=== PATIENT | female | born 1965 | race Caucasian/White ===

== ENCOUNTER → 2017-10-17 11:22 | Outpatient (CLI) | payer OTHER, SELFPAY ==
[2017-10-17 16:58] LABS: HIV - WCH Non-Reactive (Nonreactive)
[2017-10-19 01:05] LABS: Rapid Plasmin Reagin (RPR) NONREACTIVE (NONREACTIVE)
[2017-10-19 16:10] LABS: HEPATITIS B SURFACE AG Negative (Negative); Hepatitis B Core AB IgM Negative (Negative); Hepatitis B Core Ab Total Negative (Negative); Hepatitis Be Ab Negative (Negative); Hepatitis Be Ag Negative (Negative); Hepatitis C Ab <0.1 s/co ratio (0.0-0.9)
[2017-10-19 20:07] LABS: Chlamydia By Nucleic Acid AMP Negative (Negative); HSV 1 By PCR Negative (Negative)
[2017-10-20 10:50] LABS: HSV 1 IgG < 0.91 index (0.00-0.90); HSV 2 IgG < 0.91 index (0.00-0.90); Hep B Surface Antibodies Reactive (.)
[2017-10-20 11:08] LABS: Gonococcus By Nucleic Acid AMP Negative (Negative); HSV 2 By PCR Negative (Negative)
== END ==
PROVIDERS: Visit Provider Obstetrics & Gynecology
DX: Z11.3 Encounter for screening for infections with a predominantly sexual mode of transmission (principal)
CPT/HCPCS: 36415; 86592; 86695; 86696; 86703; 86704; 86705; 86706; 86707; 86803; 87086; 87340; 87350; 87491; 87529; 87591

== ENCOUNTER 2018-01-14 17:00 | Outpatient (RCR) | payer OTHER, SELFPAY ==
--- NOTE | 2017-12-06 18:21 | HP.OTEVAL ---
Patient's Visit Information KEMI SHAW is a 52 year old F, referred to Occupational Therapy by LINO CRUZ, with a diagnosis of R lateral epicondylitis and R cubital tunnel syndrome. Date of Evaluation: 12/06/17 Occupational Therapist: Kayla Key - Subjective Subjective: Noted started playing tennis a few months ago and started to get R elbow pain. She noted that stopped playing tennis about 5 weeks ago. She notes she has been taking aleve over the counter pain relief but still is having increased pain. Will be going on vacation and noted will have to schedule appointment around vacation. Explained further she had purchased an elbow strap to use when playing tennis. Notes wearing only with tennis, doctor provided wrist cock up brace at appointment. - Pain Right Elbow 1 Pain Intensity Range: 1, 6, 7 - Objective Concerns: Please send order for iontophoresis. OT will fax form to Dr. Cruz office for completion. Thanks! There may be potential need for script for cubital tunnel splint to go through insurance if elbow bands and wrist cock up do no relieve symptoms. 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 Pain 4/10 in R elbow during task. - Sensation Thumb: R 2.83, L 2.83 Index: R 2.83, L 2.83 Middle: R 2.83, L 2.83 Ring: R 2.83, L 3.22 Little: R 2.83, L 3.22 Sensation Comments: slight touch sensation deficit with use of monofilament. WFL and not of great concern yet. - DASH-Disabilities of Arm, Shoulder& Hand DASH Sum: 70 - Goals Goal:: Pt. 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 Goal:: Kemi to have no more than 0-1/10 pain during ADL/IALDs 4/5 trials 80% of the time by d/c. Goal:: Pt. to be mod I to complete joint protection stategies 4/5 trials 80% of the time to help decrease pain and promote increased participation in ADL/IADLs by time of d/c. Goal:: Kemi to be (I) to return to all ADL/IALD sincluding tennis with no need for bracing 4/5 trials 80% of the time to promtoe increased ability to complete tasks by d/c. - Rehabilitation General Assessment: Kemi arrived to OT evaluation on this date. She presents with symptoms that started about 5 weeks ago due to R lateral epicondylitis as well as cubital tunnel. No nerve conduction study at this time. Pain is limiting and causing sleep disturbances. 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 Due to acuteness of pain OT to trial modalities of US and superficial heating and cooling agents first. Explained to Pt. that if no pain relief perceived within first couple sessions then will use a combination between US and iontophoresis. Doctor will need to send script for iontophoresis. Wrist cock up brace provided by doctor and she is to wear at all times per doctor orders. OT advised to also wear elbow aircast band injunction to help decrease stain over ECRB. If that does not provide relief within 2 weeks OT will be trialing a cubital tunnel type of brace placing elbow at 60 degrees at all time to help decrease pain. Pain does not seem to be serve enough to start with this method and will trial less restricting methods first and foremost. At this time pain is limiting but not consistently nerve related pain as per Pt. report. Per pt. report, shooting pain not consistent but achiness is constant. OT to work on progressive strength, ROM, and pain control methods to promote returning to all ADL/IADls including tennis at [facility]. - Anticipated Interventions Anticipated Interventions: A/AAROM/PROM, Strengthening, Modalities, Joint Protection/Energy Conservation, Ergonomic Education, Dynamic Sitting Balance, Fine Motor Coord/Jeison, ADL Training, Caregiver Training, Home Program - Visit Plan Frequency: 2x /Week Duration: 6 Weeks General Plan: OT to address strength, ROM, and pain management with use of modalities, splinting, and pain management techiques of HEP to help decrease pain and promote increased ability to return to ADl/IADls including leisure interests. TEXT: Thank you for the opportunity to evaluate your patient. For Medicare and Medicare HMO plans, please review the plan of care and approve it. It will need to be FAXED BACK to us at [phone] for Medicare purposes. Please let me know if there are questions or concerns regarding this plan of care. Physician Signature: Date:
--- NOTE | 2018-01-14 18:15 | HP.OTREVAL ---
LINO SALEEM, It has been my pleasure to treat KEMI SHAW over the last 10 visits for R lateral epicondylitis and R cubital tunnel syndrome. Please see the progress note below for an update on the occupational therapy plan of care! Subjective: Pt. arrived and today is last scheduled appointment prior to returning to doctor tomorrow. Feels about 50% better. No brace on. No brace at work today. Wears brace at work with a lot of typing. Objective/Function: Measurements taken on this date. 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 L 94; extensionR 74 (pain at 5/10), L 96; lateral pinch R 18, L 18; tripod R 20, L 19; tip pinch R 19, L 14 lbs. Completed monofilament test: R hand: thumb: 2.83. 2nd: 2.83. 3rd: 2.83. 4th: 2.83. 5th: 2.83. L hand: thumb: 2.83. 2nd: 2.83. 3rd: 2.83. 4th: 2.83. 5th: 2.83. She has progressed with all measurements. Plan Frequency: 2x /Week Duration: 2-3 Plan: She has completed 10 visits. Last ionto tx completed today totaling 6 tx. Noted most relief after first ionto tx. She is returning to doctor tomorrow. She has progressed but discomfort still present when elbow extended. Compliance we suggestions and braces variable due to increased discomfort with air cast over elbow and wrist cock up splint. She has progressed in all measurements. She is no longer numb and tingling consistently over the area ulnar nerve innervation just variably t/o day. She would benefit from potentially more testing to determine degree of compression of nerve or cortisone shot due to perception of no real changes with ionto at this time. She would benefit from 2-3x more weeks of therapy and potentially 4-6x more tx of ionto if doctor does not feel cortisone would benefit. 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 Goal:: Kemi to have no more than 0-1/10 pain during ADL/IALDs 4/5 trials 80% of the time by d/c. Goal:: Pt. to be mod I to complete joint protection stategies 4/5 trials 80% of the time to help decrease pain and promote increased participation in ADL/IADLs by time of d/c. Goal:: Kemi to be (I) to return to all ADL/IALD sincluding tennis with no need for bracing 4/5 trials 80% of the time to promtoe increased ability to complete tasks by d/c. Anticipated Interventions Anticipated Interventions: A/AAROM/PROM, Strengthening, Modalities, Joint Protection/Energy Conservation, Ergonomic Education, Dynamic Sitting Balance, Fine Motor Coord/Jeison, ADL Training, Caregiver Training, Home Program Please do not hesitate to contact me at [phone] by phone or if you have questions or concerns regarding this new plan of care! Sincerely, Kayla Key
--- NOTE | 2018-03-07 14:18 | HP.OTDCNRP_ITS ---
HP - Discharge Summary - Patient Information BAIRON SHAW was seen in my office for initial evaluation on 12/06/17. The following Plan of Care was established for this patient: Initial Frequency: 2x /Week Initial Duration: 2-3 Plan: She has completed 10 visits. Last ionto tx completed today totaling 6 tx. Noted most relief after first ionto tx. She is returning to doctor tomorrow. She has progressed but discomfort still present when elbow extended. Compliance we suggestions and braces variable due to increased discomfort with air cast over elbow and wrist cock up splint. She has progressed in all measurements. She is no longer numb and tingling consistently over the area ulnar nerve innervation just variably t/o day. She would benefit from potentially more testing to determine degree of compression of nerve or cortisone shot due to perception of ?no real changes with ionto? at this time. She would benefit from 2-3x more weeks of therapy and potentially 4-6x more tx of ionto if doctor does not feel cortisone would benefit. - Anticipated Interventions Anticipated Interventions: A/AAROM/PROM, Strengthening, Modalities, Joint Protection/Energy Conservation, Ergonomic Education, Dynamic Sitting Balance, Fine Motor Coord/Jeison, ADL Training, Caregiver Training, Home Program This patient was last seen in our office 01/15/18. Pertinent comments regarding their Occupational therapy will appear below: Last time seen completed reassessment on 01/15/18. She was to return for further iontophoresis treatment if opted out of cortisone injection. She has not scheduled further treatment and will be d'c'd at this time. At this point I will be discontinuing this patient from occupational therapy. I would be happy to see this patient again in the future if found appropriate by the physician. Thank you! Kayla Key
== END 2018-01-14 19:00 | disposition home or self-care (01) ==
LOC: OT 17:00
PROVIDERS: Family Provider Internal Medicine; PCP Internal Medicine
DX: M77.11 Lateral epicondylitis, right elbow (principal); G56.21 Lesion of ulnar nerve, right upper limb
CPT/HCPCS: 97035; 97110; 97140; 97166; 97530

== ENCOUNTER → 2018-02-19 07:08 | Outpatient (CLI) | payer OTHER, SELFPAY | PROVIDERS: Family Provider Internal Medicine; PCP Internal Medicine; Visit Provider Obstetrics & Gynecology | DX: Z12.31 Encounter for screening mammogram for malignant neoplasm of breast (principal) | CPT/HCPCS: 77063; 77067 ==

== ENCOUNTER → 2018-05-29 17:34 | Outpatient (CLI) | payer OTHER, SELFPAY ==
[2017-02-08 11:35] VITALS: BMI 24.0
[2018-06-04 10:27] LABS: HPV Reflexed? NOT INDICATED
--- OUTSIDE RECORDS SUMMARY | 2018-07-15 22:28 | XMS RPT_ITS ---
:1965 Author Organization [employer] Address [address] [place] [address] Phone Care Team Providers Name Role Phone Quintin Cruz MD Unavailable Reason for Visit Reason For Visit Description Start Date Follow-up by complaint Preliminary reason for visit data, not yet signed by the author as of right elbow Preliminary reason for visit data, not yet signed by the author as of Chief Complaint Chief Complaint Description Start Date right elbow Preliminary chief complaint data, not yet signed by the author as of Instructions Instruction Description Start Date Completed Plan of Care Type Date Detail Appointment 10:15 AM Quintin Cruz MD, [address], [address], [place], [address], Medications Medication Instructions Start Stop Generic Name NDC Provider Date Date WOMENS 1 tablet once a MULTIPLE [id number] Quintin Quinteros MULTIVITAMIN day 3 VITAMINS-MIN Anthony CHEN TABRob ERALS CO Q 10 10 MG 1 tablet daily COENZYME Q10 [id number] Quintin Quinteros CAPS 9 Anthony CHEN MAGNESIUM 500 MG 1 tablet daily MAGNESIUM [id number] Quintin Quinteros TABS 9 Anthony CHEN Conditions or Problems Problem Problem Code Onset Status Entry Provider Comment Standard Annotate Name Date Date Description Carpal G56.01 Active Quintin Quinteros Carpal tunnel tunnel (ICD-10-CM) 07/07 07/07 Anthony CHEN syndrome, syndrome right upper right limb upper limb Cubital 70073310 (SNOMED Active Quintin Quinteros Cubital tunnel tunnel CT) 12/04 12/04 Anthony CHEN syndrome syndrome on right Lateral [id number] Active Quintin A Lateral epicondyli (SNOMED CT) 12/04 12/04 Anthony CHEN epicondylitis tis, right of right elbow humerus Allergies, Adverse Reactions, Alerts Allergy Name Reaction Start Date Severity Status Provider Description PLANT POLLENS coughing spells Critical Active Quintin A (HAY FEVER) Anthony CHEN MOLD coughing spells Critical Active Quintin A Anthony CHEN ZITHROMAX severe allergic Critical Active Quintin A (AZITHROMYCIN) response- Anthony CHEN anaphylactic PENICILLIN severe allergic Critical Active Quintin A response- Anthony CHEN anaphylactic LEVAQUIN severe allergic Critical Active Quintin A (LEVOFLOXACIN) response- Anthony CHEN anaphylactic CIPRO severe allergic Critical Active Quintin A (CIPROFLOXACIN response- Anthony CHEN HCL) anaphylactic Social History Concept Description Observation Name Observation Value Units Start Date Employment 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 Preliminary social history data, not yet signed by the author as of Vital Signs Date Name Value Unit Description BMI (Body Mass 24.01 kg/m2 Body Mass Index Index) [Ratio] Preliminary vital sign data, not yet signed by the author as of BP Diastolic 83 mm[Hg] blood pressure, diastolic Preliminary vital sign data, not yet signed by the author as of BP Systolic 131 mm[Hg] blood pressure, systolic Preliminary vital sign data, not yet signed by the author as of Heart Rate 48 /min pulse rate E&M Preliminary vital sign data, not yet signed by the author as of Height 65.799168 [in_us] height E&M Preliminary vital sign data, not yet signed by the author as of Height 166 cm height in centimeters E&M Preliminary vital sign data, not yet signed by the author as of Weight Measured 146 [lb_av] weight E&M Preliminary vital sign data, not yet signed by the author as of Weight Measured 66 kg weight in kilograms E&M Preliminary vital sign data, not yet signed by the author as of Results Date Name Value Unit Range Flag Description Office Visit: Follow-up by complaint, Rm: 3 MEDS REVIEW Done Documentation of current medications (procedure) Preliminary observation data, not yet signed by the author as of Preliminary observation data, not yet signed by the author as of Clinical Summary: HMSPatientID SOP account number Procedures Code Procedure Name Date Entry Date G8731 Pain assessment documented as negative - follow-up not required G8427 Current medications documented 1036F Tobacco screening was negative - non user G8420 BMI documented within normal parameters - no follow-up plan is required G8783 Blood pressure within normal parameters - no follow-up required [id number] Patient Encounter Medications Administered No information available. Immunizations No information available. Advance Directives There may be information available, but it has not been provided by the sender. Assessments There may be information available, but it has not been provided by the sender. Review of Systems There may be information available, but it has not been provided by the sender. Family History There may be information available, but it has not been provided by the sender. History of Past Illness There may be information available, but it has not been provided by the sender. History of Present Illness There may be information available, but it has not been provided by the sender.
--- OUTSIDE RECORDS SUMMARY | 2018-07-15 22:29 | XMS RPT_ITS ---
:1965 Author Organization OHIP Care Team Providers Name Role Phone Tiffany Franks Attending Unavailable Tiffany Franks Attending Unavailable DOCTOR, OUT OF TOWN Attending Unavailable Camilo, Karla Primary Care Unavailable Tiffany Franks Attending Unavailable LLUVIA RAMOS Attending Unavailable LLUVIA RAMOS Referring Unavailable Camilo, Karla Primary Care Unavailable Tiffany Franks Attending Unavailable Camilo, Karla Primary Care Unavailable Tiffany Franks Referring Unavailable Camilo DO, Karla Attending Unavailable Camilo DO, Karla Referring Unavailable Camilo DO, Karla Consulting Unavailable Purpose Purpose PROBLEMS PROBLEMS DATE TYPE CONDITION / CODE ATTENDING STATUS SOURCE 05/29/2018 Unknown Z12.4 - Encounter Tiffany Franks Active Prem for screening for Community malignant neoplasm [facility] / Repository Z12.4(ICD-10) 03/08/2018 Unknown M77.11 - Lateral LLUVIA RAMOS Active Prem epicondylitis, Community right elbow / Hospital M77.11(ICD-10) Repository 11/01/2017 Unknown Z11.3 - Encounter Tiffany Franks for screening for Community infections with a Hospital [facility] Repository sexual mode of transmission / Z11.3(ICD-10) PROCEDURES PROCEDURES No Procedure Records FoundVITAL SIGNS VITAL SIGNS No Vital Signs Records FoundRESULTS RESULTS HEMOGLOBIN A1C Collected: 05/30/2018 Status: F Source: PREM 8:51 AM [facility] REPOSITORY TYPE CODE TESTS RESULT OUT OF RANGE REFERENCE UNITS LAB L501.9985 4.2-6.3 % Normal HGB A1C 4.9 Performed By: #### L501.9985 #### [facility] [address] [place], [address] FREE T3 Collected: 05/30/2018 Status: F Source: BLAINE 8:51 AM [facility] REPOSITORY TYPE CODE TESTS RESULT OUT OF RANGE REFERENCE UNITS LAB L501.36927 2.18-3.98 pg/mL Normal FREE T3 2.8 Performed By: #### L501.62404, L501.9520, L506.0400, L3100.5125, L3300.1750 #### [facility] [address] [place], [address] THYROID STIM HORMONE Collected: 05/30/2018 Status: F Source: PREM (TSH) 8:51 AM [facility] REPOSITORY TYPE CODE TESTS RESULT OUT OF RANGE REFERENCE UNITS LAB L501.9520 0.358-3.74 uIU/mL Normal TSH 1.28 Performed By: #### L501.34708, L501.9520, L506.0400, L3100.5125, L3300.1750 #### [facility] [address] [place], [address] T4 FREE DIRECT Collected: 05/30/2018 Status: F Source: BLAINE 8:51 AM [facility] REPOSITORY TYPE CODE TESTS RESULT OUT OF RANGE REFERENCE UNITS LAB L506.0400 0.76-1.46 ng/dL Normal T4 FREE 0.89 DIRECT Performed By: #### L501.12693, L501.9520, L506.0400, L3100.5125, L3300.1750 #### [facility] [address] [place], [address] FOLLICLE STIMULATING Collected: 05/30/2018 Status: F Source: PREM HORMONE 8:51 AM [facility] REPOSITORY TYPE CODE TESTS RESULT OUT OF RANGE REFERENCE UNITS LAB L3100.5125 mIU/mL Normal FSH 3.9 Result Comment: NORMAL REFERENCE RANGES FEMALE FOLLICULAR 2.3 - 12.6 mIU/mL MID-CYCLE PEAK 5.2 - 17.5 mIU/mL LUTEAL 1.7 - 12.9 mIU/mL POST-MENOPAUSAL ON MHT 5.9 - 72.8 mIU/mL NOT ON MHT 12.7 - 132.2 mlU/mL MALE 0.7 - 10.8 mIU/mL NEW TEST METHOD AND REFERENCE RANGES NOVEMBER 06, 2011 Performed By: #### L501.04824, L501.9520, L506.0400, L3100.5125, L3300.1750 #### [facility] [address] [place], [address] ESTRADIOL Collected: 05/30/2018 Status: F Source: PREM 8:51 AM [facility] REPOSITORY TYPE CODE TESTS RESULT OUT OF RANGE REFERENCE UNITS LAB L3300.1750 pg/mL Normal ESTRADIOL 97.8 Result Comment: NORMAL REFERENCE RANGES FEMALE FOLLICULAR 21.4 - 164.8 pg/mL MID-CYCLE PEAK 49.9 - 367.2 pg/mL LUTEAL 40.2 - 259.0 pg/mL POST-MENOPAUSAL ON MHT <11.0 - 462.1 pg/mL NOT ON MHT <11.0 - 58.3 pg/mL MALE <11.0 - 52.5 pg/mL NOTE: [facility] HAS CONFIRMED THE DRUG FULVETRANT (FASLODEX) MAY CAUSE FALSELY ELEVATED ESTRADIOL RESULTS WHEN USING THIS TEST METHOD. IF PATIENT IS TAKING FULVESTRANT AN ALTERNATIVE METHOD SHOULD BE USED TO DETERMINE ESTRADIOL CONCENTRATION. Performed By: #### L501.41298, L501.9520, L506.0400, L3100.5125, L3300.1750 #### [facility] [address] [place], [address] TESTOSTERONE, SERUM TOTAL Collected: 05/30/2018 Status: F Source: PREM 8:51 AM [facility] REPOSITORY TYPE CODE TESTS RESULT OUT OF REFERENCE UNITS RANGE LAB L509.3000 ng/dL Testosterone Normal 17.33 Result Comment: NORMAL REFERENCE RANGES MALE AGE <50 123.06 - 813.86 ng/dL MALE AGE >50 89.98 - 780.10 ng/dL FEMALE PREMENOPAUSE AGE 21 - 60 9.01 - 47.94 ng/dL FEMALE POSTMENOPAUSE AGE 45 - 89 <7.00 - 45.62 ng/dL REFERENCE RANGE AND METHODOLOGY CHANGED 06/06/2017 Performed By: #### L509.3000, L509.4001 #### [facility] [address] [place], [address] PROGESTERONE LEVEL Collected: 05/30/2018 Status: F Source: PREM 8:51 AM [facility] REPOSITORY TYPE CODE TESTS RESULT OUT OF REFERENCE UNITS RANGE LAB L509.4001 See Comment ng/mL Progesterone Normal 0.17 Result Comment: Progesterone Reference Table: UNITS Female: Follicular 0.15 - 1.40 ng/mL Luteal 3.34 - 25.56 ng/mL Mid-luteal 4.44 - 28.03 ng/mL Postmenopausal 0.0 - 0.73 ng/mL : 1st Trimester 11.22 - 90.00 ng/mL 2nd Trimester 25.55 - 89.40 ng/mL 3rd Trimester 48.40 -422.50 ng/mL Performed By: #### L509.3000, L509.4001 #### [facility] [address] [place], [address] PAP I-G W/RFX HRHPV Collected: 05/29/2018 Status: F Source: PREM 1:45 PM [facility] REPOSITORY Order Comment: CYTOLOGY INFORMATION: - CLINICAL INFORMATION: HYSTERECTOMY - DATE LMP/MENOPAUSE: - COLLECTION VIAL: Thin Prep Vial - POLISH MAKER SOURCE: VAGINAL - COLLECTION TECHNIQUE: BRUSH/SPATULA Specimen Comment: [id number] Specimen Comment: Source.............Vagina Specimen Comment: LMP / Prev Treat...Hyst Specimen Comment: No. of containers..01 ThinPrep Vial TYPE CODE TESTS RESULT OUT OF RANGE REFERENCE UNITS LAB L7400.0800 . Normal DIAGN Comment Result Comment: NEGATIVE FOR INTRAEPITHELIAL LESION AND MALIGNANCY. LAB L7400.0900 . Normal ADEQ Comment Result Comment: Satisfactory for evaluation. No endocervical cells are present. This is consistent with a history of hysterectomy. LAB L7400.1400 . Normal PERFORM Comment Result Comment: Janet Meehan, [employer] (ASCP) LAB L7400.2575 . Normal TEST METHOD Comment Result Comment: This liquid based ThinPrep(R) pap test was screened with the use of an image guided system. LAB L7400.2600 . Normal . COMM LAB L7400.2700 . Normal PAPSMR Comment Result Comment: The Pap smear is a screening test designed to aid in the detection of premalignant and malignant conditions of the uterine cervix. It is not a diagnostic procedure and should not be used as the sole means of detecting cervical cancer. Both false-positive and false-negative reports do occur. LAB L7400.2800 . Normal HPV RFLX Comment Result Comment: The HPV DNA reflex criteria were not met with this specimen result therefore, no HPV testing was performed. Performed at: [facility] [id number] [employer] Sorter [employer] Cutter: Elisa Warren MD, Phone: [phone] Performed By: #### L7400.0350 #### [facility] (refer to report for specific site) refer to report for address and phone number OT D/C OF NON Observed: 03/07/2018 Status: F Source: [facility] PT 4:56 PM [facility] REPOSITORY [facility] [place] [address] Fax REHABILITATION SERVICES DISCHARGE SUMMARY MR#: [id number] Acct: [id number] Name: KEMI SHAW Rep #: [id number] : 1965 52 From: Kayla Key Referring : Status: REG RCR Eval Date: Discharge Date: HP - Discharge Summary - Patient Information KEMI SHAW was seen in my office for initial evaluation on 12/06/17. The following Plan of Care was established for this patient: Initial Frequency: 2x /Week Initial Duration: 2-3 Plan: She has completed 10 visits. Last ionto tx completed today totaling 6 tx. Noted most relief after first ionto tx. She is returning to doctor tomorrow. She has progressed but discomfort still present when elbow extended. Compliance we suggestions and braces variable due to increased discomfort with air cast over elbow and wrist cock up splint. She has progressed in all measurements. She is no longer numb and tingling consistently over the area ulnar nerve innervation just variably t/o day. She would benefit from potentially more testing to determine degree of compression of nerve or cortisone shot due to perception of no real changes with ionto at this time. She would benefit from 2-3x more weeks of therapy and potentially 4-6x more tx of ionto if doctor does not feel cortisone would benefit. - Anticipated Interventions Anticipated Interventions: A/AAROM/PROM, Strengthening, Modalities, Joint Protection/Energy Conservation, Ergonomic Education, Dynamic Sitting Balance, Fine Motor Coord/Jeison, ADL Training, Caregiver Training, Home Program This patient was last seen in our office 01/15/18. Pertinent comments regarding their Occupational therapy will appear below: Last time seen completed reassessment on 01/15/18. She was to return for further iontophoresis treatment if opted out of cortisone injection. She has not scheduled further treatment and will be d'c'd at this time. At this point I will be discontinuing this patient from occupational therapy. I would be happy to see this patient again in the future if found appropriate by the physician. Thank you! Kayla Key <Electronically signed by Kayla Key > 03/07/18 1656 CC: Karla Page DO; OUT OF TOWN DOCTOR K[facility] Signed SCREENING MAMM (CAD), Observed: 02/19/2018 Status: F Source: PREM BILAT 7:11 AM [facility] REPOSITORY [facility] [address] [place] [address] SCREENING MAMM (CAD), BILAT MR#: [id number] Acct: [id number] Name: KEMI SHAW Rep #: [id number] : 1965 F 52 From: Troy Menjivar MD PCP: Karla Page DO Status: REG CLI Study: SCREENING MAMM (CAD), BILAT Date of Exam: 02/19/18 Exam# [id number] Ordering Dr: Tiffany Franks MD MAMMOGRAPHY - BILATERAL SCREENING REASON FOR EXAM: Female, 52 years old. Routine annual screening examination. PERTINENT HISTORY: Non-contributory. TECHNIQUE: Digital bilateral breast maximilian (3D mammographic acquisition) in the CC and MLO projections. 2-D mediolateral oblique (MLO) and craniocaudad (CC) views of both breasts were obtained. CAD: Full Field Digital Mammography with Computer Added Detection was performed. COMPARISON: Comparison is made with prior study dated September 06, 2016 and April 12, 2015. FINDINGS: Breast Composition: The breasts are heterogeneously dense, which may obscure small masses. There are no dominant masses or suspicious calcifications. No other significant abnormalities are identified. There has been no significant change since the prior study. BI/SCREENING MAMM (CAD), BILAT IMPRESSION: Stable bilateral screening mammogram. Yearly follow-up mammogram recommended. (A) ASSESSMENT CATEGORY: BIRADS Category 1: Negative. A letter regarding these results will be sent to the patient by the facility within 30 days. Approximately 10% of breast cancers are not detected by mammography. A normal mammogram should not delay biopsy of a clinically suspicious abnormality. [id number] Electronically Signed: Troy Menjivar MD at 9:01 EDT Tel [phone], Service support , CC: Tiffany Franks MD; Karla Page DO Night Shift Supervisor: Signed RE-EVALUTION OT Observed: 01/14/2018 Status: F Source: BLAINE 6:26 PM [facility] REPOSITORY [facility] [place] [address] Fax REEVALUATION / MEDICARE RECERTIFICATION OCCUPATIONAL THERAPY MR#: [id number] Acct: [id number] Name: KEMI SHAW Rep #: [id number] : 1965 52 From: Kayla Key Referring : Status: REG RCR Insurance: [facility] Date: SELF PAY INSURANCE LINO CRUZ, It has been my pleasure to treat KEMI SHAW over the last 10 visits for R lateral epicondylitis and R cubital tunnel syndrome. Please see the progress note below for an update on the occupational therapy plan of care! Subjective: Pt. arrived and today is last scheduled appointment prior to returning to doctor tomorrow. Feels about 50% better. No brace on. No brace at work today. Wears brace at work with a lot of typing. Objective/Function: Measurements taken on this date. Measurements are as follows: ROM elbow flexion R 3-134; strength supervisor gear repair flexion R 79. L 94; extensionR 74 (pain at 5/10), L 96; lateral pinch R 18, L 18; tripod R 20, L 19; tip pinch R 19, L 14 lbs. Completed monofilament test: R hand: thumb: 2.83. 2nd: 2.83. 3rd: 2.83. 4th: 2.83. 5th: 2.83. L hand: thumb: 2.83. 2nd: 2.83. 3rd: 2.83. 4th: 2.83. 5th: 2.83. She has progressed with all measurements. Plan Frequency: 2x /Week Duration: 2-3 Plan: She has completed 10 visits. Last ionto tx completed today totaling 6 tx. Noted most relief after first ionto tx. She is returning to doctor tomorrow. She has progressed but discomfort still present when elbow extended. Compliance we suggestions and braces variable due to increased discomfort with air cast over elbow and wrist cock up splint. She has progressed in all measurements. She is no longer numb and tingling consistently over the area ulnar nerve innervation just variably t/o day. She would benefit from potentially more testing to determine degree of compression of nerve or cortisone shot due to perception of no real changes with ionto at this time. She would benefit from 2-3x more weeks of therapy and potentially 4-6x more tx of ionto if doctor does not feel cortisone would benefit. Goals - Goals Goal:: Pt. to increased r supervisor gear repair in flexed and extended position by 20-30 lbs to promote increased strength and manipulation of R UE in pain-free range 4/5 trials 805 of the time to return to PLOF and leisure pursiuts by d/c. Goal:: Kemi to have no more than 0-1/10 pain during ADL/IALDs 4/5 trials 80% of the time by d/c. Goal:: Pt. to be mod I to complete joint protection stategies 4/5 trials 80% of the time to help decrease pain and promote increased participation in ADL/IADLs by time of d/c. Goal:: Kemi to be (I) to return to all ADL/IALD sincluding tennis with no need for bracing 4/5 trials 80% of the time to promtoe increased ability to complete tasks by d/c. Anticipated Interventions Anticipated Interventions: A/AAROM/PROM, Strengthening, Modalities, Joint Protection/Energy Conservation, Ergonomic Education, Dynamic Sitting Balance, Fine Motor Coord/Jeison, ADL Training, Caregiver Training, Home Program Please do not hesitate to contact me at [phone] by phone or if you have questions or concerns regarding this new plan of care! Sincerely, Kayla Key <Electronically signed by Kayla Key > 01/14/18 1826 CC: Karla Page DO; OUT OF TOWN DOCTOR GEMA Signed For Medicare only, by signing this I certify the plan of care. Physicians Signature Date OT GENERAL EVALUATION Observed: 12/07/2017 Status: F Source: PREM 7:36 AM [facility] REPOSITORY [facility] [place] [address] Fax REHABILITATION SERVICES INITIAL EVALUATION MR#: [id number] Acct: [id number] Name: KEMI SHAW Rep #: [id number] : 1965 52 From: Kayla Key Referring DrDenis: Status: REG [facility] Insurance: [facility] Date: SELF PAY INSURANCE Patient's Visit Information KEMI SHAW is a 52 year old F, referred to Occupational Therapy by LINO CRUZ, with a diagnosis of R lateral epicondylitis and R cubital tunnel syndrome. Date of Evaluation: 12/06/17 Occupational Therapist: Kayla Key - Subjective Subjective: Noted started playing tennis a few months ago and started to get R elbow pain. She noted that stopped playing tennis about 5 weeks ago. She notes she has been taking aleve over the counter pain relief but still is having increased pain. Will be going on vacation and noted will have to schedule appointment around vacation. Explained further she had purchased an elbow strap to use when playing tennis. Notes wearing only with tennis, doctor provided wrist cock up brace at appointment. - Pain Right Elbow 1 Pain Intensity Range: 1, 6, 7 - Objective Concerns: Please send order for iontophoresis. OT will fax form to Dr. Cruz office for completion. Thanks! There may be potential need for script for cubital tunnel splint to go through insurance if elbow bands and wrist cock up do no relieve symptoms. - ROM Elbow: flexion R 10-135, L WNL Forearm: WFL Wrist: WFL CMC: WFL - Strength Hemodialysis Patient Care Specialist: flexed R 67, L 82; extended R 64 (pain), L 86 Lateral Pinch: R 18, L 18 Tripod Pinch: R 20, L 21 Tip-to-Tip Pinch: R 18, L 18 Strength Comments: increased pain while completeing supervisor gear repair in ext. Pain 4/10 in R elbow during task. - Sensation Thumb: R 2.83, L 2.83 Index: R 2.83, L 2.83 Middle: R 2.83, L 2.83 Ring: R 2.83, L 3.22 Little: R 2.83, L 3.22 Sensation Comments: slight touch sensation deficit with use of monofilament. WFL and not of great concern yet. - DASH-Disabilities of Arm, Shoulder AND Hand DASH Sum: 70 - Goals Goal:: Pt. to increased r supervisor gear repair in flexed and extended position by 20-30 lbs to promote increased strength and manipulation of R UE in pain-free range 4/5 trials 805 of the time to return to PLFO and leisure purssiuts by d/c. Goal:: Kemi to have no more than 0-1/10 pain during ADL/IALDs 4/5 trials 80% of the time by d/c. Goal:: Pt. to be mod I to complete joint protection stategies 4/5 trials 80% of the time to help decrease pain and promote increased participation in ADL/IADLs by time of d/c. Goal:: Kemi to be (I) to return to all ADL/IALD sincluding tennis with no need for bracing 4/5 trials 80% of the time to promtoe increased ability to complete tasks by d/c. - Rehabilitation General Assessment: Kemi arrived to OT evaluation on this date. She presents with symptoms that started about 5 weeks ago due to R lateral epicondylitis as well as cubital tunnel. No nerve conduction study at this time. Pain is limiting and causing sleep disturbances. She is R hand dominant and shows decreased strength and ROM of R supervisor gear repair as well as increased pain in R elbow with all gripping tasks. Due to acuteness of pain OT to trial modalities of US and superficial heating and cooling agents first. Explained to Pt. that if no pain relief perceived within first couple sessions then will use a combination between US and iontophoresis. Doctor will need to send script for iontophoresis. Wrist cock up brace provided by doctor and she is to wear at all times per doctor orders. OT advised to also wear elbow aircast band injunction to help decrease stain over ECRB. If that does not provide relief within 2 weeks OT will be trialing a cubital tunnel type of brace placing elbow at 60 degrees at all time to help decrease pain. Pain does not seem to be serve enough to start with this method and will trial less restricting methods first and foremost. At this time pain is limiting but not consistently nerve related pain as per Pt. report. Per pt. report, shooting pain not consistent but achiness is constant. OT to work on progressive strength, ROM, and pain control methods to promote returning to all ADL/IADls including tennis at [facility]. - Anticipated Interventions Anticipated Interventions: A/AAROM/PROM, Strengthening, Modalities, Joint Protection/Energy Conservation, Ergonomic Education, Dynamic Sitting Balance, Fine Motor Coord/Jeison, ADL Training, Caregiver Training, Home Program - Visit Plan Frequency: 2x /Week Duration: 6 Weeks General Plan: OT to address strength, ROM, and pain management with use of modalities, splinting, and pain management techiques of HEP to help decrease pain and promote increased ability to return to ADl/IADls including leisure interests. TEXT: Thank you for the opportunity to evaluate your patient. For Medicare and Medicare HMO plans, please review the plan of care and approve it. It will need to be FAXED BACK to us at [phone] for Medicare purposes. Please let me know if there are questions or concerns regarding this plan of care. Physician Signature: Date: <Electronically signed by Kayla Key > 12/07/17 0736 CC: Karla Page DO; OUT OF TOWN DOCTOR GEMA Signed For Medicare only, by signing this I certify the plan of care. Physicians Signature Date HIV - [facility] Collected: 10/17/2017 Status: F Source: PREM 11:27 AM [facility] REPOSITORY TYPE CODE TESTS RESULT OUT OF RANGE REFERENCE UNITS LAB L3890.6005 Nonreactive Normal HIV - [facility] Non-Reactive Performed By: #### L3890.6005 #### [facility] [address], [address] RAPID PLASMIN REAGIN Collected: 10/17/2017 Status: F Source: PREM (RPR) 11:27 AM [facility] REPOSITORY TYPE CODE TESTS RESULT OUT OF REFERENCE UNITS RANGE LAB L700.5000 NONREACTIVE NONREACTIVE Normal RPR Performed By: #### L700.5000 #### [facility] [address] [place], [address] HEPATITIS B/C PROFILE Collected: 10/17/2017 Status: F Source: [facility] 11:27 AM [facility] REPOSITORY TYPE CODE TESTS RESULT OUT OF RANGE REFERENCE UNITS LAB L3100.0400 Negative Normal HB Negative SURF AG LAB L3100.0420 Negative Normal HEP Negative Be AG 6619 LAB L3100.0440 Negative Normal HB Negative CORE [id number] LAB L3100.0460 Negative Normal HEP B Negative CORE,TOT LAB L3100.0480 Negative Normal HEP Negative Be Ab 6635 LAB L3100.0528 . Normal Hep B Reactive Pipe AB Result Comment: Non Reactive: Inconsistent with immunity, less than 10 mIU/mL Reactive: Consistent with immunity, greater than 9.9 mIU/mL LAB L3100.0750 0.0-0.9 s/co ratio Normal HCV Ab <0.1 LAB L3100.0765 . Normal COMMENT Comment Result Comment: Non reactive HCV antibody screen is consistent with no HCV infection, unless recent infection is suspected or other evidence exists to indicate HCV infection. Performed By: #### L3000.0800, L3400.1610 #### [facility] (refer to report for specific site) refer to report for address and phone number HSV 1 AND 2 IGG Collected: 10/17/2017 Status: F Source: [place]LA[place] 11:27 AM [facility] REPOSITORY TYPE CODE TESTS RESULT OUT OF RANGE REFERENCE UNITS LAB L3400.1620 0.00-0.90 index Normal HSV 1 IgG < 0.91 Result Comment: Negative <0.91 Equivocal 0.91 - 1.09 Positive >1.09 Note: Negative indicates no antibodies detected to HSV-1. Equivocal may suggest early infection. If clinically appropriate, retest at later date. Positive indicates antibodies detected to HSV-1. LAB L3400.1630 0.00-0.90 index Normal < HSV 2 IgG 0.91 Result Comment: Negative <0.91 Equivocal 0.91 - 1.09 Positive >1.09 Note: Negative indicates no antibodies detected to HSV-2. Equivocal may suggest early infection. If clinically appropriate, retest at later date. Positive indicates antibodies detected to HSV-2. Performed at: [facility] [address] [id number] [employer]utter: Roberth Mckee PhD, Phone: [phone] Performed By: #### L3000.0800, L3400.1610 #### [facility] (refer to report for specific site) refer to report for address and phone number MISCELLANEOUS LAB Collected: 10/17/2017 Status: F Source: PREM PROCEDURE 11:27 AM [facility] REPOSITORY Order Comment: Comments: HSV I AND II IGM #[id number] SERUM RF Test(s) Ordered: HSV I AND II IGM #[id number] SERUM RF TYPE CODE TESTS RESULT OUT OF RANGE REFERENCE UNITS LAB L801.1541 Normal [facility] TEST Result Comment: TEST RESULT LIMITS HSV 1 and 2 IgM Abs, Indirect HSV 1 IgM Antibodies <1:10 titer <1:10 HSV 2 IgM Antibodies <1:10 titer <1:10 HSV 1 and HSV 2 share many cross-reacting antigens. Elevated titers to both HSV 1 and HSV 2 may represent crossreactive HSV antibodies rather than exposure to both HSV 1 and HSV 2. Results for this test are for research purposes only by the assay's hairspring studder. The performance characteristics of this product have not been established. Results should not be used as a diagnostic procedure without confirmation of the diagnosis by another medically established diagnostic product or procedure. TESTING PERFORMED AT [facility]. ORIGINAL REPORT ON FILE IN LAB CONTAINS ADDITIONAL TEST SITE INFORMATION. Performed By: #### L801.1541 #### [facility] [address] [place], [address] HSV 1/2 BY PCR Collected: 10/17/2017 Status: F Source: PREM 11:05 AM [facility] REPOSITORY TYPE CODE TESTS RESULT OUT OF RANGE REFERENCE UNITS LAB L3400.1650 Negative Normal HSV 1 Negative BY PCR LAB L3400.1655 Negative Normal HSV 2 Negative BY PCR Result Comment: This test was developed and its performance characteristics determined by [facility]. It has not been cleared or approved by the U.S. Food and Drug Administration. The FDA has determined that such clearance or approval is not necessary. This test is used for clinical purposes. It should not be regarded as investigational or research. Performed By: #### L3400.1645, L7000.1800 #### [facility] (refer to report for specific site) refer to report for address and phone number CHLAMYDIA/GC LEVAR APTIMA Collected: 10/17/2017 Status: F Source: PREM 11:05 AM [facility] REPOSITORY TYPE CODE TESTS RESULT OUT OF RANGE REFERENCE UNITS LAB L7000.1900 Negative Normal Negative CHLAMY,NUC ACID LAB L7000.2000 Negative Normal GC BY Negative NUC ACID Result Comment: Performed at: - [address] [id number] [employer]: Luis Davila MD, Phone: [phone] Performed at: =G - [facility] [id number] [employer]: Elisa Warren MD, Phone: [phone] Performed By: #### L3400.1645, L7000.1800 #### [facility] (refer to report for specific site) refer to report for address and phone number Observed: 10/17/2017 Status: F Source: PREM CULTURE, URINE 10:50 AM [facility] REPOSITORY Urine Culture Culture exhibits no growth. Performed By: #### M100.0650 #### [facility] [place], [address] ALLERGIES ALLERGIES DATE TYPE / NAME / CODE REACTION SEVERITY SOURCE CODE 01/29/2017 Drug morphine/[id number] Vomiting Unknown Prem Allergy/41 (RXNORM) [facility] [id number]([facility]) Repository 03/06/2016 Drug ciprofloxacin Hives Unknown [place] Allergy/41 HCl/[id number](RXNO Community [id number]) Repository 03/06/2016 Drug Penicillins/Q394546 Hives Unknown Prem Allergy/41 476(RXNORM) [facility] 1716134([facility]) Repository 03/06/2016 Drug ciprofloxacin/F0060 Hives Unknown [place] Allergy/41 90582(RXNORM) Community 2737950([facility]) Repository 03/06/2016 Drug azithromycin/Q81895 Hives Unknown Prem Allergy/41 3635(RXNORM) [facility] 9636051([facility]) Repository 03/06/2016 Drug levofloxacin/G06324 Angioedema Unknown [place] Allergy/41 6299(RXNORM) [facility] 3357168([facility]) Repository ENCOUNTERS ENCOUNTERS ADMIT/DISCHARGE ACCOUNT ADMITTING ENCOUNTER LOCATION SOURCE NUMBER CLASS 07/08/2018 [id number] Ambulatory Building:[facility] [place] Practices Repository 06/25/2018 [id number] Ambulatory Prem Prem 9 [facility] ing:MASS Repository 05/30/2018 [id number] Ambulatory [place] [facility] ing:WOBLAB Repository 05/29/2018 [id number] Ambulatory [place] 9 [facility] ing:LABSPEC Repository 02/19/2018 [id number] Ambulatory Prem Prem 8 [facility] ing:OPBI Repository 01/14/2018/ [id number] Ambulatory Prem Prem [address] [place] [address] ing:OT Repository 10/17/2017 [id number] Ambulatory [place] Prem 3 [facility] ing:WOBLAB Repository FUNCTIONAL STATUS FUNCTIONAL STATUS No Functional Status Records FoundEQUIPMENT EQUIPMENT No Equipment Records FoundPAYERS PAYERS ENCOUNTER GUARANTOR PAYER SUBSCRIBER SOURCE 07/08/2018 Kemi Olivia [place] Practices KinkopfDOB: Insurance:Medical KinkopfDOB: Repository [id number] [facility] [id number] Autumn Number: 0 [place], [place] [id number] [place]ermanuelA[place], [place] [address]Duh: ([phone]) Date:5001-95-14Owsq [address]47[address]Wss: Name:[facility] Albert [phone] () ()Tel: [phone]) [address], [place] [phone] () [phone]: 07/08/2018 Secondary [place] Practices Insurance:AETTrey ConleyopfDOB: Repository Number: [id number] 0 Jessica Date: - [place], [place] [id number] [address]Dex: ([phone]) Name:[facility] [id number] (HP) REGAN NAOMY [id number]: 07/08/2018 Tertiary [place] Practices Insurance:[place] KinkopfDOB: Repository /BSPolicy Number: [id number] 0 Jessica Date: - [place], [place] [id number] 37[address]Bsz: (330) Name:[facility] [phone] () [address], [place] [id number]: 06/25/2018 Sherry [id number] Primary NOT GIVENUNK [place] Jessica Insurance:SELF PAY [facility] [address]Eye: ([phone]) Number: Effective Repository [phone] () Date:2015-11-29 05/30/2018 Sherry [id number] Primary Sherry KinkopfDOB: [place] Jessica Insurance:MEDICAL [id number] [address]Nxm: (419) Number: Repository [phone] () [id number] Date:6640-65-93[address], [place] [address]IZ: 05/30/2018 Secondary NOT GIVENUNK Prem Insurance:SELF PAY [facility] Number: Effective Repository Date:2018-05-30 05/29/2018 Sherry [id number] Primary Sherry KinkopfDOB: Prem Jessica Insurance:MEDICAL [id number]-[facility] [address]Gjp: (419) Number: Repository [phone] () [id number] Date:1616-21-03PP [facility] [address] [place] [id number]: 05/29/2018 Secondary NOT GIVENUNK Prem Insurance:SELF PAY [facility] Number: Effective Repository Date:2018-05-29 02/19/2018 Sherry [id number] Primary Sherry KinkopfDOB: Prem Jessica Insurance:MEDICAL [id number][facility] [address]Xxq: (419) Number: Repository [phone] () [id number] Date:0633-49-37LJ [address] [place] [address]TD: 02/19/2018 Secondary NOT GIVENUNK [place] Insurance:SELF PAY [facility] Number: Effective Repository Date:2018-01-29 01/14/2018 Sherry [id number] Primary Sherry KinkopfDOB: [place] Jessica Insurance:MEDICAL [id number] [id number]: [phone]) Number: Repository [phone] () [id number] Date:9435-66-04SI [address] [address]FK: 01/14/2018 Secondary NOT GIVENUNK Prem Insurance:SELF PAY [facility] Number: Effective Repository Date:2017-12-05 10/17/2017 Sherry [id number] Primary Sherry KinkopfDOB: Prem Jessica Insurance:MEDICAL [id number]-[facility] [address]Isf: (419) Number: Repository [phone] () [id number] Date:9643-34-11MC [address] [place] [phone]: 10/17/2017 Secondary NOT GIVENUNK Prem Insurance:SELF PAY [facility] Number: Effective Repository Date:2017-10-17 SOCIAL HISTORY SOCIAL HISTORY No Social History Records FoundFAMILY HISTORY FAMILY HISTORY No Family History Records FoundADVANCE DIRECTIVES ADVANCE DIRECTIVES No Advanced Directives Records FoundINFORMATION SOURCE INFORMATION SOURCE DATE CREATED AUTHOR AUTHOR'S ORGANIZATION 07/10/2018 [facility]
--- OUTSIDE RECORDS SUMMARY | 2018-07-15 22:29 | XMS RPT_ITS ---
:1965 Author Organization [facility] Address [address] [place] [address] Phone Care Team Providers Name Role Phone Anthony CHEN, Quintin Quinteros Unavailable Reason for Visit Reason For Visit [...] Plan of Care Type Date Detail Appointment 08:15 AM Quintin Cruz MD, [address] [facility], [address], [place], [address], Pending order EMG/NCT right upper extremity Medications Medication Instructions Start Stop Generic Name NDC Provider Date Date WOMENS 1 tablet once a MULTIPLE [id number] Quintin Quinteros MULTIVITAMIN day 3 VITAMINS-MIN Anthony CHEN TABRob ERALS CO Q 10 10 MG 1 tablet daily COENZYME Q10 41353923786 Quintin Quinteros CAPS 9 Anthony CHEN MAGNESIUM 500 MG 1 tablet daily MAGNESIUM 11516753715 Quintin GARLAND 9 Anthony CHEN Conditions or Problems Problem Problem Code Onset Status Entry Provider Comment Standard Annotate Name Date Date Description 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 Lateral 226766008634309 Active Quintin Quinteros Lateral epicondyli (SNOMED CT) 12/04 12/04 Anthony CHEN epicondylitis tis, right of right elbow humerus Allergies, Adverse Reactions, Alerts Allergy Name Reaction Start Date Severity Status Provider Description PLANT POLLENS coughing spells Critical Active Quintin A (HAY FEVER) Anthony CHEN MOLD coughing spells Critical Active Quintin Neli Cruz MD ZITHROMAX severe allergic Critical Active Quintin A (AZITHROMYCIN) response- Anthony CHEN anaphylactic PENICILLIN severe allergic Critical Active Quintin A response- Anthony CHEN anaphylactic LEVAQUIN severe allergic Critical Active Quintin A (LEVOFLOXACIN) response- Anthony CHEN anaphylactic CIPRO severe allergic Critical Active Quintin A (CIPROFLOXACIN response- Anthony CHEN HCL) anaphylactic Social History Concept Description Observation Name Observation Value Units Start Date 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 Preliminary social history data, not yet signed by the author as of Vital Signs Date Name Value Unit Description BMI (Body Mass 24.01 kg/m2 Body Mass Index Index) [Ratio] Preliminary vital sign data, not yet signed by the author as of BP Diastolic 82 mm[Hg] blood pressure, diastolic Preliminary vital sign data, not yet signed by the author as of BP Systolic 129 mm[Hg] blood pressure, systolic Preliminary vital sign data, not yet signed by the author as of Heart Rate 50 /min pulse rate E&M Preliminary vital sign data, not yet signed by the author as of Height 65.846699 [in_us] height E&M Preliminary vital sign data, [...] Description Office Visit: Follow-up by complaint, Rm: 4 MEDS REVIEW Done Documentation of current medications (procedure) Preliminary observation data, not yet signed by the author as of Preliminary observation data, not yet signed by the author as of Clinical Summary: HMSPatientID SOP account number Procedures Code Procedure Name Date Entry Date CPT-97047 Tendon Insert injection CPT-J0702 Injection - betamethasone acetate 3 mg and betamethasone sodium phosphate 3 mg G8730 Pain assessment documented as positive - follow-up documented G8427 Current medications documented 1036F Tobacco screening was negative - non user G8420 BMI documented within normal parameters - no follow-up plan is required G8783 Blood pressure within normal parameters - no follow-up required [facility]-[id number] Patient Encounter Medications Administered No information available. [...]
== END ==
PROVIDERS: Visit Provider Obstetrics & Gynecology
DX: Z12.4 Encounter for screening for malignant neoplasm of cervix (principal)
CPT/HCPCS: 88175; G0145

== ENCOUNTER → 2018-05-30 08:49 | Outpatient (CLI) | payer OTHER, SELFPAY ==
[2018-05-30 11:58] LABS: Hemoglobin A1c 4.9 % (4.2-6.3)
[2018-05-30 12:00] LABS: Estradiol 97.8 pg/mL; Follicle Stimulating Hormone 3.9 mIU/mL; Free T3 2.8 pg/mL (2.18-3.98); T4 Free Direct 0.89 ng/dL (0.76-1.46); Thyroid Stim Hormone (TSH) 1.28 uIU/mL (0.358-3.74)
[2018-05-30 12:01] LABS: Progesterone Level 0.17 ng/mL (See Comment)
--- OUTSIDE RECORDS SUMMARY | 2018-07-16 02:04 | XMS RPT_ITS ---
:1965 Author Organization OHIP Care Team Providers Name Role Phone Karla Page DO Attending Unavailable Karla Page DO Referring Unavailable Karla Page DO Consulting Unavailable Tiffany Franks Attending Unavailable Tiffany Franks Attending Unavailable DOCTOR, OUT OF TOWN Attending Unavailable Camilo Karla Primary Care Unavailable Tiffany Franks Attending Unavailable LLUVIA RAMOS Attending Unavailable LLUVIA RAMOS Referring Unavailable Camilo Karla Primary Care Unavailable Tiffany Franks Attending Unavailable Camilo, Karla Primary Care Unavailable Tiffany Franks Referring Unavailable Purpose Purpose PROBLEMS PROBLEMS DATE TYPE CONDITION / CODE ATTENDING STATUS SOURCE 05/29/2018 Unknown Z12.4 - Encounter Tiffany Franks for screening for Community malignant neoplasm [facility] / Repository Z12.4(ICD-10) 03/08/2018 Unknown M77.11 - Lateral LLUVIA RAMOS Active Prem epicondylitis, Community right elbow / Hospital M77.11(ICD-10) Repository 11/01/2017 Unknown Z11.3 - Encounter Tiffany Franks for screening for Community infections with a Hospital [facility] Repository sexual mode of transmission / Z11.3(ICD-10) PROCEDURES PROCEDURES No Procedure Records FoundVITAL SIGNS VITAL SIGNS No Vital Signs Records FoundRESULTS RESULTS HEMOGLOBIN A1C Collected: 05/30/2018 Status: F Source: PREM 8:51 AM [facility] REPOSITORY TYPE CODE TESTS RESULT OUT OF RANGE REFERENCE UNITS LAB L501.9985 4.2-6.3 % Normal HGB A1C 4.9 Performed By: #### L501.9985 #### [facility] [address] [place], [address] FREE T3 Collected: 05/30/2018 Status: F Source: SONOITA 8:51 AM [facility] REPOSITORY TYPE CODE TESTS RESULT OUT OF RANGE REFERENCE UNITS LAB L501.30879 2.18-3.98 pg/mL Normal FREE T3 2.8 Performed By: #### L501.42857, L501.9520, L506.0400, L3100.5125, L3300.1750 #### [facility] [address] [place], [address] THYROID STIM HORMONE Collected: 05/30/2018 Status: F Source: PREM (TSH) 8:51 AM [facility] REPOSITORY TYPE CODE TESTS RESULT OUT OF RANGE REFERENCE UNITS LAB L501.9520 0.358-3.74 uIU/mL Normal TSH 1.28 Performed By: #### L501.00354, L501.9520, L506.0400, L3100.5125, L3300.1750 #### [facility] [address] [place], [address] T4 FREE DIRECT Collected: 05/30/2018 Status: F Source: SONOITA 8:51 AM [facility] REPOSITORY TYPE CODE TESTS RESULT OUT OF RANGE REFERENCE UNITS LAB L506.0400 0.76-1.46 ng/dL Normal T4 FREE 0.89 DIRECT Performed By: #### L501.13043, L501.9520, L506.0400, L3100.5125, L3300.1750 #### [facility] [address] [place], [address] FOLLICLE STIMULATING Collected: 05/30/2018 Status: F Source: [...] RANGES NOVEMBER 06, 2011 Performed By: #### L501.57251, L501.9520, L506.0400, L3100.5125, L3300.1750 #### [facility] [address] [place], [address] ESTRADIOL Collected: 05/30/2018 Status: F Source: PREM [...] TO DETERMINE ESTRADIOL CONCENTRATION. Performed By: #### L501.82385, L501.9520, L506.0400, L3100.5125, L3300.1750 #### [facility] [address] [place], [address] TESTOSTERONE, SERUM TOTAL Collected: 05/30/2018 Status: F [...] 06/06/2017 Performed By: #### L509.3000, L509.4001 #### [facility] [address] [place], [address] PROGESTERONE LEVEL Collected: 05/30/2018 Status: F Source: [...] ng/mL Performed By: #### L509.3000, L509.4001 #### [facility] [address] [place], [address] PAP I-G W/RFX HRHPV Collected: 05/29/2018 Status: F Source: PREM 1:45 PM [facility] REPOSITORY Order Comment: CYTOLOGY INFORMATION: - CLINICAL INFORMATION: HYSTERECTOMY - DATE LMP/MENOPAUSE: - COLLECTION VIAL: Thin Prep Vial - KAYAK MAKER SOURCE: VAGINAL - COLLECTION TECHNIQUE: BRUSH/SPATULA Specimen Comment: [id number] Specimen Comment: Source.............Vagina Specimen Comment: LMP / [...] Normal PERFORM Comment Result Comment: Janet Meehan, Envelope Stuffer (ASCP) LAB L7400.2575 . Normal TEST METHOD [...] no HPV testing was performed. Performed at: [facility] [employer] [id number] Photoengraving Etcher Apprentice: Elisa Warren MD, Phone: [phone] Performed By: #### L7400.0350 #### [facility] (refer to report for specific site) refer to report for address and phone number OT D/C OF NON Observed: 03/07/2018 Status: F Source: [facility] PT 4:56 PM [facility] REPOSITORY [facility] Occupational Therapy Health[address] [place] [address] Fax REHABILITATION SERVICES DISCHARGE SUMMARY MR#: [id number] Acct: [id number] Name: KEMI SHAW Rep #: [id number] : 1965 52 From: Kayla Key Referring [...] 7:11 AM [facility] REPOSITORY [facility] Imaging Services [address] [place] [address] SCREENING MAMM (CAD), BILAT MR#: [id number] Acct: [id number] Name: KEMI SHAW Rep #: [id number] : 1965 F 52 From: Troy Menjivar MD PCP: Karla Page DO Status: REG CLI Study: SCREENING MAMM (CAD), BILAT Date of Exam: 02/19/18 Exam# [id number] Ordering Dr: Tiffany Franks MD MAMMOGRAPHY - [...] delay biopsy of a clinically suspicious abnormality. [id number] Electronically Signed: Troy Menjivar MD at 9:01 EDT Tel [phone], Service support , CC: Tiffany Franks MD; Karla Page DO Clinical Social Work Aide: Signed RE-EVALUTION OT Observed: 01/14/2018 Status: F Source: SONOITA 6:26 PM [facility] REPOSITORY [facility] Occup[facility] Therapy Health[address] [place] [address] Fax REEVALUATION / MEDICARE RECERTIFICATION OCCUPATIONAL THERAPY MR#: [id number] Acct: [id number] Name: KEMI SHAW Rep #: [id number] : 1965 52 From: Kayla Key Referring : Status: REG RCR Insurance: [facility] Date: SELF PAY INSURANCE LINO CRUZ, It [...] follows: ROM elbow flexion R 3-134; strength ground crew lines person flexion R 79. L 94; extensionR 74 [...] - Goals Goal:: Pt. to increased r ground crew lines person in flexed and extended position by 20-30 [...] do not hesitate to contact me at [phone] by phone or if you have questions [...] 7:36 AM [facility] REPOSITORY [facility] Occupational Therapy Health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 Pain 4/10 in R elbow [...] - Goals Goal:: Pt. to increased r ground crew lines person in flexed and extended position by 20-30 [...] shows decreased strength and ROM of R ground crew lines person as well as increased pain in R [...] returning to all ADL/IADls including tennis at [facility]. - Anticipated Interventions Anticipated Interventions: A/AAROM/PROM, Strengthening, [...] to be FAXED BACK to us at [phone] for Medicare purposes. Please let me know if there are questions or concerns regarding this plan of care. Physician Signature: Date: <Electronically signed by Kayla Key > 12/07/17 0736 CC: Karla Page DO; OUT OF TOWN DOCTOR GEMA Signed For Medicare only, by signing this I certify the plan of care. Physicians Signature Date HIV - [facility] Collected: 10/17/2017 Status: F Source: PREM 11:27 AM [facility] REPOSITORY TYPE CODE TESTS RESULT OUT OF RANGE REFERENCE UNITS LAB L3890.6005 Nonreactive Normal HIV - [facility] Non-Reactive Performed By: #### L3890.6005 #### [facility] [address] [place], [address] RAPID PLASMIN REAGIN Collected: 10/17/2017 Status: F Source: PREM (RPR) 11:27 AM [facility] REPOSITORY TYPE CODE TESTS RESULT OUT OF REFERENCE UNITS RANGE LAB L700.5000 NONREACTIVE NONREACTIVE Normal RPR Performed By: #### L700.5000 #### [facility] [address] [place], [address] HEPATITIS B/C PROFILE Collected: 10/17/2017 Status: F Source: [facility] 11:27 AM [facility] REPOSITORY TYPE CODE TESTS RESULT OUT OF RANGE REFERENCE UNITS LAB L3100.0400 Negative Normal HB Negative SURF AG LAB L3100.0420 Negative Normal HEP Negative Be AG 6619 LAB L3100.0440 Negative Normal HB Negative CORE [id number] LAB L3100.0460 Negative Normal HEP B Negative [...] 2 IGG Collected: 10/17/2017 Status: F Source: SONOITA 11:27 AM [facility] REPOSITORY [...] indicates antibodies detected to HSV-2. Performed at: [facility] [address] [id number] Photoengraving Etcher Apprentice: Roberth Mckee PhD, Phone: [phone] Performed By: #### L3000.0800, L3400.1610 #### [facility] (refer to report for specific site) refer to report for address and phone number MISCELLANEOUS LAB Collected: 10/17/2017 Status: F Source: PREM PROCEDURE 11:27 AM [facility] REPOSITORY Order Comment: Comments: HSV I AND II IGM #[id number] SERUM RF Test(s) Ordered: HSV I AND II IGM #[id number] SERUM RF TYPE CODE TESTS RESULT OUT OF RANGE REFERENCE UNITS LAB L801.1541 Normal [facility] TEST Result Comment: TEST RESULT LIMITS [...] for research purposes only by the assay's wind technician. The performance characteristics of this product have not been established. Results should not be used as a diagnostic procedure without confirmation of the diagnosis by another medically established diagnostic product or procedure. TESTING PERFORMED AT [facility]. ORIGINAL REPORT ON FILE IN LAB CONTAINS ADDITIONAL TEST SITE INFORMATION. Performed By: #### L801.1541 #### [facility] [address] [place], [address] HSV 1/2 BY PCR Collected: 10/17/2017 Status: F Source: PREM 11:05 AM [facility] REPOSITORY TYPE CODE TESTS RESULT OUT OF RANGE REFERENCE UNITS LAB L3400.1650 Negative Normal HSV 1 Negative BY PCR LAB L3400.1655 Negative Normal HSV 2 Negative BY PCR Result Comment: This test was developed and its performance characteristics determined by [employer]. It has not been cleared or approved [...] NUC ACID Result Comment: Performed at: - [address] [id number] Photoengraving Etcher Apprentice: Luis Davila MD, Phone: [phone] Performed at: =G - [facility] [id number] Photoengraving Etcher Apprentice: Elisa Warren MD, Phone: [phone] Performed By: #### L3400.1645, L7000.1800 #### [facility] (refer to report for specific site) refer to report for address and phone number Observed: 10/17/2017 Status: F Source: PREM CULTURE, URINE 10:50 AM [facility] REPOSITORY Urine Culture Culture exhibits no growth. Performed By: #### M100.0650 #### [facility] [place], [address] ALLERGIES ALLERGIES DATE TYPE / NAME / CODE REACTION SEVERITY SOURCE CODE 01/29/2017 Drug morphine/[id number] Vomiting Unknown Prem Allergy/41 (RXNORM) [facility] [id number]([facility]) Repository 03/06/2016 Drug ciprofloxacin Hives Unknown [place] Allergy/41 HCl/[id number](RXNO [facility] 1093346[facility]) Repository 03/06/2016 Drug Penicillins/S260765 Hives Unknown [place] Allergy/41 476(RXNORM) [facility] 5905103([facility]) Repository 03/06/2016 Drug ciprofloxacin/F0060 Hives Unknown [place] Allergy/41 36894(RXNORM) Community 1612886([facility]) Repository 03/06/2016 Drug azithromycin/G35122 Hives Unknown Prem Allergy/41 3635(RXNORM) [facility] 4966887([facility]) Repository 03/06/2016 Drug levofloxacin/Q24127 Angioedema Unknown [place] Allergy/41 6299(RXNORM) [facility] 5188675([facility]) Repository ENCOUNTERS ENCOUNTERS ADMIT/DISCHARGE ACCOUNT ADMITTING ENCOUNTER LOCATION SOURCE NUMBER CLASS 07/08/2018 [id number] Ambulatory Building:[facility] [place] Practices Repository 06/25/2018 [id number] Ambulatory Prem Prem 9 [facility] ing:MASS Repository 05/30/2018 [id number] Ambulatory [place] [facility] ing:WOBLAB Repository 05/29/2018 [id number] Ambulatory [place] [facility] ing:LABSPEC Repository 02/19/2018 [id number] Ambulatory Prem Prem 8 [facility] ing:OPBI Repository 01/14/2018/ [id number] Ambulatory Prem Prem [address] [place] [address] ing:OT Repository 10/17/2017 [id number] Ambulatory [place] Prem 3 [facility] ing:WOBLAB Repository FUNCTIONAL STATUS FUNCTIONAL STATUS No Functional Status Records FoundEQUIPMENT EQUIPMENT No Equipment Records FoundPAYERS PAYERS ENCOUNTER GUARANTOR PAYER SUBSCRIBER SOURCE 07/08/2018 Kemi Olivia [place] Practices KinkopfDOB: Insurance:Medical KinkopfDOB: Repository [id number] [facility] [id number] Autumn Number: 0 [place] [id number] [facility], [place] [address]Skw: [phone]) Date:6665-19-65Nmli [address]Nno: Name:[facility] Albert [phone] () ()Tel: [phone], [place] [phone] () [phone]: 07/08/2018 Secondary [facility]IP Practices Insurance:AETTrey ConleyopfDOB: Repository Number: [id number] 0 Jessica Date: - [place], [place] 3621-51-01Qqoz [address]Qkm: ([phone]) Name:[facility] [id number] [id number] (HP) REGAN NAOMY [id number]: 07/08/2018 Tertiary [facility] [facility] Practices Insurance:[place] KinkopfDOB: Repository /BSPolicy Number: [id number] 0 Jessica Date: - [place], [place] 2576-25-30Fvja [address]Bsx: ([phone]) Name:[facility] [id number] () [address], [place] [id number]: 06/25/2018 Sherry [id number] Primary NOT GIVENUNK [place] Jessica Insurance:SELF PAY [facility] [address]Sjn: (419) Number: Effective Repository [phone] () Date:2015-11-29 05/30/2018 Sherry ConleyWwzpiyk1985 Primary Sherry KinkopfDOB: [place] Jessica Insurance:MEDICAL [id number] [address]Esl: (419) Number: Repository [phone] () [id number] Date:9146-51-79CD [address], [place] [address]FD: 05/30/2018 Secondary NOT GIVENUNK Prem Insurance:SELF PAY [facility] Number: Effective Repository Date:2018-05-30 05/29/2018 Sherry ConleyRyytxdy7936 Primary Sherry KinkopfDOB: Prem Jessica Insurance:MEDICAL [id number] [facility] [address]Qcp: (419) Number: Repository [phone] () [id number] Date:1426-49-78TZ [facility] [address] [place] [address]JF: 05/29/2018 Secondary NOT GIVENUNK Prem Insurance:SELF PAY [facility] Number: Effective Repository Date:2018-05-29 02/19/2018 Sherry [id number] Primary Sherry KinkopfDOB: Prem Jessica Insurance:MEDICAL [id number] [facility] [address]Jeq: (419) Number: Repository [phone] () [id number] Date:6678-23-80DY [address] [place] [address]WX: 02/19/2018 Secondary NOT GIVENUNK [place] Insurance:SELF PAY [facility] Number: Effective Repository Date:2018-01-29 01/14/2018 Sherry [id number] Primary Sherry KinkopfDOB: [place] Jessica Insurance:MEDICAL [id number] [id number]: (419) Number: Repository [phone] () [id number] Date:4980-49-03WG [address] [address]KI: 01/14/2018 Secondary NOT GIVENUNK Prem Insurance:SELF PAY [facility] Number: Effective Repository Date:2017-12-05 10/17/2017 Sherry [id number] Primary Sherry KinkopfDOB: Prem Jessica Insurance:MEDICAL [id number] [facility] [address]Kzm: (419) Number: Repository [phone] () [id number] Date:8452-57-11IL [address] [place] [phone]: 10/17/2017 Secondary NOT GIVENUNK Prem Insurance:SELF PAY [facility] Number: Effective Repository Date:2017-10-17 SOCIAL HISTORY SOCIAL HISTORY No Social History Records FoundFAMILY HISTORY FAMILY HISTORY No Family History Records FoundADVANCE DIRECTIVES ADVANCE DIRECTIVES No Advanced Directives Records FoundINFORMATION SOURCE INFORMATION SOURCE DATE CREATED AUTHOR AUTHOR'S ORGANIZATION 07/10/2018 [facility]
== END ==
PROVIDERS: Visit Provider Obstetrics & Gynecology
DX: R53.83 Other fatigue (principal); Z78.0 Asymptomatic menopausal state
CPT/HCPCS: 36415; 82670; 83001; 83036; 84144; 84403; 84439; 84443; 84481

== ENCOUNTER → 2018-07-11 12:39 | Outpatient (CLI) | payer OTHER, SELFPAY ==
--- NOTE | 2018-07-11 12:50 | RAD_ITS ---
STUDY: X-RAY CHEST REASON FOR EXAM: Female, 52 years old. Cough and fever. History of asthma. TECHNIQUE: PA and lateral views of the chest. COMPARISON: None. FINDINGS: The lungs are clear and expanded. There is no demonstrated pleural abnormality. Normal size heart. Normal mediastinum and kenzie. Normal visualized pulmonary arteries. Normal visualized aortic arch and descending thoracic aorta. Normal visualized thoracic spine. Normal visualized ribs, clavicles, and shoulders. There is no demonstrated abnormality of the visualized soft tissue structures of the upper abdomen. RAD/Chest PA and Lateral IMPRESSION: Normal x-ray examination of the chest. Electronically Signed: Troy Menjivar MD at 13:12 EST , Service support ,
== END ==
PROVIDERS: Family Provider Internal Medicine; Referring Provider Nurse Practitioner Gerontology; Visit Provider Nurse Practitioner Gerontology
DX: R05 Cough (principal)
CPT/HCPCS: 71046

== ENCOUNTER → 2019-05-21 12:24 | Outpatient (CLI) | payer OTHER, SELFPAY ==
[2018-09-02 13:39] VITALS: BMI 22.3
--- NOTE | 2019-05-21 12:26 | BI_ITS ---
MAMMOGRAPHY - BILATERAL SCREENING REASON FOR EXAM: Female, 53 years old. Routine annual screening examination. PERTINENT HISTORY: Non-contributory. TECHNIQUE: Digital bilateral breast margarita (3D mammographic acquisition) in the CC and MLO projections. 2-D mediolateral oblique (MLO) and craniocaudad (CC) views of both breasts were obtained. CAD: Full Field Digital Mammography with Computer Added Detection was performed. COMPARISON: Comparison is made with prior study to February 19, 2018 and September 06, 2016. FINDINGS: Breast Composition: The breasts are heterogeneously dense, which may obscure small masses. There are no dominant masses or suspicious calcifications. No other significant abnormalities are identified. There has been no significant change since the prior study. BI/SCREEN MAMM (CAD) W/MARGARITA BILAT IMPRESSION: Stable bilateral screening mammogram. Yearly follow-up mammogram recommended. (A) ASSESSMENT CATEGORY: BIRADS Category 1: Negative. A letter regarding these results will be sent to the patient by the facility within 30 days. Approximately 10% of breast cancers are not detected by mammography. A normal mammogram should not delay biopsy of a clinically suspicious abnormality. [id number] Electronically Signed: Troy Menjivar, at 13:47 EST , Service support ,
== END ==
PROVIDERS: Family Provider Internal Medicine; PCP Internal Medicine; Referring Provider Obstetrics & Gynecology; Visit Provider Obstetrics & Gynecology
DX: Z12.31 Encounter for screening mammogram for malignant neoplasm of breast (principal)
CPT/HCPCS: 77063; 77067

== ENCOUNTER → 2019-07-18 12:54 | Outpatient (CLI) | payer OTHER, SELFPAY ==
[2019-06-12 07:31] VITALS: BMI 22.3
--- NOTE | 2019-07-18 12:57 | ECHOD_ITS ---
Reason For Study: Visual Changes Procedure This was a 2D Doppler, Color Flow transthoracic echocardiogram. Contrast injection was performed. Exam performed in department. Left Ventricle Normal LV size. Left ventricular systolic function is normal. The estimated ejection fraction is 60 %. No evidence for diastolic dysfunction. No regional wall motion abnormalities noted. Right Ventricle Normal RV size. Normal systolic function. Atria Normal left atrium. Normal right atrium. No doppler evidence for ASD. Bubble contrast study negative for right to left interatrial shunt. Mitral Valve There is no mitral annular calcification. Normal mitral valve. Trivial mitral valve insufficiency. Tricuspid Valve Normal tricuspid valve. Trivial tricuspid valve insufficiency. Right ventricular systolic pressure estimated to be 26 mmHg. Aortic Valve Trisinus/trileaflet aortic valve. Normal aortic valve. Trivial aortic valve insufficiency. Pulmonic Valve The pulmonic valve is not well visualized. Trivial pulmonic valve insufficiency. Great Vessels Normal sized aortic root. Pericardium/Pleural No pericardial effusion. Medication 22 gauge I.V. with prn adaptor inserted into right arm. Performed a rapid injection of agitated mix of 9 cc saline and 1cc air to assess for atrial septal defect. MMode/2D Measurements & Calculations LVIDd: 3.9 cm IVSd: 0.88 cm Ao root diam: 3.5 cm LVIDs: 2.8 cm LVPWd: 1.1 cm LA dimension: 3.6 cm RVDd: 3.5 cm FS: 28.7 % LAV(MOD-bp): 55.3 ml LA A4 area: 18.6 cm2 RA A4 area: 17.7 cm2 LAV(MOD-bp) Indexed: 31.6 ml/m2 LAV(MOD-sp2): 52.0 ml LAV(MOD-sp4): 52.7 ml Time Measurements MV dec time: 0.30 sec Doppler Measurements & Calculations MV E max prasanna: 87.4 cm/sec Lat Peak E' Prasanna: 12.5 cm/sec Med Peak E' Prasanna: 11.9 cm/sec MV A max prasanna: 73.9 cm/sec E/E' lat: 7.0 E/E' med: 7.3 MV E/A: 1.2 MV V2 max: 87.4 cm/sec MV P1/2t max prasanna: 89.3 cm/sec Ao V2 max: 124.2 cm/sec MV max P.1 mmHg MV P1/2t: 133.2 msec Ao max P.2 mmHg MV V2 mean: 47.4 cm/sec MV dec slope: 196.3 cm/sec2 MV mean P.1 mmHg MV V2 VTI: 37.7 cm MVA(P1/2t): 1.7 cm2 LV V1 max: 137.1 cm/sec PA V2 max: 87.6 cm/sec PI dec slope: 133.4 cm/sec2 LV V1 max P.5 mmHg TR max prasanna: 238.2 cm/sec TR max P.7 mmHg Interpretation Summary Contrast injection was performed. Left ventricular systolic function is normal. The estimated ejection fraction is 60 %. Trivial mitral valve insufficiency. Trivial tricuspid valve insufficiency. Trivial aortic valve insufficiency. Trivial pulmonic valve insufficiency. Right ventricular systolic pressure estimated to be 26 mmHg. No evidence for diastolic dysfunction. Bubble contrast study negative for right to left interatrial shunt. Ordering Physician: Karla Page Referring Physician: Karla Page Performed By: Jesse Davison RCS
--- NOTE | 2019-07-18 12:58 | CDU_ITS ---
Reason For Study: Visual changes Rt. Velocities/BP Lt. Velocities/BP Prox CCA 81.2/17.3 cm/sec. Prox CCA 67.3/19 cm/sec. Mid CCA 56.4/14.6 cm/sec. Mid CCA 67.3/21.2 cm/sec. Dist CCA 57.5/19 cm/sec. Dist CCA 65.1/21.2 cm/sec. Prox ICA 39.5/13.3 cm/sec. Prox ICA 58.6/23.4 cm/sec. Mid ICA 70.2/27.7 cm/sec. Mid ICA 88.2/35.5 cm/sec. Dist ICA 75/30 cm/sec. Dist ICA 81.7/33.3 cm/sec. Rt. ICA/CCA = 1.3. Lt. ICA/CCA = 1.3. Prox ECA 68.4/9.1 cm/sec. Prox ECA 64/11.3 cm/sec. Rt. Vert. 40.8/13 cm/sec. Lt. Vert. 60.8/23.4 cm/sec. Right Extracranial There is intimal thickening but no significant atherosclerotic plaque noted in the right common carotid artery. There is intimal thickening but no significant atherosclerotic plaque noted in the right internal carotid artery. There is no significant atherosclerotic plaque noted in the right external carotid artery. Antegrade flow is noted in the right vertebral artery. Left Extracranial There is homogeneous, smooth atherosclerotic plaque noted in the left common carotid artery. There is intimal thickening but no significant atherosclerotic plaque noted in the left internal carotid artery. There is intimal thickening but no significant atherosclerotic plaque noted in the left external carotid artery. Antegrade flow is noted in the left vertebral artery. Procedure Carotid Duplex [id number]. Exam performed in department. Interpretation Summary No significant atherosclerotic plaque or stenosis noted in the internal carotid arteries bilaterally. Flow within the vertebral arteries is antegrade bilaterally. Ordering Physician: Karla Page Referring Physician: Karla Page Performed By: Nicole Lopez RVT
== END ==
PROVIDERS: PCP Internal Medicine; Referring Provider Internal Medicine; Visit Provider Internal Medicine
DX: H53.9 Unspecified visual disturbance (principal)
CPT/HCPCS: 93306; 93880; A4216

== ENCOUNTER → 2020-02-09 14:55 | Outpatient (CLI) | payer OTHER, SELFPAY ==
[2019-06-12 07:31] VITALS: BMI 22.3
== END ==
PROVIDERS: PCP Internal Medicine; Referring Provider Chiropractor; Visit Provider Chiropractor
DX: M51.26 Other intervertebral disc displacement, lumbar region (principal); M99.03 Segmental and somatic dysfunction of lumbar region
CPT/HCPCS: 72100

== ENCOUNTER 2020-03-23 17:00 | Outpatient (RCR) | payer OTHER, SELFPAY ==
[2020-02-27 08:46] VITALS: BMI 22.3
--- NOTE | 2020-03-04 10:33 | HP.PTEVAL ---
Patient's Visit Information BAIRON SHAW is a 54 year old F referred to Physical Therapy by Dr. Carlyle Blackwood DO with a diagnosis of Left Ischial bursitis. Date of Evaluation: 03/04/20 Physical Therapist: Luisa Cowart DPT - Visit Plan Frequency: 2x /Week Duration: 4 Weeks Plan: Focus on LE and core strength/stabilization - Subjective Patient reports that she has left ischial tuberosity pain once in a while the right hurts too. she has run for years and trained for handful of marathons- last one was 15 years ago. She was on a training run about 15 years ago and felt a pop and then radiated into the pelvic floor- had a MRI- stress syndrome in her pubic bone. She has had pain with this for years when she runs. This summer can't run at all- it hurts 08/01 now. Agg: sitting , walking running or pretty much anything Worst: 01/25 Has not tried to run in several weeks- walked [place] and was almost in tears walking up the hill. Elevation kills her. Eases: nothing helps. put her on Meloxicam but she is not noticing a different Best: 08/25. Eases: laying on her back sometimes- when she first lays down she has spasms. Sleep: disturbed. Tried to golf last week and that aggravated it too. 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 Is not doing any sort of strength training- since Feburary due to COVID. Goals: get back to running (5 days a week 4-6 miles). Has had x-rays recently which were negative- if PT does not help then she may need an injection. Describes the pain as just painful. Pain is only located on the ischial tuberosity- no radiating pain. Did go to chiro and she does not feel like its her back. PMHx: exercise induced asthma Meds: rescue inhaler - Objective Posture: FH, RS- can correct with verbal cues but is unable to maintain. Gait: no deviation noted. SLS: 15 sec no LOB but does have hip drop. HR/TR: able without LOB. Squat: heel pop- increased valgus and weight shifts. ROM: WFL in all planes- reports discomfort IR/ER of the right hip. Sensation/Reflex: WNL. Strength: Core: fair minus Hip: 4-/5 throughout, knee:5/5, ANkle: 5/5 significant pain with testing of the left ER. Palpation: tender along ischial tuberosity. Flex: HS: moderate, Piriformis: moderate, Gastroc: mild. Special test: dural signs: negative, LLD: negative, Pelvic Alignment: WFL - Goals Goal 1:: Patient will be I with HEP and progression Goal Time Frame: 4-6 Weeks Goal 2:: Patient will maintain proper posture t/o tx session to demo increased core s/s. Goal Time Frame: 4-6 Weeks Goal 3:: Patient will run with 0/10 pain Goal Time Frame: 4-6 Weeks - Rehabilitation Potential Physical Therapy Diagnosis: Patient presents with hypomobility- she has decreased strength, flex and muscular endurance leading to instability of the pelvis and increased pain with ADL's. Rehabilitation Potential: Good - Anticipated Interventions Patient/Client Instruction: Educate patient on: Benefits of Fitness Program Therapeutic Exercise to Include: Strength training, Endurance training, Balance training, Body mechanics, Postural training, Flexibilty training, Gait and locomotor training, Neuromotor development, Passive ROM, Active ROM, Dynamic Lumbar Stabilization, Scapular Strength/Stabilization For the Purpose of:: To improve muscle performance and motor function Thank you for the opportunity to evaluate your patient. For Medicare and Medicare HMO plans, please review the plan of care and approve it. It will need to be FAXED BACK to us at [phone] for Medicare purposes. For Medicare only, by signing this I certify the plan of care. Please let me know if there are questions or concerns regarding this plan of care. Physician Signature: Date:
--- NOTE | 2020-05-27 11:07 | HP.PT.NRP ---
BAIRON SHAW was seen in my office for initial evaluation on 03/04/20. The following Plan of Care was established for this patient: Initial Frequency: 2x /Week Initial Duration: 4 Weeks Patient/Client Instruction: Educate patient on: Benefits of Fitness Program Therapeutic Exercise to Include: Strength training, Endurance training, Balance training, Body mechanics, Postural training, Flexibilty training, Gait and locomotor training, Neuromotor development, Passive ROM, Active ROM, Dynamic Lumbar Stabilization, Scapular Strength/Stabilization For the Purpose of:: To improve muscle performance and motor function This patient was last seen in our office . Pertinent comments regarding their Physical therapy will appear below: Patient has not returned to PT in over 8 weeks- appropriate for discharge and return to MD for further evaluation. At this point I will be discontinuing this patient from physical therapy. I would be happy to see this patient again in the future if found appropriate by the physician. Thank you! Luisa Cowart DPT
== END 2020-03-23 19:00 | disposition home or self-care (01) ==
LOC: PT 17:00
PROVIDERS: PCP Internal Medicine; Referring Provider Orthopaedic Surgery; Visit Provider Orthopaedic Surgery
DX: M70.72 Other bursitis of hip, left hip (principal)
CPT/HCPCS: 97110; 97162

== ENCOUNTER → 2020-06-10 10:08 | Outpatient (CLI) | payer OTHER, SELFPAY ==
[2020-02-27 08:46] VITALS: BMI 22.3
--- NOTE | 2020-06-10 10:10 | BI_ITS ---
MAMMOGRAPHY - BILATERAL SCREENING REASON FOR EXAM: Female, 54 years old. Routine annual screening examination. PERTINENT HISTORY: Non-contributory. TECHNIQUE: Digital bilateral breast margarita (3D mammographic acquisition) in the CC and MLO projections. 2-D mediolateral oblique (MLO) and craniocaudad (CC) views of both breasts were obtained. CAD: Full Field Digital Mammography with Computer Added Detection was performed. COMPARISON: Comparison is made with prior study dated 05/21/2019 and 02/19/2018. FINDINGS: Breast Composition: The breasts are heterogeneously dense, which may obscure small masses. There are no dominant masses or suspicious calcifications. No other significant abnormalities are identified. There has been no significant change since the prior study. BI/SCREEN MAMM (CAD) W/MARGARITA BILAT IMPRESSION: Stable bilateral screening mammogram. Yearly follow-up mammogram recommended. (A) ASSESSMENT CATEGORY: BIRADS Category 1: Negative. A letter regarding these results will be sent to the patient by the facility within 30 days. Approximately 10% of breast cancers are not detected by mammography. A normal mammogram should not delay biopsy of a clinically suspicious abnormality. [id number] Electronically Signed: Troy Menjivar, at 11:14 EST , Service support ,
== END ==
PROVIDERS: PCP Internal Medicine; Referring Provider Obstetrics & Gynecology; Visit Provider Obstetrics & Gynecology
DX: Z12.31 Encounter for screening mammogram for malignant neoplasm of breast (principal)
CPT/HCPCS: 77063; 77067

== ENCOUNTER 2020-11-07 14:54 | Day surgery (SDC) | payer OTHER, SELFPAY ==
[2020-02-27 08:46] VITALS: BMI 22.3
[2020-11-07] VITALS (10 sets, daily range): BP systolic 108–148; BP diastolic 71–98; PULSE 56–83; RESP 16–18; TEMP 36.4–37.1; O2SAT 94–100; BMI 24.1; BMI 24.0
--- NOTE | 2020-11-07 | APP_PTH ---
PATIENT: BAIRON SHAW LOC: [facility] [place] U#:[id number] AGE/SX: 55/F ROOM: RE11/07/[address]: Dr. Shani Schmitz MD : 1965 BED: DIS: 11/08/2020 SPEC #: [id number] RECD: 11/08/20 07:03 STATUS: CAROLYN REJeff #: [id number] ANNA: 11/07/20 00:[address]: Shani Schmitz DEPT: SURGICAL PATHOLOGY RECD BY: Mejia Mcnulty ENTERED: 11/08/20 07:58 SP TYPE: APPENDIX OTHR DR: Dr. Karla Page, Tissues: Appendix, NOS Procedures: Surgery Specimen Level III HEADER OPERATION: Laparoscopic appendectomy PRE-OP DIAGNOSIS: Abdominal pain TISSUE SUBMITTED: Appendix MICROSCOPIC DIAGNOSIS Appendix, appendectomy: Acute necrotizing appendicitis. Acute serositis. AM:laurie 11/09/2020 MICROSCOPIC DESCRIPTION Slides are reviewed. GROSS DESCRIPTION Received in fixative is one container labeled with the patient's name and designated appendix. The specimen consists of an appendix measuring 6.5 cm in length and up to 1 cm in diameter. The attached periappendiceal adipose tissue measures up to 1 cm in width. The serosa is congested and focally covered with trevino, purulent exudate. No obvious perforation is identified. The lumen contains purulent material. No fecalith is identified. Yarn Carrier sections are submitted in one cassette. / SJ:laurie 11/08/20 TC:2 [facility]: [id number]
--- NOTE | 2020-11-07 15:20 | CT_ITS ---
STUDY: CT ABDOMEN AND PELVIS WITH CONTRAST REASON FOR EXAM: Female, 55 years old. abdominal pain -- IV PO Contrast RADIATION DOSAGE (If Supplied By Facility): CTDIvol = ( 9.90 ) mGy, DLP = ( 598.59 ) mGycm TECHNIQUE: Transaxial images were obtained from the dome of the diaphragm to the symphysis pubis with oral contrast. Oral and IV Gastrografin and 100mL Isovue-370 was administered. Sagittal and coronal images were reconstructed. Individualized dose optimization techniques were used for this CT. COMPARISON: None. FINDINGS: The visualized lung bases are unremarkable. The visualized portions of the heart are within normal limits. Normal liver. Normal gallbladder and extrahepatic biliary system. Normal spleen. Normal pancreas. Normal bilateral adrenal glands. Normal right kidney. Normal left kidney. Normal visualized stomach. Normal small intestine. Normal colon. There is a tubular, thick-walled appendix (12 mm) and adjacent periappendiceal stranding (image 69 series 602), consistent with acute appendicitis. No focal fluid collection or pneumoperitoneum. Normal abdominal aorta. Normal inferior vena cava. Normal retroperitoneum. Normal urinary bladder. Trace free fluid in the dependent portion of the pelvis. Normal abdominal wall. Normal osseous structures. CT/Abdomen/Pelvis WITH Contrast IMPRESSION: 1. Acute appendicitis without focal fluid collection/abscess or pneumoperitoneum. Electronically Signed: Raymond Marroquin MD ([place]) at 17:36 EDT , Service support ,
--- NOTE | 2020-11-07 15:21 | EDS_ITS ---
HPI HPI - GI History of Present Illness Chief Complaint: Abd Pain Detail of Chief Complaint: Abdominal pain that started last evening around 11 PM Informant: patient Abdominal Pain/Flank Pain Quality: Sharp and Stabbing Location: Epigastric and RLQ Current Severity: 8/10 Worsened by: Movement Relieved by: Nothing Nausea/Vomiting/Emesis GI Symptom: Positive for Nausea Diarrhea/Melena/Hematochezia GI Symptom: Negative for Diarrhea, Melena and Hematochezia Associated Symptoms Associated Symptoms: Negative for Dysuria and Frequency Narrative Narrative: Patient presents to the emergency department with complaint of abdominal pain that started last evening around 11 PM. Patient states that the pains been continuous and she had a hard time sleeping all of last night. Patient's had nausea but no vomiting. She denies diarrhea. She denies blood in her stool or black tarry stool. She tells me that she is had similar episodes x3 since March last year but typically resolve after 24 hours. Patient drinks alcohol occasionally but is never had pancreatitis. She did have 2 alcoholic beverages last evening. Patient has had prior hysterectomy but still has her appendix and gallbladder. She denies urinary symptoms. Patient denies any chest pain or shortness of breath Prior similar symptoms: Yes PFSH PFSH Medical History (Updated 11/07/20 @ 18:[address] Patti Dominguez, DO) Asthma Factor 5 Leiden mutation, heterozygous Fatigue Incontinence IVF Stomach ulcer Home Medications paroxetine HCl [Paxil] 10 mg PO QHS 11/07/20 [History Last Taken Unknown] Allergy/AdvReac Type Severity Reaction Status Date / Time menthol [From Icy Hot] Allergy Mild THROAT Verified 11/07/20 14:55 SWELLING methyl salicylate Allergy Mild THROAT Verified 11/07/20 14:55 [From Icy Hot] SWELLING azithromycin [From Zithromax] Allergy Hives Verified 11/07/20 14:55 ciprofloxacin [From Cipro] Allergy Hives Verified 11/07/20 14:55 ciprofloxacin HCl Allergy Hives Verified 11/07/20 14:55 [From Cipro] levofloxacin [From Levaquin] Allergy Angioedema Verified 11/07/20 14:55 Penicillins Allergy Hives Verified 11/07/20 14:55 morphine AdvReac Vomiting Verified 11/07/20 14:55 Family History Mother Hypertension Depression Father Heart disease cardiac bypass Surgical History (Updated 11/07/20 @ 16:34 by Natalia García) H/O hemorrhoidectomy History of hysterectomy History of knee surgery History of tonsillectomy Social History (Updated 02/27/20 @ 11:[address] Carlyle Blackwood, DO) Smoking Status: Never smoker alcohol intake: current ROS ROS ED Constitutional Constitutional ED: Reports systems reviewed and no addt'l complaints, except as documented; Denies body ache(s), change in weight or chills Eyes Eyes: Denies acute decrease in peripheral vision, change in vision, double vision or loss of vision ENT ENT ED: Reports none; Denies ear pain, lip swelling, loss taste/smell, neck pain, otalgia or sore throat Cardiovascular Cardiovascular: Reports none; Denies abdominal pain, chest pain with activity, leg edema, lightheadedness, palpitations, rapid heart rate or syncope Respiratory/Chest Respiratory/Chest: Reports none; Denies change in mental status, dry cough, dyspnea, hemoptysis, shortness of breath at rest or shortness of breath with exertion Gastrointestinal Gastrointestinal: Reports none, abdominal pain and nausea; Denies change in stool character, diarrhea, hematemesis, hematochezia, melena, rectal bleeding or vomiting Genitourinary Genitourinary ED: Reports none; Denies abdominal discomfort, anuria, dysuria, genital pain, hematuria, polyuria or urinary frequency Musculoskeletal Musculoskeletal: Reports none; Denies arthralgias, back pain, difficulty walking, extremity pain, muscle weakness or myalgias Integumentary Reports none; Denies abscess or rash Neurologic Neurologic: Reports none; Denies abnormal gait, confusion, focal weakness, frequent falls, headache(s), loss of vision, numbness, paresthesias, radicular pain, vertigo or weakness Psychiatric Psychiatric: Reports systems reviewed and no addt'l complaints, except as documented and none; Denies behavioral changes, confusion, difficulty concentrating, hallucinations, suicidal ideation, tactile hallucinations or visual hallucinations Endocrine Endocrinology: Denies none, cold intolerance, excessive sweating, fatigue or heat intolerance Hematologic/Lymphatic Hematologic/Lymphatic: Reports none; Denies anemia, easy bleeding or easy bruising Allergic/Immunologic Allergic/Immunologic ED: Denies as per HPI, none, lip swelling, mouth swelling, throat swelling, tongue swelling or hives EXAM Physical Exam Const Vital Signs: 11/07/20 14:55 Temperature 98.3 F Temperature Source Temporal Pulse Rate 66 Respiratory Rate 18 Blood Pressure 116/84 H Blood Pressure Mean 94 Pulse Ox 97 Oxygen Delivery Method Room Air Positive well nourished and well developed General Appearance ED: well developed and NAD HEENT Reports TM's clear and moist mucous membranes normocephalic and atraumatic; Negative for trauma or tenderness Tympanic Membrane ED: Yes TM's clear Eyes PERRL and EOMs intact bilaterally General Eye ED: Negative for pale conjunctiva or scleral icterus Neck no lymphadenopathy, supple and no JVD General: Negative for tenderness Chest Wall inspection of chest normal and palpation of chest normal Chest: Negative for tenderness Resp normal respiratory effort and clear to auscultation bilaterally Effort and Inspection: Negative for respiratory distress or pain with movement Auscultation: Negative for rhonchi, wheezes or diminished lung sounds Cardio regular rate, regular rhythm, S1 normal heart sound, S2 normal heart sound and no murmurs Peripheral Pulses: pulses 2+ throughout GI normal to inspection, nondistended, normoactive bowel sounds, soft to palpation, non-distended and no masses; Negative for non-tender Palpation: soft and tender epigastric and RLQ; Negative for rebound tenderness present Back/Spine no CVA tenderness and no thoracic nor lumbar tenderness Extremity normal to inspection General Extremety ED: Negative for edema General Extremity: Negative for edema Neuro oriented x3, CN's II-XII intact bilaterally, no sensory deficits noted and gait normal Sensorium / Orientation: awake, alert, oriented to person, oriented to place and oriented to time Motor Exam: strength 5/5 throughout and strength abnormal Psych mental status grossly normal Skin no rashes or lesions noted and no wounds MDM MDM MDM Narrative Medical decision making narrative: Patient noted to have acute appendicitis on CT. Case discussed with general surgeon who recommended doxycycline antibiotics IV given patient has multiple other drug allergies. I ordered a Covid 19 rapid test as well. Patient will be taken to the OR for surgical intervention. Lab Data Labs: Laboratory Results - last 24 hr 11/07/20 11/07/20 11/07/20 15:34 15:34 15:34 WBC 8.8 RBC 4.79 Hgb 14.5 Hct 43.0 MCV 89.8 MCH 30.3 MCHC 33.7 RDW Std Deviation 41.2 RDW Coeff of Sumit 12.5 Plt Count 283 MPV 9.5 Immature Gran % (Auto) 0.600 Neut % (Auto) 84.7 H Lymph % (Auto) 8.4 L Winston % (Auto) 5.8 Eos % (Auto) 0.2 Baso % (Auto) 0.3 Absolute Neuts (auto) 7.4 Absolute Lymphs (auto) 0.74 L Nucleated RBC % 0 Sodium 141 Potassium 3.3 L Chloride 105 Carbon Dioxide 28.0 Anion Gap 8 BUN 15 Creatinine 0.86 Estim Creat Clear Calc 68.07 Est GFR (MDRD) Af Amer 88 Est GFR (MDRD) Non-Af 73 BUN/Creatinine Ratio 17.3 Glucose 111 H Lactic Acid 1.2 Calcium 9.0 Total Bilirubin 0.90 AST 11 L ALT 19 Alkaline Phosphatase 65 Total Protein 7.3 Albumin 3.9 Globulin 3.4 Albumin/Globulin Ratio 1.1 Lipase 54 L Urine Color Urine Clarity Urine pH Ur Specific Huntington Urine Protein Urine Glucose (UA) Urine Ketones Urine Occult Blood Urine Nitrite Urine Bilirubin Urine Urobilinogen Ur Leukocyte Esterase Urine RBC Urine WBC Ur Squamous Epith Cells Urine Bacteria Urine Mucus 11/07/20 16:08 WBC RBC Hgb Hct MCV MCH MCHC RDW Std Deviation RDW Coeff of Sumit Plt Count MPV Immature Gran % (Auto) Neut % (Auto) Lymph % (Auto) Winston % (Auto) Eos % (Auto) Baso % (Auto) Absolute Neuts (auto) Absolute Lymphs (auto) Nucleated RBC % Sodium Potassium Chloride Carbon Dioxide Anion Gap BUN Creatinine Estim Creat Clear Calc Est GFR (MDRD) Af Amer Est GFR (MDRD) Non-Af BUN/Creatinine Ratio Glucose Lactic Acid Calcium Total Bilirubin AST ALT Alkaline Phosphatase Total Protein Albumin Globulin Albumin/Globulin Ratio Lipase Urine Color Yellow Urine Clarity Clear Urine pH 6.5 Ur Specific Huntington 1.015 Urine Protein 15 H Urine Glucose (UA) Normal Urine Ketones 50 H Urine Occult Blood 10 H Urine Nitrite Negative Urine Bilirubin Negative Urine Urobilinogen Normal Ur Leukocyte Esterase Negative Urine RBC 0 SEEN Urine WBC 0 SEEN Ur Squamous Epith Cells 0 SEEN Urine Bacteria 0 SEEN Urine Mucus 0 SEEN Radiography Diagnostic Testing: Radiology Impression Abdomen/Pelvis CT 11/07/20 15:20 IMPRESSION: 1. Acute appendicitis without focal fluid collection/abscess or pneumoperitoneum. Electronically Signed: Raymond Marroquin MD ([place]) at 17:36 EDT , Service support , Discharge Plan Triage Chief Complaint: Abd Pain ED Provider: Patti Dominguez Dx/Rx/DC Orders Clinical Impression: Acute appendicitis Prescriptions: No Action paroxetine HCl [Paxil] 10 mg Tablet 10 mg PO QHS RF: 0 Primary Care Provider: Karla Page Referrals: Karla Page DO [Primary Care Provider] - Disposition Disposition: Acute Care Hospital [facility]
[2020-11-07 15:45] LABS: Absolute Lymphocyte Count 0.74 X10^3/uL (0.83-4.51); Absolute Neutrophil Count 7.4 X10^3/uL (2.0-7.7); Basophil# 0.03 X10^3/uL; Basophil% 0.3 % (0-1); Eosinophil# 0.02 X10^3/uL; Eosinophils% 0.2 % (0-5); Hemoglobin 14.5 g/dL (12.0-15.0); Lymphocyte # 0.74 X10^3/ul (0.83-4.51); Lymphocyte % 8.4 % (19-41); Mean Corp Hgb Conc 33.7 g/dL (32-36); Mean Corpuscular Hgb 30.3 pg (27.0-32.0); Mean Corpuscular Volume 89.8 fL (81-99); Mean Platelet Vol. 9.5 fl (6.2-12.0); Monocyte# 0.51 X10^3/uL; Monocyte% 5.8 % (0-10); NRBC Flagged by Analyzer 0 % (0-5); Neutrophil # 7.44 X10^3/uL (2.7-7.7); Neutrophil % 84.7 % (47-70); Platelet Count 283 K/mm3 (150-450); RBC Distribution Width CV 12.5 % (11.6-14.6); RBC Distribution Width SD 41.2 fl (35.1-43.9); Red Blood Count 4.79 M/mm3 (4.2-5.4); White Blood Count 8.8 K/mm3 (4.4-11.0)
[2020-11-07] MEDS: Ondansetron 4 MG/2 ML Vial IV (16:00)
[2020-11-07] MEDS: HYDROmorphone 1 MG/ML Syringe IV ×2 (16:00→19:28)
[2020-11-07 16:03] LABS: ALB/GLOB Ratio 1.1 RATIO (0.9-2.4); AST(SGOT) 11 U/L (15-37); Alanine Aminotransfer ALT/SGPT 19 U/L (13-56); Albumin, Serum 3.9 g/dL (3.2-5.0); Alkaline Phosphatase 65 U/L (45-117); Anion Gap 8 (5-15); BUN 15 mg/dL (7-18); BUN/Creat Ratio 17.3 RATIO (10-20); Chloride 105 mmol/L (98-107); Creatinine, Serum 0.86 mg/dL (0.55-1.02); EST Glomerular Filtration Rate 73 mL/min (>60); Est Glom Filt Rate - Afr Amer 88 mL/min (>60); Estimated Creatinine Clearance 68.07 ml/min; Globulin 3.4 g/dL (2.2-4.2); Glucose 111 mg/dL (74-106); Lipase 54 U/L (73-393); Potassium 3.3 mmol/L (3.5-5.1); Protein, Total 7.3 g/dL (6.4-8.2); Sodium Level 141 mmol/L (136-145)
[2020-11-07] MEDS: 0.9% Normal Saline 1,000 ML 125 ML IV ×2 (16:04→21:40)
[2020-11-07 16:11] LABS: Bacteria 0 SEEN /hpf (None Seen); Mucous, Urine 0 SEEN /hpf (<or=2+); Red Blood Cells-Urine 0 SEEN /hpf (0-5); Squamous Epithelial Cells - UA 0 SEEN /hpf (5-10); White Blood Cells 0 SEEN /hpf (0-5)
[2020-11-07 16:13] LABS: Color, Urine Yellow (Yellow); Glucose, Dipstick Normal (Normal); Ketone-Dipstick 50 mg/dl (Negative); Leukocyte Esterase-Dipstick Negative /ul (Negative); Nitrite-Dipstick Negative (Negative); Occult Blood-Urine 10 /ul (Negative); Protein-Dipstick 15 mg/dl (Negative); Specific Gravity, Urine 1.015 (1.002-1.030); Urine Bilirubin Dipstick Negative (Negative); Urine Clarity Clear (Clear); Urine Urobilinogen Normal (Normal); Urine pH 6.5 (5.0 - 8.0)
[2020-11-07 16:14] LABS: Lactic Acid 1.2 mmol/L (0.4-1.9)
--- NOTE | 2020-11-07 18:53 | PCM.HP.BLA ---
History and Physical Date of Admission: 11/07/20 Chief Complaint: abdominal pain History of Present Illness: 55 y/o WM presents with abdominal pain. Noted since 6 this morning. Also with nausea and decreased appetite. WBC is 8k with left shift of differential CT scan with findings of appendicitis - tubular thick walled 12mm with adjacent periappendiceal stranding Past Medical History: asthma Past Surgical History: ventral hernia repair hysterectomy tonsillectomy right and left knee arthroscopies IVF procedures Medications: paxil Allergies: menthol, methyl salicylate, azithromycin, cipro, levofloxacin, pcn, morphine Social history: TOB use denies Review of Systems: General - denies fevers Cardiovascular denies chest pain,denies history of heart attack Pulmonary denies shortness of breath, denies coughing up blood Gastrointestinal as per HPI, denies hematemesis Neurological denies numbness/weakness of extremities, denies seizures, denies history of stroke Genitourinary denies burning with urination, denies blood in urine Hematological denies spontaneous/prolonged bleeding Skin denies open non healing wounds, denies rashes Musculoskeletal denies history of fractures Endocrine denies diabetes Psychological denies hallucinations Physical examination: Vital signs Temp 98.8F HR 61 RR 16 BP 148/85 General WD/WN WF in no apparent distress, alert and oriented, not septic appearing HEENT Normocephalic. EOM intact with sclera clear. Neck is supple . Trachea is midline. Lungs normal respiratory excusion, no adventitial sounds heard No labored breathing noted, such as retractions. No cough Heart . regular Abdomen soft .but tender in the right lower quadrant with rebound Extremities no pitting edema noted. Genitourinary/Rectal deferred Skin no normal skin integrity. Neurological non focal Psychological normal affect, patient is calm and appropriate Impression: appendicitis by CT scan Discussion/Plan: I have discussed the above with the patient. I have offered the patient the procedure of laparoscopic appendectomy. I have explained the procedure to the patient. I have counseled the patient as to the risks of the procedure, including but not limited to: infection, bleeding, injury to any blood vessels/nerves, scar tissue, injury to any intraabdominal organs, injury to kidney/ureters, injury to bowel/bladder, intraabdominal abscess/bleeding, hernias at incisional sites, wound infections, possible open procedure, complications of anesthesia, postoperative pneumonia/cardiac problems/blood clots etc. the patient understands. Patient had COVID vaccine She wishes to proceed I have answered all questions to the patient?s satisfaction and the patient has no further questions.
[2020-11-07] MEDS: Bupivacaine 0.25% 30 ML Vial (20:02)
--- NOTE | 2020-11-07 20:35 | PCM.OPRPT ---
Report of Operation Date of Procedure: 11/07/20 Pre-Operative Diagnosis: acute appendicitis Post-Operative Diagnosis: same Surgery/Procedure Performed:: laparoscopic appendectomy Description of Surgical Findings:: swollen indurated appendix Surgeon: Shani Schmitz Type of Anesthesia: General Anesthesiologist: Mechelle Serrano Specimen's removed: appendix Drains: none Estimated Blood Loss (mL): < 10 ml Fluids Replaced: 500 ml Description of Procedure: After informed consent was obtained, the patient was brought into the Operating Room. Appropriate time out protocol was followed. The patient was placed in the supine position on the operating table. The patient was then placed under general anesthesia by the anesthesia provider. The patient?s abdomen was then prepped with a sterile surgical skin preparation and sterile surgical drapes were placed. The infraumbilical skin fold was grasped with penetrating towel clamps and the skin and subcutaneous tissues were infiltrated with 0.25% marcaine with epinephrine. A incision was then made with a 15 blade scalpel. A Veress needle was then inserted into the intraabdominal cavity and checked to be in the proper position with a normal saline drop test. A CO2 pneumoperitoneum was then created. Once this was achieved, the Veress needle was removed and a 5 mm trocar was placed in its stead. A 5 mm laparoscope was then inserted into the trocar. Careful examination of the intraabdominal contents was then done. There was no evidence of injury to any internal organs from placement of the Veress needle or the trocar. Under direct visualization, a 12mm suprapubic trocar and a 5mm left lower quadrant trocar was then placed into the intraabdominal cavity. The skin and subcutaneous tissues at these sites were first infiltrated with 0.25% marcaine with epinephrine. Attention was then directed to the right lower quadrant. The appendix was visualized. The appendix appeared enlarged/edematous/injected/with surrounding inflammation. The mesentery of the appendix was taken down by cauterizing the tissue from the free edge to the base of the appendix using the Harmonic scalpel. Once the base of the appendix was freed of surrounding tissues, then the linear gastrointestinal stapling device was brought into the abdominal cavity via the 12mm port and placed across the base of the appendix. The stapling device was fired, thus stapling across the base of the appendix and transecting it simultaneously. There was no evidence of perforation of the appendix. The pelvic cavity was vigorously irrigated with normal saline and all irrigant was aspirated out. The appendix was placed in an Endobag and this was brought out through the suprapubic trocar. The appendix was forwarded to Pathology for analysis. The appendiceal stump was carefully examined. There was no evidence of any active bleeding or fecal leakage. The surrounding tissues were also examined and there was no evidence of any active bleeding or fecal/bile leakage. The intraabdominal cavity was examined and there was no evidence of any further inflammation or tissue abnormality. The CO2 pneumoperitoneum was released and all trocars were removed intact. The suprapubic fascia was reapproximated with a figure-of-8 vicryl suture. All skin incisions were reapproximated with monocryl suture. Cavilon and steristrips were applied to reinforce skin closure and proper sterile dressings were placed. Sponge, needle, and instrument count were verified and correct at the time of skin closure. The patient was then extubated and brought to the Recovery Room in stable condition. Complications none noted Admit VTE Documentation VTE Present on Admission: Yes VTE Mechan Device Prophylaxis: SCD's
[2020-11-08 01:45] VITALS: BP 99/66; PULSE 78; RESP 16; TEMP 36.7; O2SAT 95
[2020-11-08] MEDS: HYDROcodone Bitartrate/Apap 5/325 Tablet PO ×2 (01:47→07:59)
[2020-11-08 05:45] VITALS: BP 97/52; PULSE 52; RESP 16; TEMP 36.6; O2SAT 98
--- NOTE | 2020-11-08 07:56 | DCINST_ITS ---
Discharge Instructions Follow Up Care Test Results: Test results from this visit will be discussed in further detail at your follow-up appointment, if applicable. Discharge Plan Admission Attending Provider: Shani Schmitz Primary Care Provider: Karla Page Instructions Additional Instructions / Restrictions: Recommended pain control regimen - May take 600 mg ibuprofen (Motrin) and then in 3-4 hours, may take 650 mg acetaminophen (Tylenol), then in 3-4 hours may take 600 mg ibuprofen, then in 3- 4 hours may take 650 mg acetaminophen and so on for 2-3 days May take narcotic pain medication for pain that is not controlled by above and at night for comfort through the night Leave dressings in place May get dressings wet in shower - do not scrub in the area and pat dry Do not soak - no tub baths/swimming Ice applied to areas of discomfort may help No lifting/pushing/pulling greater than 20 pounds for .two weeks May return to work in several days to a week as tolerated Drink plenty of fluids, regular diet is OK, avoid carbonated beverages for a couple of days Please call for a follow up appointment in 1-2 weeks, Discharge Orders/Prescriptions Prescriptions: New hydrocodone-acetaminophen 5-325 mg tablet 1 tab PO Q8H 5 Days Qty: 15 RF: 0 No Action paroxetine HCl [Paxil] 10 mg Tablet 10 mg PO QHS RF: 0 Referrals / Follow Up: Karla Page DO [Primary Care Provider] - Disposition Discharge Orders: Discharge Patient (Routine); Ordered 11/07/20 Ordered By: Dr. Shani Schmitz
[2020-11-08 08:53] VITALS: BP 93/57; PULSE 66; RESP 16; TEMP 36.7; O2SAT 97
== END 2020-11-08 09:47 ==
LOC: ED 18:02 → SDC 18:15 → AC 18:17 → MS3 19:15
PROVIDERS: Emergency Provider Emergency Medicine; PCP Internal Medicine; Visit Provider Surgery
PROC: 0DTJ4ZZ Resection of Appendix, Percutaneous Endoscopic Approach (ICD-10-PCS; CPT 44970; principal; 2020-11-07 19:30)
DX: K35.80 Unspecified acute appendicitis (principal); D68.51 Activated protein C resistance; J45.909 Unspecified asthma, uncomplicated; R32 Unspecified urinary incontinence; Z79.899 Other long term (current) drug therapy; Z87.11 Personal history of peptic ulcer disease; M99.03 Segmental and somatic dysfunction of lumbar region; M99.05 Segmental and somatic dysfunction of pelvic region; M99.02 Segmental and somatic dysfunction of thoracic region
CPT/HCPCS: 00840; 44970; 74177; 80053; 81001; 83605; 83690; 85025; 87426; 88304; 99285; J7030; Q9967; A4216; J2405

== ENCOUNTER → 2021-11-02 | Outpatient (CLI) | payer BC, SELFPAY ==
[2021-11-02 12:34] LABS: Progesterone Level 0.28 ng/mL (See Comment); T3 Total - Triiodothyronine 1.14 ng/mL (0.6-1.81)
[2021-11-02 13:29] LABS: Estradiol 11.6 pg/mL; Follicle Stimulating Hormone 60.7 mIU/mL; Free T3 2.8 pg/mL (2.18-3.98); T4 Free Direct 0.92 ng/dL (0.76-1.46); Thyroid Stim Hormone (TSH) 1.21 uIU/mL (0.358-3.74)
[2021-11-08 00:06] LABS: DHEA Sulfate 78.3 ug/dL (41.2-243.7)
[2021-11-08 09:30] LABS: Sex Hormone-binding Globulin 44.4 nmol/L (17.3-125.0); T3 Reverse 10.1 ng/dL (9.2-24.1)
== END | disposition home or self-care (01) ==
LOC: WOBLAB 10:25
PROVIDERS: PCP Internal Medicine; Visit Provider Obstetrics & Gynecology
DX: E03.9 Hypothyroidism, unspecified (principal); N95.1 Menopausal and female climacteric states; R53.83 Other fatigue; G47.00 Insomnia, unspecified
CPT/HCPCS: 36415; 82627; 82670; 83001; 84144; 84270; 84403; 84439; 84443; 84480; 84481; 84482; 82626

== ENCOUNTER → 2021-11-03 | Outpatient (CLI) | payer BC, SELFPAY ==
--- NOTE | 2021-11-03 08:41 | BI_ITS ---
MAMMOGRAPHY - BILATERAL SCREENING REASON FOR EXAM: Female, 56 years old. Routine annual screening examination. PERTINENT HISTORY: Non-contributory. TECHNIQUE: Digital bilateral breast margarita (3D mammographic acquisition) in the CC and MLO projections. 2-D mediolateral oblique (MLO) and craniocaudad (CC) views of both breasts were obtained. CAD: Full Field Digital Mammography with Computer Added Detection was performed. COMPARISON: Comparison is made with prior study dated 06/10/2020 and 05/21/2019. FINDINGS: Breast Composition: The breasts are heterogeneously dense, which may obscure small masses. There are no dominant masses or suspicious calcifications. Stable benign appearing bilateral axillary lymph nodes. No other significant abnormalities are identified. There has been no significant change since the prior study. BI/SCRN MAMM (CAD)W/MARGARITA BILAT IMPRESSION: Stable bilateral screening mammogram. Yearly follow-up mammogram recommended. (A) ASSESSMENT CATEGORY: BIRADS Category 2: Benign. A letter regarding these results will be sent to the patient by the facility within 30 days. Approximately 10% of breast cancers are not detected by mammography. A normal mammogram should not delay biopsy of a clinically suspicious abnormality. [id number] Electronically Signed: Troy Menjivar MD at 13:46 EDT ,
== END | disposition home or self-care (01) ==
LOC: OPBI 08:40
PROVIDERS: PCP Internal Medicine; Visit Provider Internal Medicine
DX: Z12.31 Encounter for screening mammogram for malignant neoplasm of breast (principal)
CPT/HCPCS: 77063; 77067

== ENCOUNTER → 2021-12-21 | Outpatient (CLI) | payer BC, SELFPAY ==
[2021-12-21 10:42] LABS: AST(SGOT) 18 U/L (15-37); Alanine Aminotransfer ALT/SGPT 25 U/L (13-56); Albumin, Serum 3.5 g/dL (3.2-5.0); Alkaline Phosphatase 70 U/L (45-117); Bilirubin, Direct 0.11 mg/dL (0.00-0.30); CRP, High Sensitivity Cardiac 1.09 mg/L; Estradiol 21.6 pg/mL; Globulin 3.2 g/dL (2.2-4.2); Protein, Total 6.7 g/dL (6.4-8.2)
[2021-12-21 10:46] LABS: Progesterone Level 26.12 ng/mL (See Comment)
[2021-12-24 18:07] LABS: Testosterone, % Free 1.93 % (0.50-2.80); Testosterone, Free 0.08 ng/dL (0.10-0.85); Testosterone, Total 4 ng/dL (4-50)
[2021-12-25 13:02] LABS: DHEA Sulfate 76.4 ug/dL (41.2-243.7)
== END | disposition home or self-care (01) ==
LOC: WOBLAB 08:41
PROVIDERS: PCP Internal Medicine; Visit Provider Obstetrics & Gynecology
DX: N95.1 Menopausal and female climacteric states (principal); Z51.81 Encounter for therapeutic drug level monitoring
CPT/HCPCS: 36415; 80076; 82627; 82670; 84144; 84402; 84403; 86141; 82626

== ENCOUNTER → 2022-01-04 | Outpatient (CLI) | payer BC, SELFPAY | END | disposition home or self-care (01) | LOC: PSN 07:16 | PROVIDERS: PCP Internal Medicine; Referring Provider Internal Medicine Cardiovascular Disease; Visit Provider Internal Medicine Cardiovascular Disease | DX: R00.1 Bradycardia, unspecified (principal) | CPT/HCPCS: 93225; 93226 ==

== ENCOUNTER → 2022-01-25 | Outpatient (CLI) | payer BC, SELFPAY ==
--- NOTE | 2022-01-25 16:45 | STRESSREP_ITS ---
Stress Test Report Exercise stress test. 56-year-old lady with a history of chest pain. Stress protocol: Resting EKG demonstrates sinus bradycardia with a rate of 51 bpm normal intervals are noted resting blood pressure is 110/74 mmHg. The patient exercised according to the regular Murali protocol for total duration of 10 minutes patient completed 1 minute into stage IV of the Murali protocol the maximum heart rate attained was 151 bpm which was 90% of max impacted heart rate the maximum workload was 13.4 metabolic equivalents. The patient maintained sinus rhythm throughout the recording. At peak exercise there was upsloping ST depression less than 1 mm in leads II, III and aVF which did not meet the criteria for ischemia. The peak blood pressure was 162/74 mmHg with a rate- pressure force of 23,650. No clinical angina was noted the test was terminated due to leg fatigue. Conclusion: Exercise stress test with no EKG criteria for ischemia at a high workload. Good functional aerobic capacity. No angina noted. No arrhythmias present.
== END | disposition home or self-care (01) ==
LOC: CVS 09:50
PROVIDERS: PCP Internal Medicine; Referring Provider Physician Assistant Medical; Visit Provider Physician Assistant Medical
DX: R07.9 Chest pain, unspecified (principal)
CPT/HCPCS: 93017

== ENCOUNTER → 2022-07-03 | Outpatient (CLI) | payer BC, SELFPAY ==
[2022-07-03 07:47] LABS: AST(SGOT) 14 U/L (15-37); Alanine Aminotransfer ALT/SGPT 23 U/L (13-56); Albumin, Serum 3.5 g/dL (3.2-5.0); Alkaline Phosphatase 77 U/L (45-117); Bilirubin, Direct 0.13 mg/dL (0.00-0.30); Cholesterol 133 mg/dL (200); Globulin 3.3 g/dL (2.2-4.2); High Density Lipoprotein 67 mg/dL; Protein, Total 6.8 g/dL (6.4-8.2); Triglycerides 40 mg/dL; Very Low Density Lipoprotein 8 mg/dL (5-40)
== END | disposition home or self-care (01) ==
LOC: LAB 06:38
PROVIDERS: PCP Internal Medicine; Referring Provider Internal Medicine Cardiovascular Disease; Visit Provider Internal Medicine Cardiovascular Disease
DX: R93.1 Abnormal findings on diagnostic imaging of heart and coronary circulation (principal); E78.5 Hyperlipidemia, unspecified
CPT/HCPCS: 36415; 80061; 80076

== ENCOUNTER → 2022-11-07 | Outpatient (CLI) | payer BC, SELFPAY ==
[2022-11-07 14:08] LABS: Progesterone Level 0.87 ng/mL (See Comment)
[2022-11-08 09:56] LABS: Estradiol 25.2 pg/mL
[2022-11-11 16:09] LABS: DHEA Sulfate 48.4 ug/dL (29.4-220.5); Sex Hormone-binding Globulin 41.4 nmol/L (17.3-125.0); Testosterone, % Free 1.81 % (0.50-2.80); Testosterone, Free < 0.05 ng/dL (0.10-0.85); Testosterone, Total < 3 ng/dL (4-50)
== END | disposition home or self-care (01) ==
LOC: LAB 12:50
PROVIDERS: PCP Internal Medicine; Referring Provider Obstetrics & Gynecology; Visit Provider Obstetrics & Gynecology
DX: Z79.890 Hormone replacement therapy (principal)
CPT/HCPCS: 36415; 82627; 82670; 84144; 84270; 84402; 84403; 82626

== ENCOUNTER → 2022-11-29 | Outpatient (CLI) | payer BC, SELFPAY ==
--- NOTE | 2022-11-29 12:53 | BI_ITS ---
MAMMOGRAPHY - BILATERAL SCREENING REASON FOR EXAM: Female, 57 years old. Routine annual screening examination. PERTINENT HISTORY: Non-contributory. TECHNIQUE: Digital bilateral breast margarita (3D mammographic acquisition) in the CC and MLO projections. 2-D mediolateral oblique (MLO) and craniocaudad (CC) views of both breasts were obtained. CAD: Full Field Digital Mammography with Computer Added Detection was performed. COMPARISON: Comparison is made with prior study dated November 03, 2021 and June 10, 2020. FINDINGS: Breast Composition: The breasts are heterogeneously dense, which may obscure small masses. There are no dominant masses or suspicious calcifications. Stable small benign appearing bilateral axillary lymph nodes. No other significant abnormalities are identified. There has been no significant change since the prior study. BI/SCRN MAMM (CAD)W/MARGARITA BILAT IMPRESSION: Stable bilateral screening mammogram. Yearly follow-up mammogram recommended. (A) ASSESSMENT CATEGORY: BIRADS Category 2: Benign. A letter regarding these results will be sent to the patient by the facility within 30 days. Approximately 10% of breast cancers are not detected by mammography. A normal mammogram should not delay biopsy of a clinically suspicious abnormality. [id number] Electronically Signed: Troy Menjivar MD at 13:37 EDT ,
== END | disposition home or self-care (01) ==
LOC: OPBI 12:51
PROVIDERS: PCP Internal Medicine; Referring Provider Internal Medicine; Visit Provider Internal Medicine
DX: Z12.31 Encounter for screening mammogram for malignant neoplasm of breast (principal)
CPT/HCPCS: 77063; 77067

== ENCOUNTER → 2022-12-06 | Outpatient (CLI) | payer BC, SELFPAY ==
[2022-12-06 11:05] LABS: Glucose 75GTT - Fasting 99 mg/dL (70-99)
[2022-12-06 11:09] LABS: Insulin 75GTT - Fasting 5.1 mU/L (2.6-37.6)
[2022-12-06 11:25] LABS: Glucose 75GTT - 30 minutes 170 mg/dL (100-160)
[2022-12-06 11:47] LABS: Insulin 75GTT - 30 MIN 48.3 mU/L (Not Estab.)
[2022-12-06 11:58] LABS: Glucose 75GTT - 60 minutes 98 mg/dL (100-160)
[2022-12-06 12:16] LABS: Insulin 75GTT - 60 min 31.6 mU/L (Not Estab)
[2022-12-06 13:41] LABS: Glucose 75GTT - 120 minutes 104 mg/dL (70-140)
== END | disposition home or self-care (01) ==
LOC: LAB.FUTURE 09:45 → LAB 09:48
PROVIDERS: PCP Internal Medicine; Referring Provider Obstetrics & Gynecology; Visit Provider Obstetrics & Gynecology
DX: Z13.1 Encounter for screening for diabetes mellitus (principal)
CPT/HCPCS: 36415; 82951; 82952; 83525

== ENCOUNTER → 2023-07-13 | Outpatient (CLI) | payer BC, SELFPAY ==
--- OUTSIDE RECORDS SUMMARY | 2023-07-13 11:51 | XMS RPT_ITS | CCD ---
Author Name Unknown Address [address] [place] [address] Organization [facility] Care Team Providers Care Home Assessment Nurse Name Role Phone Miki Huynh Unavailable Diogo Guzman Unavailable Unavailable MauraGayleKarla Attending Unavailable MauraLaraKarla Referring Unavailable Maura, Karla Consulting Unavailable Maura, Karla Unavailable Roberth Rangel Unavailable Maura Karla Unavailable Philip, Shannan Unavailable Unavailable Chadd Ace Unavailable Unavailable Alejandra Shook Unavailable Unavailable Unavailable Emma Dobbins Unavailable Unavailable Nilton Pablo Unavailable Chadd Bloom Unavailable Unavailable Gravius, Therese Unavailable Unavailable Unavailable Unavailable Joyce Olivo Unavailable Unavailable Elaine Ross Unavailable Unavailable Arnav Flores Unavailable Lilian Anthony Unavailable Unavailable Chadd Ace Unavailable Unavailable Maci Chavez Unavailable Unavailable EL GOVEA Attending Unavailable EL GOVEA Primary Care Unavailable EL GOVEA Admitting Unavailable Maura , Karla Unavailable Dr. Roberth Rangel Unavailable Maura ROBERTO Karla Unavailable Arnav Flores MD Unavailable Dr. Nilton Pablo Unavailable Elaine Ross LPN Unavailable Unavailable Gravius VENUS, Therese Unavailable Unavailable Chadd Bloom LPN Unavailable Unavailable Unavailable Unavailable Slakhadra SOLER Shannan Unavailable Unavailable Maura DO Karla Unavailable Jered CHEN, Nilton Saavedra Unavailable Dr. Roberth Rangel Unavailable Maura Karla ROBERTO Unavailable Mark CHEN, Arnav Morales Unavailable Dr. Nilton Pablo Unavailable Geovani EXPLOSIVES TRUCK DRIVER, Joyce Unavailable Unavailable Gravius PACKAGE DELIVERY DRIVER, Therese Unavailable Unavailable Wolf EXPLOSIVES TRUCK DRIVER, Chadd Unavailable Unavailable Cross EXPLOSIVES TRUCK DRIVER, Elaine Unavailable Unavailable Unavailable Unavailable Karla Lorenzo DO Primary Care Provider Karla Lorenzo DO Primary Care Provider Karla Lorenzo DO Unavailable [place] EXPLOSIVES TRUCK DRIVER, Ramses Unavailable Unavailable Jeremias CABLE REELER, Tatyana Unavailable [phone] Slarb EXPLOSIVES TRUCK DRIVER, Shannan Unavailable Unavailable JOHNIE PEARCE Attending Unavailable KARLA LORENZO Primary Care Unavailab JOHNIE Morrissey Attending Unavailable KARLA LORENZO Primary Care Unavailab JOHNIE Morrissey Attending Unavailable KARLA LORENZO Primary Care Unavailab KARLA Nassar Primary Care Unavailab le Allergies Allergy Classification Reported Allergen(s) Allergy Type Date of Onset Reaction(s) Facility Macrolides (antibiotic) (3 sources) Azithromycin Drug Allergy Hives, Shortness of breath [facility] Work Phone: Penicillins (antibiotic) (3 sources) Penicillins; Translations: [Penicillins] Drug Allergy Hives, Shortness of breath [facility] Work Phone: Quinolones (antibiotic) (6 sources) Ciprofloxacin Drug Allergy Hives, Shortness of breath [facility] Work Phone: Medications Current Medications Medication Drug Class(es) Dates Sig (Normalized) Sig (Original) phenylephrine hydrochloride 25 mg/ml ophthalmic solution (1 source) alpha-1 Adrenergic Agonist Start: 04-13-2022 End: 04-13-2022 PHENYLephrine 2.5 % 1 Drop (AK-DILATE, AZALIA-SYNEPHRINE) tropicamide 10 mg/ml ophthalmic solution (1 source) Anticholinergic Start: 04-13-2022 End: 04-13-2022 tropicamide 1 % 1 Drop (MYDRIACYL) Completed/Discontinued Medications Medication Drug Class(es) Dates Sig (Normalized) Sig (Original) acyclovir 800 mg oral tablet (20 sources) Herpesvirus Nucleoside Analog DNA Polymerase Inhibitor, Herpes Simplex Virus Nucleoside Analog DNA Polymerase Inhibitor, Herpes Zoster Virus Nucleoside Analog DNA Polymerase Inhibitor Start: 12-12-2018 Acyclovir 800 MG Oral Tablet 1 (one) Tablet 5 times for 7 days Quantity: 35 {Tablet} Refills: 0 Ordered: 12-Dec-2018 Karla Lorenzo DO, DO, Kathleen Start : 12-Dec-2018 Active Problems Active Problems Problem Classification Problem Date Documented Da te Episodic/Chronic Abdominal hernia (17 sources) Hiatal hernia; Translations: [Hiatal Hernia] 05-10-2020 Episodic Past or Other Problems Problem Classification Problem Date Documented Da te Episodic/Chronic Administrative/social admission (6 sources) Pneumococcal immunization status; Translations: [Prophylactic vaccination against streptococcus pneumoniae and influenza] Resolved: 11-11-2008 05-05-2015 Episodic Headache; including migraine (20 sources) Headache; including migraine Influenza (20 sources) Influenza Joint disorders and dislocations; trauma-related (4 sources) Other tear of medial meniscus, current injury, left knee, initial encounter; Translations: [Acute meniscal tear, medial] Onset: 02-07-2016 02-09-2016 Episodic Miscellaneous mental health disorders (20 sources) Inflammatory disorder of genitourinary system; Translations: [Other inflammatory disease of cervix, vagina and vulva] Resolved: 01-24-2017 01-24-2017 Chronic Other aftercare (4 sources) Encounter for other specified surgical aftercare; Translations: [Other tear of medial meniscus, current injury, left knee, subsequent encounter] Onset: 02-25-2016 03-20-2016 Episodic Other bone disease and musculoskeletal deformities (2 sources) Chondromalacia; Translations: [Chondromalacia, left knee] Onset: 10-12-2016 10-12-2016 Episodic Other connective tissue disease (2 sources) Pain in right arm; Translations: [Pain in right arm] Onset: 03-24-2015 03-24-2015 Episodic Other eye disorders (2 sources) Dry eyes; Translations: [Dry eye syndrome of bilateral lacrimal glands] Onset: 07-29-2014 01-22-2017 Episodic Other female genital disorders (2 sources) Dysplasia of cervix; Translations: [Dysplasia of cervix uteri, unspecified] Onset: 10-17-2012 10-17-2012 Episodic Other non-traumatic joint disorders (2 sources) Pain in left knee; Translations: [Pain in left knee] Onset: 02-07-2016 02-09-2016 Episodic Other screening for suspected conditions (not mental disorders or infectious disease) (20 sources) Elevated C-reactive protein; Translations: [CRP elevated] Resolved: 01-24-2017 01-24-2017 Pneumonia (except that caused by tuberculosis or sexually transmitted disease) (20 sources) Pneumonia (except that caused by tuberculosis or sexually transmitted disease) Residual codes; unclassified (20 sources) Needs influenza immunization; Translations: [Need for prophylactic vaccination and inoculation against influenza] Resolved: 11-11-2008 03-23-2015 Episodic Residual codes; unclassified (16 sources) Requires vaccination; Translations: [Prophylactic vaccination against streptococcus pneumoniae and influenza] Resolved: 11-11-2008 05-05-2015 Sprains and strains (2 sources) Sprain pelvic ligament; Translations: [Sprain of other parts of lumbar spine and pelvis, initial encounter] Onset: 07-14-2003 10-12-2003 Episodic Superficial injury; contusion (2 sources) Contusion of right forearm, initial encounter; Translations: [Contusion of right forearm, initial encounter] Onset: 03-24-2015 04-03-2015 Episodic Unclassified (20 sources) Other Inflammatory Diseases of Cervix, Vagina or Vulva (616.8) Unclassified (20 sources) Abnormal TSH Unclassified (20 sources) Hair loss Unclassified (20 sources) HORMONE IMBALANCE (259.9) Unclassified (20 sources) Weight gain Unclassified (20 sources) Preprocedural examination done; Translations: [Pre-operative exam (Renamed from Encounter for pre-operative examination)] 11-29-2018 Results Test Name Value Interpretation Reference Range Facil ity Vital Signs Date Time Vital Sign Value Performing Clinician Facility 02-13-2023 08:43-0400 Body height 165.1 cm Shannan Palacios LPN [facility] Work Phone: 02-13-2023 08:43-0400 Body mass index (BMI) [Ratio] 27.37 kg/m2 Shannan Slarb EXPLOSIVES TRUCK DRIVER [facility] Work Phone: 02-13-2023 08:43-0400 Body surface area Derived from formula 1.82 m2 Shannan Slarb EXPLOSIVES TRUCK DRIVER [facility] Work Phone: 02-13-2023 08:43-0400 Body temperature 97.6 [degF] Shannan Slarb EXPLOSIVES TRUCK DRIVER [facility] Work Phone: 02-13-2023 08:43-0400 Body weight 74.62 kg Shannan Slarb EXPLOSIVES TRUCK DRIVER [facility] Work Phone: 02-13-2023 08:43-0400 Diastolic blood pressure 72 mm[Hg] Shannan Slarb EXPLOSIVES TRUCK DRIVER [facility] Work Phone: 02-13-2023 08:43-0400 Heart rate 71 /min Shannan Slarb EXPLOSIVES TRUCK DRIVER [facility] Work Phone: 02-13-2023 08:43-0400 Respiratory rate 16 /min Shannan Slarb EXPLOSIVES TRUCK DRIVER [facility] Work Phone: 02-13-2023 08:43-0400 SaO2% (BldA) [Mass fraction] 98 % Shannan Slarb EXPLOSIVES TRUCK DRIVER [facility] Work Phone: 02-13-2023 08:43-0400 Systolic blood pressure 116 mm[Hg] Shannan Slarb EXPLOSIVES TRUCK DRIVER [facility] Work Phone: 02-09-2022 12:08-0400 Body height 165.1 cm Therese Gravius [facility] Work Phone: 02-09-2022 12:08-0400 Body mass index (BMI) [Ratio] 27.37 kg/m2 Therese Gravius [facility] Work Phone: 02-09-2022 12:08-0400 Body surface area Derived from formula 1.82 m2 Therese Bejarano [facility] Work Phone: 02-09-2022 12:08040 Body weight 74.62 kg Therese Bejarano [facility] Work Phone: 10-17-2021 13:13-0400 Body height 165.1 cm Joyce Olivo LPN [facility]; [facility] Work Phone: 10-17-2021 13:13-0400 Body mass index (BMI) [Ratio] 27.37 kg/m2 Joyce Olivo LPN [facility]; [facility] Work Phone: 10-17-2021 13:13-0400 Body surface area Derived from formula 1.82 m2 Joyce Olivo LPN [facility]; [facility] Work Phone: 10-17-2021 13:13-0400 Body temperature 97.9 [degF] Joyce Olivo LPN [facility] Work Phone: 10-17-2021 13:13-0400 Body weight 74.62 kg Joyce Olivo LPN [facility]; [facility] Work Phone: 10-17-2021 13:13-0400 Diastolic blood pressure 82 mm[Hg] Joyce Olivo LPN [facility]; [facility] Work Phone: 10-17-2021 13:13-0400 Heart rate 48 /min Joyce Olivo LPN [facility] Work Phone: 10-17-2021 13:13-0400 Respiratory rate 16 /min Joyce Olivo LPN [facility] Work Phone: 10-17-2021 13:13-0400 SaO2% (BldA) [Mass fraction] 98 % Joyce Olivo LPN [facility] Work Phone: 10-17-2021 13:13-0400 Systolic blood pressure 118 mm[Hg] Joyce Olivo LPN [facility] Work Phone: 10-06-2021 12:04-0400 Body height 165.1 cm Therese Gravius [facility] Work Phone: 10-06-2021 12:04-0400 Body mass index (BMI) [Ratio] 27.37 kg/m2 Therese Gravius PACKAGE DELIVERY DRIVER [facility] Work Phone: 10-06-2021 12:04-0400 Body surface area Derived from formula 1.82 m2 Therese Gravius PACKAGE DELIVERY DRIVER [facility] Work Phone: 10-06-2021 12:04-0400 Body weight 74.62 kg Therese Gravius PACKAGE DELIVERY DRIVER [facility] Work Phone: 09-28-2021 14:47-0400 Body height 165.1 cm Therese Gravius [facility] Work Phone: 09-28-2021 14:47-0400 Body mass index (BMI) [Ratio] 27.37 kg/m2 Therese Gravius PACKAGE DELIVERY DRIVER [facility] Work Phone: 09-28-2021 14:47-0400 Body surface area Derived from formula 1.82 m2 Therese Gravius PACKAGE DELIVERY DRIVER [facility] Work Phone: 09-28-2021 14:47-0400 Body temperature 97.3 [degF] Therese Manuelius [facility]; [facility] Work Phone: 09-28-2021 14:47-0400 Body weight 74.62 kg Therese Gravius [facility] Work Phone: 09-28-2021 14:47-0400 Diastolic blood pressure 72 mm[Hg] Therese Gravius [facility] Work Phone: 09-28-2021 14:47-0400 Heart rate 72 /min Therese Gravius [facility] Work Phone: 09-28-2021 14:47-0400 Respiratory rate 16 /min Therese Bejarano [facility]; [facility] Work Phone: 09-28-2021 14:47-0400 SaO2% (BldA) [Mass fraction] 97 % Therese Bejarano [facility] Work Phone: 09-28-2021 14:47-0400 Systolic blood pressure 116 mm[Hg] Therese Bejarano [facility] Work Phone: 05-10-2020 09:05-0500 BMI (Body Mass Index) 24.55 kg/m2 [facility] Work Phone: 05-10-2020 09:05-0500 Body weight 66.91 kg [facility] Work Phone: 05-10-2020 09:05-0500 BSA (Body Surface Area) 1.74 m2 [facility] Work Phone: 05-10-2020 09:05-0500 Height 165.1 cm [facility] Work Phone: 04-22-2020 08:10-0500 BMI (Body Mass Index) 24.55 kg/m2 Joyce Hoffmanman [facility] Work Phone: 04-22-2020 08:10-0500 Body Temperature 97.7 [degF] Joyce [facility] Work Phone: Encounters Encounter Date Encounter Type Care Provider Facility Start: 07-05-2023 End: 07-05-2023 ambulatory JOHNIE PEARCE Facility:[facility] Start: 06-28-2023 End: 06-28-2023 ambulatory JOHNIE PEARCE Facility:[facility] Start: 06-25-2023 End: 06-25-2023 ambulatory JOHNIE PEARCE Facility:[facility] Start: 02-21-2023 End: 02-21-2023 Karla Lorenzo DO Work Phone: [facility] Start: 02-13-2023 End: 02-13-2023 Office outpatient visit 15 minutes Karla Lorenzo DO Work Phone: [facility] Start: 02-13-2023 End: 02-15-2023 Karla Lorenzo DO Work Phone: [facility] Start: 11-20-2022 End: 11-20-2022 Karla Lorenzo DO Work Phone: [facility] Start: 06-08-2022 End: 06-08-2022 Patient encounter procedure Johnie Pearce OD Work Phone: Ophthalmology Procedures Date Procedure Procedure Detail Performing Clinician Start: 11-29-2022 End: 11-29-2022 Procedure Note: See Note; NOTES: [facility] Imaging Services [address] [place] [address] SCRN MAMM (CAD)W/MARGARITA BILAT MR#: [id number] Acct: [id number] Name: BAIRON WHALEY Rep #: [id number] : 1965 F 57 From: Troy jiménez MD PCP: Dr. Karla Lorenzo, DO Status: REG CLI Study: SCRN MAMM (CAD)W/MARGARITA BILAT Date of Exam: 11/16 10/08 Exam# [id number] Ordering Dr: Karla Lorenzo DO MAMMOGRAPHY - BILATERAL SCREENING REASON FOR EXAM: Female, 57 years old. Routine annual screening examination. PERTINENT HISTORY: Non-contributory. TECHNIQUE: Digital bilateral breast margarita (3D mammographic acquisition) in the CC and MLO projections. 2-D mediolateral oblique (MLO) and craniocaudad (CC) views of both breasts were obtained. CAD: Full Field Digital Mammography with Computer Added Detection was performed. COMPARISON: Comparison is made with prior study dated November 03, 2021 and June 10, 2020. FINDINGS: Breast Composition: The breasts are heterogeneously dense, which may obscure small masses. There are no dominant masses or suspicious calcifications. Stable small benign appearing bilateral axillary lymph nodes. No other significant abnormalities are identified. There has been no significant change since the prior study. BI/SCRN MAMM (CAD)W/MARGARITA BILAT IMPRESSION: Stable bilateral screening mammogram. Yearly follow-up mammogram recommended. (A) ASSESSMENT CATEGORY: BIRADS Category 2: Benign. A letter regarding these results will be sent to the patient by the facility within 30 days. Approximately 10% of breast cancers are not detected by mammography. A normal mammogram should not delay biopsy of a clinically suspicious abnormality. [id number] Electronically Signed: Tryo Menjivar MD at 13:37 EDT Reading Location ID and State: [address] [place] [address] , Service support , CC: Dr. Karla Lorenzo DO [place] Operator: Signed Karla Lorenzo DO Work Phone: Start: 07-05-2022 End: 07-05-2022 Procedure Note: See Note; NOTES: [facility] [address] [place] [address] OFFICE VISIT Date of Service: 07/05/22 MR#: [id number] Acct: [id number] Name: BAIRON WHALEY Rep #: [id number] : 1965 Provider: TELLO stoner Age/Sex: 56/F Location: [facility] Status: Signed [facility] History of Present Illness Details: This is a pleasant 56-year-old lady who presents to the office today for a cardiovascular follow up visit. She has a strong family history of coronary artery disease, history of factor V Leiden deficiency who previously had some palpitations and was noted to have an abnormal tilt table test. She has treated this with conservative therapy and has done well. She did have an echocardiogram performed in June 2019 which was normal with an estimated ejection fraction of 60%, carotid ultrasound which was also noted to be normal. She has previously had episodes of bradycardia arrhythmia and had a Holter monitor performed in 2016 which demonstrated an average heart rate of 60 bpm. More recently she had a coronary calcium score performed which was noted to be elevated at 239 and with her family history she was asked to see cardiology. She has denied any dizziness or diaphoresis, near syncope or syncope and she has been on minimal medication. She has not been able to tolerate Lipitor and Crestor due to severe muscle aches insurance company denied Livalo and Repatha. From a cardiac standpoint, the patient is doing well. She denies any palpitations, chest pain, pressure or heaviness. She denies SOB, Orthopnea, and PND. She does not have bleeding issues; no blood in urine, stool or nosebleeds. She denies any decrease in energy level, or claudication. She does have slight myalgias in bilateral legs. She does attribute some of this to working out. She does not have edema, or sudden weight gain. She does have an occasional lightheadedness with quick positional changes. She denies dizziness, syncopal or near syncopal episodes, and headaches. Intake Vital Signs 12/28/21 12:42 07/05/22 09:24 07/05/22 09:24 Height 5 ft 5 in 5 ft 5 in 5 ft 5 in Weight: 164 lb BMI 27.3 BP 118/79 Blood Pressure Location Lt brachial Position Sitting Respiration 18 Pulse 62 Pulse Source Monitor Pulse Oximetry (%) 97 Intake Visit Reasons: 6 M FU Tube Bender Hand Required: No Is patient in pain?: No Allergies menthol [From Icy Hot] Allergy (Mild, Verified 07/05/22 09:41) THROAT SWELLING methyl salicylate [From Icy Hot] Allergy (Mild, Verified 07/05/22 09:41) THROAT SWELLING azithromycin [From Zithromax] Allergy (Verified 07/05/22 09:41) Hives ciprofloxacin HCl [From Cipro] Allergy (Verified 07/05/22 09:41) Hives levofloxacin [From Levaquin] Allergy (Verified 07/05/22 09:41) Angioedema Penicillins Allergy (Verified 07/05/22 09:41) Hives morphine Adverse Reaction (Verified 07/05/22 09:41) Vomiting CRESTOR Adverse Reaction (Uncoded 07/05/22 09:41) MYALGIA LIPITOR Adverse Reaction (Uncoded 07/05/22 09:41) MYALGIA Medications estradiol 0.05 mg/24 hr semiweekly transdermal patch 1 patch topical 2XW 12/28/21 [History Confirmed 07/05/22] ezetimibe 10 mg tablet (Zetia) 10 mg PO DAILY #90 tabs 12/28/21 [Rx Confirmed 07/05/22] progesterone micronized 200 mg capsule 200 mg PO QHS 12/28/21 [History Confirmed 07/05/22] testosterone micronized (bulk) 100 % powder See Rx Instructions miscellaneous .COMPLEX 12/28/21 [History Confirmed 07/05/22] atorvastatin 10 mg tablet (Lipitor) 10 mg PO DAILY 07/05/22 [History Confirmed 07/05/22] coenzyme Q10 75 mg capsule (Ultra CoQ10) 100 mg PO DAILY 07/05/22 [History Confirmed 07/05/22] PFSH Medical History Asthma BPPV (benign paroxysmal positional vertigo) Bulging lumbar disc Elevated coronary artery calcium score Factor 5 Leiden mutation, heterozygous Fatigue Incontinence Segmental and somatic dysfunction of lumbar region Segmental and somatic dysfunction of pelvic region Segmental and somatic dysfunction of thoracic region Stomach ulcer Thoracic neuritis Surgical History H/O hemorrhoidectomy History of hysterectomy (01/2017) History of knee surgery History of tonsillectomy Hx of hernia repair (05/2006) Family History Mother Hypertension Depression Father Heart disease cardiac bypass Social History Smoking Status: Never smoker alcohol intake: current ROS Const Const: Negative for fatigue, weakness, fever(s), headache(s), chills, frequent falls, weight gain or weight loss Eyes Eyes: Negative for blind spots, loss of peripheral vision, transient loss of vision, blurry vision, change in vision, double vision, floaters or tunnel vision ENT ENT: Negative for headache(s), dizziness, Nosebleed/epistaxis, balance problems or neck pain Cardio Chest Pain: No Palpitations: No Edema: None Muscle aches with walking: None Resp Respiratory: Negative for SOB with activity, SOB at rest or SOB orthopnea SOB lying down GI GI: Negative nausea, vomiting, heartburn, bloating, vomiting blood/hematemesis, bright, red blood in stools or black,tarry stools Musc Musc: Positive for muscle aches/ myalgia; Negative for muscle weakness, joint pain or balance problems Neuro Neuro: Positive for lightheadedness (occasional with quick positional changes); Negative for dizziness, near syncope, syncope, orthostatic symptoms, frequent falls, headache(s), weakness, blurry vision or double vision Jose Hematologic/Lymphatic: Negative for easy bleeding or easy bruising Endo Endo: Negative for fatigue Cardiology Exam Const Appearance: cooperative, healthy appearing, no acute distress, well developed and well groomed Nutritional Appearance: average body habitus and well nourished Orientation: alert, awake and oriented x3 Head Head: normal to inspection, normocephalic and atraumatic Ears: hearing grossly normal bilaterally and external ears normal Nose: external nose normal Face and Sinus: face symmetric Eyes General: appearance normal, both eyes and all related structures Eyelids: eyelids normal Conjunctivae: conjunctivae normal Pupils: PERRL EOM: EOM intact bilaterally Neck Neck: normal visual inspection, trachea midline and no JVD JVD: +5 Carotids: normal carotid upstroke and bounding pulses Chest Chest inspection: normal inspection of the chest, symmetric chest movement and normal respiratory effort Auscultation: Bilateral: Clear to Auscultation Cardio Palpation: normal PMI Rate: regular rate Rhythm: regular rhythm Heart sounds: S1 normal, S2 normal and normal, physiologic split S2; Negative rub, gallop or murmur GI GI: normal to inspection Neuro General: patient alert, patient awake, patient oriented x3, gait normal, moves all extremities and no focal sensory deficit Skin Skin: no rashes or lesions noted Extremities Pulses: Normal: Right Posterior Tibial Pulse, Left Posterior Tibial Pulse, Right Radial Pulse and Left Radial Pulse Lower Extremity Edema: None: Bilateral Musculoskel Musculoskeletal: No joint tenderness Psych Psychological: normal affect Supplemental Info Supplemental Information Stress Test 01/25/2022: Exercise stress test. 56-year-old lady with a history of chest pain. Stress protocol: Resting EKG demonstrates sinus bradycardia with a rate of 51 bpm normal intervals are noted resting blood pressure is 110/74 mmHg.??? The patient exercised according to the regular Murali protocol for total duration of 10 minutes patient completed 1 minute into stage IV of the Murali protocol the maximum heart rate attained was 151 bpm which was 90% of max impacted heart rate the maximum workload was 13.4 metabolic equivalents.??? The patient maintained sinus rhythm throughout the recording.??? At peak exercise there was upsloping ST depression less than 1 mm in leads II, III and aVF which did not meet the criteria for ischemia.??? The peak blood pressure was 162/74 mmHg with a rate-pressure force of 23,650.??? No clinical angina was noted the test was terminated due to leg fatigue. Conclusion: Exercise stress test with no EKG criteria for ischemia at a high workload. Good functional aerobic capacity. No angina noted. No arrhythmias present. CT CARDIAC SCORING 10/11/2021 FINDINGS: The score and distribution of calcium in the coronary arteries is as follows: LM 84.91 LAD 88.52 LCx 51.18 RCA 15.05 Total 239.66 The heart size is normal and there is no pericardial effusion. The chest vasculature is unremarkable.There is no significant mediastinal or hilar adenopathy. IMPRESSION: Coronary artery calcium score of 239.66 Coronary artery score Annual Risk 0-99 0.4% 100-399 1.3% >400 2.4% ECHOCARDIOGRAM 07/18/2019 Interpretation Summary Contrast injection was performed. Left ventricular systolic function is normal. The estimated ejection fraction is 60 %. Trivial mitral valve insufficiency. Trivial tricuspid valve insufficiency. Trivial aortic valve insufficiency. Trivial pulmonic valve insufficiency. Right ventricular systolic pressure estimated to be 26 mmHg. No evidence for diastolic dysfunction. Bubble contrast study negative for right to left interatrial shunt. Labs: LDL Cholesterol 58 mg/dL (0-130) HDL Cholesterol 67 mg/dL (40-) Triglycerides 40 mg/dL (-199) VLDL Cholesterol 8 mg/dL (5-40) Diagnostics: Electrocardiogram Echocardiogram Stress Test Chest X-Ray Pulmonary: No Data to Display Assessment and Plan Assessment and Plan (1) Bradycardia: Status: Chronic Plan: Patient has a history of bradycardia. She is not symptomatic at this time. Her most recent 25 hour Holter monitor 12/2021 demonstrated an average heart rate of 71 bpm, minimum heart rate was 42 bpm and sinus bradycardia, maximum heart rate was 126 bpm and sinus tachycardia. 0.0% ventricular ectopy, supraventricular ectopy 0.0%, and atrial fibrillation at 0.0%. She will continue to monitor for any concerning symptoms. (2) Elevated coronary artery calcium score: Status: Chronic Plan: Patient's most recent coronary artery calcium score was elevated. She underwent a stress test on 01/25/2022 which was normal at a high workload. She appears stable at this time, and denies any recent symptoms or events. She will continue with her current medical therapy, along with aggressive risk factor and lifestyle modifications. (3) Hyperlipidemia: Status: Chronic Plan: Patient has a history of hyperlipidemia. Her most recent lipid panel from 07/03/2022: cholesterol 133, HDL 67, LDL 58, triglycerides 40. With her strong family history of CAD, and an elevated calcium score, she will continue Zetia 10mg daily, and atorvastatin 10mg daily. She will continue with aggressive risk factor and lifestyle modifications. Medications: Changed From atorvastatin (Lipitor) 10 mg PO .every other day 30 tabs 4RF To atorvastatin (Lipitor) 10 mg PO DAILY Plan Details Additional Comments: Patient will follow up in 9-12 months, or sooner if needed. Thank you for allowing me to participate in the care of your patient. Please don't hesitate to call if any issues arise. This note was generated using a voice recognition system and there may be incorrect words, spelling, or punctuation that were not noted when reviewing the office note prior to saving. Portions of this documentation were copied and pasted from previous office visit notes to provide a cohesive continuity of the history. The note has been reviewed, edited, and updated, as necessary. 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 Karla Lorenzo, DO Karla Lorenzo DO Work Phone: Start: 01-25-2022 End: 01-25-2022 Procedure Note: See Note; NOTES: [facility] [address] [place] [address] MR#: [id number] Acct: [id number] Name: BAIRON WHALEY Rep #: [id number] : 1965 56 From: Aman Baig MD Primary Care: Dr. Karla Lorenzo, Status: REG CLI Referring Dr: Margaret Russell Sex: F C Stress Test Report Exercise stress test. 56-year-old lady with a history of chest pain. Stress protocol: Resting EKG demonstrates sinus bradycardia with a rate of 51 bpm normal intervals are noted resting blood pressure is 110/74 mmHg. The patient exercised according to the regular Murali protocol for total duration of 10 minutes patient completed 1 minute into stage IV of the Murali protocol the maximum heart rate attained was 151 bpm which was 90% of max impacted heart rate the maximum workload was 13.4 metabolic equivalents. The patient maintained sinus rhythm throughout the recording. At peak exercise there was upsloping ST depression less than 1 mm in leads II, III and aVF which did not meet the criteria for ischemia. The peak blood pressure was 162/74 mmHg with a rate-pressure force of 23,650. No clinical angina was noted the test was terminated due to leg fatigue. Conclusion: Exercise stress test with no EKG criteria for ischemia at a high workload. Good functional aerobic capacity. No angina noted. No arrhythmias present. 01/25/22 5416 <Electronically signed by Aman Baig MD> Date Aman Baig MD CC: VIOLETA Russell; Dr. Karla Lorenzo DO Date Dictated: 01/25/221644 Date Transcribed: 01/25/221644 Gettering Operator: CO Signed Karla Lorenzo DO Work Phone: Start: 12-28-2021 End: 01-03-2022 Procedure Note: See Note; NOTES: [facility] [address] [place] [address] 12 Lead EKG performed by [facility] 12/28/211514 MR#: [id number] Acct: [id number] Name: ESSENCEBAIRON GARAY Corwin Rep #: [id number] : 1965 56 From: Aman Baig MD Attending Dr: Dr. Aman Baig MD Status: DEP A MB Ordering Dr: Aman Baig MD Date: 12/28/21 [place] [facility] Sex: F C Admitted: [facility]/12 Lead EKG performed by [facility] Sinus Bradycardia - Negative precordial T-waves. WITHIN NORMAL LIMITS 12/29/21 1402 <Electronically signed by Aman Baig MD> Date Aman Baig MD CC: Dr. Karla Lorenzo DO Date Dictated: 12/28/211514 Date Transcribed: 12/28/211514 Gettering Operator: CO Signed Karla Lorenzo DO Work Phone: Start: 12-28-2021 End: 12-28-2021 Procedure Note: See Note; NOTES: [facility] [address] [place] [address] OFFICE VISIT Date of Service: 12/28/21 MR#: [id number] Acct: [id number] Name: BAIRON WHALEY Rep #: [id number] : 1965 Provider: Dr. Aman Baig MD Age/Sex: 56/F Location: [facility] Status: Signed [facility] History of Present Illness Details: Pleasant 56-year-old lady with a strong family history of coronary artery disease, history of factor V Leiden deficiency who previously had some palpitations and was noted to have an abnormal tilt table test. She has treated this with conservative therapy and has done well. She did have an echocardiogram performed in June 2019 which was normal with an estimated ejection fraction of 60%, carotid ultrasound which was also noted to be normal. She has previously had episodes of bradycardia arrhythmia and had a Holter monitor performed in 2016 which demonstrated an average heart rate of 60 bpm. More recently she had a coronary calcium score performed which was noted to be elevated at 239 and with her family history she was asked to see cardiology. She is denied any dizziness or diaphoresis near syncope or syncope and she has been on minimal medication. She has not been able to tolerate Lipitor and Crestor due to severe muscle aches insurance company denied Livalo and Repatha. Her most recent lipid profile demonstrates a total cholesterol 264 LDL of 175 HDL of 74 triglycerides of 90. Her physical exam here today is unremarkable her electrocardiogram demonstrates sinus bradycardia with a rate of 53 bpm and no acute changes. Intake Vital Signs 11/07/20 21:24 12/28/21 12:42 12/28/21 12:42 Height 5 ft 5 in 5 ft 5 in 5 ft 5 in Weight: 164 lb BMI 27.3 BP 142/90 H Respiration 16 Pulse 66 Pulse Oximetry (%) 95 Intake Visit Reasons: ABN CALCIUM SCORE/REF. MAURA Allergies menthol [From Icy Hot] Allergy (Mild, Verified 12/28/21 15:26) THROAT SWELLING methyl salicylate [From Icy Hot] Allergy (Mild, Verified 12/28/21 15:26) THROAT SWELLING azithromycin [From Zithromax] Allergy (Verified 12/28/21 15:26) Hives ciprofloxacin HCl [From Cipro] Allergy (Verified 12/28/21 15:26) Hives levofloxacin [From Levaquin] Allergy (Verified 12/28/21 15:26) Angioedema Penicillins Allergy (Verified 12/28/21 15:26) Hives morphine Adverse Reaction (Verified 12/28/21 15:26) Vomiting CRESTOR Adverse Reaction (Uncoded 12/28/21 15:26) MYALGIA LIPITOR Adverse Reaction (Uncoded 12/28/21 15:26) MYALGIA Medications aspirin 81 mg tablet,delayed release (Adult Aspirin Regimen) 81 mg PO DAILY 12/27/21 [History Confirmed 12/28/21] estradiol 0.05 mg/24 hr semiweekly transdermal patch 1 patch topical 2XW 12/28/21 [History Confirmed 12/28/21] ezetimibe 10 mg tablet (Zetia) 10 mg PO DAILY #90 tabs 12/28/21 [Rx Confirmed 12/28/21] progesterone micronized 200 mg capsule 200 mg PO QHS 12/28/21 [History Confirmed 12/28/21] testosterone micronized (bulk) 100 % powder See Rx Instructions miscellaneous .COMPLEX 12/28/21 [History Confirmed 12/28/21] Ejection fraction %: 60 to 64 PFSH Medical History Asthma BPPV (benign paroxysmal positional vertigo) Bulging lumbar disc Elevated coronary artery calcium score Factor 5 Leiden mutation, heterozygous Fatigue Incontinence Segmental and somatic dysfunction of lumbar region Segmental and somatic dysfunction of pelvic region Segmental and somatic dysfunction of thoracic region Stomach ulcer Thoracic neuritis Surgical History H/O hemorrhoidectomy History of hysterectomy (01/2017) History of knee surgery History of tonsillectomy Hx of hernia repair (05/2006) Family History Mother Hypertension Depression Father Heart disease cardiac bypass Social History Smoking Status: Never smoker alcohol intake: current ROS Const Const: Positive for fatigue and weakness; Negative for headache(s), frequent falls, difficulty sleeping or excessive sweating Eyes Eyes: Negative for loss of peripheral vision, transient loss of vision, blurry vision, double vision or tunnel vision ENT ENT: Negative for headache(s), dizziness, Nosebleed/epistaxis or balance problems Cardio Chest Pain: No Palpitations: No Edema: None Muscle aches with walking: None Additional Details: Has episodes of near syncope and severe fatigue when resting HR below 50 Resp Respiratory: Negative for SOB with activity, SOB at rest, SOB orthopnea SOB lying down, Cough or paroxysmal nocturnal dyspnea GI GI: Negative nausea, vomiting, heartburn or black,tarry stools : Negative for hematuria Musc Musc: Negative for muscle aches/ myalgia, muscle weakness, joint pain or balance problems Skin Skin: Negative non-healing lesions, rash or unusual bruising Neuro Neuro: Positive for near syncope and weakness; Negative for dizziness, lightheadedness, syncope, orthostatic symptoms, frequent falls, headache(s), confusion, memory loss, blurry vision, double vision, vertigo or lack of coordination Jose Hematologic/Lymphatic: Negative for easy bleeding or easy bruising Endo Endo: Positive for fatigue; Negative for excessive sweating, flushing or increased thirst/drinking Psych Psych: Negative for anxiety or depression Allergy Allergy/Immunology: Negative for hives and Negative for rash Cardiology Exam Const Appearance: cooperative, healthy appearing, no acute distress, well developed and well groomed Nutritional Appearance: average body habitus and well nourished Orientation: alert, awake and oriented x3 Head Head: normal to inspection, normocephalic and atraumatic Ears: hearing grossly normal bilaterally and external ears normal Nose: external nose normal, nares normal, nasal mucous membranes and turbinates normal, septum normal and no nasal discharge Face and Sinus: face symmetric Mouth: oral mucosae normal, tongue normal, oropharynx normal and moist mucous membranes Teeth and gingiva: dentition normal Throat: posterior oropharynx normal, tonsils normal and uvula midline Eyes General: appearance normal, both eyes and all related structures Eyelids: eyelids normal Conjunctivae: conjunctivae normal Pupils: PERRL, normal by confrontation and accommodation normal EOM: EOM intact bilaterally Neck Neck: normal visual inspection, trachea midline and no JVD JVD: +5 Carotids: normal carotid upstroke and bounding pulses Chest Chest inspection: normal inspection of the chest, symmetric chest movement and normal respiratory effort Auscultation: Bilateral: Clear to Auscultation Cardio Palpation: normal PMI Rate: regular rate Rhythm: regular rhythm Heart sounds: S1 normal, S2 normal and normal, physiologic split S2; Negative rub, gallop or murmur GI GI: normal to inspection, soft, no hepatosplenomegaly and bowel sounds present Neuro General: patient alert, patient awake, patient oriented x3, gait normal, moves all extremities and no focal sensory deficit Skin Skin: no rashes or lesions noted Extremities Pulses: Normal: Right Femoral Pulse, Left Femoral Pulse, Right Dorsalis Pedis Pulse, Left Dorsalis Pedis Pulse, Right Posterior Tibial Pulse, Left Posterior Tibial Pulse, Right Radial Pulse and Left Radial Pulse Lower Extremity Edema: None: Bilateral Musculoskel Musculoskeletal: No joint tenderness Psych Psychological: normal affect Supplemental Info Supplemental Information CT CARDIAC SCORING 10/11/2021 FINDINGS: The score and distribution of calcium in the coronary arteries is as follows: LM 84.91 LAD 88.52 LCx 51.18 RCA 15.05 Total 239.66 The heart size is normal and there is no pericardial effusion. The chest vasculature is unremarkable.There is no significant mediastinal or hilar adenopathy. IMPRESSION: Coronary artery calcium score of 239.66 Coronary artery score Annual Risk 0-99 0.4% 100-399 1.3% >400 2.4% ECHOCARDIOGRAM 07/18/2019 Interpretation Summary Contrast injection was performed. Left ventricular systolic function is normal. The estimated ejection fraction is 60 %. Trivial mitral valve insufficiency. Trivial tricuspid valve insufficiency. Trivial aortic valve insufficiency. Trivial pulmonic valve insufficiency. Right ventricular systolic pressure estimated to be 26 mmHg. No evidence for diastolic dysfunction. Bubble contrast study negative for right to left interatrial shunt. LIPIDS 09/2021 CHOL 264 TRIG 90 LDL 175 HDL 74 Portions of this documentation were copied and pasted from previous office visit notes to provide a cohesive continuity of the history. The note has been reviewed, edited, and updated, as necessary. Labs: No Data to Display Diagnostics: Electrocardiogram Pulmonary: No Data to Display Assessment and Plan Assessment and Plan (1) Bradycardia: Status: Chronic Plan: She does have a history of bradycardia which is not symptomatic. At this time I would not treat the above. I would however like to document what her average heart rate is by obtaining a 24-hour Holter monitor. Depending on the findings further recommendations will then be made. (2) Elevated coronary artery calcium score: Status: Chronic Plan: She does have evidence of an elevated calcium score. It would be prudent to evaluate the above by obtaining some formal stress testing. I would like to obtain a stress echocardiogram and depending on the findings further recommendations will be made. (3) Hyperlipidemia: Status: Chronic Plan: Due to her elevated calcium score we should be aggressive with treating her lipid-lowering. I would like us to start her on ezetimibe and see how she does. If she responds to the above possibly we will consider a sprinkling of her statin. She should have a repeat lipid profile in approximately 3 months. Thank you for allowing me to participate in the care of your patient. Please don't hesitate to call if any issues arise. Orders: Orders 12 Lead EKG performed by [facility] Today E78.5 - Hyperlipidemia, unspecified, R00.1 - Bradycardia, unspecified, R93.1 - Abnormal findings on diagnostic imaging of heart and coronary circulation Lipid Profile 3 Months E78.5 - Hyperlipidemia, unspecified Liver Profile 3 Months E78.5 - Hyperlipidemia, unspecified Cardiac Holter Monitor, 24 Hrs 1 Week R00.1 - Bradycardia, unspecified Stress Test Echo w/o Contrast Today R93.1 - Abnormal findings on diagnostic imaging of heart and coronary circulation Medications: New ezetimibe (Zetia) 10 mg PO DAILY 90 tabs 3RF Plan Details Goals Barriers: Goals Decrease pain and inflammation Improve ROM Decrease spasm Barriers Lumbar disc bulge Follow Up: 6 Months (kr) Coding Level of Care Code Off vis,new,level 4 Diagnoses Bradycardia R00.1 Elevated coronary artery calcium score R93.1 Hyperlipidemia E78.5 Coding Level of Care Code Off vis,new,level 4 Diagnoses Bradycardia R00.1 Elevated coronary artery calcium score R93.1 Hyperlipidemia E78.5 12/28/21 1600 <Electronically signed by Aman Baig MD> Date Aman Baig MD Cosigner Signature: Date (if applicable) CC: Dr. Karla Lorenzo, DO Karla Lorenzo DO Work Phone: Start: 11-03-2021 End: 11-03-2021 Comments: See Note; NOTES: [facility] Imaging Services [address] [place] [address] SCRN MAMM (CAD)W/MARGARITA BILAT MR#: [id number] Acct: [id number] Name: BAIRON WHALEY Rep #: [id number] : 1965 F 56 From: Troy jiménez MD PCP: Dr. Karla Lorenzo DO Status: [facility] Study: SCRN MAMM (CAD)W/MARGARITA BILAT Date of Exam: 10/16 03/09 Exam# [id number] Ordering Dr: Karla Lorenzo DO MAMMOGRAPHY - BILATERAL SCREENING REASON FOR EXAM: Female, 56 years old. Routine annual screening examination. PERTINENT HISTORY: Non-contributory. TECHNIQUE: Digital bilateral breast margarita (3D mammographic acquisition) in the CC and MLO projections. 2-D mediolateral oblique (MLO) and craniocaudad (CC) views of both breasts were obtained. CAD: Full Field Digital Mammography with Computer Added Detection was performed. COMPARISON: Comparison is made with prior study dated 06/10/2020 and 05/21/2019. FINDINGS: Breast Composition: The breasts are heterogeneously dense, which may obscure small masses. There are no dominant masses or suspicious calcifications. Stable benign appearing bilateral axillary lymph nodes. No other significant abnormalities are identified. There has been no significant change since the prior study. BI/SCRN MAMM (CAD)W/MARGARITA BILAT IMPRESSION: Stable bilateral screening mammogram. Yearly follow-up mammogram recommended. (A) ASSESSMENT CATEGORY: BIRADS Category 2: Benign. A letter regarding these results will be sent to the patient by the facility within 30 days. Approximately 10% of breast cancers are not detected by mammography. A normal mammogram should not delay biopsy of a clinically suspicious abnormality. [id number] Electronically Signed: Troy Menjivar MD at 13:46 EDT , CC: Dr. Karla Lorenzo, Gettering Operator: Signed Karla Lorenzo DO Work Phone: Start: 11-08-2020 End: 11-08-2020 Discharge Instruction Comments: See Note; NOTES: [facility] Medical Records Department [address] [place] [address] Instructions for Home/Discharge Instructions 11/08/20 0756 MR#: [id number] Acct: [id number] Name: BAIRON WHALEY Rep #: [id number] : 1965 55 From: Shani Schmitz MD PCP: Dr. Karla Lorenzo, Status:REG [facility] Discharge Instructions Follow Up Care Test Results: Test results from this visit will be discussed in further detail at your follow-up appointment, if applicable. Discharge Plan Admission Attending Provider: Shani Schmitz Primary Care Provider: Karla Lorenzo Instructions Additional Instructions / Restrictions: Recommended pain control regimen - May take 600 mg ibuprofen (Motrin) and then in 3-4 hours, may take 650 mg acetaminophen (Tylenol), then in 3-4 hours may take 600 mg ibuprofen, then in 3-4 hours may take 650 mg acetaminophen and so on for 2-3 days May take narcotic pain medication for pain that is not controlled by above and at night for comfort through the night Leave dressings in place May get dressings wet in shower - do not scrub in the area and pat dry Do not soak - no tub baths/swimming Ice applied to areas of discomfort may help No lifting/pushing/pulling greater than 20 pounds for .two weeks May return to work in several days to a week as tolerated Drink plenty of fluids, regular diet is OK, avoid carbonated beverages for a couple of days Please call for a follow up appointment in 1-2 weeks, Discharge Orders/Prescriptions Prescriptions: New hydrocodone-acetaminophen 5-325 mg tablet 1 tab PO Q8H 5 Days Qty: 15 RF: 0 No Action paroxetine HCl [Paxil] 10 mg Tablet 10 mg PO QHS RF: 0 Referrals / Follow Up: Karla Lorenzo DO [Primary Care Provider] - Disposition Discharge Orders: Discharge Patient (Routine); Ordered 11/07/20 Ordered By: Dr. Shani Schmitz 11/08/20 0756<Electronically signed by Shani Schmitz MD>Shani Schmitz MD CC: Dr. Karla Lorenzo, DO Signed Karla Lorenzo DO Work Phone: Start: 11-07-2020 End: 11-07-2020 Operative Report Comments: See Note; NOTES: [facility] Medical Records Department [address] [place] [id number] Operative Report 11/07/202034 MR#: [id number] Acct: [id number] Name: BAIRON WHALEY Rep #: [id number] : 1965 55 From: Shani Schmitz MD PCP: Dr. Karla Lorenzo DO Status:REG [facility] [place] [facility] [id number] Report of Operation Date of Procedure: 11/07/20 Pre-Operative Diagnosis: acute appendicitis Post-Operative Diagnosis: same Surgery/Procedure Performed:: laparoscopic appendectomy Description of Surgical Findings:: swollen indurated appendix Surgeon: Shani Schmitz Type of Anesthesia: General Anesthesiologist: Mechelle Serrano Specimen's removed: appendix Drains: none Estimated Blood Loss (mL): < 10 ml Fluids Replaced: 500 ml Description of Procedure: After informed consent was obtained, the patient was brought into the Operating Room. Appropriate time out protocol was followed. The patient was placed in the supine position on the operating table. The patient was then placed under general anesthesia by the anesthesia provider. The patient???s abdomen was then prepped with a sterile surgical skin preparation and sterile surgical drapes were placed. The infraumbilical skin fold was grasped with penetrating towel clamps and the skin and subcutaneous tissues were infiltrated with 0.25% marcaine with epinephrine. A incision was then made with a 15 blade scalpel. A Veress needle was then inserted into the intraabdominal cavity and checked to be in the proper position with a normal saline drop test. A CO2 pneumoperitoneum was then created. Once this was achieved, the Veress needle was removed and a 5 mm trocar was placed in its stead. A 5 mm laparoscope was then inserted into the trocar. Careful examination of the intraabdominal contents was then done. There was no evidence of injury to any internal organs from placement of the Veress needle or the trocar. Under direct visualization, a 12mm suprapubic trocar and a 5mm left lower quadrant trocar was then placed into the intraabdominal cavity. The skin and subcutaneous tissues at these sites were first infiltrated with 0.25% marcaine with epinephrine. Attention was then directed to the right lower quadrant. The appendix was visualized. The appendix appeared enlarged/edematous/injected/ with surrounding inflammation. The mesentery of the appendix was taken down by cauterizing the tissue from the free edge to the base of the appendix using the Harmonic scalpel. Once the base of the appendix was freed of surrounding tissues, then the linear gastrointestinal stapling device was brought into the abdominal cavity via the 12mm port and placed across the base of the appendix. The stapling device was fired, thus stapling across the base of the appendix and transecting it simultaneously. There was no evidence of perforation of the appendix. The pelvic cavity was vigorously irrigated with normal saline and all irrigant was aspirated out. The appendix was placed in an Endobag and this was brought out through the suprapubic trocar. The appendix was forwarded to Pathology for analysis. The appendiceal stump was carefully examined. There was no evidence of any active bleeding or fecal leakage. The surrounding tissues were also examined and there was no evidence of any active bleeding or fecal/bile leakage. The intraabdominal cavity was examined and there was no evidence of any further inflammation or tissue abnormality. The CO2 pneumoperitoneum was released and all trocars were removed intact. The suprapubic fascia was reapproximated with a figure-of-8 vicryl suture. All skin incisions were reapproximated with monocryl suture. Cavilon and steristrips were applied to reinforce skin closure and proper sterile dressings were placed. Sponge, needle, and instrument count were verified and correct at the time of skin closure. The patient was then extubated and brought to the Recovery Room in stable condition. Complications none noted Admit VTE Documentation VTE Present on Admission: Yes VTE Mechan Device Prophylaxis: SCD's 11/07/202036 <Electronically signed by Shani Schmitz MD> Cosigner Signature (if applicable): CC: Dr. Karla Lorenzo, DO; Dr. Shani Schmitz MD Signed Karla Lorenzo DO Work Phone: Start: 11-07-2020 End: 11-07-2020 History and Physical Exam Comments: See Note; NOTES: [facility] Medical Records Department [address] [place] [address] History Physical Exam 11/07/20 1853 MR#: [id number] Acct: [id number] Name: BAIRON WHALEY Rep #: [id number] : 1965 55 From: Shani Schmitz MD PCP: Dr. Karla Lorenzo DO Status:REG [facility] Location: [place] [address] History and Physical Date of Admission: 11/07/20 Chief Complaint: abdominal pain History of Present Illness: 55 y/o WM presents with abdominal pain. Noted since 6 this morning. Also with nausea and decreased appetite. WBC is 8k with left shift of differential CT scan with findings of appendicitis - tubular thick walled 12mm with adjacent periappendiceal stranding Past Medical History: asthma Past Surgical History: ventral hernia repair hysterectomy tonsillectomy right and left knee arthroscopies IVF procedures Medications: paxil Allergies: menthol, methyl salicylate, azithromycin, cipro, levofloxacin, pcn, morphine Social history: TOB use denies Review of Systems: General - denies fevers Cardiovascular denies chest pain,denies history of heart attack Pulmonary denies shortness of breath, denies coughing up blood Gastrointestinal as per HPI, denies hematemesis Neurological denies numbness/weakness of extremities, denies seizures, denies history of stroke Genitourinary denies burning with urination, denies blood in urine Hematological denies spontaneous/prolonged bleeding Skin denies open non healing wounds, denies rashes Musculoskeletal denies history of fractures Endocrine denies diabetes Psychological denies hallucinations Physical examination: Vital signs Temp 98.8F HR 61 RR 16 BP 148/85 General WD/WN WF in no apparent distress, alert and oriented, not septic appearing HEENT Normocephalic. EOM intact with sclera clear. Neck is supple . Trachea is midline. Lungs normal respiratory excusion, no adventitial sounds heard No labored breathing noted, such as retractions. No cough Heart . regular Abdomen soft .but tender in the right lower quadrant with rebound Extremities no pitting edema noted. Genitourinary/Rectal deferred Skin no normal skin integrity. Neurological non focal Psychological normal affect, patient is calm and appropriate Impression: appendicitis by CT scan Discussion/Plan: I have discussed the above with the patient. I have offered the patient the procedure of laparoscopic appendectomy. I have explained the procedure to the patient. I have counseled the patient as to the risks of the procedure, including but not limited to: infection, bleeding, injury to any blood vessels/nerves, scar tissue, injury to any intraabdominal organs, injury to kidney/ureters, injury to bowel/bladder, intraabdominal abscess/bleeding, hernias at incisional sites, wound infections, possible open procedure, complications of anesthesia, postoperative pneumonia/cardiac problems/blood clots etc. the patient understands. Patient had COVID vaccine She wishes to proceed I have answered all questions to the patient???s satisfaction and the patient has no further questions. 11/07/201902 <Electronically signed by Shani Schmitz MD> Cosigner Signature (if applicable): CC: Dr. Karla Lorenzo DO; Dr. Shani Schmitz MD Signed Karla Lorenzo DO Work Phone: Start: 11-07-2020 End: 11-07-2020 Emergency Department Summary Comments: See Note; NOTES: [facility] Medical Records Department [address] [place] [id number] Emergency Department Summary 11/07/20 MR#: [id number] Acct: [id number] Name: BAIRON WHALEY Rep #: [id number] : 1965 55 From: Patti Dominguez DO PCP: Dr. Karla Lorenzo DO Status:REG ER Location: ED HPI HPI - GI History of Present Illness Chief Complaint: Abd Pain Detail of Chief Complaint: Abdominal pain that started last evening around 11 PM Informant: patient Abdominal Pain/Flank Pain Quality: Sharp and Stabbing Location: Epigastric and RLQ Current Severity: 8/10 Worsened by: Movement Relieved by: Nothing Nausea/Vomiting/Emesis GI Symptom: Positive for Nausea Diarrhea/Melena/Hematochezia GI Symptom: Negative for Diarrhea, Melena and Hematochezia Associated Symptoms Associated Symptoms: Negative for Dysuria and Frequency Narrative Narrative: Patient presents to the emergency department with complaint of abdominal pain that started last evening around 11 PM. Patient states that the pains been continuous and she had a hard time sleeping all of last night. Patient's had nausea but no vomiting. She denies diarrhea. She denies blood in her stool or black tarry stool. She tells me that she is had similar episodes x3 since March last year but typically resolve after 24 hours. Patient drinks alcohol occasionally but is never had pancreatitis. She did have 2 alcoholic beverages last evening. Patient has had prior hysterectomy but still has her appendix and gallbladder. She denies urinary symptoms. Patient denies any chest pain or shortness of breath Prior similar symptoms: Yes PFSH PFSH Medical History (Updated 11/07/20 @ 18:[address] Patti Dominguez, DO) Asthma Factor 5 Leiden mutation, heterozygous Fatigue Incontinence IVF Stomach ulcer Home Medications paroxetine HCl [Paxil] 10 mg PO QHS 11/07/20 [History Last Taken Unknown] Allergy/AdvReac Type Severity Reaction Status Date / Time menthol [From Icy Hot] Allergy Mild THROAT Verified 11/07/20 14:55 SWELLING methyl salicylate Allergy Mild THROAT Verified 11/07/20 14:55 [From Icy Hot] SWELLING azithromycin [From Zithromax] Allergy Hives Verified 11/07/20 14:55 ciprofloxacin [From Cipro] Allergy Hives Verified 11/07/20 14:55 ciprofloxacin HCl Allergy Hives Verified 11/07/20 14:55 [From Cipro] levofloxacin [From Levaquin] Allergy Angioedema Verified 11/07/20 14:55 Penicillins Allergy Hives Verified 11/07/20 14:55 morphine AdvReac Vomiting Verified 11/07/20 14:55 Family History Mother Hypertension Depression Father Heart disease cardiac bypass Surgical History (Updated 11/07/20 @ 16:34 by Natalia García) H/O hemorrhoidectomy History of hysterectomy History of knee surgery History of tonsillectomy Social History (Updated 02/27/20 @ 11:[address] Carlyle Blackwood, DO) Smoking Status: Never smoker alcohol intake: current ROS ROS ED Constitutional Constitutional ED: Reports systems reviewed and no addt'l complaints, except as documented; Denies body ache(s), change in weight or chills Eyes Eyes: Denies acute decrease in peripheral vision, change in vision, double vision or loss of vision ENT ENT ED: Reports none; Denies ear pain, lip swelling, loss taste/smell, neck pain, otalgia or sore throat Cardiovascular Cardiovascular: Reports none; Denies abdominal pain, chest pain with activity, leg edema, lightheadedness, palpitations, rapid heart rate or syncope Respiratory/Chest Respiratory/Chest: Reports none; Denies change in mental status, dry cough, dyspnea, hemoptysis, shortness of breath at rest or shortness of breath with exertion Gastrointestinal Gastrointestinal: Reports none, abdominal pain and nausea; Denies change in stool character, diarrhea, hematemesis, hematochezia, melena, rectal bleeding or vomiting Genitourinary Genitourinary ED: Reports none; Denies abdominal discomfort, anuria, dysuria, genital pain, hematuria, polyuria or urinary frequency Musculoskeletal Musculoskeletal: Reports none; Denies arthralgias, back pain, difficulty walking, extremity pain, muscle weakness or myalgias Integumentary Reports none; Denies abscess or rash Neurologic Neurologic: Reports none; Denies abnormal gait, confusion, focal weakness, frequent falls, headache(s), loss of vision, numbness, paresthesias, radicular pain, vertigo or weakness Psychiatric Psychiatric: Reports systems reviewed and no addt'l complaints, except as documented and none; Denies behavioral changes, confusion, difficulty concentrating, hallucinations, suicidal ideation, tactile hallucinations or visual hallucinations Endocrine Endocrinology: Denies none, cold intolerance, excessive sweating, fatigue or heat intolerance Hematologic/Lymphatic Hematologic/Lymphatic: Reports none; Denies anemia, easy bleeding or easy bruising Allergic/Immunologic Allergic/Immunologic ED: Denies as per HPI, none, lip swelling, mouth swelling, throat swelling, tongue swelling or hives EXAM Physical Exam Const Vital Signs: 11/07/20 14:55 Temperature 98.3 F Temperature Source Temporal Pulse Rate 66 Respiratory Rate 18 Blood Pressure 116/84 H Blood Pressure Mean 94 Pulse Ox 97 Oxygen Delivery Method Room Air Positive well nourished and well developed General Appearance ED: well developed and NAD HEENT Reports TM's clear and moist mucous membranes normocephalic and atraumatic; Negative for trauma or tenderness Tympanic Membrane ED: Yes TM's clear Eyes PERRL and EOMs intact bilaterally General Eye ED: Negative for pale conjunctiva or scleral icterus Neck no lymphadenopathy, supple and no JVD General: Negative for tenderness Chest Wall inspection of chest normal and palpation of chest normal Chest: Negative for tenderness Resp normal respiratory effort and clear to auscultation bilaterally Effort and Inspection: Negative for respiratory distress or pain with movement Auscultation: Negative for rhonchi, wheezes or diminished lung sounds Cardio regular rate, regular rhythm, S1 normal heart sound, S2 normal heart sound and no murmurs Peripheral Pulses: pulses 2+ throughout GI normal to inspection, nondistended, normoactive bowel sounds, soft to palpation, non-distended and no masses; Negative for non-tender Palpation: soft and tender epigastric and RLQ; Negative for rebound tenderness present Back/Spine no CVA tenderness and no thoracic nor lumbar tenderness Extremity normal to inspection General Extremety ED: Negative for edema General Extremity: Negative for edema Neuro oriented x3, CN's II-XII intact bilaterally, no sensory deficits noted and gait normal Sensorium / Orientation: awake, alert, oriented to person, oriented to place and oriented to time Motor Exam: strength 5/5 throughout and strength abnormal Psych mental status grossly normal Skin no rashes or lesions noted and no wounds MDM MDM MDM Narrative Medical decision making narrative: Patient noted to have acute appendicitis on CT. Case discussed with general surgeon who recommended doxycycline antibiotics IV given patient has multiple other drug allergies. I ordered a Covid 19 rapid test as well. Patient will be taken to the OR for surgical intervention. Lab Data Labs: Laboratory Results - last 24 hr 11/07/20 11/07/20 11/07/20 15:34 15:34 15:34 WBC 8.8 RBC 4.79 Hgb 14.5 Hct 43.0 MCV 89.8 MCH 30.3 MCHC 33.7 RDW Std Deviation 41.2 RDW Coeff of Sumit 12.5 Plt Count 283 MPV 9.5 Immature Gran % (Auto) 0.600 Neut % (Auto) 84.7 H Lymph % (Auto) 8.4 L Campbell % (Auto) 5.8 Eos % (Auto) 0.2 Baso % (Auto) 0.3 Absolute Neuts (auto) 7.4 Absolute Lymphs (auto) 0.74 L Nucleated RBC % 0 Sodium 141 Potassium 3.3 L Chloride 105 Carbon Dioxide 28.0 Anion Gap 8 BUN 15 Creatinine 0.86 Estim Creat Clear Calc 68.07 Est GFR (MDRD) Af Amer 88 Est GFR (MDRD) Non-Af 73 BUN/Creatinine Ratio 17.3 Glucose 111 H Lactic Acid 1.2 Calcium 9.0 Total Bilirubin 0.90 AST 11 L ALT 19 Alkaline Phosphatase 65 Total Protein 7.3 Albumin 3.9 Globulin 3.4 Albumin/Globulin Ratio 1.1 Lipase 54 L Urine Color Urine Clarity Urine pH Ur Specific Toledo Urine Protein Urine Glucose (UA) Urine Ketones Urine Occult Blood Urine Nitrite Urine Bilirubin Urine Urobilinogen Ur Leukocyte Esterase Urine RBC Urine WBC Ur Squamous Epith Cells Urine Bacteria Urine Mucus 11/07/20 16:08 WBC RBC Hgb Hct MCV MCH MCHC RDW Std Deviation RDW Coeff of Sumit Plt Count MPV Immature Gran % (Auto) Neut % (Auto) Lymph % (Auto) Campbell % (Auto) Eos % (Auto) Baso % (Auto) Absolute Neuts (auto) Absolute Lymphs (auto) Nucleated RBC % Sodium Potassium Chloride Carbon Dioxide Anion Gap BUN Creatinine Estim Creat Clear Calc Est GFR (MDRD) Af Amer Est GFR (MDRD) Non-Af BUN/Creatinine Ratio Glucose Lactic Acid Calcium Total Bilirubin AST ALT Alkaline Phosphatase Total Protein Albumin Globulin Albumin/Globulin Ratio Lipase Urine Color Yellow Urine Clarity Clear Urine pH 6.5 Ur Specific [place]edo 1.015 Urine Protein 15 H Urine Glucose (UA) Normal Urine Ketones 50 H Urine Occult Blood 10 H Urine Nitrite Negative Urine Bilirubin Negative Urine Urobilinogen Normal Ur Leukocyte Esterase Negative Urine RBC 0 SEEN Urine WBC 0 SEEN Ur Squamous Epith Cells 0 SEEN Urine Bacteria 0 SEEN Urine Mucus 0 SEEN Radiography Diagnostic Testing: Radiology Impression Abdomen/Pelvis CT 11/07/20 15:20 IMPRESSION: 1. Acute appendicitis without focal fluid collection/abscess or pneumoperitoneum. Electronically Signed: Raymond Marroquin MD (Brooks) at 17:36 EDT , Service support , Discharge Plan Triage Chief Complaint: Abd Pain ED Provider: Patti Dominguez Dx/Rx/DC Orders Clinical Impression: Acute appendicitis Prescriptions: No Action paroxetine HCl [Paxil] 10 mg Tablet 10 mg PO QHS RF: 0 Primary Care Provider: Karla Lorenzo Referrals: Karla Lorenzo DO [Primary Care Provider] - Disposition Disposition: Acute Care Hospital [facility] What to do if you have Problems For any increased pain, shortness of breath, bleeding, nausea or vomiting, chest pain, or any unexpected problems, contact your Primary Care Provider. Call [facility] ([phone]) or report to the closest Emergency Room. Call 911 if necessary. 11/07/20 180 <Electronically signed by Patti Dominguez DO> Cosigner Signature (if applicable): CC: Dr. Karla Lorenzo DO Signed Karla Lorenzo DO Work Phone: Start: 11-07-2020 End: 11-07-2020 Abdomen/Pelvis WITH Contrast Comments: See Note; NOTES: [facility] Imaging Services [address] [place] [address] Abdomen/Pelvis WITH Contrast MR#: [id number] Acct: [id number] Name: BAIRON WHALEY Rep #: [id number] : 1965 F 55 From: Raymond Marroquin MD PCP: Dr. Karla Lorenzo DO Status: REG ER Study: Abdomen/Pelvis WITH Contrast Date of Exam: Exam# [id number] Ordering Dr: Patti Dominguez DO STUDY: CT ABDOMEN AND PELVIS WITH CONTRAST REASON FOR EXAM: Female, 55 years old. abdominal pain -- IV PO Contrast RADIATION DOSAGE (If Supplied By Facility): CTDIvol = ( 9.90 ) mGy, DLP = ( 598.59 ) mGycm TECHNIQUE: Transaxial images were obtained from the dome of the diaphragm to the symphysis pubis with oral contrast. Oral and IV Gastrografin and 100mL Isovue-370 was administered. Sagittal and coronal images were reconstructed. Individualized dose optimization techniques were used for this CT. COMPARISON: None. FINDINGS: The visualized lung bases are unremarkable. The visualized portions of the heart are within normal limits. Normal liver. Normal gallbladder and extrahepatic biliary system. Normal spleen. Normal pancreas. Normal bilateral adrenal glands. Normal right kidney. Normal left kidney. Normal visualized stomach. Normal small intestine. Normal colon. There is a tubular, thick-walled appendix (12 mm) and adjacent periappendiceal stranding (image 69 series 602), consistent with acute appendicitis. No focal fluid collection or pneumoperitoneum. Normal abdominal aorta. Normal inferior vena cava. Normal retroperitoneum. Normal urinary bladder. Trace free fluid in the dependent portion of the pelvis. Normal abdominal wall. Normal osseous structures. CT/Abdomen/Pelvis WITH Contrast IMPRESSION: 1. Acute appendicitis without focal fluid collection/abscess or pneumoperitoneum. Electronically Signed: Raymond Marroquin MD ([place]) at 17:36 EDT , Service support , CC: Dr. Karla Lorenzo DO; Dr. Patti Dominguez DO Gettering Operator: Signed Karla Lorenzo DO Work Phone: Start: 06-10-2020 End: 07-08-2020 SCREEN MAMM (CAD) W/MARGARITA BILAT Comments: See Note; NOTES: [facility] Imaging Services [address] [place] [address] SCREEN MAMM (CAD) W/MARGARITA BILAT MR#: [id number] Acct: [id number] Name: BAIRON WHALEY Rep #: [id number] : 1965 F 54 From: Troy jiménez MD PCP: Dr. Karla Lorenzo DO Status: REG CL Study: SCREEN MAMM (CAD) W/MARGARITA BILAT Date of Exam: 08/11/19 Exam# [id number] Ordering Dr: Shari Rasheed MD MAMMOGRAPHY - BILATERAL SCREENING REASON FOR EXAM: Female, 54 years old. Routine annual screening examination. PERTINENT HISTORY: Non-contributory. TECHNIQUE: Digital bilateral breast margarita (3D mammographic acquisition) in the CC and MLO projections. 2-D mediolateral oblique (MLO) and craniocaudad (CC) views of both breasts were obtained. CAD: Full Field Digital Mammography with Computer Added Detection was performed. COMPARISON: Comparison is made with prior study dated 05/21/2019 and 02/19/2018. FINDINGS: Breast Composition: The breasts are heterogeneously dense, which may obscure small masses. There are no dominant masses or suspicious calcifications. No other significant abnormalities are identified. There has been no significant change since the prior study. BI/SCREEN MAMM (CAD) W/MARGARITA BILAT IMPRESSION: Stable bilateral screening mammogram. Yearly follow-up mammogram recommended. (A) ASSESSMENT CATEGORY: BIRADS Category 1: Negative. A letter regarding these results will be sent to the patient by the facility within 30 days. Approximately 10% of breast cancers are not detected by mammography. A normal mammogram should not delay biopsy of a clinically suspicious abnormality. [id number] Electronically Signed: Troy Otto, at 11:14 EST , Service support , CC: Dr. Karla Lorenzo DO; Dr. Sahri Portillo MD Gettering Operator: Signed Karla Lorenzo DO Work Phone: Start: 05-27-2020 End: 05-27-2020 PT D/C of Non Returning Pt (1) Comments: See Note; NOTES: [facility] Physical [facility] [address] [place] [address]. [address] [place] [address] / REHABILITATION SERVICES DISCHARGE SUMMARY MR#: [id number] Acct: [id number] Name: BAIRON WHALEY Rep #: [id number] : 1965 54 From: Luisa HERNANDEZT Referring Dr.: Dr. Carlyle Blackwood, DO Status: R EG RCR Insurance: [facility] PAY INSURANCE BAIRON WHALEY was seen in my office for initial evaluation on 03/04/20. The following Plan of Care was established for this patient: Initial Frequency: 2x /Week Initial Duration: 4 Weeks Patient/Client Instruction: Educate patient on: Benefits of Fitness Program Therapeutic Exercise to Include: Strength training, Endurance training, Balance training, Body mechanics, Postural training, Flexibilty training, Gait and locomotor training, Neuromotor development, Passive ROM, Active ROM, Dynamic Lumbar Stabilization, Scapular Strength/Stabilization For the Purpose of:: To improve muscle performance and motor function This patient was last seen in our office . Pertinent comments regarding their Physical therapy will appear below: Patient has not returned to PT in over 8 weeks- appropriate for discharge and return to MD for further evaluation. At this point I will be discontinuing this patient from physical therapy. I would be happy to see this patient again in the future if found appropriate by the physician. Thank you! MARY LoraT <Electronically signed by Luisa Cowart DPT> 05/27/20 1108 CC: Dr. Carlyle Blackwood DO; Dr. Karla Lorenzo DO ELR Signed Karla Lorenzo Start: 03-04-2020 End: 03-04-2020 Inital Evaluation (1) - PT Comments: See Note; NOTES: [facility] Physical Therapy [address] [place] [address] / REHABILITATION SERVICES INITIAL EVALUATION MR#: [id number] Acct: [id number] Name: BAIRON WHALEY Rep #: [id number] : 1965 54 From: Luisa Cowart DPT Referring Dr.: Dr. Carlyle Blackwood, Status: R EG RCR Insurance: [facility]Y INSURANCE Patient's Visit Information BAIRON WHALEY is a 54 year old F referred to Physical Therapy by Dr. Carlyle Blackwood DO with a diagnosis of Left Ischial bursitis. Date of Evaluation: 03/04/20 Physical Therapist: Luisa Cowart DPT - Visit Plan Frequency: 2x /Week Duration: 4 Weeks Plan: Focus on LE and core strength/stabilization - Subjective Patient reports that she has left ischial tuberosity pain once in a while the right hurts too. she has run for years and trained for handful of marathons- last one was 15 years ago. She was on a training run about 15 years ago and felt a pop and then radiated into the pelvic floor- had a MRI- stress syndrome in her pubic bone. She has had pain with this for years when she runs. This summer can't run at all- it hurts 08/01 now. Agg: sitting , walking running or pretty much anything Worst: 01/25 Has not tried to run in several weeks- walked [employer] [place] and was almost in tears walking up the hill. Elevation kills her. Eases: nothing helps. put her on Meloxicam but she is not noticing a different Best: 08/25. Eases: laying on her back sometimes- when she first lays down she has spasms. Sleep: disturbed. Tried to golf last week and that aggravated it too. 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 Is not doing any sort of strength training- since Feburary due to COVID. Goals: get back to running (5 days a week 4-6 miles). Has had x-rays recently which were negative- if PT does not help then she may need an injection. Describes the pain as just painful. Pain is only located on the ischial tuberosity- no radiating pain. Did go to chiro and she does not feel like its her back. PMHx: exercise induced asthma Meds: rescue inhaler - Objective Posture: FH, RS- can correct with verbal cues but is unable to maintain. Gait: no deviation noted. SLS: 15 sec no LOB but does have hip drop. HR/TR: able without LOB. Squat: heel pop- increased valgus and weight shifts. ROM: WFL in all planes- reports discomfort IR/ER of the right hip. Sensation/Reflex: WNL. Strength: Core: fair minus Hip: 4-/5 throughout, knee:5/5, ANkle: 5/5 significant pain with testing of the left ER. Palpation: tender along ischial tuberosity. Flex: HS: moderate, Piriformis: moderate, Gastroc: mild. Special test: dural signs: negative, LLD: negative, Pelvic Alignment: WFL - Goals Goal 1:: Patient will be I with HEP and progression Goal Time Frame: 4-6 Weeks Goal 2:: Patient will maintain proper posture t/o tx session to demo increased core s/s. Goal Time Frame: 4-6 Weeks Goal 3:: Patient will run with 0/10 pain Goal Time Frame: 4-6 Weeks - Rehabilitation Potential Physical Therapy Diagnosis: Patient presents with hypomobility- she has decreased strength, flex and muscular endurance leading to instability of the pelvis and increased pain with ADL's. Rehabilitation Potential: Good - Anticipated Interventions Patient/Client Instruction: Educate patient on: Benefits of Fitness Program Therapeutic Exercise to Include: Strength training, Endurance training, Balance training, Body mechanics, Postural training, Flexibilty training, Gait and locomotor training, Neuromotor development, Passive ROM, Active ROM, Dynamic Lumbar Stabilization, Scapular Strength/Stabilization For the Purpose of:: To improve muscle performance and motor function Thank you for the opportunity to evaluate your patient. For Medicare and Medicare HMO plans, please review the plan of care and approve it. It will need to be FAXED BACK to us at [phone] for Medicare purposes. For Medicare only, by signing this I certify the plan of care. Please let me know if there are questions or concerns regarding this plan of care. Physician Signature: ___Date: <Electronically signed by Luisa Cowart DPT> 03/04/20 1034 CC: Dr. Carlyle Blackwood DO; Dr. Karla Lorenzo DO ELR Signed Karla Lorenzo Start: 02-27-2020 End: 02-27-2020 HIP, UNI W/ Pelvis 2-3 Views Comments: See Note; NOTES: [facility] [address] [place] [address] HIP, UNI W/ Pelvis 2-3 Views MR#: [id number] Acct: [id number] Name: BAIRON WHALEY Rep #: [id number] : 1965 F 54 From: Antonio Latham MD PCP: Dr. Karla Lorenzo DO Status: DEP AMB Study: HIP, UNI W/ Pelvis 2-3 Views Date of Exam: 05/07 Exam# [id number] Ordering Dr: Carlyle Blackwood DO STUDY: X-RAY - PELVIS AND LEFT HIP REASON FOR EXAM: Female, 54 years old. LEFT POSTERIOR HIP PAIN TECHNIQUE: 3 views of the pelvis and hip. COMPARISON: None. FINDINGS: There is a non-specific bowel gas pattern. Normal visualized soft tissue structures. Normal bilateral iliac wings, sacroiliac joints and visualized sacrum. Normal bilateral superior and inferior pubic rami. Normal pubic symphysis. Normal bilateral ischial tuberosities. Normal visualized femoral head. Normal acetabulum. Normal hip joint. RAD/HIP, UNI W/ Pelvis 2-3 Views IMPRESSION: Normal x-ray examination of the pelvis and hip. Electronically Signed: Wayne Latham MD at 17:32 EDT , Service support , CC: Dr. Carlyle Blackwood DO; Dr. Karla Lorenzo DO Gettering Operator: Signed Karla Lorenzo Start: 02-27-2020 End: 02-27-2020 Orthopedic Visit Report Comments: See Note; NOTES: [facility] [address] [place] [address] OFFICE VISIT Date of Service: 02/27/20 MR#: [id number] Acct: [id number] Name: BAIRON WHALEY Rep #: [id number] : 1965 Provider: Dr. Carlyle felder DO Age/Sex: 54/F Location: [facility] [place].[facility] Status: Signed Intake Intake Visit Reasons: Left leg Chief Complaint: Left Ischial Tuberosity Pain Is patient in pain?: Yes Pain scale (1-10): 7 Allergies menthol [From Icy Hot] Allergy (Mild, Verified 06/12/19 07:23) THROAT SWELLING methyl salicylate [From Icy Hot] Allergy (Mild, Verified 06/12/19 07:23) THROAT SWELLING azithromycin [From Zithromax] Allergy (Verified 08/10/18 08:22) Hives ciprofloxacin [From Cipro] Allergy (Verified 08/10/18 08:22) Hives ciprofloxacin HCl [From Cipro] Allergy (Verified 08/10/18 08:22) Hives levofloxacin [From Levaquin] Allergy (Verified 08/10/18 08:22) Angioedema Penicillins Allergy (Verified 08/10/18 08:22) Hives morphine Adverse Reaction (Verified 08/10/18 08:22) Vomiting Medications clindamycin HCl 300 mg capsule 300 mg PO TID #30 cap 06/12/19 [Rx Confirmed 06/12/19] coenzyme Q10 30 mg capsule 30 mg PO DAILY 06/12/19 [History Confirmed 06/12/19] magnesium 30 mg tablet 30 mg PO DAILY 06/12/19 [History Confirmed 06/12/19] multivitamin,dm-fsyl-lglgsri s 1 tab PO DAILY 06/12/19 [History Confirmed 02/27/20] aspirin 81 mg tablet,delayed release 81 mg PO DAILY 02/27/20 [History Confirmed 02/27/20] meloxicam 15 mg tablet 15 mg PO DAILY #30 tab 02/27/20 [Rx Confirmed 02/27/20] PFSH Medical History Asthma (Acute) Factor 5 Leiden mutation, heterozygous (Acute) Fatigue (Acute) IVF (Acute) Incontinence (Acute) Lung disease (Acute) Severe headache (Acute) Shortness of breath (Acute) Stomach ulcer (Acute) Surgical History H/O hemorrhoidectomy (Acute) History of hysterectomy (Acute) History of knee surgery (Acute) Family History Mother Hypertension Depression Father Heart disease cardiac bypass Social History (Updated 02/27/20 @ 11:[address] Carlyle Blackwood DO) Smoking Status: Never smoker alcohol intake: current HPI Left leg: Details: Parts of this documentation were recorded by a scribe, this documentation accurately reflects the service provided and the decisions made by me, Dr. Carlyle Blackwood DO 02/27/20 0800. BAIRON WHALEY is a 54 year old F referral from Dr. Camacho here today for left ischial tuberosity pain. Patient states that this has been ongoing for over 15 years. States that it has slowly worsened through the years. States that it used to only occur when she did marathons but now she has pain with sitting, walking, and daily activities. States that she had a stress fracture to her pubic bone 16 years ago while running which she believes began these problems. States that the pain is centralized in lower left buttock. Patient was seeing Dr. Camacho and a massage therapist and saw some relief but now is in constant pain. SHe has tried stretching and strengthening at home along with yoga. Denies numbness, tingling or other associated symptoms. Denies any steroid injections to the hip. States that Dr. Camacho ordered an x-ray on 02/09/20 of her lumbar spine. X-rays of the hip taken today. Denies any history of tumor or cancerOr constitutional symptoms She has tried intermittent OTC NSAID Ortho Exam Left Hip Skin/Wound: No Ecchymosis, No soft tissue swelling, No Erythema Hip: Absent eccymosis, soft tissue swelling or erythema Homans Sign: No HIP: TTP over ischium 88 external rotation without piriformis pain 50 internal rotation without pain She is tender to palpation over the issue him there is no mass there is no erythema there is no ecchymosis her hamstrings are nontender Supplemental Info 02/27/2020 x-ray left hip: Preserved joint space No acute Abnormality. No mass.No soft tissue calcifications Assessment Plan Problems 1. Ischial bursitis of left side M70.72 Plan Obtained X-rays of patient's left hip. Personally reviewed x-rays. There is no obvious fracture, dislocation, or lucency noted. Patient educated that she has ischial bursitis. Treatments include do nothing or NSAIDs or PT for stretching or strengthening or pain management for a localized injection. Will prescribe the patient Mobic 15mg daily for the inflammation along with PT. If not better in 4 weeks we will send referral to pain managmentFor a ishial lbursal injectionor sooner if pain, swelling, numbness or associated symptoms, or concerns develop. All questions answered. Patient in agreement of plan. Orders Orders: HIP, UNI W/ Pelvis 2-3 Views Today M25.552 Medications New: meloxicam (Mobic) Do not take in conjunction with other NSAIDs. Tylenol is okay 15 mg PO DAILY 30 tabs 0RF Plan Detail Goals Decrease pain and inflammation Improve ROM Decrease spasm Barriers Lumbar disc bulge Coding Level of Care Code Off vis,new,level 3 Diagnoses Ischial bursitis of left side M70.72 02/27/20 1121 <Electronically signed by Carlyle Blackwood DO> Date Carlyle Blackwood DO Cosign Signature: Date (if applicable) CC: Karla Lorenzo Start: 02-19-2020 End: 02-19-2020 Radiology Report Comments: See Note; NOTES: [facility] [address] [place] [address] 02/19/20 1418 MR#: [id number] Acct: [id number] Name: BAIRON WHALEY Rep #: [id number] : 1965 54 From: Amy Camacho D.C. PCP: Dr. Karla Lorenzo, DO Status:[facility] Location: [facility] [place] X-Ray Report Impression Impression: Patients Name: BAIRON WHALEY : 1965 Views Submitted: a routine lumbar series was accomplished on 02/09/20 at [facility]. The lumbar series reveals in the AP view right spinous process rotation from L3-L5. There is a mild 6mm leg length inequality on the left. There is posterior rotation of the left sandro on sacrum. Sacrum is inferior on the left. Soft tissue structures are unremarkable. The lateral lumbar view demonstrates a normal lordotic lumbar spine. The disc spaces are within normal limits for the patient???s age. No indication of fracture or instability. IMPRESSION: 1.Normal lumbar xray. Dictated by Performing Provider: Amy Camacho Coding Level of Care Code Spine Lumbarsacral 2-3 views 02/19/20 1425 <Electronically signed by Amy Camacho D.C.> Date Amy Camacho D.C. Signed Karla Lorenzo Start: 02-16-2020 End: 02-16-2020 Chiropractic Report Comments: See Note; NOTES: [facility] [address] [place] [address] OFFICE VISIT Date of Service: 02/16/20 MR#: [id number] Acct: [id number] Name: BAIRON WHALEY Rep #: [id number] : 1965 Provider: STEPH Moore Age/Sex: 54/F Location: [facility] [place] Status: Signed Intake Intake Visit Reasons: Back Pain Chief Complaint: L sided low back pain Allergies menthol [From Icy Hot] Allergy (Mild, Verified 06/12/19 07:23) THROAT SWELLING methyl salicylate [From Icy Hot] Allergy (Mild, Verified 06/12/19 07:23) THROAT SWELLING azithromycin [From Zithromax] Allergy (Verified 08/10/18 08:22) Hives ciprofloxacin [From Cipro] Allergy (Verified 08/10/18 08:22) Hives ciprofloxacin HCl [From Cipro] Allergy (Verified 08/10/18 08:22) Hives levofloxacin [From Levaquin] Allergy (Verified 08/10/18 08:22) Angioedema Penicillins Allergy (Verified 08/10/18 08:22) Hives morphine Adverse Reaction (Verified 08/10/18 08:22) Vomiting [facility] Medical History Asthma (Acute) Factor 5 Leiden mutation, heterozygous (Acute) Fatigue (Acute) IVF (Acute) Incontinence (Acute) Lung disease (Acute) Severe headache (Acute) Shortness of breath (Acute) Stomach ulcer (Acute) Surgical History H/O hemorrhoidectomy (Acute) History of hysterectomy (Acute) History of knee surgery (Acute) Family History Mother Hypertension Depression Father Heart disease cardiac bypass Social History (Updated 02/16/20 @ 15:[address] Amy Camacho, STEPH) Smoking Status: Never smoker alcohol intake: current HPI Back Pain: Chief Complaint: L Sided Low Back Pain Visit Number: 6 Details: BAIRON WHALEY is a 54 year old F here today for improving left sided low back pain. She states that she had relief for several days but her pain was aggravated by doing Yoga. Overall her low back pain has improved greatly. She states that the pain in her left ischeal tub is constant with any movement such as walking and sitting. She states that she has been avoiding running and doing her HEP. She has not noticed an improvement in her proximal hamstring. Location: Left Low Back/proximal hamstring Duration: occasional/frequent Aggravating or associated factors: Prolonged Sitting, Running, Yoga Relieving factors: Chiro Pain Quality: aching, cramping, sharp, radiating Exam Musc General: Yes normal posture, normal gait and joint tenderness (L3,L4,L5, L>R SI) Thoracic/Lumber: Yes thoracic and lumbar spine normal to inspection, Yes paraspinal tenderness (slightly improved) on the left greater than right (lumbar/pelvic), Yes thoraco-lumbar spasm (slightly improved) bilaterally in the lower lumbar (QL) and on the left greater than right (hamstring, piriformis), Yes misalignment L3, L4, L5, LIL Sacroiliac joints: on the left tender to palpation Office Procedures Chiropractic Treatments Procedures Manipulation: Lumbar L4, Pelvis LIL Manipulation: 1-2 regions Traction, Mechanical: Yes Patient Response: positive Assessment Plan Problems 1. Bulging lumbar disc M51.26 2. Segmental and somatic dysfunction of lumbar region M99.03 3. Segmental and somatic dysfunction of pelvic region M99.05 Plan Patient is showing improvement with her back pain. Evaluated hamstring and recommend referral to ortho for further evaluation and imaging. She had an old injury to her pubic bone from marathon running which may be causing the persistent tenderness. She is unable to obtain the previous imaging. Orders Orders: Chiropractic Treatments Today M51.26, M99.03, M99.05 Plan Detail Goals Decrease pain and inflammation Improve ROM Decrease spasm Barriers Lumbar disc bulge Follow Up prn Coding Level of Care Code No Charge Diagnoses Bulging lumbar disc M51.26 Segmental and somatic dysfunction of lumbar region M99.03 Segmental and somatic dysfunction of pelvic region M99.05 Additional Codes Procedures - Manipulation: 1-2 regions (84374) Procedures - Traction, Mechanical: Yes (56521) 02/16/20 1538 <Electronically signed by Amy Camacho D.C.> Date Amy Bland Signature: Date (if applicable) CC: Karla Lorenzo Start: 02-09-2020 End: 02-09-2020 Chiropractic Report Comments: See Note; NOTES: [facility] [address] [place], [place] [id number] OFFICE VISIT Date of Service: 02/09/20 MR#: [id number] Acct: [id number] Name: BAIRON WHALEY Rep #: [id number] : 1965 Provider: STEPH Moore Age/Sex: 54/F Location: [facility] [facility] Status: Signed Intake Intake Visit Reasons: Back Pain Chief Complaint: L sided low back pain Is patient in pain?: Yes Allergies menthol [From Icy Hot] Allergy (Mild, Verified 06/12/19 07:23) THROAT SWELLING methyl salicylate [From Icy Hot] Allergy (Mild, Verified 06/12/19 07:23) THROAT SWELLING azithromycin [From Zithromax] Allergy (Verified 08/10/18 08:22) Hives ciprofloxacin [From Cipro] Allergy (Verified 08/10/18 08:22) Hives ciprofloxacin HCl [From Cipro] Allergy (Verified 08/10/18 08:22) Hives levofloxacin [From Levaquin] Allergy (Verified 08/10/18 08:22) Angioedema Penicillins Allergy (Verified 08/10/18 08:22) Hives morphine Adverse Reaction (Verified 08/10/18 08:22) Vomiting [facility] Medical History Asthma (Acute) Factor 5 Leiden mutation, heterozygous (Acute) Fatigue (Acute) IVF (Acute) Incontinence (Acute) Lung disease (Acute) Severe headache (Acute) Shortness of breath (Acute) Stomach ulcer (Acute) Surgical History H/O hemorrhoidectomy (Acute) History of hysterectomy (Acute) History of knee surgery (Acute) Family History Mother Hypertension Depression Father Heart disease cardiac bypass Social History (Updated 02/09/20 @ 16:[address] Amy Camacho, STEPH) Smoking Status: Never smoker alcohol intake: current HPI Back Pain: Chief Complaint: L Sided Low Back Pain Visit Number: 5 Details: BAIRON WHALEY is a 54 year old F here today for left sided low back pain. She states that she did not see any relief after her last adjustment. She states that she continues to have sharp pain that starts in the center of her low back and radiates to her left side and down the left buttock. She states that she has not been able to exercise since this pain started three weeks ago. She states that she would like to discuss different treatment options. She denies any numbness or tingling. Location: Left Low Back Duration: frequent Aggravating or associated factors: Prolonged Sitting, Running Relieving factors: Unknown Pain Quality: aching, cramping, sharp, radiating Exam Musc General: Yes normal posture, normal gait and joint tenderness (L3,L4,L5, L>R SI) Thoracic/Lumber: Yes thoracic and lumbar spine normal to inspection, Yes paraspinal tenderness on the left greater than right (lumbar/pelvic), Yes thoraco-lumbar spasm bilaterally in the lower lumbar (QL) and on the left greater than right (hamstring, piriformis), Yes misalignment L3, L4, L5, LIL Sacroiliac joints: on the left tender to palpation Office Procedures Chiropractic Treatments Procedures Manipulation: Lumbar L4, Pelvis LIL Manipulation: 1-2 regions Traction, Mechanical: Yes Patient Response: positive Assessment Plan Problems 1. Segmental and somatic dysfunction of pelvic region M99.05 2. Bulging lumbar disc M51.26 3. Segmental and somatic dysfunction of lumbar region M99.03 Plan Patient was treated without incident. Xrays were ordered and reviewed. Unchanged since previous study. Patient was instructed to discontinue exercise (running program) and provided a HEP. Recommend acute care treatment plan. Orders Orders: Chiropractic Treatments Today M51.26, M99.02, M99.03, M99.05 Lumbar Spine 2 or 3 Views Today M51.26, M99.03 Plan Detail Goals Decrease pain and inflammation Improve ROM Decrease spasm Barriers Lumbar disc bulge Follow Up 2x/wk/3wks (1 of 6) Coding Level of Care Code No Charge Diagnoses Segmental and somatic dysfunction of pelvic region M99.05 Bulging lumbar disc M51.26 Segmental and somatic dysfunction of lumbar region M99.03 Additional Codes Procedures - Traction, Mechanical: Yes (69538) Procedures - Manipulation: 1-2 regions ([id number]) 02/09/20 8518 <Electronically signed by Amy Camacho D.C.> Date Amy Camacho D.C. Cosigner Signature: Date (if applicable) CC: Karla Lorenzo Start: 02-02-2020 End: 02-02-2020 Chiropractic Report Comments: See Note; NOTES: [facility] [place] [address] OFFICE VISIT Date of Service: 02/02/20 MR#: [id number] Acct: [id number] Name: BAIRON WHALEY Rep #: [id number] : 1965 Provider: STEPH Moore Age/Sex: 54/F Location: [facility] [place] [facility] Status: Signed Intake Intake Visit Reasons: Back Pain Chief Complaint: L sided low back pain Is patient in pain?: Yes Allergies menthol [From Icy Hot] Allergy (Mild, Verified 06/12/19 07:23) THROAT SWELLING methyl salicylate [From Icy Hot] Allergy (Mild, Verified 06/12/19 07:23) THROAT SWELLING azithromycin [From Zithromax] Allergy (Verified 08/10/18 08:22) Hives ciprofloxacin [From Cipro] Allergy (Verified 08/10/18 08:22) Hives ciprofloxacin HCl [From Cipro] Allergy (Verified 08/10/18 08:22) Hives levofloxacin [From Levaquin] Allergy (Verified 08/10/18 08:22) Angioedema Penicillins Allergy (Verified 08/10/18 08:22) Hives morphine Adverse Reaction (Verified 08/10/18 08:22) Vomiting [facility] Medical History Asthma (Acute) Factor 5 Leiden mutation, heterozygous (Acute) Fatigue (Acute) IVF (Acute) Incontinence (Acute) Lung disease (Acute) Severe headache (Acute) Shortness of breath (Acute) Stomach ulcer (Acute) Surgical History H/O hemorrhoidectomy (Acute) History of hysterectomy (Acute) History of knee surgery (Acute) Family History Mother Hypertension Depression Father Heart disease cardiac bypass Social History (Updated 02/02/20 @ 08:[address] Amy Camacho, STEPH) Smoking Status: Never smoker alcohol intake: current HPI Back Pain: Chief Complaint: L Sided Low Back Pain Visit Number: 4 Details: BAIRON WHALEY is a 54 year old F here today for left low back pain. She states that last Sunday she twisted and reached to pick something up and got a cramping pain. She feels like she put something out of place. She states that the pain radiates to the bottom of her left buttock and shoots pain across the low back. She states that it also sometimes radiates into the left thigh/. She states that the pain is increased with running and prolonged sitting. She denies any numbness or tingling. Location: Left Low Back Duration: Intermittent Aggravating or associated factors: Prolonged Sitting, Running Relieving factors: Chiro Pain Quality: aching, cramping, sharp, radiating Exam Musc General: Yes normal posture, normal gait and joint tenderness (T3,T4,L3,L4,L5, L>R SI) Thoracic/Lumber: Yes thoracic and lumbar spine normal to inspection, Yes straight leg raise negative bilaterally, Yes Lasegue's sign positive (pain at ischeal tub) on the left, Yes pain with thoraco- lumbar ROM with forward flexion, Yes paraspinal tenderness bilaterally in the upper thoracic and in the mid thoracic and on the left greater than right (lumbar/pelvic), Yes thoraco-lumbar spasm bilaterally in the mid thoracic (rhomboid) and in the lower lumbar (QL) and on the left greater than right (hamstring, piriformis), Yes misalignment T3, T4, T7, L3, L4, L5, LIL Sacroiliac joints: on the left tender to palpation Neuro General: alert, awake, oriented x3, normal light touch, pain and propioception, CN's II-XI intact bilaterally Ortho Test CERVICAL THORACIC Kemps: Negative Duarte: Negative LUMBAR Kemps: Positive, Left Valsalvas: Negative SLR: Negative Iliac Compression: Positive, Left Office Procedures Chiropractic Treatments Procedures Manipulation: Lumbar L4, Thoracic T4, Pelvis LIL Manipulation: 3-4 regions Electrical Stimulation: Lumbar (15) 15 mins mA Therapy Performed by:: Zuleyka Garcia Traction, Mechanical: Yes Patient Response: positive Assessment Plan Problems 1. Segmental and somatic dysfunction of thoracic region M99.02 2. Segmental and somatic dysfunction of pelvic region M99.05 3. Bulging lumbar disc M51.26 4. Segmental and somatic dysfunction of lumbar region M99.03 Plan Patient was re-evaluated and treated without incident. Recommended decreased mileage w running, increased lifting and stretching. Continue care and monitor patient response. Orders Orders: Chiropractic Treatments Today M51.26, M99.02, M99.03, M99.05 Plan Detail Goals Decrease pain and inflammation Improve ROM Decrease spasm Barriers Lumbar disc bulge Follow Up 1 Week Coding Level of Care Code No Charge Diagnoses Segmental and somatic dysfunction of thoracic region M99.02 Segmental and somatic dysfunction of pelvic region M99.05 Bulging lumbar disc M51.26 Segmental and somatic dysfunction of lumbar region M99.03 Additional Codes Procedures - Manipulation: 3-4 regions ([id number]) Procedures - Traction, Mechanical: Yes ([id number]) 02/02/20 0855 <Electronically signed by Amy Camacho D.C.> Date Amy Camacho D.C. Cosigner Signature: Date (if applicable) CC: Karla Lorenzo Start: 10-09-2019 End: 10-09-2019 Chiropractic Report Comments: See Note; NOTES: [facility] [address] [place] [address] OFFICE VISIT Date of Service: 10/09/19 MR#: [id number] Acct: [id number] Name: BAIRON WHALEY Rep #: [id number] : 1965 Provider: Amy Camacho D.C. Age/Sex: 53/F Location: [facility] [place] Status: Signed Intake Intake Visit Reasons: back pain Chief Complaint: low back pain Is patient in pain?: Yes Allergies menthol [From Icy Hot] Allergy (Mild, Verified 06/12/19 07:23) THROAT SWELLING methyl salicylate [From Icy Hot] Allergy (Mild, Verified 06/12/19 07:23) THROAT SWELLING azithromycin [From Zithromax] Allergy (Verified 08/10/18 08:22) Hives ciprofloxacin [From Cipro] Allergy (Verified 08/10/18 08:22) Hives ciprofloxacin HCl [From Cipro] Allergy (Verified 08/10/18 08:22) Hives levofloxacin [From Levaquin] Allergy (Verified 08/10/18 08:22) Angioedema Penicillins Allergy (Verified 08/10/18 08:22) Hives morphine Adverse Reaction (Verified 08/10/18 08:22) Vomiting [facility] Medical History Asthma (Acute) Factor 5 Leiden mutation, heterozygous (Acute) Fatigue (Acute) IVF (Acute) Incontinence (Acute) Lung disease (Acute) Severe headache (Acute) Shortness of breath (Acute) Stomach ulcer (Acute) Surgical History H/O hemorrhoidectomy (Acute) History of hysterectomy (Acute) History of knee surgery (Acute) Family History Mother Hypertension Depression Father Heart disease cardiac bypass Social History (Updated 10/09/19 @ 16:[address] Amy Camacho, STEPH) Smoking Status: Never smoker alcohol intake: current HPI back pain : Chief Complaint: low back pain Visit Number: 3 Details: BAIRON WHALEY is a 53 year old F who presents with increased low back pain. Bairon states that two weeks ago when walking she tripped over a stick leaving her with pain banding across the low back and into the buttock and hip area. Bending, lifting, walking, and standing causes increased pain and tightness across the low back. When standing or sitting her hips are painful. She also gets pain in her bilateral ischeal tubs from an old injury. It flares up with walking and climbing stairs. Bairon denies any numbness, tingling, or radiculopathy. Onset: 09/25/19 Location: low back Duration: constant Aggravating or associated factors: walking, standing, and bending Relieving factors: chiro Pain Quality: aching, dull, cramping, sharp Exam Musc General: Yes normal posture, normal gait and joint tenderness (T3,T4,L3,L4,L5, Bilateral SI) Thoracic/Lumber: Yes thoracic and lumbar spine normal to inspection, Yes paraspinal tenderness bilaterally in the upper thoracic and in the mid thoracic and on the left greater than right (lumbar/pelvic), Yes thoraco-lumbar spasm bilaterally in the mid thoracic (rhomboid) and in the lower lumbar (QL) and on the left greater than right (hamstring, piriformis), Yes misalignment T3, T4, T7, L3, L4, L5, LIL Sacroiliac joints: on the left tender to palpation Office Procedures Chiropractic Treatments Procedures Manipulation: Lumbar L4, Thoracic T4, Pelvis LIL Manipulation: 3-4 regions Electronic Stimulation: Yes Electrical Stimulation: Lumbar 15 mins (22) mA Therapy Performed by:: Jolene Granados MA Traction, Mechanical: Yes Patient Response: positive Assessment AND Plan 1. Segmental and somatic dysfunction of thoracic region M99.02 Orders Orders: 2. Segmental and somatic dysfunction of pelvic region M99.05 Orders Orders: 3. Bulging lumbar disc M51.26 Orders Orders: 4. Segmental and somatic dysfunction of lumbar region M99.03 Orders Orders: Plan Detail Other Orders Orders: Additional Comments Patient was treated without incident. Continue care on PRN basis. Reviewed some stretching to do on a daily basis. Goals Decrease pain and inflammation Improve ROM Decrease spasm Barriers Lumbar disc bulge Follow Up PRN Coding Level of Care Code No Charge Diagnoses Segmental and somatic dysfunction of thoracic region M99.02 Segmental and somatic dysfunction of pelvic region M99.05 Bulging lumbar disc M51.26 Segmental and somatic dysfunction of lumbar region M99.03 Additional Codes Procedures - Electronic Stimulation: Yes (86265) Procedures - Traction, Mechanical: Yes (53871) Procedures - Manipulation: 3-4 regions (58308) 10/09/19 0102 <Electronically signed by Amy Camacho D.C.> Date Amy Camacho D.C. Cosigner Signature: Date (if applicable) CC: Karla Lorenzo Start: 07-19-2019 End: 07-19-2019 Carotid Duplex Ultrasound Comments: See Note; NOTES: [facility] [place] [address] Carotid Duplex Ultrasound 07/18/19 1356 MR#: [id number] Acct: [id number] Name: BAIRON WHALEY Rep #: [id number] : 1965 53 From: Elton Jorge MD Attending Dr: Karla Lorenzo DO Status: REG CLI Ordering Dr: Karla Lorenzo DO Date: 07/18/19 Location: [facility] Sex: F C Admitted: Reason For Study: Visual changes Rt. Velocities/BP Lt. Velocities/BP Prox CCA 81.2/17.3 cm/sec. Prox CCA 67.3/19 cm/sec. Mid CCA 56.4/14.6 cm/sec. Mid CCA 67.3/21.2 cm/sec. Dist CCA 57.5/19 cm/sec. Dist CCA 65.1/21.2 cm/sec. Prox ICA 39.5/13.3 cm/sec. Prox ICA 58.6/23.4 cm/sec. Mid ICA 70.2/27.7 cm/sec. Mid ICA 88.2/35.5 cm/sec. Dist ICA 75/30 cm/sec. Dist ICA 81.7/33.3 cm/sec. Rt. ICA/CCA = 1.3. Lt. ICA/CCA = 1.3. Prox ECA 68.4/9.1 cm/sec. Prox ECA 64/11.3 cm/sec. Rt. Vert. 40.8/13 cm/sec. Lt. Vert. 60.8/23.4 cm/sec. Right Extracranial There is intimal thickening but no significant atherosclerotic plaque noted in the right common carotid artery. There is intimal thickening but no significant atherosclerotic plaque noted in the right internal carotid artery. There is no significant atherosclerotic plaque noted in the right external carotid artery. Antegrade flow is noted in the right vertebral artery. Left Extracranial There is homogeneous, smooth atherosclerotic plaque noted in the left common carotid artery. There is intimal thickening but no significant atherosclerotic plaque noted in the left internal carotid artery. There is intimal thickening but no significant atherosclerotic plaque noted in the left external carotid artery. Antegrade flow is noted in the left vertebral artery. Procedure Carotid Duplex 69801. Exam performed in department. Interpretation Summary No significant atherosclerotic plaque or stenosis noted in the internal carotid arteries bilaterally. Flow within the vertebral arteries is antegrade bilaterally. Ordering Physician: Karla Lorenzo Referring Physician: Karla Lorenzo Performed By: Nicole Lopez Anibal 07/19/191655 Date Elton Jorge MD CC: Karla Lorenzo DO Date Dictated: 07/18/19 1356 Date Transcribed: 07/19/191655 Gettering Operator: Signed Karla Lorenzo Work Phone: Start: 07-18-2019 End: 07-18-2019 Echocardiogram Complete Comments: See Note; NOTES: [facility] [address] [place] [address] Echo Complete 07/18/19 1255 MR#: [id number] Acct: [id number] Name: BAIRON WHALEY Rep #: [id number] : 1965 53 From: Nilton Lawton MD Attending Dr: Karla Lorenzo DO Status: REG CLI Ordering Dr: Karla Lorenzo DO Date: 07/18/19 Location: [facility] Sex: F C Admitted: Reason For Study: Visual Changes Procedure This was a 2D Doppler, Color Flow transthoracic echocardiogram. Contrast injection was performed. Exam performed in department. Left Ventricle Normal LV size. Left ventricular systolic function is normal. The estimated ejection fraction is 60 %. No evidence for diastolic dysfunction. No regional wall motion abnormalities noted. Right Ventricle Normal RV size. Normal systolic function. Atria Normal left atrium. Normal right atrium. No doppler evidence for ASD. Bubble contrast study negative for right to left interatrial shunt. Mitral Valve There is no mitral annular calcification. Normal mitral valve. Trivial mitral valve insufficiency. Tricuspid Valve Normal tricuspid valve. Trivial tricuspid valve insufficiency. Right ventricular systolic pressure estimated to be 26 mmHg. Aortic Valve Trisinus/trileaflet aortic valve. Normal aortic valve. Trivial aortic valve insufficiency. Pulmonic Valve The pulmonic valve is not well visualized. Trivial pulmonic valve insufficiency. Great Vessels Normal sized aortic root. Pericardium/Pleural No pericardial effusion. Medication 22 gauge I.V. with prn adaptor inserted into right arm. Performed a rapid injection of agitated mix of 9 cc saline and 1cc air to assess for atrial septal defect. MMode/2D Measurements AND Calculations LVIDd: 3.9 cm IVSd: 0.88 cm Ao root diam: 3.5 cm LVIDs: 2.8 cm LVPWd: 1.1 cm LA dimension: 3.6 cm RVDd: 3.5 cm FS: 28.7 % LAV(MOD-bp): 55.3 ml LA A4 area: 18.6 cm2 RA A4 area: 17.7 cm2 LAV(MOD-bp) Indexed: 31.6 ml/m2 LAV(MOD-sp2): 52.0 ml LAV(MOD-sp4): 52.7 ml Time Measurements MV dec time: 0.30 sec Doppler Measurements AND Calculations MV E max vega: 87.4 cm/sec Lat Peak E' Vega: 12.5 cm/sec Med Peak E' Vega: 11.9 cm/sec MV A max vega: 73.9 cm/sec E/E' lat: 7.0 E/E' med: 7.3 MV E/A: 1.2 MV V2 max: 87.4 cm/sec MV P1/2t max vega: 89.3 cm/sec Ao V2 max: 124.2 cm/sec MV max P.1 mmHg MV P1/2t: 133.2 msec Ao max P.2 mmHg MV V2 mean: 47.4 cm/sec MV dec slope: 196.3 cm/sec2 MV mean P.1 mmHg MV V2 VTI: 37.7 cm MVA(P1/2t): 1.7 cm2 LV V1 max: 137.1 cm/sec PA V2 max: 87.6 cm/sec PI dec slope: 133.4 cm/sec2 LV V1 max P.5 mmHg TR max vega: 238.2 cm/sec TR max P.7 mmHg Interpretation Summary Contrast injection was performed. Left ventricular systolic function is normal. The estimated ejection fraction is 60 %. Trivial mitral valve insufficiency. Trivial tricuspid valve insufficiency. Trivial aortic valve insufficiency. Trivial pulmonic valve insufficiency. Right ventricular systolic pressure estimated to be 26 mmHg. No evidence for diastolic dysfunction. Bubble contrast study negative for right to left interatrial shunt. Ordering Physician: Karla Lorenzo Referring Physician: Karla Lorenzo Performed By: Jesse Davison RCS 07/18/191710 Date Nilton Lawton MD CC: Karla Lorenzo DO Date Dictated: 07/18/19 1255 Date Transcribed: 07/18/191710 Gettering Operator: Signed Karla Lorenzo Work Phone: Start: 06-30-2019 End: 06-30-2019 Chiropractic Report Comments: See Note; NOTES: [facility] [address] [place] [address] OFFICE VISIT Date of Service: 06/30/19 MR#: [id number] Acct: [id number] Name: BAIRON WHALEY Rep #: [id number] : 1965 Provider: Amy Camacho D.C. Age/Sex: 53/F Location: [facility] Status: Signed Intake Intake Visit Reasons: back pain Chief Complaint: R sided mid back pain Is patient in pain?: Yes Allergies menthol [From Icy Hot] Allergy (Mild, Verified 06/12/19 07:23) THROAT SWELLING methyl salicylate [From Icy Hot] Allergy (Mild, Verified 06/12/19 07:23) THROAT SWELLING azithromycin [From Zithromax] Allergy (Verified 08/10/18 08:22) Hives ciprofloxacin [From Cipro] Allergy (Verified 08/10/18 08:22) Hives ciprofloxacin HCl [From Cipro] Allergy (Verified 08/10/18 08:22) Hives levofloxacin [From Levaquin] Allergy (Verified 08/10/18 08:22) Angioedema Penicillins Allergy (Verified 08/10/18 08:22) Hives morphine Adverse Reaction (Verified 08/10/18 08:22) Vomiting [facility] Medical History Asthma (Acute) Factor 5 Leiden mutation, heterozygous (Acute) Fatigue (Acute) History of hysterectomy (Acute) IVF (Acute) Incontinence (Acute) Lung disease (Acute) Severe headache (Acute) Shortness of breath (Acute) Stomach ulcer (Acute) Surgical History H/O hemorrhoidectomy (Acute) History of knee surgery (Acute) Family History Mother Hypertension Depression Father Heart disease cardiac bypass Social History (Updated 06/30/19 @ 13:42 by Amy Camacho DC) Smoking Status: Never smoker alcohol intake: current HPI back pain : Chief Complaint: Mid back pain Visit Number: 2 Details: BAIRON WHALEY is a 53 year old F who presents with mid back pain. She states that her pain has been persistent. Today Bairon rates her pain a 5/10, she describes it as a deep and tight ache that is constant. The pain is bilateral although when sitting in bed at night it is worse on the R side. Stretching and laying on the floor causes the pain to decrease, although only temporarily. Rotation, standing, walking and bending does cause the pain to increase. She stated that when she woke this morning her back was better than it has been since her last visit. Bairon denies any numbness, tingling, or radiculopathy. Onset: 06/02/19 Location: mid back pain Duration: frequent Aggravating or associated factors: sitting, rotation, leaning forward, coughing Relieving factors: stretching and laying flat Pain Quality: aching, dull, cramping, sharp Exam Musc General: Yes normal posture, normal gait and joint tenderness (T3-T8) Thoracic/Lumber: Yes thoracic and lumbar spine normal to inspection, Yes straight leg raise negative bilaterally, Yes pain with thoraco-lumbar ROM with rotation to the right and with rotation to the left, Yes paraspinal tenderness on the right greater than left (T3-T8), No thoraco-lumbar ROM limited, Yes thoraco-lumbar spasm on the right greater than left (rhomboid), Yes misalignment T3, T4, T5, T6, T7, T8 Office Procedures Chiropractic Treatments Procedures Manipulation: Thoracic T3, T6 Manipulation: 1-2 regions Electronic Stimulation: Yes Electrical Stimulation: Thoracic 15 mins (12) mA Therapy Performed by:: Jolene Granados MA Traction, Mechanical: Yes Patient Response: positive Assessment AND Plan 1. Thoracic neuritis M54.14 Orders Orders: 2. Segmental and somatic dysfunction of thoracic region M99.02 Orders Orders: Plan Detail Other Orders Orders: Additional Comments Patient was treated without incident. Provided her with mid back yoga stretching series. Continue care. Goals Decrease pain and inflammation Improve ROM Decrease spasm Barriers Persistent coughing Follow Up 1 x week (visit 2 of 3 ) Coding Level of Care Code No Charge Diagnoses Thoracic neuritis M54.14 Segmental and somatic dysfunction of thoracic region M99.02 Additional Codes Procedures - Manipulation: 1-2 regions (90433) Procedures - Electronic Stimulation: Yes (29160) Procedures - Traction, Mechanical: Yes (22724) 06/30/19 1342 <Electronically signed by Amy Camacho D.C.> Date Amy Messerignmanuel Signature: Date (if applicable) CC: Karla Lorenzo Start: 06-23-2019 End: 06-23-2019 Chiropractic Report Comments: See Note; NOTES: [facility] [address] [place] [id number] OFFICE VISIT Date of Service: 06/23/19 MR#: [id number] Acct: [id number] Name: BAIRON WHALEY Rep #: [id number] : 1965 Provider: Amy Camacho D.C. Age/Sex: 53/F Location: [facility] Status: Signed Intake Intake Visit Reasons: back pain Chief Complaint: R sided mid back pain Is patient in pain?: Yes Allergies menthol [From Icy Hot] Allergy (Mild, Verified 06/12/19 07:23) THROAT SWELLING methyl salicylate [From Icy Hot] Allergy (Mild, Verified 06/12/19 07:23) THROAT SWELLING azithromycin [From Zithromax] Allergy (Verified 08/10/18 08:22) Hives ciprofloxacin [From Cipro] Allergy (Verified 08/10/18 08:22) Hives ciprofloxacin HCl [From Cipro] Allergy (Verified 08/10/18 08:22) Hives levofloxacin [From Levaquin] Allergy (Verified 08/10/18 08:22) Angioedema Penicillins Allergy (Verified 08/10/18 08:22) Hives morphine Adverse Reaction (Verified 08/10/18 08:22) Vomiting [facility] Medical History Asthma (Acute) Factor 5 Leiden mutation, heterozygous (Acute) Fatigue (Acute) History of hysterectomy (Acute) IVF (Acute) Incontinence (Acute) Lung disease (Acute) Severe headache (Acute) Shortness of breath (Acute) Stomach ulcer (Acute) Surgical History H/O hemorrhoidectomy (Acute) History of knee surgery (Acute) Family History Mother Hypertension Depression Father Heart disease cardiac bypass Social History (Updated 06/23/19 @ 14:34 by Amy Camacho DC) Smoking Status: Never smoker alcohol intake: current HPI back pain : Chief Complaint: R sided mid back pain Visit Number: 1 Details: BAIRON WHALEY is a 53 year old F who presents with R sided mid back pain. Bairon states that her pain has been ongoing for over three weeks leaving her with a nagging and sharp ache that is constant. The pain is localized to the R side, above the bra line. She states that her pain is constant, feeling like the area needs popped with numbness and tingling at times. No trauma to the area.Today Bairon rates her pain a 4/10, the pain increases with sitting and leaning forward. Location: R mid back Duration: constant Aggravating or associated factors: sitting and leaning forward Relieving factors: chiro Pain Quality: aching, dull, cramping, sharp Exam Musc General: Yes normal posture, normal gait and joint tenderness (T3-T8) Thoracic/Lumber: Yes thoracic and lumbar spine normal to inspection, Yes straight leg raise negative bilaterally, Yes pain with thoraco-lumbar ROM with rotation to the right and with rotation to the left, Yes paraspinal tenderness on the right greater than left (T3-T8), No thoraco-lumbar ROM limited, Yes thoraco-lumbar spasm on the right greater than left (rhomboid), Yes misalignment T3, T4, T5, T6, T7, T8 Neuro General: alert, awake, oriented x3, gait normal, normal light touch, pain and propioception, no focal motor deficits Ortho Test CERVICAL THORACIC Kemps: Positive, Right Schepelmanns pain: Right Duarte: Negative LUMBAR Office Procedures Chiropractic Treatments Procedures Manipulation: Thoracic T4, T7 Manipulation: 1-2 regions Electronic Stimulation: Yes Electrical Stimulation: Thoracic (R) 15 mins (20) mA Therapy Performed by:: Jolene Granados MA Patient Response: positive Assessment AND Plan 1. Segmental and somatic dysfunction of thoracic region M99.02 2. Thoracic neuritis M54.14 Plan Detail Other Orders Orders: Additional Comments Treated patient without incident. Recommend follow up in 1 week and monitor patient response. Goals Decrease pain and inflammation Improve ROM Decrease spasm Barriers Persistent coughing Follow Up 1 Week Coding Level of Care Code No Charge Diagnoses Segmental and somatic dysfunction of thoracic region M99.02 Thoracic neuritis M54.14 Additional Codes Procedures - Manipulation: 1-2 regions (70238) Procedures - Electronic Stimulation: Yes (55068) 06/23/19 1434 <Electronically signed by Amy Camacho D.C.> Date Amy Camacho D.C. Cosigner Signature: Date (if applicable) CC: Karal Lorenzo Start: 06-12-2019 End: 06-12-2019 Urgent Care Visit Report Comments: See Note; NOTES: [facility] [address] [place] [address] [address] [place] [address] OFFICE VISIT Date of Service: 06/12/19 MR#: [id number] Acct: [id number] Name: BAIRON WHALEY Rep #: [id number] : 1965 Provider: Elmer MCDANIEL Age/Sex: 53/F Location: [facility] Status: Signed Intake Vital Signs06/12/19 Height 5 ft 8 in 06/12/19 Weight: 147 lb 06/12/19 BMI 22.3 06/12/19 BP 112/78 Intake Visit Reasons: CONGESTION/DRAINAGE Chief Complaint: Sinus congestion, cough Allergies menthol [From Icy Hot] Allergy (Mild, Verified 06/12/19 07:23) THROAT SWELLING methyl salicylate [From Icy Hot] Allergy (Mild, Verified 06/12/19 07:23) THROAT SWELLING azithromycin [From Zithromax] Allergy (Verified 08/10/18 08:22) Hives ciprofloxacin [From Cipro] Allergy (Verified 08/10/18 08:22) Hives ciprofloxacin HCl [From Cipro] Allergy (Verified 08/10/18 08:22) Hives levofloxacin [From Levaquin] Allergy (Verified 08/10/18 08:22) Angioedema Penicillins Allergy (Verified 08/10/18 08:22) Hives morphine Adverse Reaction (Verified 08/10/18 08:22) Vomiting Medications clindamycin HCl 300 mg capsule 300 mg PO TID #30 cap 06/12/19 [Rx Confirmed 06/12/19] coenzyme Q10 30 mg capsule 30 mg PO DAILY 06/12/19 [History Confirmed 06/12/19] magnesium 30 mg tablet 30 mg PO DAILY 06/12/19 [History Confirmed 06/12/19] multivitamin,ka-tulk-efdhxwz s 1 tab PO DAILY 06/12/19 [History Confirmed 06/12/19] PFSH Medical History History of hysterectomy (Acute) IVF (Acute) Asthma (Acute) Factor 5 Leiden mutation, heterozygous (Acute) Fatigue (Acute) Incontinence (Acute) Lung disease (Acute) Severe headache (Acute) Shortness of breath (Acute) Stomach ulcer (Acute) Surgical History H/O hemorrhoidectomy (Acute) History of knee surgery (Acute) Family History Mother Hypertension Depression Father Heart disease cardiac bypass Social History (Updated 06/12/19 @ 07:31 by VIOLETA Vargas) Smoking Status: Never smoker alcohol intake: current HPI HPI Chief Complaint: Sinus congestion, cough Details: BAIRON WHALEY, is a 53 F who presents to the office today for 1 week history of sinus congestion, postnasal drip, nausea, chills, moist productive purulent cough. Patient is a non-smoker, noting no other members in household with similar complaints. No complaints of fever, sweats, rash, chest pressure/shortness of breath/wheeze, difficulty swallowing/drooling. She has taken sski-lkx-zlafmkp products to assist with symptoms. She notes no other associated symptoms and no other alleviating or aggravating factors. ROS Const Constitutional: No other (ROS negative x14 other than as noted above) Exam Const General: cooperative, healthy appearing, comfortable, no acute distress Nutritional Appearance: average body habitus Orientation: alert, awake, oriented x3 HENMT Head: normal to inspection Ears: hearing grossly normal bilaterally, external ears normal, TM's normal bilaterally, EAC's normal Nose: external nose normal, nares normal, septum normal, no nasal discharge Face and sinus: normal facial exam, face symmetric, sinus tenderness maxillary Mouth: oral mucosae normal, lip normal, tongue normal, oropharynx normal Teeth and gingiva: dentition normal, gingiva normal Throat: posterior oropharynx normal, tonsils normal, uvula midline, postnasal drainage (Scant purulent) Eyes General: appearance normal, both eyes and all related structures Neck Neck: normal visual inspection, full ROM, no meningeal signs, supple, lymphadenopathy (Bilateral anterior cervical node swelling, nontender to palpation) Neck mass: No Thyroid: thyroid normal Chest Chest palpation AND inspection: normal inspection of the chest Resp Effort AND Inspection: normal respiratory effort, able to speak in complete sentences, symmetric chest movement, cough Quality of cough: wet (Nonproductive in office today) Auscultation: Bilateral: Clear to Auscultation Cardio Palpation: normal PMI Rate: regular rate Rhythm: regular rhythm Heart Sounds: S1 normal, S2 normal, no gallops, no murmurs, no rubs Pulses: radial pulses present GI Inspection: normal to inspection Palpation: soft Skin General: no rashes or lesions noted Neuro General: alert, awake, oriented x3, gait normal Cognition: normal cognition Speech: speech normal Gait: normal gait Motor: muscle tone normal throughout Sensory Exam: no sensory deficits noted Psych Appearance: grossly normal Mental Status: mental status grossly normal Mood: congruent mood Affect: normal affect Speech and Movement: speech and movement normal Attitude: cooperative Thought Process: normal Thought Content: normal Judgment: judgment good Assessment AND Plan Problems 1. Acute sinusitis, unspecified J01.90 2. Acute bronchitis, unspecified J20.9 Plan Clindamycin as prescribed today. Warm facial compresses as needed as instructed today. Clear fluids, rest, Advil/Tylenol as needed for symptomatic relief. Follow-up with PCP in 3 to 5 days should symptoms not improve, sooner should symptoms worsen or any other concerns develop. Patient states acknowledging understanding all the above. This note was generated with Twist dictation software. It may contain incorrect words, spelling, and punctuation that were not noted in checking the note before signing. Medications New: Plan Detail Goals Decrease pain and inflammation Improve ROM Decrease spasm Barriers Lumbar L4 disc bulge Coding Level of Care Code Off vis,est,level 3 Diagnoses Acute sinusitis, unspecified J01.90 Acute bronchitis, unspecified J20.9 06/12/19 0732 <Electronically signed by Elmer MCDANIEL> Date Elmer MCDANIEL Cosigner Signature: Date (if applicable) CC: Karla Lorenzo Start: 05-21-2019 End: 05-21-2019 SCREEN MAMM (CAD) W/MARGARITA BILAT Comments: See Note; NOTES: [facility] Services [address] [place] [address] SCREEN MAMM (CAD) W/MARGARITA BILAT MR#: [id number] Acct: [id number] Name: BAIRON WHALEY Rep #: [id number] : 1965 F 53 From: Troy Menjivar MD PCP: Maura ROBERTOKarla Status: REG CLI Study: SCREEN MAMM (CAD) W/MARGARITA BILAT Date of Exam: 05/21/19 Exam# [id number] Ordering Dr: Akialh Louis MD MAMMOGRAPHY - BILATERAL SCREENING REASON FOR EXAM: Female, 53 years old. Routine annual screening examination. PERTINENT HISTORY: Non-contributory. TECHNIQUE: Digital bilateral breast mragarita (3D mammographic acquisition) in the CC and MLO projections. 2-D mediolateral oblique (MLO) and craniocaudad (CC) views of both breasts were obtained. CAD: Full Field Digital Mammography with Computer Added Detection was performed. COMPARISON: Comparison is made with prior study to February 19, 2018 and September 06, 2016. FINDINGS: Breast Composition: The breasts are heterogeneously dense, which may obscure small masses. There are no dominant masses or suspicious calcifications. No other significant abnormalities are identified. There has been no significant change since the prior study. BI/SCREEN MAMM (CAD) W/MARGARITA BILAT IMPRESSION: Stable bilateral screening mammogram. Yearly follow-up mammogram recommended. (A) ASSESSMENT CATEGORY: BIRADS Category 1: Negative. A letter regarding these results will be sent to the patient by the facility within 30 days. Approximately 10% of breast cancers are not detected by mammography. A normal mammogram should not delay biopsy of a clinically suspicious abnormality. [id number] Electronically Signed: Troy Menjivar, at 13:47 EST , Service support , CC: Akilah Louis MD; Karla Lorenzo DO Gettering Operator: Signed Karla Lorenzo Start: 07-11-2018 End: 07-11-2018 Chest PA and Lateral Comments: See Note; NOTES: [facility] Imaging Services [address] [place] [address] Chest PA and Lateral MR#: [id number] Acct: [id number] Name: BAIRON WHALEY Rep #: [id number] : 1965 F 52 From: Troy Menjivar MD PCP: [facility] Study: Chest PA and Lateral Date of Exam: 07/11/18 Exam# [id number] Ordering Dr: Lilian Anthony NP-Rae STUDY: X-RAY CHEST REASON FOR EXAM: Female, 52 years old. Cough and fever. History of asthma. TECHNIQUE: PA and lateral views of the chest. COMPARISON: None. FINDINGS: The lungs are clear and expanded. There is no demonstrated pleural abnormality. Normal size heart. Normal mediastinum and kenzie. Normal visualized pulmonary arteries. Normal visualized aortic arch and descending thoracic aorta. Normal visualized thoracic spine. Normal visualized ribs, clavicles, and shoulders. There is no demonstrated abnormality of the visualized soft tissue structures of the upper abdomen. RAD/Chest PA and Lateral IMPRESSION: Normal x-ray examination of the chest. Electronically Signed: Troy Menjivar MD at 13:12 EST , Service support , CC: TELLO Anthony Gettering Operator: Signed Lilian Anthony Start: 03-07-2018 End: 03-07-2018 OT D/C of Non Returning Pt Comments: See Note; NOTES: [facility] Occupational [facility] [address] [place] [address] Fax REHABILITATION SERVICES DISCHARGE SUMMARY MR#: [id number] Acct: [id number] Name: BAIRON WHALEY Rep #: [id number] : 1965 52 From: Kayla Key Referring DrDenis: Status: REG RCR Eval Date: Discharge Date: HP - Discharge Summary - Patient Information BAIRON WHALEY was seen in my office for initial [...] Kayla Key > 03/07/18 1656 CC: Karla Lorenzo DO; OUT OF TOWN DOCTOR KMB Signed Karla Maura Start: 02-19-2018 End: 02-19-2018 SCREENING MAMM (CAD), BILAT Comments: See Note; NOTES: [facility] Imaging Services [address] [place] [address] SCREENING MAMM (CAD), BILAT MR#: [id number] Acct: [id number] Name: BAIRON WHALEY Rep #: [id number] : 1965 F 52 From: Troy Menjivar MD PCP: Karla Lorenzo DO Status: REG CLI Study: SCREENING MAMM (CAD), BILAT Date of Exam: 02/19/18 Exam# [id number] Ordering Dr: Tiffany Franks MD MAMMOGRAPHY - BILATERAL SCREENING REASON FOR EXAM: Female, 52 years old. Routine annual screening examination. PERTINENT HISTORY: Non-contributory. TECHNIQUE: Digital bilateral breast margarita (3D mammographic acquisition) in the CC and [...] delay biopsy of a clinically suspicious abnormality. [id number] Electronically Signed: Troy Menjivar MD at 9:01 EDT Tel [phone], Service support , CC: Tiffany Franks MD; Karla Lorenzo DO Gettering Operator: Signed Karla Lorenzo Start: 01-14-2018 End: 01-14-2018 Re-Evalution OT Comments: See Note; NOTES: [facility] Occupational [facility] [address] [place] [address] Fax REEVALUATION / MEDICARE RECERTIFICATION OCCUPATIONAL THERAPY MR#: [id number] Acct: [id number] Name: BAIRON WHALEY Rep #: [id number] : 1965 52 From: Kayla Key Referring : Status: REG R Insurance: [facility] Evnj Date: SELF PAY INSURANCE LINO SALEEM, It has been my pleasure to treat BAIRON WHALEY over the last 10 visits for R [...] follows: ROM elbow flexion R 3-134; strength slack cooper flexion R 79. L 94; extensionR 74 [...] - Goals Goal:: Pt. to increased r slack cooper in flexed and extended position by 20-30 lbs to promote increased strength and manipulation of R UE in pain-free range 4/5 trials 805 of the time to return to PLOF and leisure pursiuts by d/c. Goal:: Bairon to have no more than 0-1/10 pain during ADL/IALDs 4/5 trials 80% of the time by d/c. Goal:: Pt. to be mod I to complete joint protection stategies 4/5 trials 80% of the time to help decrease pain and promote increased participation in ADL/IADLs by time of d/c. Goal:: Bairon to be (I) to return to all ADL/IALD sincluding tennis with no need for bracing 4/5 trials 80% of the time to promtoe increased ability to complete tasks by d/c. Anticipated Interventions Anticipated Interventions: A/AAROM/PROM, Strengthening, Modalities, Joint Protection/Energy Conservation, Ergonomic Education, Dynamic Sitting Balance, Fine Motor Coord/Jeison, ADL Training, Caregiver Training, Home Program Please do not hesitate to contact me at [phone] by phone or if you have questions or concerns regarding this new plan of care! Sincerely, Kayla Key <Electronically signed by Kayla Key > 01/14/18 1826 CC: Karla Lorenzo DO; OUT OF TOWN DOCTOR KMB Signed For Medicare only, by signing this I certify the plan of care. Physicians Signature Date Karla Lorenzo Start: 12-07-2017 End: 12-07-2017 OT General Evaluation Comments: See Note; NOTES: [facility] Occupational [facility] [place] [address] Fax REHABILITATION SERVICES INITIAL EVALUATION MR#: [id number] Acct: [id number] Name: BAIRON WHALEY Rep #: [id number] : 1965 52 From: Kayla Key Referring : Status: REG R Insurance: [facility] Date: SELF PAY INSURANCE Patient's Visit Information BAIRON WHALEY is a 52 year old F, referred to Occupational Therapy by LINO SALEEM, with a diagnosis of R lateral epicondylitis [...] iontophoresis. OT will fax form to Dr. Saleem office for completion. Thanks! There may be potential need for script for cubital tunnel splint to go through insurance if elbow bands and wrist cock up do no relieve symptoms. - ROM Elbow: flexion R 10-135, L WNL Forearm: WFL Wrist: WFL CMC: WFL - Strength Park Naturalist: flexed R 67, L 82; extended R 64 (pain), L 86 Lateral Pinch: R 18, L 18 Tripod Pinch: R 20, L 21 Tip-to-Tip Pinch: R 18, L 18 Strength Comments: increased pain while completeing slack cooper in ext. Pain 4/10 in R elbow [...] - Goals Goal:: Pt. to increased r slack cooper in flexed and extended position by 20-30 lbs to promote increased strength and manipulation of R UE in pain-free range 4/5 trials 805 of the time to return to PLFO and leisure purssiuts by d/c. Goal:: Bairon to have no more than 0-1/10 pain during ADL/IALDs 4/5 trials 80% of the time by d/c. Goal:: Pt. to be mod I to complete joint protection stategies 4/5 trials 80% of the time to help decrease pain and promote increased participation in ADL/IADLs by time of d/c. Goal:: Bairon to be (I) to return to all ADL/IALD sincluding tennis with no need for bracing 4/5 trials 80% of the time to promtoe increased ability to complete tasks by d/c. - Rehabilitation General Assessment: Bairon arrived to OT evaluation on this date. She presents with symptoms that started about 5 weeks ago due to R lateral epicondylitis as well as cubital tunnel. No nerve conduction study at this time. Pain is limiting and causing sleep disturbances. She is R hand dominant and shows decreased strength and ROM of R slack cooper as well as increased pain in R [...] returning to all ADL/IADls including tennis at [facility]. - Anticipated Interventions Anticipated Interventions: A/AAROM/PROM, [...] to be FAXED BACK to us at [phone] for Medicare purposes. Please let me know if there are questions or concerns regarding this plan of care. Physician Signature: ___Date: <Electronically signed by Kayla Key > 12/07/17 0736 CC: Karla Lorenzo DO; OUT OF TOWN DOCTOR GEMA Signed For Medicare only, by signing this I certify the plan of care. Physicians Signature Date Karla Lorenzo Start: 02-09-2017 End: 02-09-2017 Discharge Instruction Comments: See Note; NOTES: [facility] Medical Records Department [address] [place] [address] Instructions for Home/Discharge Instructions 02/09/17 1012 MR#: [id number] Acct: [id number] Name: BAIRON WHALEY Rep #: [id number] : 1965 51 From: Tiffany Franks MD PCP: Karla Lorenzo DO Status: REG [facility] Discharge Diet: - - No beef, pork or fresh vegetables x 2 weeks postop. Protein shakes and supplements encouraged. Discharge Activity: Return to Normal Activity, May Not Drive - while taking narcotic pain medications., May Shower May shower in (days): 0 - TODAY May resume sexual activity in: 6-8 weeks Weight Bearing Status: Full weight bearing Lifting Restrictions: 10 pounds Call your doctor if your incision/area has: Continuous Slow Oozing, Sudden Increased Bleeding, Increased Pain/ Swelling, Increased Redness, Foul Smelling Discharge Call your doctor if you observe: Fever of 101 or Higher, Inability to urinate, Inability to have a bowel movement, Using more than one pad per hour Remove Dressing in (days):: 0 - TODAY and leave open to air Cleanse incision/area with: Soap AND Water Additional Instructions: Frequent ambulation with periods of rest in between. Increase water intake to a minimum of 120 ounces daily. Daily full strength aspirin per pcp Allergies/Adverse Reactions: Allergies azithromycin [From Zithromax] Allergy (Verified 03/06/16 09:40) Hives ciprofloxacin [From Cipro] Allergy (Verified 03/06/16 09:40) Hives ciprofloxacin HCl [From Cipro] Allergy (Verified 03/06/16 09:40) Hives levofloxacin [From Levaquin] Allergy (Verified 03/06/16 09:40) Angioedema Penicillins Allergy (Verified 03/06/16 09:40) Hives morphine Adverse Reaction (Verified 01/29/17 13:20) Vomiting Medications to take at Discharge Albuterol Sulfate [Proventil Hfa] 6.7 gm IH PRN PRN 03/06/16 Primary Care Physician: Karla Lorenzo DO [Primary Care Provider] - Please Follow Up With: Tiffany Franks When: 1-2 weeks postop 02/09/17 1015 <Electronically signed by Tiffany Franks MD> Date Tiffany Franks MD CC: Karla Campos Start: 02-08-2017 End: 02-08-2017 Operative Report Comments: See Note; NOTES: [facility] Medical Records Department [address] [place] [address] Operative Report 02/08/17 1437 MR#: [id number] Acct: [id number] Name: BAIRON WHALEY Rep #: [id number] : 1965 51 From: Tiffany Franks MD PCP: Karla Lorenzo DO Status: REG SDC Y Location: [place] [address] Operative Report Date of Procedure: 02/08/17 Dictation of the operative report It is a 51-year-old multigravid white female presents to the office with ongoing irregular menstrual cycles specifically menorrhagia. Patient has some blood coagulopathies of which she is unable to use hormone replacement therapy. Patient's most recent episode of menorrhagia and irregular menstrual cycle occurred in November 2016. Patient underwent ultrasound in our office with thickened endometrium being noted. The endometrial biopsy which commenced after that ultrasound was noted to be within normal limits. The patient has decided to undergo hysterectomy. The patient has a strong pelvic floor with absolutely no prolapse noted and a somewhat enlarged uterus. Patient presented to the surgery suite after undergoing a bowel prep in the home setting. Patient was connected to all monitors and was positioned on the patient's sandbag. After undergoing a general anesthetic tilt test occurred and was noted to be stable. Patient was then prepped and draped in normal sterile fashion. Weighted speculum was placed to the vagina and the bladder was emptied with an indwelling catheter. The anterior lip of the cervix was grasped with a level was elevated and a large size of the care was placed to the cervix and anchored there with 2-0 Vicryl sutures at 3 and 9:00. The weighted speculum was removed from the vagina and gloves were changed. Turning to the top of the patient, the fundus was marked from the previous pelvic examination and 12 cm superior to that the camera port was to be placed to the supraumbilical area. An 8 mm incision was made with the Veress needle being placed through this incision and water test verifying abdominal placement. 2 L of CO2 gas was placed into the abdominal cavity. Needle was removed and replaced by a nondisposable 8 mm robotic camera port. The placement was noted to be hemostatic with immediate placement of the camera through this port. 2 additional 8 mm nondisposable trochars were placed in the left and right lower quadrant under direct visualization and being at least 8 cm from the camera port. A left 5 mm academic assistant port was placed in the left upper quadrant and an 8 mm right academic assistant port with the milan-C was placed in the patient's right upper quadrant. At this point in time the robot was docked to the patient's side. The robotic arms were connected to the camera as well as the left and right lower quadrant trocar sites per the left robotic arm contained the vessel sealer in the right robotic arm contained the monopolar brook. At this point in time IUD down to moved to the console the patient to take over control the robot. Normal anatomy was restored after enteral lysis of bowel to the left abdominal wall. The left round ligament was grasped cauterized and transected the broad ligament into anterior-posterior leaves. Development of vesicouterine peritoneum occurred. The left fallopian tube was cauterized and transected away from the ovary subsequently the left ovarian uterine ligament was cauterized and transected as well. Tilt sensation of the left uterine vasculature occurred. The left uterine vasculature was then cauterized with further development the vesicouterine peritoneum. Into the patient's right side the exact same procedures in the exact same order occurred on the patient's left right side. Grasped with grasping and cauterizing followed by transection of the uterine vasculature occurred on the side followed by cauterization further and ligation of the uterine vasculature on the patient's left side. The cardinal ligaments were then cauterized bilaterally and transected as well. There are removal of the. Peritoneum away from the cervix occurred in further development of that vesicouterine peritoneum. At the 12:00 region of the cervix the colpotomy incision was made and carried in a counterclockwise fashion to meet the beginning incision totally dissecting the cervix away from the vaginal region. Cervix uterus and bilateral fallopian tubes were then removed through the vagina per my academic assistant to vaginal tampon was then placed by the academic assistant. Irrigation of the entire pelvis occurred and it was noted that hemostasis was apparent. At this point time I Submarine Element Coordinator change the left robotic arm to a large grasper in the right robotic arm to the make a suture cut. The academic assistant then placed sequential 0 Vicryl sutures through the academic assistant port to myself and angle stitch at the left side of the vagina occurred by myself using an 0 Vicryl suture to support the vaginal cuff to the uterosacral cardinal complex. The exact same suture in the exact same fashion as an angle stitch on the right side occurred. Additional 0 Vicryl sutures were used to Insight [id number] incisions are sutures at the vaginal cuff. Profuse irrigation of the pelvis occurred. Carey was then placed to the vaginal cuff ureters were traced from the pelvic brim down to the bladder region peristalsis was noted and they were well away from any area of operation. At this point in time the instruments were removed from the pelvis all sponge instrument and needle counts were correct 2. The robot was then de-docked from the patient's bedside. The trochars were sequentially removed from the abdomen and CO2 released from the abdominal cavity. All incision sites from the trochars were repaired with 4-0 Monocryl in subcuticular fashion per tampon was thus removed. Continued to be indwelling. Once again sponge instrument and needle counts were correct 2 patient was awakened in stable condition to be taken to recovery room and admitted to the [facility] floor for overnight care. 02/08/17 2573 <Electronically signed by Tiffany Franks MD> Date Tiffany Franks MD CC: Tiffany Franks MD; Karla Lorenzo DO Signed Karla Lorenzo Start: 02-08-2017 End: 02-08-2017 Operative Report Comments: See Note; NOTES: [facility] Medical Records Department [address] [place] [address] Operative Report 02/08/17 0856 MR#: [id number] Acct: [id number] Name: BAIRON WHALEY Rep #: [id number] : 1965 51 From: Tiffany Franks MD PCP: Karla Lorenzo DO Status: REG SD Y Location: [place] [id number] Report of Operation Date of Procedure: 02/08/17 Pre-Operative Diagnosis: Irregular menses Post-Operative Diagnosis: Same Surgery/Procedure Performed:: Robotic assisted vaginal hysterectomy, bilateral salpingectomy, enterolysis Description of Surgical Findings:: Uterus sounded to 9.5cm and retroflexed. Large v-care to the cervix. dorado to the bladder. Moving to top of patient and changing gloves, camera 8mm trocar 12cm above the uterine fundus to the supra-umbilical site. 2 additional 8mm trocars to the left and right lower quadrant, 8cm from the cameral trocar. Placed under direct visualization. 5mm left upper disposable trocar placed 8mm right airseal disposable trocar placed All trocars placed under direct visualization and hemostatic. Enterolysis of bowel to left abdominal side wall eliminated with sharp dissection. Vessel sealer in combination with monopolar brook to dissect the broad ligament into anterior and posterior leaves. Development of the utero-vesical peritoneum. Skeletonized the uterine vasculature. Fallopian tube disconnected at the mesosalpinx. Utero-ovarian ligament cauterized and transected. Cauterized and ligated uterine vasculature. This initially occurred on the patients left side and the exact same procedure in the exact same order repeated on patient left side. Continued development of the utero-vesical peritoneum. Cauterized and ligated cardinal and then uterosacral ligaments bilateral. Colpotomy in a counter-clockwise fashion. Reapproximation of the vaginal cuff via 4 figure of 8 sutures of )-vicryl. Angle stitch at each corner of the vagina. Tracing of ureter and not near operative site. Irrigation of pelvis. Carey to the pelvis. greens planter: None greens planter: Catracho greens planter: Charis Jewell Type of Anesthesia:: General Anesthesiologist: Marky Fisher Special Medications: Ceotetan, pyridium, Carey Specimen's removed: cervix, uterus and bilateral fallopian tubes Estimated Blood Loss (mL): 200cc Fluids Replaced: Lactated ringers Description of Procedure: see above - Complications none - Admit VTE Documentation VTE Present on Admission: No - Heparin preop VTE Mechan Device Prophylaxis: SCD's VTE Pharm Prophylaxis ordered?: Yes 02/08/17 0908 <Electronically signed by Tiffany Franks MD> Date Tiffany Franks MD CC: Tiffany Franks MD; Karla Lorenzo DO Signed Karla Lorenzo Start: 01-31-2017 Antibody screen Karla Maura Plan of Treatment Date Care Activity Detail Author Start: 05-21-2023 DIABETES SCREEN DIABETES SCREEN [facility] Start: 02-15-2023 Antibody hitesh-beckham eb virus nuclear ag ebna [facility] Work Phone: Start: 02-15-2023 Blood count complete auto&auto difrntl wbc [facility]; [facility] Work Phone: Start: 02-13-2023 COVID 19 (ONLY) RAPID (86274) [facility]; [facility] Work Phone: Start: 02-13-2023 Iaadiadoo influenza [facility]; [facility] Work Phone: Start: 02-13-2023 Iaadiadoo streptococcus group a [facility]; [facility] Work Phone: Start: 02-13-2023 Procedure Education [facility]; [facility] Work Phone: Start: 02-13-2023 Throat culture [facility]; [facility] Work Phone: Start: 02-16-2022 Influenza vaccination INFLUENZA (#1) [facility] Start: 02-09-2022 Procedure Education [facility]; [facility] Work Phone: Start: 02-09-2022 Provider Instructions for Treatment [facility]; [facility] Work Phone: Start: 02-09-2022 Iaadiadoo influenza [facility]; [facility] Work Phone: Start: 10-17-2021 Procedure Education [facility]; [facility] Work Phone: Start: 10-17-2021 Provider Instructions for Treatment [facility]; [facility] Work Phone: Start: 10-17-2021 Lipid panel [facility]; [facility] Work Phone: Start: 10-06-2021 Procedure Education [facility]; [facility] Work Phone: Start: 10-06-2021 Provider Instructions for Treatment [facility]; [facility] Work Phone: Start: 09-28-2021 Procedure Education [facility]; [facility] Work Phone: Start: 07-14-2021 COVID-19 VACCINE (3 - Booster for Sanna series) COVID-19 VACCINE (3 - Booster for Sanna series) [facility] Start: 06-18-2021 DEPRESSION ASSESSMENT DEPRESSION ASSESSMENT [facility] Start: 05-10-2020 Provider Instructions for Treatment [facility] Work Phone: Start: 04-26-2020 CBC, PLATELETS & MANUAL DIFF (04840) CBC, PLATELETS & MANUAL DIFF (95755) [facility] Work Phone: Start: 04-22-2020 Procedure Education [facility] Work Phone: Start: 04-22-2020 Provider Instructions for Treatment [facility] Work Phone: Start: 04-22-2020 Angiotensin i-converting enzyme [facility] Work Phone: Start: 04-22-2020 Cyclic citrullinated peptide antibody CCP ANTIBODY (44791) [facility] Work Phone: Start: 04-22-2020 Sedimentation rate rbc non-automated SED RATE ERYTHROCYTE (89619) [facility] Work Phone: Start: 04-22-2020 CRP [Mass/Vol] C-REACTIVE PROTEIN (75443) [facility] Work Phone: Start: 04-22-2020 TSH Qn TSH (89238) [facility] Work Phone: Start: 04-22-2020 Rheumatoid factor quantitative RHEUMATOID FACTOR-QUANT (77987) [facility] Work Phone: Start: 04-22-2020 Nuclear Ab IF (S) [Titer] KILEY (ANTINUCLEAR ANTIBODY) (09689) [facility] Work Phone: Start: 04-22-2020 Comprehensive metabolic panel METABOLIC PANEL, COMPREHENSIVE (18892) [facility] Work Phone: Start: 04-22-2020 Blood count manual cell count each CBC with auto diff (93081) [facility] Work Phone: Start: 02-13-2020 Provider Instructions for [facility] Work Phone: Start: 11-19-2019 Procedure Education [facility] Work Phone: Start: 08-20-2019 Procedure Education [facility] Work Phone: Start: 08-01-2019 Procedure Education [facility] Work Phone: Start: 08-01-2019 Provider Instructions for Treatment [facility] Work Phone: Start: 07-10-2019 Provider Instructions for Treatment [facility] Work Phone: Start: 12-12-2018 Procedure Education [facility] Work Phone: Start: 11-29-2018 Patient Education [facility] Work Phone: Start: 11-29-2018 Procedure Education [facility] Work Phone: Start: 11-29-2018 Provider Instructions for Treatment [facility] Work Phone: Start: 07-11-2018 Patient Education [facility] Work Phone: Start: 07-11-2018 Procedure Education [facility] Work Phone: Start: 07-11-2018 Provider Instructions for Treatment [facility] Work Phone: Start: 07-11-2018 Comprehensive metabolic panel METABOLIC PANEL, COMPREHENSIVE (64882) [facility] Work Phone: Start: 07-11-2018 Blood count complete automated CBC & PLATELETS (AUTO) (07047) [facility] Work Phone: Start: 07-08-2018 Patient Education [facility] Work Phone: Start: 07-08-2018 Procedure Education [facility] Work Phone: Start: 07-08-2018 Provider Instructions for Treatment [facility] Work Phone: Start: 07-08-2018 Virus centrifuge enhncd id imfluor stain ea [facility] Work Phone: Start: 07-08-2018 Iaadiadoo influenza [facility] Work Phone: Start: 10-26-2017 SHINGRIX VACCINE (1 of 2) SHINGRIX VACCINE (1 of 2) [facility] Start: 10-17-2017 PAP TESTING PAP TESTING [facility] Start: 10-09-2017 Provider Instructions for Treatment [facility] Work Phone: Start: 09-05-2017 Procedure Education [facility] Work Phone: Start: 09-05-2017 Provider Instructions for Treatment [facility] Work Phone: Start: 08-02-2016 HPV TESTING HPV TESTING [facility] Start: 08-02-2016 LIPID SCREEN LIPID SCREEN [facility] Start: 03-22-2016 End: 03-22-2016 Physical Therapy General Physical Therapy [facility], [address] [place] [address], [id number] [facility] Work Phone: Start: 02-07-2016 End: 02-07-2016 Mri jnt of lwr extre w/o dye MRI Joint Lower Extremity [facility] Work Phone: Start: 03-24-2015 End: 03-24-2015 X-ray exam of forearm X-Ray, Forearm [facility] Work Phone: Start: 12-30-2014 Provider Instructions for Treatment [facility] Work Phone: Start: 08-20-2014 Procedure Education [facility] Work Phone: Start: 10-17-2013 Mammography MAMMOGRAM [facility] Start: 10-02-2013 Provider Instructions for Treatment [facility] Work Phone: Start: 10-02-2013 Assay of free thyroxine [facility] Work Phone: Start: 10-02-2013 Assay of prolactin [facility] Work Phone: Start: 10-02-2013 Assay of thyroid stimulating hormone tsh [facility]; [facility] Work Phone: Start: 10-02-2013 Assay of triiodothyronine t3 free [facility]; [facility] Work Phone: Start: 10-02-2013 Comprehensive metabolic panel [facility] Work Phone: Start: 10-02-2013 T3 free mass conc T3, FREE (TRIDOTHYRONINE) (16059) [facility] Work Phone: Start: 10-02-2013 T4 free mass conc T4, FREE (THYROXINE) (87749) [facility] Work Phone: Start: 10-02-2013 Thyrotropin Qn TSH (06336) [facility] Work Phone: Start: 10-02-2013 Assay of estrone [facility] Work Phone: Start: 10-02-2013 Cortisol free [facility] Work Phone: Start: 10-02-2013 Dehydroepiandrosterone-sul fate [facility] Work Phone: Start: 10-02-2013 Assay of testosterone free [facility] Work Phone: Start: 10-02-2013 Assay of progesterone [facility] Work Phone: Start: 10-02-2013 Protein mass conc [facility] Work Phone: Start: 10-02-2013 Assay of estradiol [facility] Work Phone: Start: 09-10-2013 Provider Instructions for Treatment [facility] Work Phone: Start: 05-09-2013 Provider Instructions for Treatment [facility] Work Phone: Start: 10-26-2012 COLOGUARD (FIT-DNA) COLOGUARD (FIT-DNA) [facility] Start: 10-26-2012 Colonoscopy COLONOSCOPY [facility] Start: 10-26-2012 COLORECTAL CANCER SCREENING COLORECTAL CANCER SCREENING [facility] Start: 10-26-[address] COLONOGRAPHY [facility] Start: 10-26-2012 FECAL OCCULT BLOOD FECAL OCCULT BLOOD [facility] Start: 10-26-2012 SIGMOIDOSCOPY SIGMOIDOSCOPY [facility] Start: 10-14-2012 Patient Education [facility] Work Phone: Start: 10-14-2012 Provider Instructions for Treatment [facility] Work Phone: Start: 05-08-2012 Provider Instructions for Treatment [facility] Work Phone: Start: 05-02-2012 Provider Instructions for Treatment [facility] Work Phone: Start: 05-02-2012 Cyclic citrullinated peptide antibody [facility] Work Phone: Start: 04-18-2011 Provider Instructions for Treatment [facility] Work Phone: Start: 02-24-2011 Provider Instructions for Treatment [facility] Work Phone: Start: 11-11-2010 Provider Instructions for Treatment [facility] Work Phone: Start: 06-24-2010 Antibody helicobacter pylori [facility] Work Phone: Start: 01-11-2010 Iadna trichomonas vaginalis direct probe tq [facility] Work Phone: Start: 01-11-2010 Iadna gardnerella vaginalis direct probe tq [facility] Work Phone: Start: 01-11-2010 Iadna jeanne species direct probe tq [facility] Work Phone: Start: 01-11-2010 Cytp c/v auto thin lyr prepj scr mnl rescr phys [facility] Work Phone: Start: 01-11-2010 Hpv, dna, amp probe [facility] Work Phone: Start: 01-11-2010 Protein mass conc [facility] Work Phone: Start: 01-11-2010 Iadna neisseria gonorrhoeae amplified probe tq [facility] Work Phone: Start: 01-11-2010 Iadna chlamydia trachomatis amplified probe tq [facility] Work Phone: Start: 11-16-2009 Provider Instructions for Treatment [facility] Work Phone: Start: 10-15-2008 C-reactive protein [facility]; [facility] Work Phone: Immunizations Immunization Date Immunization Notes Care Provider Fa chang 09-16-2020 COVID-19 vaccine (SANNA) Moshe Kohler II, OD Work Phone: [facility] 03-23-2009 influenza, seasonal, injectable Karla Lorenzo [facility] Work Phone: Payers Date Payer Category Payer Unknown 2021 Unknown [id number] 2018 Unknown [id number] 1965 Unknown [id number] Private Health Insurance [id number] Unknown [id number] Social History Date Type Detail Facility No Drug Use Never smoker [facility] Work Phone: Functional Status Date Assessment Result Facility 07-10-2019 LP-IR Score <25 [facility] Work Phone: Clinical Notes 04-13-2022 to 07-05-2023 Patient InstructionsJohnie Pearce OD - 06/08/2022 9:48 AM ESTPatient InstructionsMoshe Kohler II, OD - 04/13/2022 11:37 AM EDT Note Date & Type Note Facility 07-05-2023 Note HNO ID: [id number] Author: JOHNIE PEARCE, NADEEM Service: ? Author Type: [facility]Y ON [facility]ASTER Type: Progress Notes Filed: 07/05/2023 09:42 Note Text: 1. Herpes zoster conjunctivitis, right eye Improving well Continue Valtrex until finished Continue artificial tears 2-3 times daily while symptoms of dryness persist 2. Dry eye syndrome of bilateral lacrimal glands 3. Squamous blepharitis of upper and lower eyelids of both eyes See 1 Follow-up in 1 month for complete eye exam Johnie Pearce, OD July 05, 2023 9:41 AM [facility] 06-28-2023 Note HNO ID: [id number] Author: JOHNIE PEARCE, NADEEM Service: ? Author Type: [facility] ON BASTER Type: Progress Notes Filed: 06/28/2023 11:14 Note Text: 1. Herpes zoster conjunctivitis, right eye Vs viral conjunctivitis Suspect herpetic due to symptoms of facial burning and needle-like pain on cheek and headache Start on Valtrex today 2. Dry eye syndrome of bilateral lacrimal glands 3. Squamous blepharitis of upper and lower eyelids of both eyes Continue warm compresses/artificial tears Follow-up in 1 week for dilation right eye and follow-up or sooner with any decrease in vision Johnie Pearce, OD June 28, 2023 11:12 AM [facility] 06-25-2023 Note HNO ID: [id number] Author: JOHNIE PEARCE, NADEEM Service: ? Author Type: [facility] ON [facility]ASTER Type: Progress Notes Filed: 06/25/2023 08:53 Note Text: 1. Viral conjunctivitis, right eye Suspect Viral vs Bacterial vs Herpes conjunctivitis Educated pt on condition Recommended alternating cool/warm compresses and using artificial tears every few hours for comfort 2. Preseptal cellulitis of right upper eyelid Medications to Start Taking doxycycline monohydrate (MONODOX) 100 mg capsule Take 1 capsule by mouth two times a day for 7 days. Will cover for preseptal cellulitis Follow-up in 3-4 days for recheck Consider betadine at follow-up, leobardo if other eye effected. Johnie Pearce, OD June 25, 2023 8:50 AM [facility] 06-25-2023 Note HNO ID: [id number] Author: ALBERTINA KEYS APRN.CABLE REELER Service: ? Author Type: Nurse Practitioner Type: Progress Notes Filed: 06/25/2023 07:33 Note Text: Patient came in with complaints of right eye pain redness and swelling. Patient says it started yesterday was worse this morning. Patient says the pain is a 10 out of 10. Patient says it feels like someone punched her in the eye. Upon visual inspection noted significant redness and swelling around the eye. Chemosis was present. At this time due to the amount of pain and pressure patient is feeling patient is being referred to the eye doctor. Was able to obtain an appointment for 8 AM. Patient also said she had a history of an eye problem. Patient was unsure exactly what the problem was but she had extremely high pressures in one of her eyes. Patient cannot remember which eye it was. Said she was seen in [place]. Said it took about 3 weeks to get it under control. [facility] 06-08-2022 Instructions Johnie Pearce, OD - 06/08/2022 9:55 AM EST Use Systane Complete or Refresh Relieva 2-3 times daily Use Systane, Refresh or Blink gel nightly before bed in both eyes Use Ocusoft/Systane lid wipes documented in this encounter [facility] 06-08-2022 History of Presen t illness Narrative 1. Dry eye syndrome of bilateral lacrimal glands 2. Squamous blepharitis of upper and lower eyelids of both eyes Use Systane Complete or Refresh Relieva 2-3 times daily Use Systane, Refresh or Blink gel nightly before bed in both eyes Use Systane or Ocusoft lid wipes daily to clean eyelids/eyelashes daily 3. Hyperopia, bilateral 4. Presbyopia Printed spec rx 5. History of iritis 6. Chorioretinal scar of right eye Not assessed today Follow-up in 1 month for possible dilation and irrigation/possible Restasis? Johnie Pearce, OD June 08, 2022 9:48 AM documented in this encounter [facility] 04-13-2022 Instructions Moshe Kohler II, OD - 04/13/2022 11:39 AM EDT Assessment and Plan H31.001 Chorioretinal scar of right eye (primary encounter diagnosis) Comment: Edges flat and pigmented. Monitor for change yearly. Z86.69 History of iritis Comment: Right eye in -. Eye recovered well. Monitor for recurrence. H52.03 Hyperopia, bilateral H52.4 Presbyopia Comment: Recommend update glasses. Contact lens trial? I have confirmed and edited as necessary the relevant ophthalmic history, ROS, and the neuro exam findings as obtained by others. I have seen and examined Bairon Whaley. I have discussed the case and the management of this patient's care with the Resident/Fellow, if applicable. I also have reviewed and agree with the assessment and plan as stated above and agree with all of its relevant components. Moshe Kohler II, OD documented in this encounter [facility] 04-13-2022 History of Presen t illness Narrative Assessment and Plan H31.001 Chorioretinal scar of right eye (primary encounter diagnosis) Comment: Edges flat and pigmented. Monitor for change yearly. Z86.69 History of iritis Comment: Right eye in -. Eye recovered well. Monitor for recurrence. H52.03 Hyperopia, bilateral H52.4 Presbyopia Comment: Recommend update glasses. Contact lens trial? I have confirmed and edited as necessary the relevant ophthalmic history, ROS, and the neuro exam findings as obtained by others. I have seen and examined Bairon Whaley. I have discussed the case and the management of this patient's care with the Resident/Fellow, if applicable. I also have reviewed and agree with the assessment and plan as stated above and agree with all of its relevant components. Moshe Kohler II, OD documented in this encounter [facility] Diagnosis Dry eye syndrome of bilateral lacrimal glands- Primary Tear film insufficiency, unspecified Squamous blepharitis of upper and lower eyelids of both eyes Hyperopia, bilateral Presbyopia History of iritis Personal history of other disorders of nervous system and sense organs Chorioretinal scar of right eye Chorioretinal scar, unspecified [facility] Name Dates Details How to access health informa tion online - Detail Indication:Non-smoker Start:10-May-2020 Instruction Type:Patient Education How to access health informa tion online Indication:Non-smoker Start:10-May-2020 Instruction Type:Patient Education Patient Instructions Indication:Non-smoker Start:10-May-2020 Instruction Type:Provider Instructions for Treatment How to access health informa tion online Indication:BMI 24.0-24.9, adult Start:22-Apr-2020 Instruction Type:Patient Education How to access health informa tion online - Detail Indication:BMI 24.0-24.9, adult Start:22-Apr-2020 Instruction Type:Patient Education Patient Instructions Indication:BMI 24.0-24.9, adult Start:22-Apr-2020 Instruction Type:Provider Instructions for Treatment How to access health informa tion online Indication:Non-smoker Start:19-Nov-2019 Instruction Type:Patient Education How to access health informa tion online - Detail Indication:Non-smoker Start:19-Nov-2019 Instruction Type:Patient Education Patient Instructions Indication:Non-smoker Start:19-Nov-2019 Instruction Type:Provider Instructions for Treatment How to access health informa tion online Indication:Non-smoker Start:20-Aug-2019 Instruction Type:Patient Education How to access health informa tion online - Detail Indication:Non-smoker Start:20-Aug-2019 Instruction Type:Patient Education Patient Instructions Indication:Non-smoker Start:20-Aug-2019 Instruction Type:Provider Instructions for Treatment How to access health informa tion online Indication:BMI 25.0-25.9,adult Start:01-Aug-2019 Instruction Type:Patient Education How to access health informa tion online - Detail Indication:BMI 25.0-25.9,adult Start:01-Aug-2019 Instruction Type:Patient Education Patient Instructions Indication:BMI 25.0-25.9,adult Start:01-Aug-2019 Instruction Type:Provider Instructions for Treatment Patient Instructions Indication:Family history of cardiovascular disease Start:10-Jul-2019 Instruction Type:Provider Instructions for Treatment How to access health informa tion online Indication:BMI 25.0-25.9,adult Start:12-Dec-2018 Instruction Type:Patient Education How to access health informa tion online - Detail Indication:BMI 25.0-25.9,adult Start:12-Dec-2018 Instruction Type:Patient Education Patient Instructions Indication:BMI 25.0-25.9,adult Start:12-Dec-2018 Instruction Type:Provider Instructions for Treatment How to access health informa tion online Indication:Rash Start:29-Nov-2018 Instruction Type:Patient Education How to access health informa tion online - Detail Indication:Rash Start:29-Nov-2018 Instruction Type:Patient Education Patient Instructions Indication:BMI 25.0-25.9,adult Start:29-Nov-2018 Instruction Type:Provider Instructions for Treatment How to access health informa tion online Indication:BMI 24.0-24.9, adult Start:11-Jul-2018 Instruction Type:Patient Education How to access health informa tion online - Detail Indication:BMI 24.0-24.9, adult Start:11-Jul-2018 Instruction Type:Patient Education Patient Instructions Indication:Influenza A (H1N1) Start:11-Jul-2018 Instruction Type:Provider Instructions for Treatment How to access health informa tion online Indication:Non-smoker Start:08-Jul-2018 Instruction Type:Patient Education How to access health informa tion online - Detail Indication:Non-smoker Start:08-Jul-2018 Instruction Type:Patient Education Patient Instructions Indication:Cough Start:08-Jul-2018 Instruction Type:Provider Instructions for Treatment How to access health informa tion online Indication:Non-smoker Start:09-Oct-2017 Instruction Type:Patient Education How to access health informa tion online - Detail Indication:Non-smoker Start:09-Oct-2017 Instruction Type:Patient Education Patient Instructions Indication:Non-smoker Start:09-Oct-2017 Instruction Type:Provider Instructions for Treatment How to access health informa tion online Indication:Non-smoker Start:05-Sep-2017 Instruction Type:Patient Education How to access health informa tion online - Detail Indication:Non-smoker Start:05-Sep-2017 Instruction Type:Patient Education Patient Instructions Indication:Non-smoker Start:05-Sep-2017 Instruction Type:Provider Instructions for Treatment How to access health informa tion online Indication:Non-smoker Start:24-Jan-2017 Instruction Type:Patient Education How to access health informa tion online - Detail Indication:Non-smoker Start:24-Jan-2017 Instruction Type:Patient Education Patient Instructions Indication:Non-smoker Start:24-Jan-2017 Instruction Type:Provider Instructions for Treatment How to access health informa tion online Indication:Weight gain Start:30-Dec-2014 Instruction Type:Patient Education How to access health informa tion online - Detail Indication:Weight gain Start:30-Dec-2014 Instruction Type:Patient Education Patient Instructions Indication:Weight gain Start:30-Dec-2014 Instruction Type:Provider Instructions for Treatment How to access health informa tion online Indication:Fever and chills Start:20-Aug-2014 Instruction Type:Patient Education How to access health informa tion online - Detail Indication:Fever and chills Start:20-Aug-2014 Instruction Type:Patient Education Patient Instructions Indication:Fever and chills Start:20-Aug-2014 Instruction Type:Provider Instructions for Treatment Patient Instructions Indication:Lymphadenopathy Start:14-Aug-2014 Instruction Type:Provider Instructions for Treatment Patient Instructions Indication:Weight gain Start:10-Sep-2013 Instruction Type:Provider Instructions for Treatment Patient Instructions Indication:OTHER FORMS OF ASTHMA, COUGH VARIANT ASTHMA Start:09-May-2013 Instruction Type:Provider Instructions for Treatment Patient Instructions Indication:Gas Start:14-Oct-2012 Instruction Type:Provider Instructions for Treatment Patient Instructions Indication:Benign paroxysmal positional vertigo Start:14-Aug-2012 Instruction Type:Provider Instructions for Treatment Patient Instructions Indication:Joint pain Start:08-May-2012 Instruction Type:Provider Instructions for Treatment Patient Instructions Indication:Joint pain Start:02-May-2012 Instruction Type:Provider Instructions for Treatment [facility]; [facility] Work Phone: Instructions* Name Dates Details How to access health informa tion online - Detail Indication:Non-smoker Start:10-May-2020 Instruction Type:Patient Education How to access health informa tion online Indication:Non-smoker Start:10-May-2020 Instruction Type:Patient Education Patient Instructions Indication:Non-smoker Start:10-May-2020 Instruction Type:Provider Instructions for Treatment How to access health informa tion online Indication:BMI 24.0-24.9, adult Start:22-Apr-2020 Instruction Type:Patient Education How to access health informa tion online - Detail Indication:BMI 24.0-24.9, adult Start:22-Apr-2020 Instruction Type:Patient Education Patient Instructions Indication:BMI 24.0-24.9, adult Start:22-Apr-2020 Instruction Type:Provider Instructions for Treatment How to access health informa tion online Indication:Non-smoker Start:19-Nov-2019 Instruction Type:Patient Education How to access health informa tion online - Detail Indication:Non-smoker Start:19-Nov-2019 Instruction Type:Patient Education Patient Instructions Indication:Non-smoker Start:19-Nov-2019 Instruction Type:Provider Instructions for Treatment How to access health informa tion online Indication:Non-smoker Start:20-Aug-2019 Instruction Type:Patient Education How to access health informa tion online - Detail Indication:Non-smoker Start:20-Aug-2019 Instruction Type:Patient Education Patient Instructions Indication:Non-smoker Start:20-Aug-2019 Instruction Type:Provider Instructions for Treatment How to access health informa tion online Indication:BMI 25.0-25.9,adult Start:01-Aug-2019 Instruction Type:Patient Education How to access health informa tion online - Detail Indication:BMI 25.0-25.9,adult Start:01-Aug-2019 Instruction Type:Patient Education Patient Instructions Indication:BMI 25.0-25.9,adult Start:01-Aug-2019 Instruction Type:Provider Instructions for Treatment Patient Instructions Indication:Family history of cardiovascular disease Start:10-Jul-2019 Instruction Type:Provider Instructions for Treatment How to access health informa tion online Indication:BMI 25.0-25.9,adult Start:12-Dec-2018 Instruction Type:Patient Education How to access health informa tion online - Detail Indication:BMI 25.0-25.9,adult Start:12-Dec-2018 Instruction Type:Patient Education Patient Instructions Indication:BMI 25.0-25.9,adult Start:12-Dec-2018 Instruction Type:Provider Instructions for Treatment How to access health informa tion online Indication:Rash Start:29-Nov-2018 Instruction Type:Patient Education How to access health informa tion online - Detail Indication:Rash Start:29-Nov-2018 Instruction Type:Patient Education Patient Instructions Indication:BMI 25.0-25.9,adult Start:29-Nov-2018 Instruction Type:Provider Instructions for Treatment How to access health informa tion online Indication:BMI 24.0-24.9, adult Start:11-Jul-2018 Instruction Type:Patient Education How to access health informa tion online - Detail Indication:BMI 24.0-24.9, adult Start:11-Jul-2018 Instruction Type:Patient Education Patient Instructions Indication:Influenza A (H1N1) Start:11-Jul-2018 Instruction Type:Provider Instructions for Treatment How to access health informa tion online Indication:Non-smoker Start:08-Jul-2018 Instruction Type:Patient Education How to access health informa tion online - Detail Indication:Non-smoker Start:08-Jul-2018 Instruction Type:Patient Education Patient Instructions Indication:Cough Start:08-Jul-2018 Instruction Type:Provider Instructions for Treatment How to access health informa tion online Indication:Non-smoker Start:09-Oct-2017 Instruction Type:Patient Education How to access health informa tion online - Detail Indication:Non-smoker Start:09-Oct-2017 Instruction Type:Patient Education Patient Instructions Indication:Non-smoker Start:09-Oct-2017 Instruction Type:Provider Instructions for Treatment How to access health informa tion online Indication:Non-smoker Start:05-Sep-2017 Instruction Type:Patient Education How to access health informa tion online - Detail Indication:Non-smoker Start:05-Sep-2017 Instruction Type:Patient Education Patient Instructions Indication:Non-smoker Start:05-Sep-2017 Instruction Type:Provider Instructions for Treatment How to access health informa tion online Indication:Non-smoker Start:24-Jan-2017 Instruction Type:Patient Education How to access health informa tion online - Detail Indication:Non-smoker Start:24-Jan-2017 Instruction Type:Patient Education Patient Instructions Indication:Non-smoker Start:24-Jan-2017 Instruction Type:Provider Instructions for Treatment How to access health informa tion online Indication:Weight gain Start:30-Dec-2014 Instruction Type:Patient Education How to access health informa tion online - Detail Indication:Weight gain Start:30-Dec-2014 Instruction Type:Patient Education Patient Instructions Indication:Weight gain Start:30-Dec-2014 Instruction Type:Provider Instructions for Treatment How to access health informa tion online Indication:Fever and chills Start:20-Aug-2014 Instruction Type:Patient Education How to access health informa tion online - Detail Indication:Fever and chills Start:20-Aug-2014 Instruction Type:Patient Education Patient Instructions Indication:Fever and chills Start:20-Aug-2014 Instruction Type:Provider Instructions for Treatment Patient Instructions Indication:Lymphadenopathy Start:14-Aug-2014 Instruction Type:Provider Instructions for Treatment Patient Instructions Indication:Weight gain Start:10-Sep-2013 Instruction Type:Provider Instructions for Treatment Patient Instructions Indication:OTHER FORMS OF ASTHMA, COUGH VARIANT ASTHMA Start:09-May-2013 Instruction Type:Provider Instructions for Treatment Patient Instructions Indication:Gas Start:14-Oct-2012 Instruction Type:Provider Instructions for Treatment Patient Instructions Indication:Benign paroxysmal positional vertigo Start:14-Aug-2012 Instruction Type:Provider Instructions for Treatment Patient Instructions Indication:Joint pain Start:08-May-2012 Instruction Type:Provider Instructions for Treatment Patient Instructions Indication:Joint pain Start:02-May-2012 Instruction Type:Provider Instructions for Treatment [facility]; [facility] Work Phone: Instructions* Name Dates Details Patient Instructions Indication:BMI 27.0-27.9,adult Start:17-Oct-2021 Instruction Type:Provider Instructions for Treatment How to Access Health Informa tion Online using Patient Portal and [employer]rd [employer] Apps Indication:BMI 27.0-27.9,adult Start:17-Oct-2021 Instruction Type:Patient Education Patient Instructions Indication:Non-smoker Start:06-Oct-2021 Instruction Type:Provider Instructions for Treatment How to Access Health Informa tion Online using Patient Portal and [employer]rd [employer] Apps Indication:Non-smoker Start:06-Oct-2021 Instruction Type:Patient Education Patient Instructions Indication:BMI 27.0-27.9,adult Start:28-Sep-2021 Instruction Type:Provider Instructions for Treatment How to Access Health Informa tion Online using Patient Portal and [employer]rd [employer] Apps Indication:BMI 27.0-27.9,adult Start:28-Sep-2021 Instruction Type:Patient Education How to access health informa tion online - Detail Indication:Non-smoker Start:10-May-2020 Instruction Type:Patient Education How to access health informa tion online Indication:Non-smoker Start:10-May-2020 Instruction Type:Patient Education Patient Instructions Indication:Non-smoker Start:10-May-2020 Instruction Type:Provider Instructions for Treatment How to access health informa tion online Indication:BMI 24.0-24.9, adult Start:22-Apr-2020 Instruction Type:Patient Education How to access health informa tion online - Detail Indication:BMI 24.0-24.9, adult Start:22-Apr-2020 Instruction Type:Patient Education Patient Instructions Indication:BMI 24.0-24.9, adult Start:22-Apr-2020 Instruction Type:Provider Instructions for Treatment How to access health informa tion online Indication:Non-smoker Start:19-Nov-2019 Instruction Type:Patient Education How to access health informa tion online - Detail Indication:Non-smoker Start:19-Nov-2019 Instruction Type:Patient Education Patient Instructions Indication:Non-smoker Start:19-Nov-2019 Instruction Type:Provider Instructions for Treatment How to access health informa tion online Indication:Non-smoker Start:20-Aug-2019 Instruction Type:Patient Education How to access health informa tion online - Detail Indication:Non-smoker Start:20-Aug-2019 Instruction Type:Patient Education Patient Instructions Indication:Non-smoker Start:20-Aug-2019 Instruction Type:Provider Instructions for Treatment How to access health informa tion online Indication:BMI 25.0-25.9,adult Start:01-Aug-2019 Instruction Type:Patient Education How to access health informa tion online - Detail Indication:BMI 25.0-25.9,adult Start:01-Aug-2019 Instruction Type:Patient Education Patient Instructions Indication:BMI 25.0-25.9,adult Start:01-Aug-2019 Instruction Type:Provider Instructions for Treatment Patient Instructions Indication:Family history of cardiovascular disease Start:10-Jul-2019 Instruction Type:Provider Instructions for Treatment How to access health informa tion online Indication:BMI 25.0-25.9,adult Start:12-Dec-2018 Instruction Type:Patient Education How to access health informa tion online - Detail Indication:BMI 25.0-25.9,adult Start:12-Dec-2018 Instruction Type:Patient Education Patient Instructions Indication:BMI 25.0-25.9,adult Start:12-Dec-2018 Instruction Type:Provider Instructions for Treatment How to access health informa tion online Indication:Rash Start:29-Nov-2018 Instruction Type:Patient Education How to access health informa tion online - Detail Indication:Rash Start:29-Nov-2018 Instruction Type:Patient Education Patient Instructions Indication:BMI 25.0-25.9,adult Start:29-Nov-2018 Instruction Type:Provider Instructions for Treatment How to access health informa tion online Indication:BMI 24.0-24.9, adult Start:11-Jul-2018 Instruction Type:Patient Education How to access health informa tion online - Detail Indication:BMI 24.0-24.9, adult Start:11-Jul-2018 Instruction Type:Patient Education Patient Instructions Indication:Influenza A (H1N1) Start:11-Jul-2018 Instruction Type:Provider Instructions for Treatment How to access health informa tion online Indication:Non-smoker Start:08-Jul-2018 Instruction Type:Patient Education How to access health informa tion online - Detail Indication:Non-smoker Start:08-Jul-2018 Instruction Type:Patient Education Patient Instructions Indication:Cough Start:08-Jul-2018 Instruction Type:Provider Instructions for Treatment How to access health informa tion online Indication:Non-smoker Start:09-Oct-2017 Instruction Type:Patient Education How to access health informa tion online - Detail Indication:Non-smoker Start:09-Oct-2017 Instruction Type:Patient Education Patient Instructions Indication:Non-smoker Start:09-Oct-2017 Instruction Type:Provider Instructions for Treatment How to access health informa tion online Indication:Non-smoker Start:05-Sep-2017 Instruction Type:Patient Education How to access health informa tion online - Detail Indication:Non-smoker Start:05-Sep-2017 Instruction Type:Patient Education Patient Instructions Indication:Non-smoker Start:05-Sep-2017 Instruction Type:Provider Instructions for Treatment How to access health informa tion online Indication:Non-smoker Start:24-Jan-2017 Instruction Type:Patient Education How to access health informa tion online - Detail Indication:Non-smoker Start:24-Jan-2017 Instruction Type:Patient Education Patient Instructions Indication:Non-smoker Start:24-Jan-2017 Instruction Type:Provider Instructions for Treatment How to access health informa tion online Indication:Weight gain Start:30-Dec-2014 Instruction Type:Patient Education How to access health informa tion online - Detail Indication:Weight gain Start:30-Dec-2014 Instruction Type:Patient Education Patient Instructions Indication:Weight gain Start:30-Dec-2014 Instruction Type:Provider Instructions for Treatment How to access health informa tion online Indication:Fever and chills Start:20-Aug-2014 Instruction Type:Patient Education How to access health informa tion online - Detail Indication:Fever and chills Start:20-Aug-2014 Instruction Type:Patient Education Patient Instructions Indication:Fever and chills Start:20-Aug-2014 Instruction Type:Provider Instructions for Treatment Patient Instructions Indication:Lymphadenopathy Start:14-Aug-2014 Instruction Type:Provider Instructions for Treatment Patient Instructions Indication:Weight gain Start:10-Sep-2013 Instruction Type:Provider Instructions for Treatment Patient Instructions Indication:OTHER FORMS OF ASTHMA, COUGH VARIANT ASTHMA Start:09-May-2013 Instruction Type:Provider Instructions for Treatment Patient Instructions Indication:Gas Start:14-Oct-2012 Instruction Type:Provider Instructions for Treatment Patient Instructions Indication:Benign paroxysmal positional vertigo Start:14-Aug-2012 Instruction Type:Provider Instructions for Treatment Patient Instructions Indication:Joint pain Start:08-May-2012 Instruction Type:Provider Instructions for Treatment Patient Instructions Indication:Joint pain Start:02-May-2012 Instruction Type:Provider Instructions for Treatment [facility]; [facility] Work Phone: Instructions* Name Dates Details Patient Instructions Indication:BMI 27.0-27.9,adult Start:17-Oct-2021 Instruction Type:Provider Instructions for Treatment How to Access Health Informa tion Online using Patient Portal and [employer]rd [employer] Apps Indication:BMI 27.0-27.9,adult Start:17-Oct-2021 Instruction Type:Patient Education Patient Instructions Indication:Non-smoker Start:06-Oct-2021 Instruction Type:Provider Instructions for Treatment How to Access Health Informa tion Online using Patient Portal and [employer]rd [employer] Apps Indication:Non-smoker Start:06-Oct-2021 Instruction Type:Patient Education Patient Instructions Indication:BMI 27.0-27.9,adult Start:28-Sep-2021 Instruction Type:Provider Instructions for Treatment How to Access Health Informa tion Online using Patient Portal and [employer]rd [employer] Apps Indication:BMI 27.0-27.9,adult Start:28-Sep-2021 Instruction Type:Patient Education How to access health informa tion online - Detail Indication:Non-smoker Start:10-May-2020 Instruction Type:Patient Education How to access health informa tion online Indication:Non-smoker Start:10-May-2020 Instruction Type:Patient Education Patient Instructions Indication:Non-smoker Start:10-May-2020 Instruction Type:Provider Instructions for Treatment How to access health informa tion online Indication:BMI 24.0-24.9, adult Start:22-Apr-2020 Instruction Type:Patient Education How to access health informa tion online - Detail Indication:BMI 24.0-24.9, adult Start:22-Apr-2020 Instruction Type:Patient Education Patient Instructions Indication:BMI 24.0-24.9, adult Start:22-Apr-2020 Instruction Type:Provider Instructions for Treatment How to access health informa tion online Indication:Non-smoker Start:19-Nov-2019 Instruction Type:Patient Education How to access health informa tion online - Detail Indication:Non-smoker Start:19-Nov-2019 Instruction Type:Patient Education Patient Instructions Indication:Non-smoker Start:19-Nov-2019 Instruction Type:Provider Instructions for Treatment How to access health informa tion online Indication:Non-smoker Start:20-Aug-2019 Instruction Type:Patient Education How to access health informa tion online - Detail Indication:Non-smoker Start:20-Aug-2019 Instruction Type:Patient Education Patient Instructions Indication:Non-smoker Start:20-Aug-2019 Instruction Type:Provider Instructions for Treatment How to access health informa tion online Indication:BMI 25.0-25.9,adult Start:01-Aug-2019 Instruction Type:Patient Education How to access health informa tion online - Detail Indication:BMI 25.0-25.9,adult Start:01-Aug-2019 Instruction Type:Patient Education Patient Instructions Indication:BMI 25.0-25.9,adult Start:01-Aug-2019 Instruction Type:Provider Instructions for Treatment Patient Instructions Indication:Family history of cardiovascular disease Start:10-Jul-2019 Instruction Type:Provider Instructions for Treatment How to access health informa tion online Indication:BMI 25.0-25.9,adult Start:12-Dec-2018 Instruction Type:Patient Education How to access health informa tion online - Detail Indication:BMI 25.0-25.9,adult Start:12-Dec-2018 Instruction Type:Patient Education Patient Instructions Indication:BMI 25.0-25.9,adult Start:12-Dec-2018 Instruction Type:Provider Instructions for Treatment How to access health informa tion online Indication:Rash Start:29-Nov-2018 Instruction Type:Patient Education How to access health informa tion online - Detail Indication:Rash Start:29-Nov-2018 Instruction Type:Patient Education Patient Instructions Indication:BMI 25.0-25.9,adult Start:29-Nov-2018 Instruction Type:Provider Instructions for Treatment How to access health informa tion online Indication:BMI 24.0-24.9, adult Start:11-Jul-2018 Instruction Type:Patient Education How to access health informa tion online - Detail Indication:BMI 24.0-24.9, adult Start:11-Jul-2018 Instruction Type:Patient Education Patient Instructions Indication:Influenza A (H1N1) Start:11-Jul-2018 Instruction Type:Provider Instructions for Treatment How to access health informa tion online Indication:Non-smoker Start:08-Jul-2018 Instruction Type:Patient Education How to access health informa tion online - Detail Indication:Non-smoker Start:08-Jul-2018 Instruction Type:Patient Education Patient Instructions Indication:Cough Start:08-Jul-2018 Instruction Type:Provider Instructions for Treatment How to access health informa tion online Indication:Non-smoker Start:09-Oct-2017 Instruction Type:Patient Education How to access health informa tion online - Detail Indication:Non-smoker Start:09-Oct-2017 Instruction Type:Patient Education Patient Instructions Indication:Non-smoker Start:09-Oct-2017 Instruction Type:Provider Instructions for Treatment How to access health informa tion online Indication:Non-smoker Start:05-Sep-2017 Instruction Type:Patient Education How to access health informa tion online - Detail Indication:Non-smoker Start:05-Sep-2017 Instruction Type:Patient Education Patient Instructions Indication:Non-smoker Start:05-Sep-2017 Instruction Type:Provider Instructions for Treatment How to access health informa tion online Indication:Non-smoker Start:24-Jan-2017 Instruction Type:Patient Education How to access health informa tion online - Detail Indication:Non-smoker Start:24-Jan-2017 Instruction Type:Patient Education Patient Instructions Indication:Non-smoker Start:24-Jan-2017 Instruction Type:Provider Instructions for Treatment How to access health informa tion online Indication:Weight gain Start:30-Dec-2014 Instruction Type:Patient Education How to access health informa tion online - Detail Indication:Weight gain Start:30-Dec-2014 Instruction Type:Patient Education Patient Instructions Indication:Weight gain Start:30-Dec-2014 Instruction Type:Provider Instructions for Treatment How to access health informa tion online Indication:Fever and chills Start:20-Aug-2014 Instruction Type:Patient Education How to access health informa tion online - Detail Indication:Fever and chills Start:20-Aug-2014 Instruction Type:Patient Education Patient Instructions Indication:Fever and chills Start:20-Aug-2014 Instruction Type:Provider Instructions for Treatment Patient Instructions Indication:Lymphadenopathy Start:14-Aug-2014 Instruction Type:Provider Instructions for Treatment Patient Instructions Indication:Weight gain Start:10-Sep-2013 Instruction Type:Provider Instructions for Treatment Patient Instructions Indication:OTHER FORMS OF ASTHMA, COUGH VARIANT ASTHMA Start:09-May-2013 Instruction Type:Provider Instructions for Treatment Patient Instructions Indication:Gas Start:14-Oct-2012 Instruction Type:Provider Instructions for Treatment Patient Instructions Indication:Benign paroxysmal positional vertigo Start:14-Aug-2012 Instruction Type:Provider Instructions for Treatment Patient Instructions Indication:Joint pain Start:08-May-2012 Instruction Type:Provider Instructions for Treatment Patient Instructions Indication:Joint pain Start:02-May-2012 Instruction Type:Provider Instructions for Treatment [facility]; [facility] Work Phone: Instructions* Name Dates Details Patient Instructions Indication:Non-smoker Start:09-Feb-2022 Instruction Type:Provider Instructions for Treatment How to Access Health Informa tion Online using Patient Portal and [employer]rd [employer] Apps Indication:Non-smoker Start:09-Feb-2022 Instruction Type:Patient Education Patient Instructions Indication:BMI 27.0-27.9,adult Start:17-Oct-2021 Instruction Type:Provider Instructions for Treatment How to Access Health Informa tion Online using Patient Portal and [employer]rd [employer] Apps Indication:BMI 27.0-27.9,adult Start:17-Oct-2021 Instruction Type:Patient Education Patient Instructions Indication:Non-smoker Start:06-Oct-2021 Instruction Type:Provider Instructions for Treatment How to Access Health Informa tion Online using Patient Portal and [employer]rd [employer] Apps Indication:Non-smoker Start:06-Oct-2021 Instruction Type:Patient Education Patient Instructions Indication:BMI 27.0-27.9,adult Start:28-Sep-2021 Instruction Type:Provider Instructions for Treatment How to Access Health Informa tion Online using Patient Portal and [employer]rd [employer] Apps Indication:BMI 27.0-27.9,adult Start:28-Sep-2021 Instruction Type:Patient Education How to access health informa tion online - Detail Indication:Non-smoker Start:10-May-2020 Instruction Type:Patient Education How to access health informa tion online Indication:Non-smoker Start:10-May-2020 Instruction Type:Patient Education Patient Instructions Indication:Non-smoker Start:10-May-2020 Instruction Type:Provider Instructions for Treatment How to access health informa tion online Indication:BMI 24.0-24.9, adult Start:22-Apr-2020 Instruction Type:Patient Education How to access health informa tion online - Detail Indication:BMI 24.0-24.9, adult Start:22-Apr-2020 Instruction Type:Patient Education Patient Instructions Indication:BMI 24.0-24.9, adult Start:22-Apr-2020 Instruction Type:Provider Instructions for Treatment How to access health informa tion online Indication:Non-smoker Start:19-Nov-2019 Instruction Type:Patient Education How to access health informa tion online - Detail Indication:Non-smoker Start:19-Nov-2019 Instruction Type:Patient Education Patient Instructions Indication:Non-smoker Start:19-Nov-2019 Instruction Type:Provider Instructions for Treatment How to access health informa tion online Indication:Non-smoker Start:20-Aug-2019 Instruction Type:Patient Education How to access health informa tion online - Detail Indication:Non-smoker Start:20-Aug-2019 Instruction Type:Patient Education Patient Instructions Indication:Non-smoker Start:20-Aug-2019 Instruction Type:Provider Instructions for Treatment How to access health informa tion online Indication:BMI 25.0-25.9,adult Start:01-Aug-2019 Instruction Type:Patient Education How to access health informa tion online - Detail Indication:BMI 25.0-25.9,adult Start:01-Aug-2019 Instruction Type:Patient Education Patient Instructions Indication:BMI 25.0-25.9,adult Start:01-Aug-2019 Instruction Type:Provider Instructions for Treatment Patient Instructions Indication:Family history of cardiovascular disease Start:10-Jul-2019 Instruction Type:Provider Instructions for Treatment How to access health informa tion online Indication:BMI 25.0-25.9,adult Start:12-Dec-2018 Instruction Type:Patient Education How to access health informa tion online - Detail Indication:BMI 25.0-25.9,adult Start:12-Dec-2018 Instruction Type:Patient Education Patient Instructions Indication:BMI 25.0-25.9,adult Start:12-Dec-2018 Instruction Type:Provider Instructions for Treatment How to access health informa tion online Indication:Rash Start:29-Nov-2018 Instruction Type:Patient Education How to access health informa tion online - Detail Indication:Rash Start:29-Nov-2018 Instruction Type:Patient Education Patient Instructions Indication:BMI 25.0-25.9,adult Start:29-Nov-2018 Instruction Type:Provider Instructions for Treatment How to access health informa tion online Indication:BMI 24.0-24.9, adult Start:11-Jul-2018 Instruction Type:Patient Education How to access health informa tion online - Detail Indication:BMI 24.0-24.9, adult Start:11-Jul-2018 Instruction Type:Patient Education Patient Instructions Indication:Influenza A (H1N1) Start:11-Jul-2018 Instruction Type:Provider Instructions for Treatment How to access health informa tion online Indication:Non-smoker Start:08-Jul-2018 Instruction Type:Patient Education How to access health informa tion online - Detail Indication:Non-smoker Start:08-Jul-2018 Instruction Type:Patient Education Patient Instructions Indication:Cough Start:08-Jul-2018 Instruction Type:Provider Instructions for Treatment How to access health informa tion online Indication:Non-smoker Start:09-Oct-2017 Instruction Type:Patient Education How to access health informa tion online - Detail Indication:Non-smoker Start:09-Oct-2017 Instruction Type:Patient Education Patient Instructions Indication:Non-smoker Start:09-Oct-2017 Instruction Type:Provider Instructions for Treatment How to access health informa tion online Indication:Non-smoker Start:05-Sep-2017 Instruction Type:Patient Education How to access health informa tion online - Detail Indication:Non-smoker Start:05-Sep-2017 Instruction Type:Patient Education Patient Instructions Indication:Non-smoker Start:05-Sep-2017 Instruction Type:Provider Instructions for Treatment How to access health informa tion online Indication:Non-smoker Start:24-Jan-2017 Instruction Type:Patient Education How to access health informa tion online - Detail Indication:Non-smoker Start:24-Jan-2017 Instruction Type:Patient Education Patient Instructions Indication:Non-smoker Start:24-Jan-2017 Instruction Type:Provider Instructions for Treatment How to access health informa tion online Indication:Weight gain Start:30-Dec-2014 Instruction Type:Patient Education How to access health informa tion online - Detail Indication:Weight gain Start:30-Dec-2014 Instruction Type:Patient Education Patient Instructions Indication:Weight gain Start:30-Dec-2014 Instruction Type:Provider Instructions for Treatment How to access health informa tion online Indication:Fever and chills Start:20-Aug-2014 Instruction Type:Patient Education How to access health informa tion online - Detail Indication:Fever and chills Start:20-Aug-2014 Instruction Type:Patient Education Patient Instructions Indication:Fever and chills Start:20-Aug-2014 Instruction Type:Provider Instructions for Treatment Patient Instructions Indication:Lymphadenopathy Start:14-Aug-2014 Instruction Type:Provider Instructions for Treatment Patient Instructions Indication:Weight gain Start:10-Sep-2013 Instruction Type:Provider Instructions for Treatment Patient Instructions Indication:OTHER FORMS OF ASTHMA, COUGH VARIANT ASTHMA Start:09-May-2013 Instruction Type:Provider Instructions for Treatment Patient Instructions Indication:Gas Start:14-Oct-2012 Instruction Type:Provider Instructions for Treatment Patient Instructions Indication:Benign paroxysmal positional vertigo Start:14-Aug-2012 Instruction Type:Provider Instructions for Treatment Patient Instructions Indication:Joint pain Start:08-May-2012 Instruction Type:Provider Instructions for Treatment Patient Instructions Indication:Joint pain Start:02-May-2012 Instruction Type:Provider Instructions for Treatment [facility]; [facility] Work Phone: Instructions* Name Dates Details Patient Instructions Indication:Non-smoker Start:09-Feb-2022 Instruction Type:Provider Instructions for Treatment How to Access Health Informa tion Online using Patient Portal and [employer] Apps Indication:Non-smoker Start:09-Feb-2022 Instruction Type:Patient Education Patient Instructions Indication:BMI 27.0-27.9,adult Start:17-Oct-2021 Instruction Type:Provider Instructions for Treatment How to Access Health Informa tion Online using Patient Portal and [employer] Apps Indication:BMI 27.0-27.9,adult Start:17-Oct-2021 Instruction Type:Patient Education Patient Instructions Indication:Non-smoker Start:06-Oct-2021 Instruction Type:Provider Instructions for Treatment How to Access Health Informa tion Online using Patient Portal and [employer] Apps Indication:Non-smoker Start:06-Oct-2021 Instruction Type:Patient Education Patient Instructions Indication:BMI 27.0-27.9,adult Start:28-Sep-2021 Instruction Type:Provider Instructions for Treatment How to Access Health Informa tion Online using Patient Portal and [employer] Apps Indication:BMI 27.0-27.9,adult Start:28-Sep-2021 Instruction Type:Patient Education How to access health informa tion online - Detail Indication:Non-smoker Start:10-May-2020 Instruction Type:Patient Education How to access health informa tion online Indication:Non-smoker Start:10-May-2020 Instruction Type:Patient Education Patient Instructions Indication:Non-smoker Start:10-May-2020 Instruction Type:Provider Instructions for Treatment How to access health informa tion online Indication:BMI 24.0-24.9, adult Start:22-Apr-2020 Instruction Type:Patient Education How to access health informa tion online - Detail Indication:BMI 24.0-24.9, adult Start:22-Apr-2020 Instruction Type:Patient Education Patient Instructions Indication:BMI 24.0-24.9, adult Start:22-Apr-2020 Instruction Type:Provider Instructions for Treatment How to access health informa tion online Indication:Non-smoker Start:19-Nov-2019 Instruction Type:Patient Education How to access health informa tion online - Detail Indication:Non-smoker Start:19-Nov-2019 Instruction Type:Patient Education Patient Instructions Indication:Non-smoker Start:19-Nov-2019 Instruction Type:Provider Instructions for Treatment How to access health informa tion online Indication:Non-smoker Start:20-Aug-2019 Instruction Type:Patient Education How to access health informa tion online - Detail Indication:Non-smoker Start:20-Aug-2019 Instruction Type:Patient Education Patient Instructions Indication:Non-smoker Start:20-Aug-2019 Instruction Type:Provider Instructions for Treatment How to access health informa tion online Indication:BMI 25.0-25.9,adult Start:01-Aug-2019 Instruction Type:Patient Education How to access health informa tion online - Detail Indication:BMI 25.0-25.9,adult Start:01-Aug-2019 Instruction Type:Patient Education Patient Instructions Indication:BMI 25.0-25.9,adult Start:01-Aug-2019 Instruction Type:Provider Instructions for Treatment Patient Instructions Indication:Family history of cardiovascular disease Start:10-Jul-2019 Instruction Type:Provider Instructions for Treatment How to access health informa tion online Indication:BMI 25.0-25.9,adult Start:12-Dec-2018 Instruction Type:Patient Education How to access health informa tion online - Detail Indication:BMI 25.0-25.9,adult Start:12-Dec-2018 Instruction Type:Patient Education Patient Instructions Indication:BMI 25.0-25.9,adult Start:12-Dec-2018 Instruction Type:Provider Instructions for Treatment How to access health informa tion online Indication:Rash Start:29-Nov-2018 Instruction Type:Patient Education How to access health informa tion online - Detail Indication:Rash Start:29-Nov-2018 Instruction Type:Patient Education Patient Instructions Indication:BMI 25.0-25.9,adult Start:29-Nov-2018 Instruction Type:Provider Instructions for Treatment How to access health informa tion online Indication:BMI 24.0-24.9, adult Start:11-Jul-2018 Instruction Type:Patient Education How to access health informa tion online - Detail Indication:BMI 24.0-24.9, adult Start:11-Jul-2018 Instruction Type:Patient Education Patient Instructions Indication:Influenza A (H1N1) Start:11-Jul-2018 Instruction Type:Provider Instructions for Treatment How to access health informa tion online Indication:Non-smoker Start:08-Jul-2018 Instruction Type:Patient Education How to access health informa tion online - Detail Indication:Non-smoker Start:08-Jul-2018 Instruction Type:Patient Education Patient Instructions Indication:Cough Start:08-Jul-2018 Instruction Type:Provider Instructions for Treatment How to access health informa tion online Indication:Non-smoker Start:09-Oct-2017 Instruction Type:Patient Education How to access health informa tion online - Detail Indication:Non-smoker Start:09-Oct-2017 Instruction Type:Patient Education Patient Instructions Indication:Non-smoker Start:09-Oct-2017 Instruction Type:Provider Instructions for Treatment How to access health informa tion online Indication:Non-smoker Start:05-Sep-2017 Instruction Type:Patient Education How to access health informa tion online - Detail Indication:Non-smoker Start:05-Sep-2017 Instruction Type:Patient Education Patient Instructions Indication:Non-smoker Start:05-Sep-2017 Instruction Type:Provider Instructions for Treatment How to access health informa tion online Indication:Non-smoker Start:24-Jan-2017 Instruction Type:Patient Education How to access health informa tion online - Detail Indication:Non-smoker Start:24-Jan-2017 Instruction Type:Patient Education Patient Instructions Indication:Non-smoker Start:24-Jan-2017 Instruction Type:Provider Instructions for Treatment How to access health informa tion online Indication:Weight gain Start:30-Dec-2014 Instruction Type:Patient Education How to access health informa tion online - Detail Indication:Weight gain Start:30-Dec-2014 Instruction Type:Patient Education Patient Instructions Indication:Weight gain Start:30-Dec-2014 Instruction Type:Provider Instructions for Treatment How to access health informa tion online Indication:Fever and chills Start:20-Aug-2014 Instruction Type:Patient Education How to access health informa tion online - Detail Indication:Fever and chills Start:20-Aug-2014 Instruction Type:Patient Education Patient Instructions Indication:Fever and chills Start:20-Aug-2014 Instruction Type:Provider Instructions for Treatment Patient Instructions Indication:Lymphadenopathy Start:14-Aug-2014 Instruction Type:Provider Instructions for Treatment Patient Instructions Indication:Weight gain Start:10-Sep-2013 Instruction Type:Provider Instructions for Treatment Patient Instructions Indication:OTHER FORMS OF ASTHMA, COUGH VARIANT ASTHMA Start:09-May-2013 Instruction Type:Provider Instructions for Treatment Patient Instructions Indication:Gas Start:14-Oct-2012 Instruction Type:Provider Instructions for Treatment Patient Instructions Indication:Benign paroxysmal positional vertigo Start:14-Aug-2012 Instruction Type:Provider Instructions for Treatment Patient Instructions Indication:Joint pain Start:08-May-2012 Instruction Type:Provider Instructions for Treatment Patient Instructions Indication:Joint pain Start:02-May-2012 Instruction Type:Provider Instructions for Treatment [facility]; [facility] Work Phone: Instructions* Name Dates Details Patient Instructions Indication:Sore throat Start:13-Feb-2023 Instruction Type:Provider Instructions for Treatment How to Access Health Informa tion Online using Patient Portal and [employer] Apps Indication:Sore throat Start:13-Feb-2023 Instruction Type:Patient Education Patient Instructions Indication:Non-smoker Start:09-Feb-2022 Instruction Type:Provider Instructions for Treatment How to Access Health Informa tion Online using Patient Portal and [employer] Apps Indication:Non-smoker Start:09-Feb-2022 Instruction Type:Patient Education Patient Instructions Indication:BMI 27.0-27.9,adult Start:17-Oct-2021 Instruction Type:Provider Instructions for Treatment How to Access Health Informa tion Online using Patient Portal and [employer] Indication:BMI 27.0-27.9,adult Start:17-Oct-2021 Instruction Type:Patient Education Patient Instructions Indication:Non-smoker Start:06-Oct-2021 Instruction Type:Provider Instructions for Treatment How to Access Health Informa tion Online using Patient Portal and [employer] Apps Indication:Non-smoker Start:06-Oct-2021 Instruction Type:Patient Education Patient Instructions Indication:BMI 27.0-27.9,adult Start:28-Sep-2021 Instruction Type:Provider Instructions for Treatment How to Access Health Informa tion Online using Patient Portal and [employer] Indication:BMI 27.0-27.9,adult Start:28-Sep-2021 Instruction Type:Patient Education How to access health informa tion online - Detail Indication:Non-smoker Start:10-May-2020 Instruction Type:Patient Education How to access health informa tion online Indication:Non-smoker Start:10-May-2020 Instruction Type:Patient Education Patient Instructions Indication:Non-smoker Start:10-May-2020 Instruction Type:Provider Instructions for Treatment How to access health informa tion online Indication:BMI 24.0-24.9, adult Start:22-Apr-2020 Instruction Type:Patient Education How to access health informa tion online - Detail Indication:BMI 24.0-24.9, adult Start:22-Apr-2020 Instruction Type:Patient Education Patient Instructions Indication:BMI 24.0-24.9, adult Start:22-Apr-2020 Instruction Type:Provider Instructions for Treatment How to access health informa tion online Indication:Non-smoker Start:19-Nov-2019 Instruction Type:Patient Education How to access health informa tion online - Detail Indication:Non-smoker Start:19-Nov-2019 Instruction Type:Patient Education Patient Instructions Indication:Non-smoker Start:19-Nov-2019 Instruction Type:Provider Instructions for Treatment How to access health informa tion online Indication:Non-smoker Start:20-Aug-2019 Instruction Type:Patient Education How to access health informa tion online - Detail Indication:Non-smoker Start:20-Aug-2019 Instruction Type:Patient Education Patient Instructions Indication:Non-smoker Start:20-Aug-2019 Instruction Type:Provider Instructions for Treatment How to access health informa tion online Indication:BMI 25.0-25.9,adult Start:01-Aug-2019 Instruction Type:Patient Education How to access health informa tion online - Detail Indication:BMI 25.0-25.9,adult Start:01-Aug-2019 Instruction Type:Patient Education Patient Instructions Indication:BMI 25.0-25.9,adult Start:01-Aug-2019 Instruction Type:Provider Instructions for Treatment Patient Instructions Indication:Family history of cardiovascular disease Start:10-Jul-2019 Instruction Type:Provider Instructions for Treatment How to access health informa tion online Indication:BMI 25.0-25.9,adult Start:12-Dec-2018 Instruction Type:Patient Education How to access health informa tion online - Detail Indication:BMI 25.0-25.9,adult Start:12-Dec-2018 Instruction Type:Patient Education Patient Instructions Indication:BMI 25.0-25.9,adult Start:12-Dec-2018 Instruction Type:Provider Instructions for Treatment How to access health informa tion online Indication:Rash Start:29-Nov-2018 Instruction Type:Patient Education How to access health informa tion online - Detail Indication:Rash Start:29-Nov-2018 Instruction Type:Patient Education Patient Instructions Indication:BMI 25.0-25.9,adult Start:29-Nov-2018 Instruction Type:Provider Instructions for Treatment How to access health informa tion online Indication:BMI 24.0-24.9, adult Start:11-Jul-2018 Instruction Type:Patient Education How to access health informa tion online - Detail Indication:BMI 24.0-24.9, adult Start:11-Jul-2018 Instruction Type:Patient Education Patient Instructions Indication:Influenza A (H1N1) Start:11-Jul-2018 Instruction Type:Provider Instructions for Treatment How to access health informa tion online Indication:Non-smoker Start:08-Jul-2018 Instruction Type:Patient Education How to access health informa tion online - Detail Indication:Non-smoker Start:08-Jul-2018 Instruction Type:Patient Education Patient Instructions Indication:Cough Start:08-Jul-2018 Instruction Type:Provider Instructions for Treatment How to access health informa tion online Indication:Non-smoker Start:09-Oct-2017 Instruction Type:Patient Education How to access health informa tion online - Detail Indication:Non-smoker Start:09-Oct-2017 Instruction Type:Patient Education Patient Instructions Indication:Non-smoker Start:09-Oct-2017 Instruction Type:Provider Instructions for Treatment How to access health informa tion online Indication:Non-smoker Start:05-Sep-2017 Instruction Type:Patient Education How to access health informa tion online - Detail Indication:Non-smoker Start:05-Sep-2017 Instruction Type:Patient Education Patient Instructions Indication:Non-smoker Start:05-Sep-2017 Instruction Type:Provider Instructions for Treatment How to access health informa tion online Indication:Non-smoker Start:24-Jan-2017 Instruction Type:Patient Education How to access health informa tion online - Detail Indication:Non-smoker Start:24-Jan-2017 Instruction Type:Patient Education Patient Instructions Indication:Non-smoker Start:24-Jan-2017 Instruction Type:Provider Instructions for Treatment How to access health informa tion online Indication:Weight gain Start:30-Dec-2014 Instruction Type:Patient Education How to access health informa tion online - Detail Indication:Weight gain Start:30-Dec-2014 Instruction Type:Patient Education Patient Instructions Indication:Weight gain Start:30-Dec-2014 Instruction Type:Provider Instructions for Treatment How to access health informa tion online Indication:Fever and chills Start:20-Aug-2014 Instruction Type:Patient Education How to access health informa tion online - Detail Indication:Fever and chills Start:20-Aug-2014 Instruction Type:Patient Education Patient Instructions Indication:Fever and chills Start:20-Aug-2014 Instruction Type:Provider Instructions for Treatment Patient Instructions Indication:Lymphadenopathy Start:14-Aug-2014 Instruction Type:Provider Instructions for Treatment Patient Instructions Indication:Weight gain Start:10-Sep-2013 Instruction Type:Provider Instructions for Treatment Patient Instructions Indication:OTHER FORMS OF ASTHMA, COUGH VARIANT ASTHMA Start:09-May-2013 Instruction Type:Provider Instructions for Treatment Patient Instructions Indication:Gas Start:14-Oct-2012 Instruction Type:Provider Instructions for Treatment Patient Instructions Indication:Benign paroxysmal positional vertigo Start:14-Aug-2012 Instruction Type:Provider Instructions for Treatment Patient Instructions Indication:Joint pain Start:08-May-2012 Instruction Type:Provider Instructions for Treatment Patient Instructions Indication:Joint pain Start:02-May-2012 Instruction Type:Provider Instructions for Treatment [facility]; [facility] Work Phone: Instructions* Name Dates Details Patient Instructions Indication:Sore throat Start:13-Feb-2023 Instruction Type:Provider Instructions for Treatment How to Access Health Informa tion Online using Patient Portal and [employer] Apps Indication:Sore throat Start:13-Feb-2023 Instruction Type:Patient Education Patient Instructions Indication:Non-smoker Start:09-Feb-2022 Instruction Type:Provider Instructions for Treatment How to Access Health Informa tion Online using Patient Portal and [employer] Indication:Non-smoker Start:09-Feb-2022 Instruction Type:Patient Education Patient Instructions Indication:BMI 27.0-27.9,adult Start:17-Oct-2021 Instruction Type:Provider Instructions for Treatment How to Access Health Informa tion Online using Patient Portal and [employer] Indication:BMI 27.0-27.9,adult Start:17-Oct-2021 Instruction Type:Patient Education Patient Instructions Indication:Non-smoker Start:06-Oct-2021 Instruction Type:Provider Instructions for Treatment How to Access Health Informa tion Online using Patient Portal and [employer] Apps Indication:Non-smoker Start:06-Oct-2021 Instruction Type:Patient Education Patient Instructions Indication:BMI 27.0-27.9,adult Start:28-Sep-2021 Instruction Type:Provider Instructions for Treatment How to Access Health Informa tion Online using Patient Portal and [employer] Indication:BMI 27.0-27.9,adult Start:28-Sep-2021 Instruction Type:Patient Education How to access health informa tion online - Detail Indication:Non-smoker Start:10-May-2020 Instruction Type:Patient Education How to access health informa tion online Indication:Non-smoker Start:10-May-2020 Instruction Type:Patient Education Patient Instructions Indication:Non-smoker Start:10-May-2020 Instruction Type:Provider Instructions for Treatment How to access health informa tion online Indication:BMI 24.0-24.9, adult Start:22-Apr-2020 Instruction Type:Patient Education How to access health informa tion online - Detail Indication:BMI 24.0-24.9, adult Start:22-Apr-2020 Instruction Type:Patient Education Patient Instructions Indication:BMI 24.0-24.9, adult Start:22-Apr-2020 Instruction Type:Provider Instructions for Treatment How to access health informa tion online Indication:Non-smoker Start:19-Nov-2019 Instruction Type:Patient Education How to access health informa tion online - Detail Indication:Non-smoker Start:19-Nov-2019 Instruction Type:Patient Education Patient Instructions Indication:Non-smoker Start:19-Nov-2019 Instruction Type:Provider Instructions for Treatment How to access health informa tion online Indication:Non-smoker Start:20-Aug-2019 Instruction Type:Patient Education How to access health informa tion online - Detail Indication:Non-smoker Start:20-Aug-2019 Instruction Type:Patient Education Patient Instructions Indication:Non-smoker Start:20-Aug-2019 Instruction Type:Provider Instructions for Treatment How to access health informa tion online Indication:BMI 25.0-25.9,adult Start:01-Aug-2019 Instruction Type:Patient Education How to access health informa tion online - Detail Indication:BMI 25.0-25.9,adult Start:01-Aug-2019 Instruction Type:Patient Education Patient Instructions Indication:BMI 25.0-25.9,adult Start:01-Aug-2019 Instruction Type:Provider Instructions for Treatment Patient Instructions Indication:Family history of cardiovascular disease Start:10-Jul-2019 Instruction Type:Provider Instructions for Treatment How to access health informa tion online Indication:BMI 25.0-25.9,adult Start:12-Dec-2018 Instruction Type:Patient Education How to access health informa tion online - Detail Indication:BMI 25.0-25.9,adult Start:12-Dec-2018 Instruction Type:Patient Education Patient Instructions Indication:BMI 25.0-25.9,adult Start:12-Dec-2018 Instruction Type:Provider Instructions for Treatment How to access health informa tion online Indication:Rash Start:29-Nov-2018 Instruction Type:Patient Education How to access health informa tion online - Detail Indication:Rash Start:29-Nov-2018 Instruction Type:Patient Education Patient Instructions Indication:BMI 25.0-25.9,adult Start:29-Nov-2018 Instruction Type:Provider Instructions for Treatment How to access health informa tion online Indication:BMI 24.0-24.9, adult Start:11-Jul-2018 Instruction Type:Patient Education How to access health informa tion online - Detail Indication:BMI 24.0-24.9, adult Start:11-Jul-2018 Instruction Type:Patient Education Patient Instructions Indication:Influenza A (H1N1) Start:11-Jul-2018 Instruction Type:Provider Instructions for Treatment How to access health informa tion online Indication:Non-smoker Start:08-Jul-2018 Instruction Type:Patient Education How to access health informa tion online - Detail Indication:Non-smoker Start:08-Jul-2018 Instruction Type:Patient Education Patient Instructions Indication:Cough Start:08-Jul-2018 Instruction Type:Provider Instructions for Treatment How to access health informa tion online Indication:Non-smoker Start:09-Oct-2017 Instruction Type:Patient Education How to access health informa tion online - Detail Indication:Non-smoker Start:09-Oct-2017 Instruction Type:Patient Education Patient Instructions Indication:Non-smoker Start:09-Oct-2017 Instruction Type:Provider Instructions for Treatment How to access health informa tion online Indication:Non-smoker Start:05-Sep-2017 Instruction Type:Patient Education How to access health informa tion online - Detail Indication:Non-smoker Start:05-Sep-2017 Instruction Type:Patient Education Patient Instructions Indication:Non-smoker Start:05-Sep-2017 Instruction Type:Provider Instructions for Treatment How to access health informa tion online Indication:Non-smoker Start:24-Jan-2017 Instruction Type:Patient Education How to access health informa tion online - Detail Indication:Non-smoker Start:24-Jan-2017 Instruction Type:Patient Education Patient Instructions Indication:Non-smoker Start:24-Jan-2017 Instruction Type:Provider Instructions for Treatment How to access health informa tion online Indication:Weight gain Start:30-Dec-2014 Instruction Type:Patient Education How to access health informa tion online - Detail Indication:Weight gain Start:30-Dec-2014 Instruction Type:Patient Education Patient Instructions Indication:Weight gain Start:30-Dec-2014 Instruction Type:Provider Instructions for Treatment How to access health informa tion online Indication:Fever and chills Start:20-Aug-2014 Instruction Type:Patient Education How to access health informa tion online - Detail Indication:Fever and chills Start:20-Aug-2014 Instruction Type:Patient Education Patient Instructions Indication:Fever and chills Start:20-Aug-2014 Instruction Type:Provider Instructions for Treatment Patient Instructions Indication:Lymphadenopathy Start:14-Aug-2014 Instruction Type:Provider Instructions for Treatment Patient Instructions Indication:Weight gain Start:10-Sep-2013 Instruction Type:Provider Instructions for Treatment Patient Instructions Indication:OTHER FORMS OF ASTHMA, COUGH VARIANT ASTHMA Start:09-May-2013 Instruction Type:Provider Instructions for Treatment Patient Instructions Indication:Gas Start:14-Oct-2012 Instruction Type:Provider Instructions for Treatment Patient Instructions Indication:Benign paroxysmal positional vertigo Start:14-Aug-2012 Instruction Type:Provider Instructions for Treatment Patient Instructions Indication:Joint pain Start:08-May-2012 Instruction Type:Provider Instructions for Treatment Patient Instructions Indication:Joint pain Start:02-May-2012 Instruction Type:Provider Instructions for Treatment [facility]; [facility] Work Phone: Instructions* Name Dates Details Patient Instructions Indication:Sore throat Start:13-Feb-2023 Instruction Type:Provider Instructions for Treatment How to Access Health Informa tion Online using Patient Portal and [employer] Indication:Sore throat Start:13-Feb-2023 Instruction Type:Patient Education Patient Instructions Indication:Non-smoker Start:09-Feb-2022 Instruction Type:Provider Instructions for Treatment How to Access Health Informa tion Online using Patient Portal and [employer] Indication:Non-smoker Start:09-Feb-2022 Instruction Type:Patient Education Patient Instructions Indication:BMI 27.0-27.9,adult Start:17-Oct-2021 Instruction Type:Provider Instructions for Treatment How to Access Health Informa tion Online using Patient Portal and [employer]rd [employer] Apps Indication:BMI 27.0-27.9,adult Start:17-Oct-2021 Instruction Type:Patient Education Patient Instructions Indication:Non-smoker Start:06-Oct-2021 Instruction Type:Provider Instructions for Treatment How to Access Health Informa tion Online using Patient Portal and [employer]rd [employer] Apps Indication:Non-smoker Start:06-Oct-2021 Instruction Type:Patient Education Patient Instructions Indication:BMI 27.0-27.9,adult Start:28-Sep-2021 Instruction Type:Provider Instructions for Treatment How to Access Health Informa tion Online using Patient Portal and 3rd [employer] Apps Indication:BMI 27.0-27.9,adult Start:28-Sep-2021 Instruction Type:Patient Education How to access health informa tion online - Detail Indication:Non-smoker Start:10-May-2020 Instruction Type:Patient Education How to access health informa tion online Indication:Non-smoker Start:10-May-2020 Instruction Type:Patient Education Patient Instructions Indication:Non-smoker Start:10-May-2020 Instruction Type:Provider Instructions for Treatment How to access health informa tion online Indication:BMI 24.0-24.9, adult Start:22-Apr-2020 Instruction Type:Patient Education How to access health informa tion online - Detail Indication:BMI 24.0-24.9, adult Start:22-Apr-2020 Instruction Type:Patient Education Patient Instructions Indication:BMI 24.0-24.9, adult Start:22-Apr-2020 Instruction Type:Provider Instructions for Treatment How to access health informa tion online Indication:Non-smoker Start:19-Nov-2019 Instruction Type:Patient Education How to access health informa tion online - Detail Indication:Non-smoker Start:19-Nov-2019 Instruction Type:Patient Education Patient Instructions Indication:Non-smoker Start:19-Nov-2019 Instruction Type:Provider Instructions for Treatment How to access health informa tion online Indication:Non-smoker Start:20-Aug-2019 Instruction Type:Patient Education How to access health informa tion online - Detail Indication:Non-smoker Start:20-Aug-2019 Instruction Type:Patient Education Patient Instructions Indication:Non-smoker Start:20-Aug-2019 Instruction Type:Provider Instructions for Treatment How to access health informa tion online Indication:BMI 25.0-25.9,adult Start:01-Aug-2019 Instruction Type:Patient Education How to access health informa tion online - Detail Indication:BMI 25.0-25.9,adult Start:01-Aug-2019 Instruction Type:Patient Education Patient Instructions Indication:BMI 25.0-25.9,adult Start:01-Aug-2019 Instruction Type:Provider Instructions for Treatment Patient Instructions Indication:Family history of cardiovascular disease Start:10-Jul-2019 Instruction Type:Provider Instructions for Treatment How to access health informa tion online Indication:BMI 25.0-25.9,adult Start:12-Dec-2018 Instruction Type:Patient Education How to access health informa tion online - Detail Indication:BMI 25.0-25.9,adult Start:12-Dec-2018 Instruction Type:Patient Education Patient Instructions Indication:BMI 25.0-25.9,adult Start:12-Dec-2018 Instruction Type:Provider Instructions for Treatment How to access health informa tion online Indication:Rash Start:29-Nov-2018 Instruction Type:Patient Education How to access health informa tion online - Detail Indication:Rash Start:29-Nov-2018 Instruction Type:Patient Education Patient Instructions Indication:BMI 25.0-25.9,adult Start:29-Nov-2018 Instruction Type:Provider Instructions for Treatment How to access health informa tion online Indication:BMI 24.0-24.9, adult Start:11-Jul-2018 Instruction Type:Patient Education How to access health informa tion online - Detail Indication:BMI 24.0-24.9, adult Start:11-Jul-2018 Instruction Type:Patient Education Patient Instructions Indication:Influenza A (H1N1) Start:11-Jul-2018 Instruction Type:Provider Instructions for Treatment How to access health informa tion online Indication:Non-smoker Start:08-Jul-2018 Instruction Type:Patient Education How to access health informa tion online - Detail Indication:Non-smoker Start:08-Jul-2018 Instruction Type:Patient Education Patient Instructions Indication:Cough Start:08-Jul-2018 Instruction Type:Provider Instructions for Treatment How to access health informa tion online Indication:Non-smoker Start:09-Oct-2017 Instruction Type:Patient Education How to access health informa tion online - Detail Indication:Non-smoker Start:09-Oct-2017 Instruction Type:Patient Education Patient Instructions Indication:Non-smoker Start:09-Oct-2017 Instruction Type:Provider Instructions for Treatment How to access health informa tion online Indication:Non-smoker Start:05-Sep-2017 Instruction Type:Patient Education How to access health informa tion online - Detail Indication:Non-smoker Start:05-Sep-2017 Instruction Type:Patient Education Patient Instructions Indication:Non-smoker Start:05-Sep-2017 Instruction Type:Provider Instructions for Treatment How to access health informa tion online Indication:Non-smoker Start:24-Jan-2017 Instruction Type:Patient Education How to access health informa tion online - Detail Indication:Non-smoker Start:24-Jan-2017 Instruction Type:Patient Education Patient Instructions Indication:Non-smoker Start:24-Jan-2017 Instruction Type:Provider Instructions for Treatment How to access health informa tion online Indication:Weight gain Start:30-Dec-2014 Instruction Type:Patient Education How to access health informa tion online - Detail Indication:Weight gain Start:30-Dec-2014 Instruction Type:Patient Education Patient Instructions Indication:Weight gain Start:30-Dec-2014 Instruction Type:Provider Instructions for Treatment How to access health informa tion online Indication:Fever and chills Start:20-Aug-2014 Instruction Type:Patient Education How to access health informa tion online - Detail Indication:Fever and chills Start:20-Aug-2014 Instruction Type:Patient Education Patient Instructions Indication:Fever and chills Start:20-Aug-2014 Instruction Type:Provider Instructions for Treatment Patient Instructions Indication:Lymphadenopathy Start:14-Aug-2014 Instruction Type:Provider Instructions for Treatment Patient Instructions Indication:Weight gain Start:10-Sep-2013 Instruction Type:Provider Instructions for Treatment Patient Instructions Indication:OTHER FORMS OF ASTHMA, COUGH VARIANT ASTHMA Start:09-May-2013 Instruction Type:Provider Instructions for Treatment Patient Instructions Indication:Gas Start:14-Oct-2012 Instruction Type:Provider Instructions for Treatment Patient Instructions Indication:Benign paroxysmal positional vertigo Start:14-Aug-2012 Instruction Type:Provider Instructions for Treatment Patient Instructions Indication:Joint pain Start:08-May-2012 Instruction Type:Provider Instructions for Treatment Patient Instructions Indication:Joint pain Start:02-May-2012 Instruction Type:Provider Instructions for Treatment [facility]; [facility] Work Phone: Summary Purpose Family History No Family History Records FoundUnknown Family Member Name Dates Details cardiovascular ds Status:Active Mother Status:Active Unknown Family Member Name Dates Details cardiovascular ds Status:Active Mother Status:Active Unknown Family Member Name Dates Details cardiovascular ds Status:Active Mother Status:Active Unknown Family Member Name Dates Details cardiovascular ds Status:Active Mother Status:Active Unknown Family Member Name Dates Details cardiovascular ds Status:Active Mother Status:Active Unknown Family Member Name Dates Details cardiovascular ds Status:Active Mother Status:Active Unknown Family Member Name Dates Details cardiovascular ds Status:Active Mother Status:Active Unknown Family Member Name Dates Details cardiovascular ds Status:Active Mother Status:Active Unknown Family Member Name Dates Details cardiovascular ds Status:Active Mother Status:Active Unknown Family Member Name Dates Details cardiovascular ds Status:Active Mother Status:Active Unknown Family Member Name Dates Details cardiovascular ds Status:Active Mother Status:Active Unknown Family Member Name Dates Details cardiovascular ds Status:Active Mother Status:Active Unknown Family Member Name Dates Details cardiovascular ds Status:Active Mother Status:Active Unknown Family Member Name Dates Details cardiovascular ds Status:Active Mother Status:Active Unknown Family Member Name Dates Details cardiovascular ds Status:Active Mother Status:Active Unknown Family Member Name Dates Details cardiovascular ds Status:Active Mother Status:Active Unknown Family Member Name Dates Details cardiovascular ds Status:Active Mother Status:Active Unknown Family Member Name Dates Details cardiovascular ds Status:Active Mother Status:Active Unknown Family Member Name Dates Details cardiovascular ds Status:Active Mother Status:Active Unknown Family Member Name Dates Details cardiovascular ds Status:Active Mother Status:Active Unknown Family Member Name Dates Details cardiovascular ds Status:Active Mother Status:Active Unknown Family Member Name Dates Details cardiovascular ds Status:Active Mother Status:Active Unknown Family Member Name Dates Details cardiovascular ds Status:Active Mother Status:Active Unknown Family Member Name Dates Details cardiovascular ds Status:Active Mother Status:Active Unknown Family Member Name Dates Details cardiovascular ds Status:Active Mother Status:Active Unknown Family Member Name Dates Details cardiovascular ds Status:Active Mother Status:Active Advance Directives No Advanced Directives Records FoundNo Advanced Directives Records FoundNo Advanced Directives Records FoundNo Advanced Directives Records Found Instructions Name Dates Details How to access health informa tion online Indication:Rash Start:29-Nov-2018 Instruction Type:Patient Education How to access health informa tion online - Detail Indication:Rash Start:29-Nov-2018 Instruction Type:Patient Education Patient Instructions Indication:BMI 25.0-25.9,adult Start:29-Nov-2018 Instruction Type:Provider Instructions for Treatment How to access health informa tion online Indication:BMI 24.0-24.9, adult Start:11-Jul-2018 Instruction Type:Patient Education How to access health informa tion online - Detail Indication:BMI 24.0-24.9, adult Start:11-Jul-2018 Instruction Type:Patient Education Patient Instructions Indication:Influenza A (H1N1) Start:11-Jul-2018 Instruction Type:Provider Instructions for Treatment How to access health informa tion online Indication:Non-smoker Start:08-Jul-2018 Instruction Type:Patient Education How to access health informa tion online - Detail Indication:Non-smoker Start:08-Jul-2018 Instruction Type:Patient Education Patient Instructions Indication:Cough Start:08-Jul-2018 Instruction Type:Provider Instructions for Treatment How to access health informa tion online Indication:Non-smoker Start:09-Oct-2017 Instruction Type:Patient Education How to access health informa tion online - Detail Indication:Non-smoker Start:09-Oct-2017 Instruction Type:Patient Education Patient Instructions Indication:Non-smoker Start:09-Oct-2017 Instruction Type:Provider Instructions for Treatment How to access health informa tion online Indication:Non-smoker Start:05-Sep-2017 Instruction Type:Patient Education How to access health informa tion online - Detail Indication:Non-smoker Start:05-Sep-2017 Instruction Type:Patient Education Patient Instructions Indication:Non-smoker Start:05-Sep-2017 Instruction Type:Provider Instructions for Treatment How to access health informa tion online Indication:Non-smoker Start:24-Jan-2017 Instruction Type:Patient Education How to access health informa tion online - Detail Indication:Non-smoker Start:24-Jan-2017 Instruction Type:Patient Education Patient Instructions Indication:Non-smoker Start:24-Jan-2017 Instruction Type:Provider Instructions for Treatment How to access health informa tion online Indication:Weight gain Start:30-Dec-2014 Instruction Type:Patient Education How to access health informa tion online - Detail Indication:Weight gain Start:30-Dec-2014 Instruction Type:Patient Education Patient Instructions Indication:Weight gain Start:30-Dec-2014 Instruction Type:Provider Instructions for Treatment How to access health informa tion online Indication:Fever and chills Start:20-Aug-2014 Instruction Type:Patient Education How to access health informa tion online - Detail Indication:Fever and chills Start:20-Aug-2014 Instruction Type:Patient Education Patient Instructions Indication:Fever and chills Start:20-Aug-2014 Instruction Type:Provider Instructions for Treatment Patient Instructions Indication:Lymphadenopathy Start:14-Aug-2014 Instruction Type:Provider Instructions for Treatment Patient Instructions Indication:Weight gain Start:10-Sep-2013 Instruction Type:Provider Instructions for Treatment Patient Instructions Indication:OTHER FORMS OF ASTHMA, COUGH VARIANT ASTHMA Start:09-May-2013 Instruction Type:Provider Instructions for Treatment Patient Instructions Indication:Gas Start:14-Oct-2012 Instruction Type:Provider Instructions for Treatment Patient Instructions Indication:Benign paroxysmal positional vertigo Start:14-Aug-2012 Instruction Type:Provider Instructions for Treatment Patient Instructions Indication:Joint pain Start:08-May-2012 Instruction Type:Provider Instructions for Treatment Patient Instructions Indication:Joint pain Start:02-May-2012 Instruction Type:Provider Instructions for Treatment Name Dates Details How to access health informa tion online Indication:BMI 25.0-25.9,adult Start:12-Dec-2018 Instruction Type:Patient Education How to access health informa tion online - Detail Indication:BMI 25.0-25.9,adult Start:12-Dec-2018 Instruction Type:Patient Education Patient Instructions Indication:BMI 25.0-25.9,adult Start:12-Dec-2018 Instruction Type:Provider Instructions for Treatment How to access health informa tion online Indication:Rash Start:29-Nov-2018 Instruction Type:Patient Education How to access health informa tion online - Detail Indication:Rash Start:29-Nov-2018 Instruction Type:Patient Education Patient Instructions Indication:BMI 25.0-25.9,adult Start:29-Nov-2018 Instruction Type:Provider Instructions for Treatment How to access health informa tion online Indication:BMI 24.0-24.9, adult Start:11-Jul-2018 Instruction Type:Patient Education How to access health informa tion online - Detail Indication:BMI 24.0-24.9, adult Start:11-Jul-2018 Instruction Type:Patient Education Patient Instructions Indication:Influenza A (H1N1) Start:11-Jul-2018 Instruction Type:Provider Instructions for Treatment How to access health informa tion online Indication:Non-smoker Start:08-Jul-2018 Instruction Type:Patient Education How to access health informa tion online - Detail Indication:Non-smoker Start:08-Jul-2018 Instruction Type:Patient Education Patient Instructions Indication:Cough Start:08-Jul-2018 Instruction Type:Provider Instructions for Treatment How to access health informa tion online Indication:Non-smoker Start:09-Oct-2017 Instruction Type:Patient Education How to access health informa tion online - Detail Indication:Non-smoker Start:09-Oct-2017 Instruction Type:Patient Education Patient Instructions Indication:Non-smoker Start:09-Oct-2017 Instruction Type:Provider Instructions for Treatment How to access health informa tion online Indication:Non-smoker Start:05-Sep-2017 Instruction Type:Patient Education How to access health informa tion online - Detail Indication:Non-smoker Start:05-Sep-2017 Instruction Type:Patient Education Patient Instructions Indication:Non-smoker Start:05-Sep-2017 Instruction Type:Provider Instructions for Treatment How to access health informa tion online Indication:Non-smoker Start:24-Jan-2017 Instruction Type:Patient Education How to access health informa tion online - Detail Indication:Non-smoker Start:24-Jan-2017 Instruction Type:Patient Education Patient Instructions Indication:Non-smoker Start:24-Jan-2017 Instruction Type:Provider Instructions for Treatment How to access health informa tion online Indication:Weight gain Start:30-Dec-2014 Instruction Type:Patient Education How to access health informa tion online - Detail Indication:Weight gain Start:30-Dec-2014 Instruction Type:Patient Education Patient Instructions Indication:Weight gain Start:30-Dec-2014 Instruction Type:Provider Instructions for Treatment How to access health informa tion online Indication:Fever and chills Start:20-Aug-2014 Instruction Type:Patient Education How to access health informa tion online - Detail Indication:Fever and chills Start:20-Aug-2014 Instruction Type:Patient Education Patient Instructions Indication:Fever and chills Start:20-Aug-2014 Instruction Type:Provider Instructions for Treatment Patient Instructions Indication:Lymphadenopathy Start:14-Aug-2014 Instruction Type:Provider Instructions for Treatment Patient Instructions Indication:Weight gain Start:10-Sep-2013 Instruction Type:Provider Instructions for Treatment Patient Instructions Indication:OTHER FORMS OF ASTHMA, COUGH VARIANT ASTHMA Start:09-May-2013 Instruction Type:Provider Instructions for Treatment Patient Instructions Indication:Gas Start:14-Oct-2012 Instruction Type:Provider Instructions for Treatment Patient Instructions Indication:Benign paroxysmal positional vertigo Start:14-Aug-2012 Instruction Type:Provider Instructions for Treatment Patient Instructions Indication:Joint pain Start:08-May-2012 Instruction Type:Provider Instructions for Treatment Patient Instructions Indication:Joint pain Start:02-May-2012 Instruction Type:Provider Instructions for Treatment Name Dates Details How to access health informa tion online Indication:Non-smoker Start:19-Nov-2019 Instruction Type:Patient Education How to access health informa tion online - Detail Indication:Non-smoker Start:19-Nov-2019 Instruction Type:Patient Education Patient Instructions Indication:Non-smoker Start:19-Nov-2019 Instruction Type:Provider Instructions for Treatment How to access health informa tion online Indication:Non-smoker Start:20-Aug-2019 Instruction Type:Patient Education How to access health informa tion online - Detail Indication:Non-smoker Start:20-Aug-2019 Instruction Type:Patient Education Patient Instructions Indication:Non-smoker Start:20-Aug-2019 Instruction Type:Provider Instructions for Treatment How to access health informa tion online Indication:BMI 25.0-25.9,adult Start:01-Aug-2019 Instruction Type:Patient Education How to access health informa tion online - Detail Indication:BMI 25.0-25.9,adult Start:01-Aug-2019 Instruction Type:Patient Education Patient Instructions Indication:BMI 25.0-25.9,adult Start:01-Aug-2019 Instruction Type:Provider Instructions for Treatment Patient Instructions Indication:Family history of cardiovascular disease Start:10-Jul-2019 Instruction Type:Provider Instructions for Treatment How to access health informa tion online Indication:BMI 25.0-25.9,adult Start:12-Dec-2018 Instruction Type:Patient Education How to access health informa tion online - Detail Indication:BMI 25.0-25.9,adult Start:12-Dec-2018 Instruction Type:Patient Education Patient Instructions Indication:BMI 25.0-25.9,adult Start:12-Dec-2018 Instruction Type:Provider Instructions for Treatment How to access health informa tion online Indication:Rash Start:29-Nov-2018 Instruction Type:Patient Education How to access health informa tion online - Detail Indication:Rash Start:29-Nov-2018 Instruction Type:Patient Education Patient Instructions Indication:BMI 25.0-25.9,adult Start:29-Nov-2018 Instruction Type:Provider Instructions for Treatment How to access health informa tion online Indication:BMI 24.0-24.9, adult Start:11-Jul-2018 Instruction Type:Patient Education How to access health informa tion online - Detail Indication:BMI 24.0-24.9, adult Start:11-Jul-2018 Instruction Type:Patient Education Patient Instructions Indication:Influenza A (H1N1) Start:11-Jul-2018 Instruction Type:Provider Instructions for Treatment How to access health informa tion online Indication:Non-smoker Start:08-Jul-2018 Instruction Type:Patient Education How to access health informa tion online - Detail Indication:Non-smoker Start:08-Jul-2018 Instruction Type:Patient Education Patient Instructions Indication:Cough Start:08-Jul-2018 Instruction Type:Provider Instructions for Treatment How to access health informa tion online Indication:Non-smoker Start:09-Oct-2017 Instruction Type:Patient Education How to access health informa tion online - Detail Indication:Non-smoker Start:09-Oct-2017 Instruction Type:Patient Education Patient Instructions Indication:Non-smoker Start:09-Oct-2017 Instruction Type:Provider Instructions for Treatment How to access health informa tion online Indication:Non-smoker Start:05-Sep-2017 Instruction Type:Patient Education How to access health informa tion online - Detail Indication:Non-smoker Start:05-Sep-2017 Instruction Type:Patient Education Patient Instructions Indication:Non-smoker Start:05-Sep-2017 Instruction Type:Provider Instructions for Treatment How to access health informa tion online Indication:Non-smoker Start:24-Jan-2017 Instruction Type:Patient Education How to access health informa tion online - Detail Indication:Non-smoker Start:24-Jan-2017 Instruction Type:Patient Education Patient Instructions Indication:Non-smoker Start:24-Jan-2017 Instruction Type:Provider Instructions for Treatment How to access health informa tion online Indication:Weight gain Start:30-Dec-2014 Instruction Type:Patient Education How to access health informa tion online - Detail Indication:Weight gain Start:30-Dec-2014 Instruction Type:Patient Education Patient Instructions Indication:Weight gain Start:30-Dec-2014 Instruction Type:Provider Instructions for Treatment How to access health informa tion online Indication:Fever and chills Start:20-Aug-2014 Instruction Type:Patient Education How to access health informa tion online - Detail Indication:Fever and chills Start:20-Aug-2014 Instruction Type:Patient Education Patient Instructions Indication:Fever and chills Start:20-Aug-2014 Instruction Type:Provider Instructions for Treatment Patient Instructions Indication:Lymphadenopathy Start:14-Aug-2014 Instruction Type:Provider Instructions for Treatment Patient Instructions Indication:Weight gain Start:10-Sep-2013 Instruction Type:Provider Instructions for Treatment Patient Instructions Indication:OTHER FORMS OF ASTHMA, COUGH VARIANT ASTHMA Start:09-May-2013 Instruction Type:Provider Instructions for Treatment Patient Instructions Indication:Gas Start:14-Oct-2012 Instruction Type:Provider Instructions for Treatment Patient Instructions Indication:Benign paroxysmal positional vertigo Start:14-Aug-2012 Instruction Type:Provider Instructions for Treatment Patient Instructions Indication:Joint pain Start:08-May-2012 Instruction Type:Provider Instructions for Treatment Patient Instructions Indication:Joint pain Start:02-May-2012 Instruction Type:Provider Instructions for Treatment Name Dates Details How to access health informa tion online Indication:Non-smoker Start:19-Nov-2019 Instruction Type:Patient Education How to access health informa tion online - Detail Indication:Non-smoker Start:19-Nov-2019 Instruction Type:Patient Education Patient Instructions Indication:Non-smoker Start:19-Nov-2019 Instruction Type:Provider Instructions for Treatment How to access health informa tion online Indication:Non-smoker Start:20-Aug-2019 Instruction Type:Patient Education How to access health informa tion online - Detail Indication:Non-smoker Start:20-Aug-2019 Instruction Type:Patient Education Patient Instructions Indication:Non-smoker Start:20-Aug-2019 Instruction Type:Provider Instructions for Treatment How to access health informa tion online Indication:BMI 25.0-25.9,adult Start:01-Aug-2019 Instruction Type:Patient Education How to access health informa tion online - Detail Indication:BMI 25.0-25.9,adult Start:01-Aug-2019 Instruction Type:Patient Education Patient Instructions Indication:BMI 25.0-25.9,adult Start:01-Aug-2019 Instruction Type:Provider Instructions for Treatment Patient Instructions Indication:Family history of cardiovascular disease Start:10-Jul-2019 Instruction Type:Provider Instructions for Treatment How to access health informa tion online Indication:BMI 25.0-25.9,adult Start:12-Dec-2018 Instruction Type:Patient Education How to access health informa tion online - Detail Indication:BMI 25.0-25.9,adult Start:12-Dec-2018 Instruction Type:Patient Education Patient Instructions Indication:BMI 25.0-25.9,adult Start:12-Dec-2018 Instruction Type:Provider Instructions for Treatment How to access health informa tion online Indication:Rash Start:29-Nov-2018 Instruction Type:Patient Education How to access health informa tion online - Detail Indication:Rash Start:29-Nov-2018 Instruction Type:Patient Education Patient Instructions Indication:BMI 25.0-25.9,adult Start:29-Nov-2018 Instruction Type:Provider Instructions for Treatment How to access health informa tion online Indication:BMI 24.0-24.9, adult Start:11-Jul-2018 Instruction Type:Patient Education How to access health informa tion online - Detail Indication:BMI 24.0-24.9, adult Start:11-Jul-2018 Instruction Type:Patient Education Patient Instructions Indication:Influenza A (H1N1) Start:11-Jul-2018 Instruction Type:Provider Instructions for Treatment How to access health informa tion online Indication:Non-smoker Start:08-Jul-2018 Instruction Type:Patient Education How to access health informa tion online - Detail Indication:Non-smoker Start:08-Jul-2018 Instruction Type:Patient Education Patient Instructions Indication:Cough Start:08-Jul-2018 Instruction Type:Provider Instructions for Treatment How to access health informa tion online Indication:Non-smoker Start:09-Oct-2017 Instruction Type:Patient Education How to access health informa tion online - Detail Indication:Non-smoker Start:09-Oct-2017 Instruction Type:Patient Education Patient Instructions Indication:Non-smoker Start:09-Oct-2017 Instruction Type:Provider Instructions for Treatment How to access health informa tion online Indication:Non-smoker Start:05-Sep-2017 Instruction Type:Patient Education How to access health informa tion online - Detail Indication:Non-smoker Start:05-Sep-2017 Instruction Type:Patient Education Patient Instructions Indication:Non-smoker Start:05-Sep-2017 Instruction Type:Provider Instructions for Treatment How to access health informa tion online Indication:Non-smoker Start:24-Jan-2017 Instruction Type:Patient Education How to access health informa tion online - Detail Indication:Non-smoker Start:24-Jan-2017 Instruction Type:Patient Education Patient Instructions Indication:Non-smoker Start:24-Jan-2017 Instruction Type:Provider Instructions for Treatment How to access health informa tion online Indication:Weight gain Start:30-Dec-2014 Instruction Type:Patient Education How to access health informa tion online - Detail Indication:Weight gain Start:30-Dec-2014 Instruction Type:Patient Education Patient Instructions Indication:Weight gain Start:30-Dec-2014 Instruction Type:Provider Instructions for Treatment How to access health informa tion online Indication:Fever and chills Start:20-Aug-2014 Instruction Type:Patient Education How to access health informa tion online - Detail Indication:Fever and chills Start:20-Aug-2014 Instruction Type:Patient Education Patient Instructions Indication:Fever and chills Start:20-Aug-2014 Instruction Type:Provider Instructions for Treatment Patient Instructions Indication:Lymphadenopathy Start:14-Aug-2014 Instruction Type:Provider Instructions for Treatment Patient Instructions Indication:Weight gain Start:10-Sep-2013 Instruction Type:Provider Instructions for Treatment Patient Instructions Indication:OTHER FORMS OF ASTHMA, COUGH VARIANT ASTHMA Start:09-May-2013 Instruction Type:Provider Instructions for Treatment Patient Instructions Indication:Gas Start:14-Oct-2012 Instruction Type:Provider Instructions for Treatment Patient Instructions Indication:Benign paroxysmal positional vertigo Start:14-Aug-2012 Instruction Type:Provider Instructions for Treatment Patient Instructions Indication:Joint pain Start:08-May-2012 Instruction Type:Provider Instructions for Treatment Patient Instructions Indication:Joint pain Start:02-May-2012 Instruction Type:Provider Instructions for Treatment Name Dates Details How to access health informa tion online Indication:BMI 24.0-24.9, adult Start:22-Apr-2020 Instruction Type:Patient Education How to access health informa tion online - Detail Indication:BMI 24.0-24.9, adult Start:22-Apr-2020 Instruction Type:Patient Education Patient Instructions Indication:BMI 24.0-24.9, adult Start:22-Apr-2020 Instruction Type:Provider Instructions for Treatment How to access health informa tion online Indication:Non-smoker Start:19-Nov-2019 Instruction Type:Patient Education How to access health informa tion online - Detail Indication:Non-smoker Start:19-Nov-2019 Instruction Type:Patient Education Patient Instructions Indication:Non-smoker Start:19-Nov-2019 Instruction Type:Provider Instructions for Treatment How to access health informa tion online Indication:Non-smoker Start:20-Aug-2019 Instruction Type:Patient Education How to access health informa tion online - Detail Indication:Non-smoker Start:20-Aug-2019 Instruction Type:Patient Education Patient Instructions Indication:Non-smoker Start:20-Aug-2019 Instruction Type:Provider Instructions for Treatment How to access health informa tion online Indication:BMI 25.0-25.9,adult Start:01-Aug-2019 Instruction Type:Patient Education How to access health informa tion online - Detail Indication:BMI 25.0-25.9,adult Start:01-Aug-2019 Instruction Type:Patient Education Patient Instructions Indication:BMI 25.0-25.9,adult Start:01-Aug-2019 Instruction Type:Provider Instructions for Treatment Patient Instructions Indication:Family history of cardiovascular disease Start:10-Jul-2019 Instruction Type:Provider Instructions for Treatment How to access health informa tion online Indication:BMI 25.0-25.9,adult Start:12-Dec-2018 Instruction Type:Patient Education How to access health informa tion online - Detail Indication:BMI 25.0-25.9,adult Start:12-Dec-2018 Instruction Type:Patient Education Patient Instructions Indication:BMI 25.0-25.9,adult Start:12-Dec-2018 Instruction Type:Provider Instructions for Treatment How to access health informa tion online Indication:Rash Start:29-Nov-2018 Instruction Type:Patient Education How to access health informa tion online - Detail Indication:Rash Start:29-Nov-2018 Instruction Type:Patient Education Patient Instructions Indication:BMI 25.0-25.9,adult Start:29-Nov-2018 Instruction Type:Provider Instructions for Treatment How to access health informa tion online Indication:BMI 24.0-24.9, adult Start:11-Jul-2018 Instruction Type:Patient Education How to access health informa tion online - Detail Indication:BMI 24.0-24.9, adult Start:11-Jul-2018 Instruction Type:Patient Education Patient Instructions Indication:Influenza A (H1N1) Start:11-Jul-2018 Instruction Type:Provider Instructions for Treatment How to access health informa tion online Indication:Non-smoker Start:08-Jul-2018 Instruction Type:Patient Education How to access health informa tion online - Detail Indication:Non-smoker Start:08-Jul-2018 Instruction Type:Patient Education Patient Instructions Indication:Cough Start:08-Jul-2018 Instruction Type:Provider Instructions for Treatment How to access health informa tion online Indication:Non-smoker Start:09-Oct-2017 Instruction Type:Patient Education How to access health informa tion online - Detail Indication:Non-smoker Start:09-Oct-2017 Instruction Type:Patient Education Patient Instructions Indication:Non-smoker Start:09-Oct-2017 Instruction Type:Provider Instructions for Treatment How to access health informa tion online Indication:Non-smoker Start:05-Sep-2017 Instruction Type:Patient Education How to access health informa tion online - Detail Indication:Non-smoker Start:05-Sep-2017 Instruction Type:Patient Education Patient Instructions Indication:Non-smoker Start:05-Sep-2017 Instruction Type:Provider Instructions for Treatment How to access health informa tion online Indication:Non-smoker Start:24-Jan-2017 Instruction Type:Patient Education How to access health informa tion online - Detail Indication:Non-smoker Start:24-Jan-2017 Instruction Type:Patient Education Patient Instructions Indication:Non-smoker Start:24-Jan-2017 Instruction Type:Provider Instructions for Treatment How to access health informa tion online Indication:Weight gain Start:30-Dec-2014 Instruction Type:Patient Education How to access health informa tion online - Detail Indication:Weight gain Start:30-Dec-2014 Instruction Type:Patient Education Patient Instructions Indication:Weight gain Start:30-Dec-2014 Instruction Type:Provider Instructions for Treatment How to access health informa tion online Indication:Fever and chills Start:20-Aug-2014 Instruction Type:Patient Education How to access health informa tion online - Detail Indication:Fever and chills Start:20-Aug-2014 Instruction Type:Patient Education Patient Instructions Indication:Fever and chills Start:20-Aug-2014 Instruction Type:Provider Instructions for Treatment Patient Instructions Indication:Lymphadenopathy Start:14-Aug-2014 Instruction Type:Provider Instructions for Treatment Patient Instructions Indication:Weight gain Start:10-Sep-2013 Instruction Type:Provider Instructions for Treatment Patient Instructions Indication:OTHER FORMS OF ASTHMA, COUGH VARIANT ASTHMA Start:09-May-2013 Instruction Type:Provider Instructions for Treatment Patient Instructions Indication:Gas Start:14-Oct-2012 Instruction Type:Provider Instructions for Treatment Patient Instructions Indication:Benign paroxysmal positional vertigo Start:14-Aug-2012 Instruction Type:Provider Instructions for Treatment Patient Instructions Indication:Joint pain Start:08-May-2012 Instruction Type:Provider Instructions for Treatment Patient Instructions Indication:Joint pain Start:02-May-2012 Instruction Type:Provider Instructions for Treatment Name Dates Details How to access health informa tion online Indication:BMI 24.0-24.9, adult Start:22-Apr-2020 Instruction Type:Patient Education How to access health informa tion online - Detail Indication:BMI 24.0-24.9, adult Start:22-Apr-2020 Instruction Type:Patient Education Patient Instructions Indication:BMI 24.0-24.9, adult Start:22-Apr-2020 Instruction Type:Provider Instructions for Treatment How to access health informa tion online Indication:Non-smoker Start:19-Nov-2019 Instruction Type:Patient Education How to access health informa tion online - Detail Indication:Non-smoker Start:19-Nov-2019 Instruction Type:Patient Education Patient Instructions Indication:Non-smoker Start:19-Nov-2019 Instruction Type:Provider Instructions for Treatment How to access health informa tion online Indication:Non-smoker Start:20-Aug-2019 Instruction Type:Patient Education How to access health informa tion online - Detail Indication:Non-smoker Start:20-Aug-2019 Instruction Type:Patient Education Patient Instructions Indication:Non-smoker Start:20-Aug-2019 Instruction Type:Provider Instructions for Treatment How to access health informa tion online Indication:BMI 25.0-25.9,adult Start:01-Aug-2019 Instruction Type:Patient Education How to access health informa tion online - Detail Indication:BMI 25.0-25.9,adult Start:01-Aug-2019 Instruction Type:Patient Education Patient Instructions Indication:BMI 25.0-25.9,adult Start:01-Aug-2019 Instruction Type:Provider Instructions for Treatment Patient Instructions Indication:Family history of cardiovascular disease Start:10-Jul-2019 Instruction Type:Provider Instructions for Treatment How to access health informa tion online Indication:BMI 25.0-25.9,adult Start:12-Dec-2018 Instruction Type:Patient Education How to access health informa tion online - Detail Indication:BMI 25.0-25.9,adult Start:12-Dec-2018 Instruction Type:Patient Education Patient Instructions Indication:BMI 25.0-25.9,adult Start:12-Dec-2018 Instruction Type:Provider Instructions for Treatment How to access health informa tion online Indication:Rash Start:29-Nov-2018 Instruction Type:Patient Education How to access health informa tion online - Detail Indication:Rash Start:29-Nov-2018 Instruction Type:Patient Education Patient Instructions Indication:BMI 25.0-25.9,adult Start:29-Nov-2018 Instruction Type:Provider Instructions for Treatment How to access health informa tion online Indication:BMI 24.0-24.9, adult Start:11-Jul-2018 Instruction Type:Patient Education How to access health informa tion online - Detail Indication:BMI 24.0-24.9, adult Start:11-Jul-2018 Instruction Type:Patient Education Patient Instructions Indication:Influenza A (H1N1) Start:11-Jul-2018 Instruction Type:Provider Instructions for Treatment How to access health informa tion online Indication:Non-smoker Start:08-Jul-2018 Instruction Type:Patient Education How to access health informa tion online - Detail Indication:Non-smoker Start:08-Jul-2018 Instruction Type:Patient Education Patient Instructions Indication:Cough Start:08-Jul-2018 Instruction Type:Provider Instructions for Treatment How to access health informa tion online Indication:Non-smoker Start:09-Oct-2017 Instruction Type:Patient Education How to access health informa tion online - Detail Indication:Non-smoker Start:09-Oct-2017 Instruction Type:Patient Education Patient Instructions Indication:Non-smoker Start:09-Oct-2017 Instruction Type:Provider Instructions for Treatment How to access health informa tion online Indication:Non-smoker Start:05-Sep-2017 Instruction Type:Patient Education How to access health informa tion online - Detail Indication:Non-smoker Start:05-Sep-2017 Instruction Type:Patient Education Patient Instructions Indication:Non-smoker Start:05-Sep-2017 Instruction Type:Provider Instructions for Treatment How to access health informa tion online Indication:Non-smoker Start:24-Jan-2017 Instruction Type:Patient Education How to access health informa tion online - Detail Indication:Non-smoker Start:24-Jan-2017 Instruction Type:Patient Education Patient Instructions Indication:Non-smoker Start:24-Jan-2017 Instruction Type:Provider Instructions for Treatment How to access health informa tion online Indication:Weight gain Start:30-Dec-2014 Instruction Type:Patient Education How to access health informa tion online - Detail Indication:Weight gain Start:30-Dec-2014 Instruction Type:Patient Education Patient Instructions Indication:Weight gain Start:30-Dec-2014 Instruction Type:Provider Instructions for Treatment How to access health informa tion online Indication:Fever and chills Start:20-Aug-2014 Instruction Type:Patient Education How to access health informa tion online - Detail Indication:Fever and chills Start:20-Aug-2014 Instruction Type:Patient Education Patient Instructions Indication:Fever and chills Start:20-Aug-2014 Instruction Type:Provider Instructions for Treatment Patient Instructions Indication:Lymphadenopathy Start:14-Aug-2014 Instruction Type:Provider Instructions for Treatment Patient Instructions Indication:Weight gain Start:10-Sep-2013 Instruction Type:Provider Instructions for Treatment Patient Instructions Indication:OTHER FORMS OF ASTHMA, COUGH VARIANT ASTHMA Start:09-May-2013 Instruction Type:Provider Instructions for Treatment Patient Instructions Indication:Gas Start:14-Oct-2012 Instruction Type:Provider Instructions for Treatment Patient Instructions Indication:Benign paroxysmal positional vertigo Start:14-Aug-2012 Instruction Type:Provider Instructions for Treatment Patient Instructions Indication:Joint pain Start:08-May-2012 Instruction Type:Provider Instructions for Treatment Patient Instructions Indication:Joint pain Start:02-May-2012 Instruction Type:Provider Instructions for Treatment Name Dates Details How to access health informa tion online Indication:BMI 24.0-24.9, adult Start:22-Apr-2020 Instruction Type:Patient Education How to access health informa tion online - Detail Indication:BMI 24.0-24.9, adult Start:22-Apr-2020 Instruction Type:Patient Education Patient Instructions Indication:BMI 24.0-24.9, adult Start:22-Apr-2020 Instruction Type:Provider Instructions for Treatment How to access health informa tion online Indication:Non-smoker Start:19-Nov-2019 Instruction Type:Patient Education How to access health informa tion online - Detail Indication:Non-smoker Start:19-Nov-2019 Instruction Type:Patient Education Patient Instructions Indication:Non-smoker Start:19-Nov-2019 Instruction Type:Provider Instructions for Treatment How to access health informa tion online Indication:Non-smoker Start:20-Aug-2019 Instruction Type:Patient Education How to access health informa tion online - Detail Indication:Non-smoker Start:20-Aug-2019 Instruction Type:Patient Education Patient Instructions Indication:Non-smoker Start:20-Aug-2019 Instruction Type:Provider Instructions for Treatment How to access health informa tion online Indication:BMI 25.0-25.9,adult Start:01-Aug-2019 Instruction Type:Patient Education How to access health informa tion online - Detail Indication:BMI 25.0-25.9,adult Start:01-Aug-2019 Instruction Type:Patient Education Patient Instructions Indication:BMI 25.0-25.9,adult Start:01-Aug-2019 Instruction Type:Provider Instructions for Treatment Patient Instructions Indication:Family history of cardiovascular disease Start:10-Jul-2019 Instruction Type:Provider Instructions for Treatment How to access health informa tion online Indication:BMI 25.0-25.9,adult Start:12-Dec-2018 Instruction Type:Patient Education How to access health informa tion online - Detail Indication:BMI 25.0-25.9,adult Start:12-Dec-2018 Instruction Type:Patient Education Patient Instructions Indication:BMI 25.0-25.9,adult Start:12-Dec-2018 Instruction Type:Provider Instructions for Treatment How to access health informa tion online Indication:Rash Start:29-Nov-2018 Instruction Type:Patient Education How to access health informa tion online - Detail Indication:Rash Start:29-Nov-2018 Instruction Type:Patient Education Patient Instructions Indication:BMI 25.0-25.9,adult Start:29-Nov-2018 Instruction Type:Provider Instructions for Treatment How to access health informa tion online Indication:BMI 24.0-24.9, adult Start:11-Jul-2018 Instruction Type:Patient Education How to access health informa tion online - Detail Indication:BMI 24.0-24.9, adult Start:11-Jul-2018 Instruction Type:Patient Education Patient Instructions Indication:Influenza A (H1N1) Start:11-Jul-2018 Instruction Type:Provider Instructions for Treatment How to access health informa tion online Indication:Non-smoker Start:08-Jul-2018 Instruction Type:Patient Education How to access health informa tion online - Detail Indication:Non-smoker Start:08-Jul-2018 Instruction Type:Patient Education Patient Instructions Indication:Cough Start:08-Jul-2018 Instruction Type:Provider Instructions for Treatment How to access health informa tion online Indication:Non-smoker Start:09-Oct-2017 Instruction Type:Patient Education How to access health informa tion online - Detail Indication:Non-smoker Start:09-Oct-2017 Instruction Type:Patient Education Patient Instructions Indication:Non-smoker Start:09-Oct-2017 Instruction Type:Provider Instructions for Treatment How to access health informa tion online Indication:Non-smoker Start:05-Sep-2017 Instruction Type:Patient Education How to access health informa tion online - Detail Indication:Non-smoker Start:05-Sep-2017 Instruction Type:Patient Education Patient Instructions Indication:Non-smoker Start:05-Sep-2017 Instruction Type:Provider Instructions for Treatment How to access health informa tion online Indication:Non-smoker Start:24-Jan-2017 Instruction Type:Patient Education How to access health informa tion online - Detail Indication:Non-smoker Start:24-Jan-2017 Instruction Type:Patient Education Patient Instructions Indication:Non-smoker Start:24-Jan-2017 Instruction Type:Provider Instructions for Treatment How to access health informa tion online Indication:Weight gain Start:30-Dec-2014 Instruction Type:Patient Education How to access health informa tion online - Detail Indication:Weight gain Start:30-Dec-2014 Instruction Type:Patient Education Patient Instructions Indication:Weight gain Start:30-Dec-2014 Instruction Type:Provider Instructions for Treatment How to access health informa tion online Indication:Fever and chills Start:20-Aug-2014 Instruction Type:Patient Education How to access health informa tion online - Detail Indication:Fever and chills Start:20-Aug-2014 Instruction Type:Patient Education Patient Instructions Indication:Fever and chills Start:20-Aug-2014 Instruction Type:Provider Instructions for Treatment Patient Instructions Indication:Lymphadenopathy Start:14-Aug-2014 Instruction Type:Provider Instructions for Treatment Patient Instructions Indication:Weight gain Start:10-Sep-2013 Instruction Type:Provider Instructions for Treatment Patient Instructions Indication:OTHER FORMS OF ASTHMA, COUGH VARIANT ASTHMA Start:09-May-2013 Instruction Type:Provider Instructions for Treatment Patient Instructions Indication:Gas Start:14-Oct-2012 Instruction Type:Provider Instructions for Treatment Patient Instructions Indication:Benign paroxysmal positional vertigo Start:14-Aug-2012 Instruction Type:Provider Instructions for Treatment Patient Instructions Indication:Joint pain Start:08-May-2012 Instruction Type:Provider Instructions for Treatment Patient Instructions Indication:Joint pain Start:02-May-2012 Instruction Type:Provider Instructions for Treatment Name Dates Details How to access health informa tion online Indication:BMI 24.0-24.9, adult Start:22-Apr-2020 Instruction Type:Patient Education How to access health informa tion online - Detail Indication:BMI 24.0-24.9, adult Start:22-Apr-2020 Instruction Type:Patient Education Patient Instructions Indication:BMI 24.0-24.9, adult Start:22-Apr-2020 Instruction Type:Provider Instructions for Treatment How to access health informa tion online Indication:Non-smoker Start:19-Nov-2019 Instruction Type:Patient Education How to access health informa tion online - Detail Indication:Non-smoker Start:19-Nov-2019 Instruction Type:Patient Education Patient Instructions Indication:Non-smoker Start:19-Nov-2019 Instruction Type:Provider Instructions for Treatment How to access health informa tion online Indication:Non-smoker Start:20-Aug-2019 Instruction Type:Patient Education How to access health informa tion online - Detail Indication:Non-smoker Start:20-Aug-2019 Instruction Type:Patient Education Patient Instructions Indication:Non-smoker Start:20-Aug-2019 Instruction Type:Provider Instructions for Treatment How to access health informa tion online Indication:BMI 25.0-25.9,adult Start:01-Aug-2019 Instruction Type:Patient Education How to access health informa tion online - Detail Indication:BMI 25.0-25.9,adult Start:01-Aug-2019 Instruction Type:Patient Education Patient Instructions Indication:BMI 25.0-25.9,adult Start:01-Aug-2019 Instruction Type:Provider Instructions for Treatment Patient Instructions Indication:Family history of cardiovascular disease Start:10-Jul-2019 Instruction Type:Provider Instructions for Treatment How to access health informa tion online Indication:BMI 25.0-25.9,adult Start:12-Dec-2018 Instruction Type:Patient Education How to access health informa tion online - Detail Indication:BMI 25.0-25.9,adult Start:12-Dec-2018 Instruction Type:Patient Education Patient Instructions Indication:BMI 25.0-25.9,adult Start:12-Dec-2018 Instruction Type:Provider Instructions for Treatment How to access health informa tion online Indication:Rash Start:29-Nov-2018 Instruction Type:Patient Education How to access health informa tion online - Detail Indication:Rash Start:29-Nov-2018 Instruction Type:Patient Education Patient Instructions Indication:BMI 25.0-25.9,adult Start:29-Nov-2018 Instruction Type:Provider Instructions for Treatment How to access health informa tion online Indication:BMI 24.0-24.9, adult Start:11-Jul-2018 Instruction Type:Patient Education How to access health informa tion online - Detail Indication:BMI 24.0-24.9, adult Start:11-Jul-2018 Instruction Type:Patient Education Patient Instructions Indication:Influenza A (H1N1) Start:11-Jul-2018 Instruction Type:Provider Instructions for Treatment How to access health informa tion online Indication:Non-smoker Start:08-Jul-2018 Instruction Type:Patient Education How to access health informa tion online - Detail Indication:Non-smoker Start:08-Jul-2018 Instruction Type:Patient Education Patient Instructions Indication:Cough Start:08-Jul-2018 Instruction Type:Provider Instructions for Treatment How to access health informa tion online Indication:Non-smoker Start:09-Oct-2017 Instruction Type:Patient Education How to access health informa tion online - Detail Indication:Non-smoker Start:09-Oct-2017 Instruction Type:Patient Education Patient Instructions Indication:Non-smoker Start:09-Oct-2017 Instruction Type:Provider Instructions for Treatment How to access health informa tion online Indication:Non-smoker Start:05-Sep-2017 Instruction Type:Patient Education How to access health informa tion online - Detail Indication:Non-smoker Start:05-Sep-2017 Instruction Type:Patient Education Patient Instructions Indication:Non-smoker Start:05-Sep-2017 Instruction Type:Provider Instructions for Treatment How to access health informa tion online Indication:Non-smoker Start:24-Jan-2017 Instruction Type:Patient Education How to access health informa tion online - Detail Indication:Non-smoker Start:24-Jan-2017 Instruction Type:Patient Education Patient Instructions Indication:Non-smoker Start:24-Jan-2017 Instruction Type:Provider Instructions for Treatment How to access health informa tion online Indication:Weight gain Start:30-Dec-2014 Instruction Type:Patient Education How to access health informa tion online - Detail Indication:Weight gain Start:30-Dec-2014 Instruction Type:Patient Education Patient Instructions Indication:Weight gain Start:30-Dec-2014 Instruction Type:Provider Instructions for Treatment How to access health informa tion online Indication:Fever and chills Start:20-Aug-2014 Instruction Type:Patient Education How to access health informa tion online - Detail Indication:Fever and chills Start:20-Aug-2014 Instruction Type:Patient Education Patient Instructions Indication:Fever and chills Start:20-Aug-2014 Instruction Type:Provider Instructions for Treatment Patient Instructions Indication:Lymphadenopathy Start:14-Aug-2014 Instruction Type:Provider Instructions for Treatment Patient Instructions Indication:Weight gain Start:10-Sep-2013 Instruction Type:Provider Instructions for Treatment Patient Instructions Indication:OTHER FORMS OF ASTHMA, COUGH VARIANT ASTHMA Start:09-May-2013 Instruction Type:Provider Instructions for Treatment Patient Instructions Indication:Gas Start:14-Oct-2012 Instruction Type:Provider Instructions for Treatment Patient Instructions Indication:Benign paroxysmal positional vertigo Start:14-Aug-2012 Instruction Type:Provider Instructions for Treatment Patient Instructions Indication:Joint pain Start:08-May-2012 Instruction Type:Provider Instructions for Treatment Patient Instructions Indication:Joint pain Start:02-May-2012 Instruction Type:Provider Instructions for Treatment Name Dates Details How to access health informa tion online Indication:BMI 24.0-24.9, adult Start:22-Apr-2020 Instruction Type:Patient Education How to access health informa tion online - Detail Indication:BMI 24.0-24.9, adult Start:22-Apr-2020 Instruction Type:Patient Education Patient Instructions Indication:BMI 24.0-24.9, adult Start:22-Apr-2020 Instruction Type:Provider Instructions for Treatment How to access health informa tion online Indication:Non-smoker Start:19-Nov-2019 Instruction Type:Patient Education How to access health informa tion online - Detail Indication:Non-smoker Start:19-Nov-2019 Instruction Type:Patient Education Patient Instructions Indication:Non-smoker Start:19-Nov-2019 Instruction Type:Provider Instructions for Treatment How to access health informa tion online Indication:Non-smoker Start:20-Aug-2019 Instruction Type:Patient Education How to access health informa tion online - Detail Indication:Non-smoker Start:20-Aug-2019 Instruction Type:Patient Education Patient Instructions Indication:Non-smoker Start:20-Aug-2019 Instruction Type:Provider Instructions for Treatment How to access health informa tion online Indication:BMI 25.0-25.9,adult Start:01-Aug-2019 Instruction Type:Patient Education How to access health informa tion online - Detail Indication:BMI 25.0-25.9,adult Start:01-Aug-2019 Instruction Type:Patient Education Patient Instructions Indication:BMI 25.0-25.9,adult Start:01-Aug-2019 Instruction Type:Provider Instructions for Treatment Patient Instructions Indication:Family history of cardiovascular disease Start:10-Jul-2019 Instruction Type:Provider Instructions for Treatment How to access health informa tion online Indication:BMI 25.0-25.9,adult Start:12-Dec-2018 Instruction Type:Patient Education How to access health informa tion online - Detail Indication:BMI 25.0-25.9,adult Start:12-Dec-2018 Instruction Type:Patient Education Patient Instructions Indication:BMI 25.0-25.9,adult Start:12-Dec-2018 Instruction Type:Provider Instructions for Treatment How to access health informa tion online Indication:Rash Start:29-Nov-2018 Instruction Type:Patient Education How to access health informa tion online - Detail Indication:Rash Start:29-Nov-2018 Instruction Type:Patient Education Patient Instructions Indication:BMI 25.0-25.9,adult Start:29-Nov-2018 Instruction Type:Provider Instructions for Treatment How to access health informa tion online Indication:BMI 24.0-24.9, adult Start:11-Jul-2018 Instruction Type:Patient Education How to access health informa tion online - Detail Indication:BMI 24.0-24.9, adult Start:11-Jul-2018 Instruction Type:Patient Education Patient Instructions Indication:Influenza A (H1N1) Start:11-Jul-2018 Instruction Type:Provider Instructions for Treatment How to access health informa tion online Indication:Non-smoker Start:08-Jul-2018 Instruction Type:Patient Education How to access health informa tion online - Detail Indication:Non-smoker Start:08-Jul-2018 Instruction Type:Patient Education Patient Instructions Indication:Cough Start:08-Jul-2018 Instruction Type:Provider Instructions for Treatment How to access health informa tion online Indication:Non-smoker Start:09-Oct-2017 Instruction Type:Patient Education How to access health informa tion online - Detail Indication:Non-smoker Start:09-Oct-2017 Instruction Type:Patient Education Patient Instructions Indication:Non-smoker Start:09-Oct-2017 Instruction Type:Provider Instructions for Treatment How to access health informa tion online Indication:Non-smoker Start:05-Sep-2017 Instruction Type:Patient Education How to access health informa tion online - Detail Indication:Non-smoker Start:05-Sep-2017 Instruction Type:Patient Education Patient Instructions Indication:Non-smoker Start:05-Sep-2017 Instruction Type:Provider Instructions for Treatment How to access health informa tion online Indication:Non-smoker Start:24-Jan-2017 Instruction Type:Patient Education How to access health informa tion online - Detail Indication:Non-smoker Start:24-Jan-2017 Instruction Type:Patient Education Patient Instructions Indication:Non-smoker Start:24-Jan-2017 Instruction Type:Provider Instructions for Treatment How to access health informa tion online Indication:Weight gain Start:30-Dec-2014 Instruction Type:Patient Education How to access health informa tion online - Detail Indication:Weight gain Start:30-Dec-2014 Instruction Type:Patient Education Patient Instructions Indication:Weight gain Start:30-Dec-2014 Instruction Type:Provider Instructions for Treatment How to access health informa tion online Indication:Fever and chills Start:20-Aug-2014 Instruction Type:Patient Education How to access health informa tion online - Detail Indication:Fever and chills Start:20-Aug-2014 Instruction Type:Patient Education Patient Instructions Indication:Fever and chills Start:20-Aug-2014 Instruction Type:Provider Instructions for Treatment Patient Instructions Indication:Lymphadenopathy Start:14-Aug-2014 Instruction Type:Provider Instructions for Treatment Patient Instructions Indication:Weight gain Start:10-Sep-2013 Instruction Type:Provider Instructions for Treatment Patient Instructions Indication:OTHER FORMS OF ASTHMA, COUGH VARIANT ASTHMA Start:09-May-2013 Instruction Type:Provider Instructions for Treatment Patient Instructions Indication:Gas Start:14-Oct-2012 Instruction Type:Provider Instructions for Treatment Patient Instructions Indication:Benign paroxysmal positional vertigo Start:14-Aug-2012 Instruction Type:Provider Instructions for Treatment Patient Instructions Indication:Joint pain Start:08-May-2012 Instruction Type:Provider Instructions for Treatment Patient Instructions Indication:Joint pain Start:02-May-2012 Instruction Type:Provider Instructions for Treatment Name Dates Details How to access health informa tion online - Detail Indication:Non-smoker Start:10-May-2020 Instruction Type:Patient Education How to access health informa tion online Indication:Non-smoker Start:10-May-2020 Instruction Type:Patient Education Patient Instructions Indication:Non-smoker Start:10-May-2020 Instruction Type:Provider Instructions for Treatment How to access health informa tion online Indication:BMI 24.0-24.9, adult Start:22-Apr-2020 Instruction Type:Patient Education How to access health informa tion online - Detail Indication:BMI 24.0-24.9, adult Start:22-Apr-2020 Instruction Type:Patient Education Patient Instructions Indication:BMI 24.0-24.9, adult Start:22-Apr-2020 Instruction Type:Provider Instructions for Treatment How to access health informa tion online Indication:Non-smoker Start:19-Nov-2019 Instruction Type:Patient Education How to access health informa tion online - Detail Indication:Non-smoker Start:19-Nov-2019 Instruction Type:Patient Education Patient Instructions Indication:Non-smoker Start:19-Nov-2019 Instruction Type:Provider Instructions for Treatment How to access health informa tion online Indication:Non-smoker Start:20-Aug-2019 Instruction Type:Patient Education How to access health informa tion online - Detail Indication:Non-smoker Start:20-Aug-2019 Instruction Type:Patient Education Patient Instructions Indication:Non-smoker Start:20-Aug-2019 Instruction Type:Provider Instructions for Treatment How to access health informa tion online Indication:BMI 25.0-25.9,adult Start:01-Aug-2019 Instruction Type:Patient Education How to access health informa tion online - Detail Indication:BMI 25.0-25.9,adult Start:01-Aug-2019 Instruction Type:Patient Education Patient Instructions Indication:BMI 25.0-25.9,adult Start:01-Aug-2019 Instruction Type:Provider Instructions for Treatment Patient Instructions Indication:Family history of cardiovascular disease Start:10-Jul-2019 Instruction Type:Provider Instructions for Treatment How to access health informa tion online Indication:BMI 25.0-25.9,adult Start:12-Dec-2018 Instruction Type:Patient Education How to access health informa tion online - Detail Indication:BMI 25.0-25.9,adult Start:12-Dec-2018 Instruction Type:Patient Education Patient Instructions Indication:BMI 25.0-25.9,adult Start:12-Dec-2018 Instruction Type:Provider Instructions for Treatment How to access health informa tion online Indication:Rash Start:29-Nov-2018 Instruction Type:Patient Education How to access health informa tion online - Detail Indication:Rash Start:29-Nov-2018 Instruction Type:Patient Education Patient Instructions Indication:BMI 25.0-25.9,adult Start:29-Nov-2018 Instruction Type:Provider Instructions for Treatment How to access health informa tion online Indication:BMI 24.0-24.9, adult Start:11-Jul-2018 Instruction Type:Patient Education How to access health informa tion online - Detail Indication:BMI 24.0-24.9, adult Start:11-Jul-2018 Instruction Type:Patient Education Patient Instructions Indication:Influenza A (H1N1) Start:11-Jul-2018 Instruction Type:Provider Instructions for Treatment How to access health informa tion online Indication:Non-smoker Start:08-Jul-2018 Instruction Type:Patient Education How to access health informa tion online - Detail Indication:Non-smoker Start:08-Jul-2018 Instruction Type:Patient Education Patient Instructions Indication:Cough Start:08-Jul-2018 Instruction Type:Provider Instructions for Treatment How to access health informa tion online Indication:Non-smoker Start:09-Oct-2017 Instruction Type:Patient Education How to access health informa tion online - Detail Indication:Non-smoker Start:09-Oct-2017 Instruction Type:Patient Education Patient Instructions Indication:Non-smoker Start:09-Oct-2017 Instruction Type:Provider Instructions for Treatment How to access health informa tion online Indication:Non-smoker Start:05-Sep-2017 Instruction Type:Patient Education How to access health informa tion online - Detail Indication:Non-smoker Start:05-Sep-2017 Instruction Type:Patient Education Patient Instructions Indication:Non-smoker Start:05-Sep-2017 Instruction Type:Provider Instructions for Treatment How to access health informa tion online Indication:Non-smoker Start:24-Jan-2017 Instruction Type:Patient Education How to access health informa tion online - Detail Indication:Non-smoker Start:24-Jan-2017 Instruction Type:Patient Education Patient Instructions Indication:Non-smoker Start:24-Jan-2017 Instruction Type:Provider Instructions for Treatment How to access health informa tion online Indication:Weight gain Start:30-Dec-2014 Instruction Type:Patient Education How to access health informa tion online - Detail Indication:Weight gain Start:30-Dec-2014 Instruction Type:Patient Education Patient Instructions Indication:Weight gain Start:30-Dec-2014 Instruction Type:Provider Instructions for Treatment How to access health informa tion online Indication:Fever and chills Start:20-Aug-2014 Instruction Type:Patient Education How to access health informa tion online - Detail Indication:Fever and chills Start:20-Aug-2014 Instruction Type:Patient Education Patient Instructions Indication:Fever and chills Start:20-Aug-2014 Instruction Type:Provider Instructions for Treatment Patient Instructions Indication:Lymphadenopathy Start:14-Aug-2014 Instruction Type:Provider Instructions for Treatment Patient Instructions Indication:Weight gain Start:10-Sep-2013 Instruction Type:Provider Instructions for Treatment Patient Instructions Indication:OTHER FORMS OF ASTHMA, COUGH VARIANT ASTHMA Start:09-May-2013 Instruction Type:Provider Instructions for Treatment Patient Instructions Indication:Gas Start:14-Oct-2012 Instruction Type:Provider Instructions for Treatment Patient Instructions Indication:Benign paroxysmal positional vertigo Start:14-Aug-2012 Instruction Type:Provider Instructions for Treatment Patient Instructions Indication:Joint pain Start:08-May-2012 Instruction Type:Provider Instructions for Treatment Patient Instructions Indication:Joint pain Start:02-May-2012 Instruction Type:Provider Instructions for Treatment Name Dates Details How to access health informa tion online - Detail Indication:Non-smoker Start:10-May-2020 Instruction Type:Patient Education How to access health informa tion online Indication:Non-smoker Start:10-May-2020 Instruction Type:Patient Education Patient Instructions Indication:Non-smoker Start:10-May-2020 Instruction Type:Provider Instructions for Treatment How to access health informa tion online Indication:BMI 24.0-24.9, adult Start:22-Apr-2020 Instruction Type:Patient Education How to access health informa tion online - Detail Indication:BMI 24.0-24.9, adult Start:22-Apr-2020 Instruction Type:Patient Education Patient Instructions Indication:BMI 24.0-24.9, adult Start:22-Apr-2020 Instruction Type:Provider Instructions for Treatment How to access health informa tion online Indication:Non-smoker Start:19-Nov-2019 Instruction Type:Patient Education How to access health informa tion online - Detail Indication:Non-smoker Start:19-Nov-2019 Instruction Type:Patient Education Patient Instructions Indication:Non-smoker Start:19-Nov-2019 Instruction Type:Provider Instructions for Treatment How to access health informa tion online Indication:Non-smoker Start:20-Aug-2019 Instruction Type:Patient Education How to access health informa tion online - Detail Indication:Non-smoker Start:20-Aug-2019 Instruction Type:Patient Education Patient Instructions Indication:Non-smoker Start:20-Aug-2019 Instruction Type:Provider Instructions for Treatment How to access health informa tion online Indication:BMI 25.0-25.9,adult Start:01-Aug-2019 Instruction Type:Patient Education How to access health informa tion online - Detail Indication:BMI 25.0-25.9,adult Start:01-Aug-2019 Instruction Type:Patient Education Patient Instructions Indication:BMI 25.0-25.9,adult Start:01-Aug-2019 Instruction Type:Provider Instructions for Treatment Patient Instructions Indication:Family history of cardiovascular disease Start:10-Jul-2019 Instruction Type:Provider Instructions for Treatment How to access health informa tion online Indication:BMI 25.0-25.9,adult Start:12-Dec-2018 Instruction Type:Patient Education How to access health informa tion online - Detail Indication:BMI 25.0-25.9,adult Start:12-Dec-2018 Instruction Type:Patient Education Patient Instructions Indication:BMI 25.0-25.9,adult Start:12-Dec-2018 Instruction Type:Provider Instructions for Treatment How to access health informa tion online Indication:Rash Start:29-Nov-2018 Instruction Type:Patient Education How to access health informa tion online - Detail Indication:Rash Start:29-Nov-2018 Instruction Type:Patient Education Patient Instructions Indication:BMI 25.0-25.9,adult Start:29-Nov-2018 Instruction Type:Provider Instructions for Treatment How to access health informa tion online Indication:BMI 24.0-24.9, adult Start:11-Jul-2018 Instruction Type:Patient Education How to access health informa tion online - Detail Indication:BMI 24.0-24.9, adult Start:11-Jul-2018 Instruction Type:Patient Education Patient Instructions Indication:Influenza A (H1N1) Start:11-Jul-2018 Instruction Type:Provider Instructions for Treatment How to access health informa tion online Indication:Non-smoker Start:08-Jul-2018 Instruction Type:Patient Education How to access health informa tion online - Detail Indication:Non-smoker Start:08-Jul-2018 Instruction Type:Patient Education Patient Instructions Indication:Cough Start:08-Jul-2018 Instruction Type:Provider Instructions for Treatment How to access health informa tion online Indication:Non-smoker Start:09-Oct-2017 Instruction Type:Patient Education How to access health informa tion online - Detail Indication:Non-smoker Start:09-Oct-2017 Instruction Type:Patient Education Patient Instructions Indication:Non-smoker Start:09-Oct-2017 Instruction Type:Provider Instructions for Treatment How to access health informa tion online Indication:Non-smoker Start:05-Sep-2017 Instruction Type:Patient Education How to access health informa tion online - Detail Indication:Non-smoker Start:05-Sep-2017 Instruction Type:Patient Education Patient Instructions Indication:Non-smoker Start:05-Sep-2017 Instruction Type:Provider Instructions for Treatment How to access health informa tion online Indication:Non-smoker Start:24-Jan-2017 Instruction Type:Patient Education How to access health informa tion online - Detail Indication:Non-smoker Start:24-Jan-2017 Instruction Type:Patient Education Patient Instructions Indication:Non-smoker Start:24-Jan-2017 Instruction Type:Provider Instructions for Treatment How to access health informa tion online Indication:Weight gain Start:30-Dec-2014 Instruction Type:Patient Education How to access health informa tion online - Detail Indication:Weight gain Start:30-Dec-2014 Instruction Type:Patient Education Patient Instructions Indication:Weight gain Start:30-Dec-2014 Instruction Type:Provider Instructions for Treatment How to access health informa tion online Indication:Fever and chills Start:20-Aug-2014 Instruction Type:Patient Education How to access health informa tion online - Detail Indication:Fever and chills Start:20-Aug-2014 Instruction Type:Patient Education Patient Instructions Indication:Fever and chills Start:20-Aug-2014 Instruction Type:Provider Instructions for Treatment Patient Instructions Indication:Lymphadenopathy Start:14-Aug-2014 Instruction Type:Provider Instructions for Treatment Patient Instructions Indication:Weight gain Start:10-Sep-2013 Instruction Type:Provider Instructions for Treatment Patient Instructions Indication:OTHER FORMS OF ASTHMA, COUGH VARIANT ASTHMA Start:09-May-2013 Instruction Type:Provider Instructions for Treatment Patient Instructions Indication:Gas Start:14-Oct-2012 Instruction Type:Provider Instructions for Treatment Patient Instructions Indication:Benign paroxysmal positional vertigo Start:14-Aug-2012 Instruction Type:Provider Instructions for Treatment Patient Instructions Indication:Joint pain Start:08-May-2012 Instruction Type:Provider Instructions for Treatment Patient Instructions Indication:Joint pain Start:02-May-2012 Instruction Type:Provider Instructions for Treatment Name Dates Details How to access health informa tion online - Detail Indication:Non-smoker Start:10-May-2020 Instruction Type:Patient Education How to access health informa tion online Indication:Non-smoker Start:10-May-2020 Instruction Type:Patient Education Patient Instructions Indication:Non-smoker Start:10-May-2020 Instruction Type:Provider Instructions for Treatment How to access health informa tion online Indication:BMI 24.0-24.9, adult Start:22-Apr-2020 Instruction Type:Patient Education How to access health informa tion online - Detail Indication:BMI 24.0-24.9, adult Start:22-Apr-2020 Instruction Type:Patient Education Patient Instructions Indication:BMI 24.0-24.9, adult Start:22-Apr-2020 Instruction Type:Provider Instructions for Treatment How to access health informa tion online Indication:Non-smoker Start:19-Nov-2019 Instruction Type:Patient Education How to access health informa tion online - Detail Indication:Non-smoker Start:19-Nov-2019 Instruction Type:Patient Education Patient Instructions Indication:Non-smoker Start:19-Nov-2019 Instruction Type:Provider Instructions for Treatment How to access health informa tion online Indication:Non-smoker Start:20-Aug-2019 Instruction Type:Patient Education How to access health informa tion online - Detail Indication:Non-smoker Start:20-Aug-2019 Instruction Type:Patient Education Patient Instructions Indication:Non-smoker Start:20-Aug-2019 Instruction Type:Provider Instructions for Treatment How to access health informa tion online Indication:BMI 25.0-25.9,adult Start:01-Aug-2019 Instruction Type:Patient Education How to access health informa tion online - Detail Indication:BMI 25.0-25.9,adult Start:01-Aug-2019 Instruction Type:Patient Education Patient Instructions Indication:BMI 25.0-25.9,adult Start:01-Aug-2019 Instruction Type:Provider Instructions for Treatment Patient Instructions Indication:Family history of cardiovascular disease Start:10-Jul-2019 Instruction Type:Provider Instructions for Treatment How to access health informa tion online Indication:BMI 25.0-25.9,adult Start:12-Dec-2018 Instruction Type:Patient Education How to access health informa tion online - Detail Indication:BMI 25.0-25.9,adult Start:12-Dec-2018 Instruction Type:Patient Education Patient Instructions Indication:BMI 25.0-25.9,adult Start:12-Dec-2018 Instruction Type:Provider Instructions for Treatment How to access health informa tion online Indication:Rash Start:29-Nov-2018 Instruction Type:Patient Education How to access health informa tion online - Detail Indication:Rash Start:29-Nov-2018 Instruction Type:Patient Education Patient Instructions Indication:BMI 25.0-25.9,adult Start:29-Nov-2018 Instruction Type:Provider Instructions for Treatment How to access health informa tion online Indication:BMI 24.0-24.9, adult Start:11-Jul-2018 Instruction Type:Patient Education How to access health informa tion online - Detail Indication:BMI 24.0-24.9, adult Start:11-Jul-2018 Instruction Type:Patient Education Patient Instructions Indication:Influenza A (H1N1) Start:11-Jul-2018 Instruction Type:Provider Instructions for Treatment How to access health informa tion online Indication:Non-smoker Start:08-Jul-2018 Instruction Type:Patient Education How to access health informa tion online - Detail Indication:Non-smoker Start:08-Jul-2018 Instruction Type:Patient Education Patient Instructions Indication:Cough Start:08-Jul-2018 Instruction Type:Provider Instructions for Treatment How to access health informa tion online Indication:Non-smoker Start:09-Oct-2017 Instruction Type:Patient Education How to access health informa tion online - Detail Indication:Non-smoker Start:09-Oct-2017 Instruction Type:Patient Education Patient Instructions Indication:Non-smoker Start:09-Oct-2017 Instruction Type:Provider Instructions for Treatment How to access health informa tion online Indication:Non-smoker Start:05-Sep-2017 Instruction Type:Patient Education How to access health informa tion online - Detail Indication:Non-smoker Start:05-Sep-2017 Instruction Type:Patient Education Patient Instructions Indication:Non-smoker Start:05-Sep-2017 Instruction Type:Provider Instructions for Treatment How to access health informa tion online Indication:Non-smoker Start:24-Jan-2017 Instruction Type:Patient Education How to access health informa tion online - Detail Indication:Non-smoker Start:24-Jan-2017 Instruction Type:Patient Education Patient Instructions Indication:Non-smoker Start:24-Jan-2017 Instruction Type:Provider Instructions for Treatment How to access health informa tion online Indication:Weight gain Start:30-Dec-2014 Instruction Type:Patient Education How to access health informa tion online - Detail Indication:Weight gain Start:30-Dec-2014 Instruction Type:Patient Education Patient Instructions Indication:Weight gain Start:30-Dec-2014 Instruction Type:Provider Instructions for Treatment How to access health informa tion online Indication:Fever and chills Start:20-Aug-2014 Instruction Type:Patient Education How to access health informa tion online - Detail Indication:Fever and chills Start:20-Aug-2014 Instruction Type:Patient Education Patient Instructions Indication:Fever and chills Start:20-Aug-2014 Instruction Type:Provider Instructions for Treatment Patient Instructions Indication:Lymphadenopathy Start:14-Aug-2014 Instruction Type:Provider Instructions for Treatment Patient Instructions Indication:Weight gain Start:10-Sep-2013 Instruction Type:Provider Instructions for Treatment Patient Instructions Indication:OTHER FORMS OF ASTHMA, COUGH VARIANT ASTHMA Start:09-May-2013 Instruction Type:Provider Instructions for Treatment Patient Instructions Indication:Gas Start:14-Oct-2012 Instruction Type:Provider Instructions for Treatment Patient Instructions Indication:Benign paroxysmal positional vertigo Start:14-Aug-2012 Instruction Type:Provider Instructions for Treatment Patient Instructions Indication:Joint pain Start:08-May-2012 Instruction Type:Provider Instructions for Treatment Patient Instructions Indication:Joint pain Start:02-May-2012 Instruction Type:Provider Instructions for Treatment Name Dates Details How to access health informa tion online - Detail Indication:Non-smoker Start:10-May-2020 Instruction Type:Patient Education How to access health informa tion online Indication:Non-smoker Start:10-May-2020 Instruction Type:Patient Education Patient Instructions Indication:Non-smoker Start:10-May-2020 Instruction Type:Provider Instructions for Treatment How to access health informa tion online Indication:BMI 24.0-24.9, adult Start:22-Apr-2020 Instruction Type:Patient Education How to access health informa tion online - Detail Indication:BMI 24.0-24.9, adult Start:22-Apr-2020 Instruction Type:Patient Education Patient Instructions Indication:BMI 24.0-24.9, adult Start:22-Apr-2020 Instruction Type:Provider Instructions for Treatment How to access health informa tion online Indication:Non-smoker Start:19-Nov-2019 Instruction Type:Patient Education How to access health informa tion online - Detail Indication:Non-smoker Start:19-Nov-2019 Instruction Type:Patient Education Patient Instructions Indication:Non-smoker Start:19-Nov-2019 Instruction Type:Provider Instructions for Treatment How to access health informa tion online Indication:Non-smoker Start:20-Aug-2019 Instruction Type:Patient Education How to access health informa tion online - Detail Indication:Non-smoker Start:20-Aug-2019 Instruction Type:Patient Education Patient Instructions Indication:Non-smoker Start:20-Aug-2019 Instruction Type:Provider Instructions for Treatment How to access health informa tion online Indication:BMI 25.0-25.9,adult Start:01-Aug-2019 Instruction Type:Patient Education How to access health informa tion online - Detail Indication:BMI 25.0-25.9,adult Start:01-Aug-2019 Instruction Type:Patient Education Patient Instructions Indication:BMI 25.0-25.9,adult Start:01-Aug-2019 Instruction Type:Provider Instructions for Treatment Patient Instructions Indication:Family history of cardiovascular disease Start:10-Jul-2019 Instruction Type:Provider Instructions for Treatment How to access health informa tion online Indication:BMI 25.0-25.9,adult Start:12-Dec-2018 Instruction Type:Patient Education How to access health informa tion online - Detail Indication:BMI 25.0-25.9,adult Start:12-Dec-2018 Instruction Type:Patient Education Patient Instructions Indication:BMI 25.0-25.9,adult Start:12-Dec-2018 Instruction Type:Provider Instructions for Treatment How to access health informa tion online Indication:Rash Start:29-Nov-2018 Instruction Type:Patient Education How to access health informa tion online - Detail Indication:Rash Start:29-Nov-2018 Instruction Type:Patient Education Patient Instructions Indication:BMI 25.0-25.9,adult Start:29-Nov-2018 Instruction Type:Provider Instructions for Treatment How to access health informa tion online Indication:BMI 24.0-24.9, adult Start:11-Jul-2018 Instruction Type:Patient Education How to access health informa tion online - Detail Indication:BMI 24.0-24.9, adult Start:11-Jul-2018 Instruction Type:Patient Education Patient Instructions Indication:Influenza A (H1N1) Start:11-Jul-2018 Instruction Type:Provider Instructions for Treatment How to access health informa tion online Indication:Non-smoker Start:08-Jul-2018 Instruction Type:Patient Education How to access health informa tion online - Detail Indication:Non-smoker Start:08-Jul-2018 Instruction Type:Patient Education Patient Instructions Indication:Cough Start:08-Jul-2018 Instruction Type:Provider Instructions for Treatment How to access health informa tion online Indication:Non-smoker Start:09-Oct-2017 Instruction Type:Patient Education How to access health informa tion online - Detail Indication:Non-smoker Start:09-Oct-2017 Instruction Type:Patient Education Patient Instructions Indication:Non-smoker Start:09-Oct-2017 Instruction Type:Provider Instructions for Treatment How to access health informa tion online Indication:Non-smoker Start:05-Sep-2017 Instruction Type:Patient Education How to access health informa tion online - Detail Indication:Non-smoker Start:05-Sep-2017 Instruction Type:Patient Education Patient Instructions Indication:Non-smoker Start:05-Sep-2017 Instruction Type:Provider Instructions for Treatment How to access health informa tion online Indication:Non-smoker Start:24-Jan-2017 Instruction Type:Patient Education How to access health informa tion online - Detail Indication:Non-smoker Start:24-Jan-2017 Instruction Type:Patient Education Patient Instructions Indication:Non-smoker Start:24-Jan-2017 Instruction Type:Provider Instructions for Treatment How to access health informa tion online Indication:Weight gain Start:30-Dec-2014 Instruction Type:Patient Education How to access health informa tion online - Detail Indication:Weight gain Start:30-Dec-2014 Instruction Type:Patient Education Patient Instructions Indication:Weight gain Start:30-Dec-2014 Instruction Type:Provider Instructions for Treatment How to access health informa tion online Indication:Fever and chills Start:20-Aug-2014 Instruction Type:Patient Education How to access health informa tion online - Detail Indication:Fever and chills Start:20-Aug-2014 Instruction Type:Patient Education Patient Instructions Indication:Fever and chills Start:20-Aug-2014 Instruction Type:Provider Instructions for Treatment Patient Instructions Indication:Lymphadenopathy Start:14-Aug-2014 Instruction Type:Provider Instructions for Treatment Patient Instructions Indication:Weight gain Start:10-Sep-2013 Instruction Type:Provider Instructions for Treatment Patient Instructions Indication:OTHER FORMS OF ASTHMA, COUGH VARIANT ASTHMA Start:09-May-2013 Instruction Type:Provider Instructions for Treatment Patient Instructions Indication:Gas Start:14-Oct-2012 Instruction Type:Provider Instructions for Treatment Patient Instructions Indication:Benign paroxysmal positional vertigo Start:14-Aug-2012 Instruction Type:Provider Instructions for Treatment Patient Instructions Indication:Joint pain Start:08-May-2012 Instruction Type:Provider Instructions for Treatment Patient Instructions Indication:Joint pain Start:02-May-2012 Instruction Type:Provider Instructions for Treatment Name Dates Details BMI 24.0-24.9, adult : How t o access health information online Indication:BMI 24.0-24.9, adult BMI 24.0-24.9, adult : How t o access health information online - Detail Indication:BMI 24.0-24.9, adult Influenza A (H1N1) : Patient Instructions Indication:Influenza A (H1N1) Non-smoker : How to access h ealth information online Indication:Non-smoker Non-smoker : How to access h ealth information online - Detail Indication:Non-smoker Cough : Patient Instructions Indication:Cough Non-smoker : Patient Instruc tions Indication:Non-smoker Weight gain : How to access health information online Indication:Weight gain Weight gain : How to access health information online - Detail Indication:Weight gain Weight gain : Patient Instru ctions Indication:Weight gain Fever and chills : How to ac cess health information online Indication:Fever and chills Fever and chills : How to ac cess health information online - Detail Indication:Fever and chills Fever and chills : Patient I nstructions Indication:Fever and chills Lymphadenopathy : Patient In structions Indication:Lymphadenopathy OTHER FORMS OF ASTHMA, COUGH VARIANT ASTHMA : Patient Instructions Indication:OTHER FORMS OF ASTHMA, COUGH VARIANT ASTHMA Gas : Patient Instructions Indication:Gas Benign paroxysmal positional vertigo : Patient Instructions Indication:Benign paroxysmal positional vertigo Joint pain : Patient Instruc tions Indication:Joint pain Name Dates Details How to access health informa tion online Indication:Non-smoker Start:19-Nov-2019 Instruction Type:Patient Education How to access health informa tion online - Detail Indication:Non-smoker Start:19-Nov-2019 Instruction Type:Patient Education Patient Instructions Indication:Non-smoker Start:19-Nov-2019 Instruction Type:Provider Instructions for Treatment How to access health informa tion online Indication:Non-smoker Start:20-Aug-2019 Instruction Type:Patient Education How to access health informa tion online - Detail Indication:Non-smoker Start:20-Aug-2019 Instruction Type:Patient Education Patient Instructions Indication:Non-smoker Start:20-Aug-2019 Instruction Type:Provider Instructions for Treatment How to access health informa tion online Indication:BMI 25.0-25.9,adult Start:01-Aug-2019 Instruction Type:Patient Education How to access health informa tion online - Detail Indication:BMI 25.0-25.9,adult Start:01-Aug-2019 Instruction Type:Patient Education Patient Instructions Indication:BMI 25.0-25.9,adult Start:01-Aug-2019 Instruction Type:Provider Instructions for Treatment Patient Instructions Indication:Family history of cardiovascular disease Start:10-Jul-2019 Instruction Type:Provider Instructions for Treatment How to access health informa tion online Indication:BMI 25.0-25.9,adult Start:12-Dec-2018 Instruction Type:Patient Education How to access health informa tion online - Detail Indication:BMI 25.0-25.9,adult Start:12-Dec-2018 Instruction Type:Patient Education Patient Instructions Indication:BMI 25.0-25.9,adult Start:12-Dec-2018 Instruction Type:Provider Instructions for Treatment How to access health informa tion online Indication:Rash Start:29-Nov-2018 Instruction Type:Patient Education How to access health informa tion online - Detail Indication:Rash Start:29-Nov-2018 Instruction Type:Patient Education Patient Instructions Indication:BMI 25.0-25.9,adult Start:29-Nov-2018 Instruction Type:Provider Instructions for Treatment How to access health informa tion online Indication:BMI 24.0-24.9, adult Start:11-Jul-2018 Instruction Type:Patient Education How to access health informa tion online - Detail Indication:BMI 24.0-24.9, adult Start:11-Jul-2018 Instruction Type:Patient Education Patient Instructions Indication:Influenza A (H1N1) Start:11-Jul-2018 Instruction Type:Provider Instructions for Treatment How to access health informa tion online Indication:Non-smoker Start:08-Jul-2018 Instruction Type:Patient Education How to access health informa tion online - Detail Indication:Non-smoker Start:08-Jul-2018 Instruction Type:Patient Education Patient Instructions Indication:Cough Start:08-Jul-2018 Instruction Type:Provider Instructions for Treatment How to access health informa tion online Indication:Non-smoker Start:09-Oct-2017 Instruction Type:Patient Education How to access health informa tion online - Detail Indication:Non-smoker Start:09-Oct-2017 Instruction Type:Patient Education Patient Instructions Indication:Non-smoker Start:09-Oct-2017 Instruction Type:Provider Instructions for Treatment How to access health informa tion online Indication:Non-smoker Start:05-Sep-2017 Instruction Type:Patient Education How to access health informa tion online - Detail Indication:Non-smoker Start:05-Sep-2017 Instruction Type:Patient Education Patient Instructions Indication:Non-smoker Start:05-Sep-2017 Instruction Type:Provider Instructions for Treatment How to access health informa tion online Indication:Non-smoker Start:24-Jan-2017 Instruction Type:Patient Education How to access health informa tion online - Detail Indication:Non-smoker Start:24-Jan-2017 Instruction Type:Patient Education Patient Instructions Indication:Non-smoker Start:24-Jan-2017 Instruction Type:Provider Instructions for Treatment How to access health informa tion online Indication:Weight gain Start:30-Dec-2014 Instruction Type:Patient Education How to access health informa tion online - Detail Indication:Weight gain Start:30-Dec-2014 Instruction Type:Patient Education Patient Instructions Indication:Weight gain Start:30-Dec-2014 Instruction Type:Provider Instructions for Treatment How to access health informa tion online Indication:Fever and chills Start:20-Aug-2014 Instruction Type:Patient Education How to access health informa tion online - Detail Indication:Fever and chills Start:20-Aug-2014 Instruction Type:Patient Education Patient Instructions Indication:Fever and chills Start:20-Aug-2014 Instruction Type:Provider Instructions for Treatment Patient Instructions Indication:Lymphadenopathy Start:14-Aug-2014 Instruction Type:Provider Instructions for Treatment Patient Instructions Indication:Weight gain Start:10-Sep-2013 Instruction Type:Provider Instructions for Treatment Patient Instructions Indication:OTHER FORMS OF ASTHMA, COUGH VARIANT ASTHMA Start:09-May-2013 Instruction Type:Provider Instructions for Treatment Patient Instructions Indication:Gas Start:14-Oct-2012 Instruction Type:Provider Instructions for Treatment Patient Instructions Indication:Benign paroxysmal positional vertigo Start:14-Aug-2012 Instruction Type:Provider Instructions for Treatment Patient Instructions Indication:Joint pain Start:08-May-2012 Instruction Type:Provider Instructions for Treatment Patient Instructions Indication:Joint pain Start:02-May-2012 Instruction Type:Provider Instructions for Treatment Name Dates Details Non-smoker : How to access h ealth information online Indication:Non-smoker Non-smoker : How to access h ealth information online - Detail Indication:Non-smoker Cough : Patient Instructions Indication:Cough Non-smoker : Patient Instruc tions Indication:Non-smoker Weight gain : How to access health information online Indication:Weight gain Weight gain : How to access health information online - Detail Indication:Weight gain Weight gain : Patient Instru ctions Indication:Weight gain Fever and chills : How to ac [employer] health information online Indication:Fever and chills Fever and chills : How to ac [employer] health information online - Detail Indication:Fever and chills Fever and chills : Patient I nstructions Indication:Fever and chills Lymphadenopathy : Patient In structions Indication:Lymphadenopathy OTHER FORMS OF ASTHMA, COUGH VARIANT ASTHMA : Patient Instructions Indication:OTHER FORMS OF ASTHMA, COUGH VARIANT ASTHMA Gas : Patient Instructions Indication:Gas Benign paroxysmal positional vertigo : Patient Instructions Indication:Benign paroxysmal positional vertigo Joint pain : Patient Instruc tions Indication:Joint pain Name Dates Details How to access [employer] tion online Indication:BMI 25.0-25.9,adult Start:12-Dec-2018 Instruction Type:Patient Education How to access health informa tion online - Detail Indication:BMI 25.0-25.9,adult Start:12-Dec-2018 Instruction Type:Patient Education Patient Instructions Indication:BMI 25.0-25.9,adult Start:12-Dec-2018 Instruction Type:Provider Instructions for Treatment How to access health informa tion online Indication:Rash Start:29-Nov-2018 Instruction Type:Patient Education How to access health informa tion online - Detail Indication:Rash Start:29-Nov-2018 Instruction Type:Patient Education Patient Instructions Indication:BMI 25.0-25.9,adult Start:29-Nov-2018 Instruction Type:Provider Instructions for Treatment How to access health informa tion online Indication:BMI 24.0-24.9, adult Start:11-Jul-2018 Instruction Type:Patient Education How to access health informa tion online - Detail Indication:BMI 24.0-24.9, adult Start:11-Jul-2018 Instruction Type:Patient Education Patient Instructions Indication:Influenza A (H1N1) Start:11-Jul-2018 Instruction Type:Provider Instructions for Treatment How to access health informa tion online Indication:Non-smoker Start:08-Jul-2018 Instruction Type:Patient Education How to access health informa tion online - Detail Indication:Non-smoker Start:08-Jul-2018 Instruction Type:Patient Education Patient Instructions Indication:Cough Start:08-Jul-2018 Instruction Type:Provider Instructions for Treatment How to access health informa tion online Indication:Non-smoker Start:09-Oct-2017 Instruction Type:Patient Education How to access health informa tion online - Detail Indication:Non-smoker Start:09-Oct-2017 Instruction Type:Patient Education Patient Instructions Indication:Non-smoker Start:09-Oct-2017 Instruction Type:Provider Instructions for Treatment How to access health informa tion online Indication:Non-smoker Start:05-Sep-2017 Instruction Type:Patient Education How to access health informa tion online - Detail Indication:Non-smoker Start:05-Sep-2017 Instruction Type:Patient Education Patient Instructions Indication:Non-smoker Start:05-Sep-2017 Instruction Type:Provider Instructions for Treatment How to access health informa tion online Indication:Non-smoker Start:24-Jan-2017 Instruction Type:Patient Education How to access health informa tion online - Detail Indication:Non-smoker Start:24-Jan-2017 Instruction Type:Patient Education Patient Instructions Indication:Non-smoker Start:24-Jan-2017 Instruction Type:Provider Instructions for Treatment How to access health informa tion online Indication:Weight gain Start:30-Dec-2014 Instruction Type:Patient Education How to access health informa tion online - Detail Indication:Weight gain Start:30-Dec-2014 Instruction Type:Patient Education Patient Instructions Indication:Weight gain Start:30-Dec-2014 Instruction Type:Provider Instructions for Treatment How to access health informa tion online Indication:Fever and chills Start:20-Aug-2014 Instruction Type:Patient Education How to access health informa tion online - Detail Indication:Fever and chills Start:20-Aug-2014 Instruction Type:Patient Education Patient Instructions Indication:Fever and chills Start:20-Aug-2014 Instruction Type:Provider Instructions for Treatment Patient Instructions Indication:Lymphadenopathy Start:14-Aug-2014 Instruction Type:Provider Instructions for Treatment Patient Instructions Indication:Weight gain Start:10-Sep-2013 Instruction Type:Provider Instructions for Treatment Patient Instructions Indication:OTHER FORMS OF ASTHMA, COUGH VARIANT ASTHMA Start:09-May-2013 Instruction Type:Provider Instructions for Treatment Patient Instructions Indication:Gas Start:14-Oct-2012 Instruction Type:Provider Instructions for Treatment Patient Instructions Indication:Benign paroxysmal positional vertigo Start:14-Aug-2012 Instruction Type:Provider Instructions for Treatment Patient Instructions Indication:Joint pain Start:08-May-2012 Instruction Type:Provider Instructions for Treatment Patient Instructions Indication:Joint pain Start:02-May-2012 Instruction Type:Provider Instructions for Treatment Medications Administered Section Active Administered Medications - up to 3 most recent administrations Medication Order MAR Action Action Date Dose Rate Site PHENYLephrine 2.5 % 1 Drop (AK-DILATE, AZALIA-SYNEPHRINE) 1 Drop, BOTH EYES, DIRECTED, Starting on Latanya 04/13/22 at 1200, Until Latanya 04/13/22 at 2359, Administer for dilation PROTECT FROM LIGHT Given 04/13/2022 12:00 PM EDT 1 Drop tropicamide 1 % 1 Drop (MYDRIACYL) 1 Drop, BOTH EYES, DIRECTED, Starting on Latanya 04/13/22 at 1200, Until Latanya 04/13/22 at 2359, Administer for dilation Given 04/13/2022 12:00 PM EDT 1 Drop Additional Source Comments INFORMATION SOURCE (unrecogn ized section and content) DATE CREATED AUTHOR AUTHOR'S ORGANIZ ATION 09/26/2020 [facility] DATE CREATED AUTHOR AUTHOR'S ORGANIZ ATION 10/13/2021 [facility] DATE CREATED AUTHOR AUTHOR'S ORGANIZ ATION 07/06/2023 [facility] Source Comments (unrecognize d section and content) In the event this informatio n is protected by the Federal Confidentiality of Alcohol and Drug Abuse Patient Records regulations: The Federal rules restrict any use of the information to criminally investigate or prosecute any alcohol or drug abuse patient.[facility] the event this information is protected by the Federal Confidentiality of Alcohol and Drug Abuse Patient Records regulations: The Federal rules restrict any use of the information to criminally investigate or prosecute any alcohol or drug abuse patient.[facility] Reason for Visit (unrecogniz ed section and content) Reason Comments Tearing Both Eyes Care Teams (unrecognized sec tion and content) Home Assessment Nurse Relationship Specialty Start Date End Date Karla Lorenzo DO PCP - General 05/15/06 FOR RECORDS PERTAINING TO PATIENTS WHO ARE OR HAVE BEEN ENROLLED IN A CHEMICAL DEPENDENCY/SUBSTANCEABUSE PROGRAM, SOME INFORMATION MAY BE OMITTED. This clinical summary was aggregated from multiple sources. Caution should be exercised in using it in the provision of clinical care. This summary normalizes information from multiple sources, and as a consequence, information in this document may materially change the coding, format and clinical context of patient data. In addition, data may be omitted in some cases. CLINICAL DECISIONS SHOULD BE BASED ON THE PRIMARY CLINICAL RECORDS. [facility] [employer] [facility]. provides no warranty or guarantee of the accuracy or completeness of information in this document.
[2023-07-13 12:49] LABS: Progesterone Level 22.57 ng/mL (See Comment)
[2023-07-21 09:11] LABS: DHEA Sulfate 72.4 ug/dL (29.4-220.5); Testosterone, % Free 2.12 % (0.50-2.80); Testosterone, Free < 0.06 ng/dL (0.10-0.85); Testosterone, Total < 3 ng/dL (4-50)
== END | disposition home or self-care (01) ==
LOC: LAB 11:19
PROVIDERS: PCP Internal Medicine; Referring Provider Obstetrics & Gynecology; Visit Provider Obstetrics & Gynecology
DX: R79.89 Other specified abnormal findings of blood chemistry (principal); Z79.890 Hormone replacement therapy
CPT/HCPCS: 36415; 82627; 82670; 84144; 84402; 84403; 82626

== ENCOUNTER → 2023-08-30 | Outpatient (CLI) | payer BC, SELFPAY ==
[2023-08-30 13:47] LABS: AST(SGOT) 11 U/L (15-37); Alanine Aminotransfer ALT/SGPT 15 U/L (13-56); Albumin, Serum 4.2 g/dL (3.2-5.0); Alkaline Phosphatase 51 U/L (45-117); Bilirubin, Direct 0.29 mg/dL (0.00-0.30); Cholesterol 140 mg/dL (200); Globulin 2.7 g/dL (2.2-4.2); High Density Lipoprotein 69 mg/dL; Protein, Total 6.9 g/dL (6.4-8.2); Triglycerides 51 mg/dL; Very Low Density Lipoprotein 10 mg/dL (5-40)
== END | disposition home or self-care (01) ==
PROVIDERS: PCP Internal Medicine; Referring Provider Internal Medicine Cardiovascular Disease; Visit Provider Internal Medicine Cardiovascular Disease
DX: E78.00 Pure hypercholesterolemia, unspecified (principal)
CPT/HCPCS: 36415; 80061; 80076

== ENCOUNTER → 2024-02-04 | Outpatient (CLI) | payer BC, SELFPAY ==
[2024-02-04 08:29] LABS: Bilirubin, Direct 0.23 mg/dL (0.00-0.30); Cholesterol 142 mg/dL (200); High Density Lipoprotein 73 mg/dL; Triglycerides 61 mg/dL; Very Low Density Lipoprotein 12 mg/dL (5-40)
[2024-02-04 08:34] LABS: AST(SGOT) 15 U/L (15-37); Alanine Aminotransfer ALT/SGPT 16 U/L (13-56); Albumin, Serum 3.4 g/dL (3.2-5.0); Alkaline Phosphatase 55 U/L (45-117); Anion Gap 5 (5-15); BUN 15 mg/dL (7-18); BUN/Creat Ratio 17.1 RATIO (10-20); Calcium,Total 8.6 mg/dL (8.5-10.1); Chloride 110 mmol/L (98-107); Creatinine, Serum 0.88 mg/dL (0.55-1.02); EST Glomerular Filtration Rate 71 mL/min (>60); Est Glom Filt Rate - Afr Amer 86 mL/min (>60); Estradiol 40.6 pg/mL; Globulin 3.3 g/dL (2.2-4.2); Glucose 104 mg/dL (74-106); Potassium 3.9 mmol/L (3.5-5.1); Protein, Total 6.7 g/dL (6.4-8.2); Sodium Level 138 mmol/L (136-145)
[2024-02-07 11:09] LABS: DHEA Sulfate 76.9 ug/dL (29.4-220.5); Insulin Level 5.7 uIU/mL (2.6-24.9); Testosterone, % Free 2.37 % (0.50-2.80); Testosterone, Free <.07 ng/dL (0.10-0.85); Testosterone, Total < 3 ng/dL (4-50)
== END | disposition home or self-care (01) ==
LOC: LAB 07:01
PROVIDERS: Internal Medicine Cardiovascular Disease; PCP Internal Medicine; Referring Provider Obstetrics & Gynecology; Visit Provider Obstetrics & Gynecology
DX: E88.819 Insulin resistance, unspecified (principal); Z79.890 Hormone replacement therapy
CPT/HCPCS: 80053; 80061; 82248; 82627; 82670; 83525; 84402; 84403; 82626

== ENCOUNTER → 2024-02-14 | Outpatient (CLI) | payer BC, SELFPAY ==
--- NOTE | 2024-02-14 13:50 | BI_ITS ---
MAMMOGRAPHY - BILATERAL SCREENING REASON FOR EXAM: Female, 58 years old. Routine annual screening examination. PERTINENT HISTORY: Non-contributory. TECHNIQUE: Digital bilateral breast margarita (3D mammographic acquisition) in the CC and MLO projections. 2-D mediolateral oblique (MLO) and craniocaudad (CC) views of both breasts were obtained. CAD: Full Field Digital Mammography with Computer Added Detection was performed. COMPARISON: Comparison is made with prior study of November 29, 2022 and November 03, 2021. FINDINGS: Breast Composition: The breasts are heterogeneously dense, which may obscure small masses. There are no dominant masses or suspicious calcifications. No other significant abnormalities are identified. There has been no significant change since the prior study. BI/SCRN MAMM (CAD)W/MARGRAITA BILAT IMPRESSION: Stable bilateral screening mammogram. Yearly follow-up mammogram recommended. (A) ASSESSMENT CATEGORY: BIRADS Category 1: Negative. A letter regarding these results will be sent to the patient by the facility within 30 days. Approximately 10% of breast cancers are not detected by mammography. A normal mammogram should not delay biopsy of a clinically suspicious abnormality. [id number] Electronically Signed: Troy Menjivar MD at 14:13 EDT ,
== END | disposition home or self-care (01) ==
LOC: OPBI 13:48
PROVIDERS: PCP Internal Medicine; Referring Provider Obstetrics & Gynecology; Visit Provider Obstetrics & Gynecology
DX: Z12.31 Encounter for screening mammogram for malignant neoplasm of breast (principal)
CPT/HCPCS: 77063; 77067

== ENCOUNTER → 2024-09-22 | Outpatient (CLI) | payer BC, SELFPAY ==
[2024-09-22 07:45] LABS: Hematocrit 40.4 % (37-47); Hemoglobin 13.6 g/dL (12.0-15.0); Mean Corp Hgb Conc 33.7 g/dL (32-36); Mean Corpuscular Hgb 30.2 pg (27.0-32.0); Mean Corpuscular Volume 89.6 fL (81-99); Mean Platelet Vol. 9.4 fl (6.2-12.0); Platelet Count 273 K/mm3 (150-450); RBC Distribution Width CV 12.3 % (11.6-14.6); RBC Distribution Width SD 40.6 fl (35.1-43.9); Red Blood Count 4.51 M/mm3 (4.2-5.4); White Blood Count 4.1 K/mm3 (4.4-11.0)
[2024-09-22 08:34] LABS: Anion Gap 10 (5-15); BUN 14 mg/dL (4-19); BUN/Creat Ratio 15.6 RATIO (10-20); Calcium,Total 8.9 mg/dL (7.6-11.0); Chloride 108 mmol/L (98-108); Creatinine, Serum 0.92 mg/dL (0.70-1.20); EST Glomerular Filtration Rate 73 (>60); Estradiol 26.6 pg/mL; Glucose 106 mg/dL (70-99); Sodium Level 141 mmol/L (133-145)
== END | disposition home or self-care (01) ==
LOC: LAB 07:09
PROVIDERS: PCP Internal Medicine; Referring Provider Obstetrics & Gynecology; Visit Provider Obstetrics & Gynecology
DX: E28.9 Ovarian dysfunction, unspecified (principal); Z13.1 Encounter for screening for diabetes mellitus; Z79.890 Hormone replacement therapy; Z13.0 Encounter for screening for diseases of the blood and blood-forming organs and certain disorders involving the immune mechanism
CPT/HCPCS: 36415; 80048; 82670; 84402; 84403; 85027

== ENCOUNTER → 2024-11-06 | Outpatient (CLI) | payer BC, SELFPAY ==
[2024-11-06 13:42] LABS: Hemoglobin A1c 5.1 % (<=5.6)
== END | disposition home or self-care (01) ==
LOC: LAB 12:49
PROVIDERS: PCP Internal Medicine; Referring Provider Obstetrics & Gynecology; Visit Provider Obstetrics & Gynecology
DX: R73.03 Prediabetes (principal); Z79.890 Hormone replacement therapy
CPT/HCPCS: 36415; 83036; 84443

== ENCOUNTER → 2025-03-26 | Outpatient (CLI) | payer BC, SELFPAY | END | disposition home or self-care (01) | LOC: PSN 12:28 | PROVIDERS: PCP Internal Medicine; Referring Provider Nurse Practitioner Gerontology; Visit Provider Nurse Practitioner Gerontology | DX: R00.1 Bradycardia, unspecified (principal) | CPT/HCPCS: 93225; 93226 ==

== ENCOUNTER → 2025-04-21 | Outpatient (CLI) | payer BC, SELFPAY ==
--- NOTE | 2025-04-21 14:45 | BI_ITS ---
EXAM: BI/SCRN MAMM (CAD)W/MARGARITA BILAT
== END | disposition home or self-care (01) ==
PROVIDERS: PCP Internal Medicine; Referring Provider Internal Medicine; Visit Provider Internal Medicine
DX: Z12.31 Encounter for screening mammogram for malignant neoplasm of breast (principal)
CPT/HCPCS: 77063; 77067

== ENCOUNTER → 2025-05-21 | Outpatient (CLI) | payer BC, SELFPAY ==
--- NOTE | 2025-05-21 08:24 | BD_ITS ---
PROCEDURE: DEXA BONE DENSITY STUDY 05/21/2025 REASON FOR EXAM: F, age 59 y/o . Postmenopausal. TECHNIQUE: Procedure Code: BDDBD Modality: DX Procedure: DEXA BONE DENSITY STUDY COMPARISON: None FINDINGS: BMD and T-SCORES Lumbar spine: 0.974 g/cm2, T-score -0.7 Levels: L1 through L4 Left femoral neck: 0.764 g/cm2, T-score -0.8 Femoral neck comparison data not recommended for monitoring change. Left total hip: 0.951 g/cm2, T-score 0.1 Right femoral neck: 0.816 g/cm2, T-score -0.3 Femoral neck comparison data not recommended for monitoring change. Right total hip: 0.975 g/cm2, T-score 0.3 The World Health Organization has defined the following categories based on bone density: Normal bone density: T-score equal to or greater than -1.0 Osteopenia: T-score between -1.0 and -2.5 Osteoporosis: T-score equal to or less than -2.5 FRAX (or Comparable) Fracture Risk Assessment: 10 Year Probability of Fracture: Major Osteoporotic Fracture: 18% Hip Fracture: 0.5% (Note: FRAX is not to be reported in setting of normal range bone density, osteoporosis on DEXA, known history of osteoporosis, prior osteoporotic hip or vertebral fracture, or for any patient undergoing pharmacological treatment for bone loss.) The National Osteoporosis Foundation (NOF) recommends pharmacological treatment for patients with a FRAX 10-year risk of 3% or higher for a hip fracture, or 20% or higher for a major osteoporotic fracture, to prevent osteoporosis and reduce fracture risk. The patient does not meet the pharmacological treatment recommendations for prevention of osteoporosis. BD/Dexa Bone Density Study IMPRESSION: NORMAL T-SCORES. Recommend follow-up as clinically warranted. Reading Location: [place] [id number]
== END | disposition home or self-care (01) ==
LOC: OPBD 08:24
PROVIDERS: PCP Internal Medicine; Referring Provider Internal Medicine; Visit Provider Internal Medicine
DX: Z78.0 Asymptomatic menopausal state (principal)
CPT/HCPCS: 77080